=== PATIENT | female | born 1970 | race Caucasian/White ===

== ENCOUNTER → 2019-07-21 | Outpatient (CLI) | payer SELFPAY | PROVIDERS: Visit Provider Internal Medicine Hematology & Oncology | DX: Z85.41 Personal history of malignant neoplasm of cervix uteri (principal); N94.9 Unspecified condition associated with female genital organs and menstrual cycle; R10.2 Pelvic and perineal pain; R91.8 Other nonspecific abnormal finding of lung field; D64.9 Anemia, unspecified; Z79.891 Long term (current) use of opiate analgesic; Z92.3 Personal history of irradiation; Z92.21 Personal history of antineoplastic chemotherapy | CPT/HCPCS: 96523; 99203; J1642 ==

== ENCOUNTER 2019-07-22 09:43 | Inpatient (IN) | payer MEDICAID, SELFPAY ==
[2019-07-22 22:45] VITALS: BP 162/93; PULSE 80; RESP 20; TEMP 37.1; O2SAT 96
[2019-07-23] VITALS (7 sets, daily range): BP systolic 155–166; BP diastolic 87–91; PULSE 87–93; RESP 18–20; TEMP 36.7–36.9; O2SAT 94–98
[2019-07-23] MEDS: morphine 4 mg/mL SDV 1 mL 2 MG IVP ×4 (02:50→12:23)
[2019-07-23] MEDS: D5-NS 0.45% + KCL 20 mEq 20 MEQ/1,000 ML BAG 125 MEQ IV ×2 (05:06→12:24)
[2019-07-23 06:10] LABS: Add RBC Morph No
[2019-07-23 06:16] LABS: Basophils # 0.1 10^3/uL (0.0-0.1); Basophils % 0.6 %; Eosinophils # 0.1 10^3/uL (0.0-0.8); Eosinophils % 0.9 %; Hematocrit 32.3 % (37.0-47.0); Hemoglobin 10.3 g/dL (11.5-15.3); Lymphocytes # 1.4 10^3/uL (0.8-4.8); Lymphocytes % 11.2 %; Mean Corpuscular HGB Conc 31.9 g/dL (30.0-36.0); Mean Corpuscular Hemoglobin 27.8 pg (28.0-34.0); Mean Corpuscular Volume 87.1 fL (81-99); Mean Platelet Volume 9.8 fL (7.4-10.4); Monocytes % 7.6 %; Nucleated Red Blood Cells % 0 %; Platelet Count 466 10^3/cmm (130-400); Red Blood Count 3.71 10^6/uL (4.1-5.3); Red Cell Distribution Width 13.4 % (12.1-15.1); White Blood Count 12.6 10^3/uL (4.0-10.0)
[2019-07-23 06:33] LABS: Alanine Aminotransferase 11 U/L (0-33); Albumin Level 4.7 g/dL (3.5-5.2); Alkaline Phosphatase 122 IU/L (35-105); Anion Gap 16.1 (5-19); Aspartate Amino Transferase 9 U/L (0-32); Blood Urea Nitrogen 10 mg/dL (6-20); Carbon Dioxide 26 mmol/L (22-29); Chloride 97 mmol/L (98-107); Globulin 2.4 g/dL (1.3-4.6); Glomerular Filtration Rate 48.2 mL/min (90-130); Glucose 135 mg/dL (74-109); Potassium 4.1 mmol/L (3.5-5.1); Sodium 135 mmol/L (136-145); Total Bilirubin 0.3 mg/dL (0.15-1.2); Total Protein 7.1 g/dL (6.6-8.7)
[2019-07-23] MEDS: nicotine 21 mg Patch 1 PATCH TRANSDERMA (08:03)
[2019-07-23] MEDS: simethicone 40 mg/0.6 mL Bottle 30mL PO (09:18)
[2019-07-23] MEDS: LORazepam 1 mg Tablet PO (09:20)
[2019-07-23] MEDS: venlafaxine 75 mg Tablet 37.5 MG PO (09:20)
--- NOTE | 2019-07-23 13:05 | P.DS_ITS ---
Discharge Providers Date of Admission: 07/22/19 09:43 Date of Discharge: 07/23/19 Attending Provider at Admission: Dawood Jimenez Attending Provider at Discharge: Dawood Jimenez Primary Care Provider: Markell Fernandez MD Diagnoses at Discharge Discharge Diagnosis (1) Renal colic on right side: Status: Acute (2) Hydronephrosis: Status: Acute (3) Extrinsic ureteral obstruction: Status: Acute (4) Cervical cancer: Status: Acute Reason for Visit Reason for Visit: Reason For Visit: Hydronephaosis, Cervical Ca Hospital Course Hospital Course: 49-year-old lady with cervical cancer, currently undergoing restaging with Dr. Chapa, pending PET/CT in several weeks, recently with found right side hydronephrosis came to the ER due to progressive/persistent pain on the right. Renal ultrasound was obtained in ER, again with noted market right- sided hydronephrosis. No stone identified on ultrasound or CT 07/16. She was started on gentle IV hydration, kept n.p.o., and seen by urology. There is no evidence of infection in UA. She did have leukocytosis 16.9, sinus tachycardia of 105, although these were suspected secondary to pain, stress reaction from acute obstruction. She underwent cystoscopy with right retrograde ureteropyelogram with right ureteral stent placement to relieve hydronephrosis. Subsequently her pain at rest has resolved. She is she is having some pain after urination, as well as with walking. Per discussion with urology this may be expected recently after stent placement. In addition in her case it may be difficult to distinguish from other chronic pain, possibly relating to her malignancy. She is asked to follow-up with urology in office in about 2 to 2- 1/2 months or earlier if needed per Dr. Glez. Continue follow-up with oncology after PET scan. She is working with social media senior associate on obtaining insurance. She was encouraged to quit smoking. Please continue to encourage cessation. Physical Exam Const: COMMON NORMALS: no apparent distress HENMT: COMMON NORMALS: oropharynx normal Neck/C-Spine: COMMON NORMALS: no JVD Resp: COMMON NORMALS: normal respiratory effort and clear to auscultation bilaterally AUSCULTATION: clear to auscultation bilaterally Cardio: COMMON NORMALS: no JVD, regular rhythm, S1 normal heart sound, S2 normal heart sound and no murmurs RHYTHM: regular rhythm HEART SOUNDS: S1 normal and S2 normal GI: COMMON NORMALS: normal to inspection, nondistended, normoactive bowel sounds, soft to palpation and non-tender PALPATION: Yes soft and Yes tender Details: RLQ Extremity: COMMON NORMALS: no joint enlargement and no pedal edema Skin: COMMON NORMALS: no rashes or lesions noted GENERAL SKIN EXAM: no rashes or lesions noted Discharge Data Data Completed and Pending: Labs from last 24 hours 07/23/19 07/23/19 07/22/19 05:37 05:37 07:48 WBC 12.6 H RBC 3.71 L Hgb 10.3 L Hct 32.3 L MCV 87.1 MCH 27.8 L MCHC 31.9 RDW 13.4 Plt Count 466 H MPV 9.8 Neut % (Auto) 79.0 Lymph % (Auto) 11.2 Evans % (Auto) 7.6 Eos % (Auto) 0.9 Baso % (Auto) 0.6 Neut # (Auto) 10.0 H Lymph # (Auto) 1.4 Evans # (Auto) 1.0 H Eos # (Auto) 0.1 Baso # (Auto) 0.1 Nucleated RBC % (a uto) 0 Nucleated RBCs # 0.0 Sodium 135 L Potassium 4.1 Chloride 97 L Carbon Dioxide 26 Anion Gap 16.1 BUN 10 Creatinine 1.2 H GFR Calculation 48.2 L Glucose 135 H Random Glucose Calcium 10.0 Total Bilirubin 0.3 AST 9 ALT 11 Alkaline Phosphata se 122 H Total Protein 7.1 Albumin 4.7 Globulin 2.4 Lipase Urine Color YELLOW Urine Appearance CLEAR Urine pH 5 Ur Specific Gravit y 1.010 Urine Protein NEG Urine Glucose (UA) NORM Urine Ketones NEG Urine Occult Blood NEG Urine Nitrite NEG Urine Bilirubin NEG Urine Urobilinogen NORM Ur Leukocyte Natasha ase NEG Urine HCG, Qual 07/22/19 07/22/19 07/22/19 07:48 06:39 06:39 WBC 16.9 H RBC 3.89 L Hgb 10.7 L Hct 32.8 L MCV 84.3 MCH 27.5 L MCHC 32.6 RDW 13.5 Plt Count 483 H MPV 9.7 Neut % (Auto) 80.2 Lymph % (Auto) 10.2 Evans % (Auto) 7.0 Eos % (Auto) 1.2 Baso % (Auto) 0.6 Neut # (Auto) 13.6 H Lymph # (Auto) 1.7 Evans # (Auto) 1.2 H Eos # (Auto) 0.2 Baso # (Auto) 0.1 Nucleated RBC % (a uto) 0 Nucleated RBCs # 0.0 Sodium 135 L Potassium 4.3 Chloride 96 L Carbon Dioxide 25 Anion Gap 18.3 BUN 16 Creatinine 1.2 H GFR Calculation 48.2 L Glucose Random Glucose 142 H Calcium 10.1 H Total Bilirubin 0.2 AST 14 ALT 21 Alkaline Phosphata se 140 H Total Protein 7.5 Albumin 4.9 Globulin 2.6 Lipase 15 Urine Color Urine Appearance Urine pH Ur Specific Gravit y Urine Protein Urine Glucose (UA) Urine Ketones Urine Occult Blood Urine Nitrite Urine Bilirubin Urine Urobilinogen Ur Leukocyte Natasha ase Urine HCG, Qual NEGATIVE Vitals: Last Vital Signs Temp 98.0 F 07/23/19 11:08 Pulse 87 07/23/19 11:08 Resp 20 H 07/23/19 12:23 BP 155/87 07/23/19 11:08 Pulse Ox 97 07/23/19 11:08 Discharge Plan Discharge Patient Disposition: Home, Self-Care Condition: Stable Prescriptions: Continued Colace 100 mg Capsule 100 mg PO BID PRN (Reason: Constipation) RF: 0 ondansetron HCl 8 mg Tablet 8 mg PO DAILY PRN (Reason: Nausea) RF: 0 hydrocodone-acetaminophen 10-325 mg Tablet 1 tab PO Q6H PRN (Reason: Pain) RF: 0 Gas-X 180 mg PO PRN PRN (Reason: GAS) RF: 0 Tylenol 325 mg Tablet 325 mg PO BEDTIME PRN (Reason: Pain) RF: 0 venlafaxine 37.5 mg Tablet 37.5 mg PO DAILY RF: 0 lorazepam 1 mg Tablet 1 mg PO DAILY PRN (Reason: Anxiety) RF: 0 Discharge Orders: Discharge Order (Routine); Ordered 07/23/19 Ordered By: Dawood Jimenez Referrals: Narayan Glez MD [Physician] - 2 months (PLEASE CALL [facility] TOMORROW TO SET UP A FOLLOW UP APPOINTMENT.) Markell Fernandez MD [Primary Care Provider] - 4-7 days (PLEASE CALL [facility] ([phone]) TOMORROW TO SET UP A FOLLOW UP APPOINTMENT.) Discharge Activity: Increase activity as tolerated Activity Restrictions/Additional Instructions: Please keep your follow-up with PET scan and Dr. Chapa as previously agreed. If you experience worsening pain, blood in your urine, fever, or other abnormal symptoms please seek medical attention. Please stop smoking. Discharge Attestations Time Spent in Discharge Care*: greater than 30 min Quality Metrics Clinical Quality Measures During this hospital stay, did patient experience: None Coding Level of Care Code Acute Sports Physiotherapist for Giancarlog Fwd Exam Problem Focused Diagnoses Renal colic on right side N23 Hydronephrosis N13.30 Extrinsic ureteral obstruction N13.5 Cervical cancer C53.9
--- NOTE | 2019-07-23 13:50 | PC.CHAP ---
Pastoral Care Encounter/Spiritual Assessment Type of Contact [] Declined delivery consultant visit [] Patient/Family/Request visit [] Outpatient visit [] Follow-up visit [] Physician referral [] Code/Alert [x] Routine visit [] Staff referral [] Actively dying [] Patient sleeping [] Family support [] [] Out of room [] Palliative care [] [] Receiving care in room [] Pre-surgical visit [] Trauma [] Long length of stay [] ICU visit [] Other: Relational/Emotional Strength [x] Patient feels connected with others/family/visitors/staff [] Distress [] Loneliness/isolation [] Abandonment Spirituality of Patient [x] Person of Maryam [] Attends Latter-Day of their Maryam Believes in Prayer [] Reads Bible or Temple materials [] There are Spiritual issues to be addressed Radio Equipment Installer Interventions [x] Prayer [x] Active listening [x] Non-anxious presence [x] Spiritual/emotional support [] Crisis/trauma care [] Spiritual counseling [] Bereavement support [] Provided bereavement packet [] Provided Bible/devotional materials [] Provided toy/stuffed animal, coloring book to patient or family member [x] Completed spiritual assessment [] Provided Communion [] Anointing/[place] [] Salvation [] Other: Impact on Illness or Injury [] Angry [] Fearful [] Anxious [x] Often cries [] Exhaustion [] Unable to work [] Unable to attend synagogue [] Unable to walk/stand [] Unable to read [] Unable to drive [] Unable to eat/drink [] Unable to sleep [] Unable to be with family [] Other: Summary has canser in hospital alots but has a great attitude and loves her grandson Time spent with patient 15 min
== END 2019-07-23 15:10 | disposition home or self-care (01) | DRG 660 ==
PROVIDERS: Admitting Provider Internal Medicine; Emergency Provider Family Medicine; Family Provider Family Medicine; PCP Family Medicine; Referring Provider Family Medicine; Visit Provider Internal Medicine
DX: N13.5 Crossing vessel and stricture of ureter without hydronephrosis (principal); C79.19 Secondary malignant neoplasm of other urinary organs; C53.9 Malignant neoplasm of cervix uteri, unspecified; F17.210 Nicotine dependence, cigarettes, uncomplicated; Z79.891 Long term (current) use of opiate analgesic; Z92.3 Personal history of irradiation; Z92.21 Personal history of antineoplastic chemotherapy; F41.8 Other specified anxiety disorders; F43.10 Post-traumatic stress disorder, unspecified; K59.09 Other constipation
CPT/HCPCS: 36415; 52332; 74420; 76000; 76770; 80053; 81003; 81025; 83690; 85025; 96361; 96374; 96375; 96376; 99223; 99285; C2625; J0690; J2270; J2405

== ENCOUNTER 2019-07-31 11:36 | Emergency (ER) | payer MEDICAID, SELFPAY ==
[2019-07-31 11:58] VITALS: BP 110/75; PULSE 80; RESP 20; TEMP 36.4; O2SAT 98; BMI 23.3
--- NOTE | 2019-07-31 12:08 | ED_ITS ---
Entered by Danitza Juarez, acting as scribe for Bud Sung DO HPI - Abdominal Pain General: Chief Complaint: Abdominal Pain Stated Complaint: constipation Time Seen by Provider: 07/31/19 12:07 Source: patient Mode of arrival: ambulatory Limitations: no limitations History of Present Illness: HPI narrative: 49 yo f came to the er pov with family for abd pain. Onset was today. Pt states that she has not had a bowel movement since her stent was put in. MD elicited complaint: abdominal pain Pertinent past history: other (stent) Associated Symptoms: Denies chills, coffee ground emesis, constipation, GI cramping, diarrhea, dysuria, fever(s), heartburn, hematochezia, hematuria, hematemesis, melena, nausea, syncope and vomiting Review of Systems Const: Denies: fever or chills Eyes: Denies: change in vision or blurry vision ENMT: Denies: throat pain, oral sores/lesions, dental pain, nasal discharge or nasal congestion Card: Denies: syncope Resp: Denies: shortness of breath, productive cough, non-productive cough or wheezing GI: Denies: nausea, vomiting, vomiting blood, coffee grounds in vomit, heartburn/indigestion, diarrhea, constipation, cramping, blood in stool or black tarry stool : Denies: painful urination or blood in urine Musc: Denies: neck pain, back pain, extremity pain, extremity swelling, joint pain or joint swelling Skin/Breast: Denies: rash, itching or redness Neuro: Denies: headache, numbness in extremities, weakness in extremities, changes in sensation, lack of coordination, difficulty walking, frequent falls, dizziness, vertigo or confusion Psych: Denies: anxiety, depression, loss of interest, visual hallucinations, auditory hallucinations, suicidal ideation or homicidal ideation Endo: Denies: excessive urination, excessive thirst, tired all the time or cold intolerance Terence/Lymph: Denies: easy bruising, easy bleeding, petechiae, enlarged lymph nodes or tender lymph nodes PFSH ED PFSH: Statuses (acute, chronic, etc) shown below reflect problem list status as previously entered and may not be historically accurate Family History Mother Stroke FH: CABG (coronary artery bypass surgery) Diabetes Social History Smoking and tobacco status: former smoker Physical Exam Const: COMMON NORMALS: no apparent distress GENERAL APPEARANCE: cooperative and comfortable ORIENTATION/CONSCIOUSNESS: Yes awake, Yes oriented to person, Yes oriented to place and Yes oriented to time HENMT: COMMON NORMALS: normocephalic, head/scalp atraumatic, hearing grossly normal bilaterally, external ears normal, EAC's normal, TM's normal bilaterally, nasal mucous membranes and turbinates normal, moist oral mucous membranes and oropharynx normal HEAD & SCALP: normocephalic and atraumatic NOSE: nasal mucous membranes and turbinates normal EXTERNAL EAR: Yes external ears normal EXTERNAL AUDITORY CANAL: EAC's normal TYMPANIC MEMBRANE: TM's normal b ilaterally Eye: COMMON NORMALS: PERRL, EOMs intact bilaterally, conjunctivae normal and no scleral icterus CONJUNCTIVA: Yes conjunctivae normal PUPIL: Yes PERRL Neck/C-Spine: COMMON NORMALS: full ROM, no lymphadenopathy, supple and no JVD Lymph: LYMPHATIC: no lymphadenopathy noted and no lymphedema noted Resp: COMMON NORMALS: normal respiratory effort, no retractions, no use of accessory muscles and clear to auscultation bilaterally AUSCULTATION: clear to auscultation bilaterally Cardio: COMMON NORMALS: no JVD, regular rate, regular rhythm and no murmurs RATE: regular rate RHYTHM: regular rhythm Extremity: COMMON NORMALS: normal to inspection, normal capillary refill, no clubbing, cyanosis or edema, no calf tenderness and no pedal edema Neuro: SENSORIUM/ORIENTATION: Yes oriented to person, Yes oriented to place and Yes oriented to time Skin: COMMON NORMALS: no rashes or lesions noted GENERAL SKIN EXAM: no rashes or lesions noted Course ED course: Discussed with Dr. Glez he was in surgery relayed the message to move that we had seen the patient he agrees with the plan we gave her a dose of antibiotics here will discharge home on oral antibiotics she does still have anemia this is been chronic recommended she follow-up with her primary care doctor that patient was agreeable to this and discharged. Vital Signs: Vital signs: Vital Signs Temperature 97.6 F 07/31/19 11:58 Pulse Rate 74 07/31/19 15:49 Respiratory Rate 16 07/31/19 15:49 Blood Pressure 107/68 07/31/19 15:49 Pulse Oximetry 98 07/31/19 15:49 MDM - Abdominal Pain Lab Data: Labs: Lab Results 07/31/19 07/31/19 07/31/19 Range/Units 12:15 12:15 12:42 WBC 10.8 H (4.0-10.0) 10^3/ uL RBC 3.57 L (4.1-5.3) 10^6/u L Hgb 9.6 L (11.5-15.3) g/dL Hct 30.8 L (37.0-47.0) % MCV 86.3 (81-99) fL MCH 26.9 L (28.0-34.0) pg MCHC 31.2 (30.0-36.0) g/dL RDW 13.6 (12.1-15.1) % Plt Count 439 H (130-400) 10^3/c mm MPV 9.5 (7.4-10.4) fL Neut % (Auto) 73.3 % Lymph % (Auto) 13.7 % Edmunds % (Auto) 8.5 % Eos % (Auto) 3.2 % Baso % (Auto) 0.8 % Neut # (Auto) 7.9 H (1.8-7.7) 10^3/u L Lymph # (Auto) 1.5 (0.8-4.8) 10^3/u L Edmunds # (Auto) 0.9 (0.2-0.9) 10^3/u L Eos # (Auto) 0.4 (0.0-0.8) 10^3/u L Baso # (Auto) 0.1 (0.0-0.1) 10^3/u L Nucleated RBC % (a uto) 0 % Nucleated RBCs # 0.0 /100WBC Sodium 136 (136-145) mmol/L Potassium 4.2 (3.5-5.1) mmol/L Chloride 99 (98-107) mmol/L Carbon Dioxide 24 (22-29) mmol/L Anion Gap 17.2 (5-19) BUN 16 (6-20) mg/dL Creatinine 1.1 H (0.5-0.9) mg/dL GFR Calculation 53.2 L (90-130) mL/min Glucose 109 (74-109) mg/dL Calcium 9.8 (8.6-10.0) mg/Dl Total Bilirubin 0.2 (0.15-1.2) mg/dL AST 15 (0-32) U/L ALT 11 (0-33) U/L Alkaline Phosphata se 124 H (35-105) IU/L Total Protein 6.9 (6.6-8.7) g/dL Albumin 4.0 (3.5-5.2) g/dL Globulin 2.9 (1.3-4.6) g/dL Urine Color Yellow (Yellow) Urine Appearance Cloudy (CLEAR) Urine pH 5 (5-7) Ur Specific Gravit y 1.015 (1.005-1.030) Urine Protein 1+ H (Negative) Urine Glucose (UA) Norm (Normal) Urine Ketones Negative (Negative) Urine Occult Blood 3+ H (Negative) Urine Nitrate Negative (Negative) Urine Bilirubin Neg (NEGATIVE) Urine Urobilinogen Norm (Negative) mg/dL Ur Leukocyte Natasha ase 2+ H (Negative) Urine RBC 25-40 H (0-2) /hpf Urine WBC Too numerous to c nt H (0-5) /hpf Ur Squamous Epith Cells 0-4 H (0-5) Urine Bacteria 4+ H (NONE) Imaging Data ^: KUB: Radiologist's impression: [address] [address] XRay Report Signed Patient: Erwin Mason#: [id number] : 1970Acct:[id number] Age/Sex: 49 / FADM Date: 07/31/19 Loc: ER Attending Dr: Ordering Physician: Bud Sung DO Date of Service: 07/31/19 Procedure(s): XR KUB portable [id number] Accession Number(s): [id number] Report Number: [id number] WS: [id number] KUB, 07/31/2019 Clinical Data: abd pain Comparison: C-arm fluoroscopy of the pelvis and right abdomen, 07/22/2019. Findings: There is a right ureteral stent extending from the bladder to the right renal pelvis. There is a large amount of fecal material in the colon. XR/XR [facility] portable [id number] Impression: Right ureteral stent. Dictated By:Viktoriya Lomas MD Discharge Plan Discharge Patient Disposition: Home, Self-Care Clinical Impression: Cystitis, Renal colic on right side, Extrinsic ureteral obstruction, Cervical cancer Condition: Stable Prescriptions: New Levaquin 500 mg tablet 500 mg PO DAILY 5 Days Qty: 5 RF: 0 No Action docusate sodium [Colace] 100 mg Capsule 100 mg PO BID PRN (Reason: Constipation) RF: 0 ondansetron HCl 8 mg Tablet 8 mg PO DAILY PRN (Reason: Nausea) RF: 0 hydrocodone-acetaminophen 10-325 mg Tablet 1 - 2 tab PO Q6H PRN (Reason: Pain) RF: 0 Gas-X 180 mg PO PRN PRN (Reason: GAS) RF: 0 acetaminophen [Tylenol] 325 mg Tablet 325 mg PO BEDTIME PRN (Reason: Pain) RF: 0 venlafaxine 37.5 mg Tablet 37.5 mg PO DAILY RF: 0 lorazepam 1 mg Tablet 1 mg PO DAILY PRN (Reason: Anxiety) RF: 0 nicotine 21 mg/24 hr Patch 24 Hour 1 patch TRANSDERMAL DAILY RF: 0 Discharge Orders: Discharge Order (Routine); Ordered 07/31/19 Ordered By: Bud Sung Referrals: Narayan Glez MD [Physician] - 4-7 days (Follow up on cystitis and renal stent) Discharge Diet: Usual diet Discharge Activity: Increase activity as tolerated Discharge Date/Time: 07/31/19 15:50 Coding Level of Care Code ED Pot Tender for g Fwd The documentation recorded by the Larry kuo Stephanie Lyn, accurately reflects the service I personally performed and the decisions made by Pineda apple Curtis L, DO Jul 31, 2019 11:36
--- NOTE | 2019-07-31 12:10 | XR_ITS ---
WS: [id number] [facility], 07/31/2019 Clinical Data: abd pain Comparison: C-arm fluoroscopy of the pelvis and right abdomen, 07/22/2019. Findings: There is a right ureteral stent extending from the bladder to the right renal pelvis. There is a larg e amount of fecal material in the colon. XR/XR KUB portable [id number] Impression: Right ureteral stent.
[2019-07-31 12:23] LABS: Basophils # 0.1 10^3/uL (0.0-0.1); Basophils % 0.8 %; Eosinophils # 0.4 10^3/uL (0.0-0.8); Eosinophils % 3.2 %; Hematocrit 30.8 % (37.0-47.0); Hemoglobin 9.6 g/dL (11.5-15.3); Lymphocytes # 1.5 10^3/uL (0.8-4.8); Lymphocytes % 13.7 %; Mean Corpuscular HGB Conc 31.2 g/dL (30.0-36.0); Mean Corpuscular Hemoglobin 26.9 pg (28.0-34.0); Mean Corpuscular Volume 86.3 fL (81-99); Mean Platelet Volume 9.5 fL (7.4-10.4); Monocytes # 0.9 10^3/uL (0.2-0.9); Monocytes % 8.5 %; Neutrophils # 7.9 10^3/uL (1.8-7.7); Neutrophils % 73.3 %; Nucleated Red Blood Cells % 0 %; Platelet Count 439 10^3/cmm (130-400); Red Blood Count 3.57 10^6/uL (4.1-5.3); Red Cell Distribution Width 13.6 % (12.1-15.1); White Blood Count 10.8 10^3/uL (4.0-10.0)
[2019-07-31 12:42] LABS: Alanine Aminotransferase 11 U/L (0-33); Alkaline Phosphatase 124 IU/L (35-105); Anion Gap 17.2 (5-19); Aspartate Amino Transferase 15 U/L (0-32); Blood Urea Nitrogen 16 mg/dL (6-20); Calcium 9.8 mg/Dl (8.6-10.0); Carbon Dioxide 24 mmol/L (22-29); Chloride 99 mmol/L (98-107); Globulin 2.9 g/dL (1.3-4.6); Glomerular Filtration Rate 53.2 mL/min (90-130); Glucose 109 mg/dL (74-109); Potassium 4.2 mmol/L (3.5-5.1); Sodium 136 mmol/L (136-145); Total Bilirubin 0.2 mg/dL (0.15-1.2); Total Protein 6.9 g/dL (6.6-8.7)
[2019-07-31] MEDS: sodium chloride 0.9% 1,000 ML 999 ML IV (12:49)
[2019-07-31] MEDS: ondansetron 2 mg/ML SDV 2 mL 4 MG IVP (12:50)
[2019-07-31] MEDS: ketorolac 30 mg/mL INJ IVP (12:51)
[2019-07-31 12:56] VITALS: PULSE 62; RESP 20; O2SAT 98
[2019-07-31 13:24] LABS: Add Urine Microscopic? YES; Bilirubin Urine Neg (NEGATIVE); Blood Urine 3+ (Negative); Glucose Urine UA Norm (Normal); Ketones Urine Negative (Negative); Leukocyte Esterase Urine 2+ (Negative); Nitrate Urine Negative (Negative); Protein Urine 1+ (Negative); Specific Gravity, Urine 1.015 (1.005-1.030); Urine Appearance Cloudy (CLEAR); Urine Color Yellow (Yellow); Urobilinogen Urine Norm (Negative); pH Urine 5 (5-7)
[2019-07-31 13:31] LABS: RBC Urine 25-40 /hpf (0-2); WBC Urine TOO NUMEROUS TO CNT /hpf (0-5)
[2019-07-31 13:34] LABS: Bacteria Urine 4+; Squamous Epithelial Cell Urine 0-4 (0-5)
[2019-07-31 13:35] LABS: Add Urine Culture? Yes
[2019-07-31] MEDS: levofloxacin-dextrose 5 % 500 MG/100 ML PREMIX 100 MG IV (14:15)
[2019-07-31 15:00] VITALS: BP 107/68; PULSE 61; RESP 16; O2SAT 98
[2019-07-31 15:49] VITALS: BP 107/68; PULSE 74; RESP 16; O2SAT 98
--- NOTE | 2019-08-01 09:45 | DCPLANNER ---
neurology manager had message to schedule a follow up appointment scheduled for patient with Dr. Glez. neurology manager called the office of Dr. Glez, spoke with Josette. neurology manager gave clinic patients information, was told that patients information would be printed and given to Nicole for review. Clinic will call patient with appointment information, rn case management will call clinic for appointment information.
--- NOTE | 2019-08-06 12:56 | DCPLANNER ---
Patient attended appointment scheduled for 08.05.[address] Glez.
== END 2019-07-31 15:50 | disposition home or self-care (01) ==
PROVIDERS: Emergency Provider Family Medicine; Family Provider Family Medicine; PCP Family Medicine
DX: N30.90 Cystitis, unspecified without hematuria (principal); N23 Unspecified renal colic; N13.5 Crossing vessel and stricture of ureter without hydronephrosis; C53.9 Malignant neoplasm of cervix uteri, unspecified; Z87.891 Personal history of nicotine dependence
CPT/HCPCS: 74018; 80053; 81003; 85025; 87086; 96360; 96365; 96374; 96375; 99282; A9270; J1885; J1956; J2405; J7030

== ENCOUNTER 2019-08-05 09:01 | Outpatient (CLI) | payer MEDICAID, SELFPAY ==
--- NOTE | 2019-08-05 09:30 | XR_ITS ---
WS: [id number] [facility], 08/05/2019 Clinical Data: URETERAL STENT PLACEMENT Comparison: [facility], 07/31/2019 Findings: There is a large amount of fecal material throughout the colon.. The right ureteral stent remains in good position ending in the right renal pelvis and bladder. XR/XR [facility] [id number] Impression: Right ureteral stent.
== END 2019-08-05 09:02 | disposition home or self-care (01) ==
PROVIDERS: Family Provider Family Medicine; PCP Family Medicine; Visit Provider Urology
DX: N13.5 Crossing vessel and stricture of ureter without hydronephrosis (principal)
CPT/HCPCS: 74018; 81001

== ENCOUNTER 2019-08-11 10:58 | Outpatient (CLI) | payer MEDICAID, SELFPAY ==
[2019-08-11 12:08] LABS: Basophils # 0.1 10^3/uL (0.0-0.1); Basophils % 0.7 %; Eosinophils # 0.2 10^3/uL (0.0-0.8); Eosinophils % 2.2 %; Hematocrit 29.5 % (37.0-47.0); Hemoglobin 9.2 g/dL (11.5-15.3); Lymphocytes # 1.4 10^3/uL (0.8-4.8); Lymphocytes % 12.3 %; Mean Corpuscular HGB Conc 31.2 g/dL (30.0-36.0); Mean Corpuscular Hemoglobin 26.9 pg (28.0-34.0); Mean Corpuscular Volume 86.3 fL (81-99); Mean Platelet Volume 10.4 fL (7.4-10.4); Monocytes # 0.9 10^3/uL (0.2-0.9); Neutrophils # 8.5 10^3/uL (1.8-7.7); Neutrophils % 76.4 %; Nucleated Red Blood Cells % 0 %; Platelet Count 417 10^3/cmm (130-400); Red Blood Count 3.42 10^6/uL (4.1-5.3); Red Cell Distribution Width 14.6 % (12.1-15.1); White Blood Count 11.2 10^3/uL (4.0-10.0)
[2019-08-11 12:38] LABS: Alanine Aminotransferase 15 U/L (0-33); Albumin Level 3.9 g/dL (3.5-5.2); Alkaline Phosphatase 108 IU/L (35-105); Anion Gap 15.9 (5-19); Aspartate Amino Transferase 14 U/L (0-32); Blood Urea Nitrogen 17 mg/dL (6-20); Calcium 9.7 mg/Dl (8.6-10.0); Carbon Dioxide 28 mmol/L (22-29); Chloride 102 mmol/L (98-107); Ferritin 96 ng/mL (15-150); Globulin 3.6 g/dL (1.3-4.6); Glomerular Filtration Rate 76.9 mL/min (90-130); Glucose 108 mg/dL (74-109); Iron 21 ug/dL (37-145); Percent Saturation 8.6 % (20-50); Potassium 3.9 mmol/L (3.5-5.1); Sodium 142 mmol/L (136-145); Total Bilirubin 0.2 mg/dL (0.15-1.2); Total Iron Binding Capacity 244 mg/dL; Total Protein 7.5 g/dL (6.6-8.7); Unsaturated Iron Binding 223 ug/dL (112-347)
--- NOTE | 2019-08-13 15:41 | ONC FU_ITS ---
Dr. Chapa follow up note Patient: Lelo Mason Unit #: [id number]: [id number] Dicatated By: Alicia Chapa M.D.Date of Visit:Aug 11, 2019 Onc Med Follow-up/Prog Note History of Present Illness: Mrs. Lelo mason, is a 49-year-old who was diagnosed with cervical cancer in June 2018 at that time she underwent combined chemoradiation followed by brachytherapy in August 2018, tolerated well and during follow-up , scans showed evidence of recurrence of disease and underwent CT PET scan on 01/30/2019 which showed moderately intense abnormal FDG activity in the right half of the cervix, very suspicious for local recurrence of malignancy. No abnormal activity identified anywhere else. There are 2 new 4 mm noncalcified pulmonary nodules one in the right lower lobe one in the left upper lobe both of which are too small to evaluate with PET. Appears stable from CT scan of chest done on 01/10/2019. Patient also had MRI scan of the pelvis done on 01/30/2019 which showed interval near resolution of previously seen very large cervical mass with residual mild bulbous appearance to the posterior cervix and no evidence of local metastatic disease patient was seen by Dr. Grider on 03/19/2019 as per his note she was scheduled to be admitted to hospital or as an outpatient exam under anesthesia and biopsy but it was not done patient was also diagnosed with post traumatic stress disorder and planning was to refer to psychiatrist. Also discussed about systemic therapy but patient decided to transfer her care to [place] As per patient on 07/16/2019 , she noted severe vaginal bleeding for which she went to [facility] for evaluation regarding and CT scan of pelvis was done which shows heterogeneous hyperdense material vaginal canal and heterogeneous lesion in the cervix similar to prior exam. Delayed right renal nephrogram and hydroureteronephrosis to the level of the bladder no calcified distal ureteral stone. Cannot exclude a distal stricture at the level of UVJ. There is slightly asymmetric thickening of posterior right bladder base. And Underwent cystoscopy with right retrograde ureteropyelogram and right ureteral stent placement on 07/22/2019 And follow-up CT PET scan done on 08/09/2019 showed FDG positive cervical mass measuring 5.6 x 1.4 cm SUV 14.3 indicating recurrent malignancy. Pelvic lymph nodes are all subcentimeter in size and FDG negative is no evidence of distance metastatic disease. Came for follow-up, denies any specific complaint today feeling much better since right ureteral stent placement, right inguinal pain has improved significantly. No hematuria no vaginal bleeding, no back pain, no fever or chills, no nausea or vomiting or diarrhea constipation. Medications: Gas Relief 1 Capsule (of 125 Capsule) Oral t.i.d., LORazepam 1 Tablet (of 1 mg) Oral daily PRN, Ondansetron HCl 1 Tablet (of 8 mg) Oral daily PRN, Tums 1 Tablet (of 500 mg) Tablet, chewable Oral PRN, Venlafaxine HCl ER 1 Tablet (of 37.5 mg) Tablet SR 24 HR Oral daily Allergies: Sulfa Antibiotics Review of Systems: Constitutional - Appetite is good and weight is stable. No fever, chills, hot flashes. Positive for night sweats. Energy level is poor, ENMT - Positive for sinus congestion/drainage. No mouth sores. No sore throat or difficulty swallowing, Hematologic/Lymphatic - No abnormal bruising or bleeding, Respiratory - No shortness of breath. No cough. No pleuritic pain or hemoptysis, Cardiovascular - No angina pain. No palpitations, Gastrointestinal - Positive for nausea, no vomiting. Positive for heartburn and acid reflux. No diarrhea. Positive for constipation. No blood in the stool or black stools, Genitourinary (F) - No dysuria or hematuria. No urinary frequency. No urgency or incontinence, Musculoskeletal - Positive for pain, Neurologic - No headache. Positive for dizziness. No numbness/paresthesias or other focal neurologic symptoms, Psychiatric - Positive for anxiety and depression. Vital Signs: Performed on Aug 11, 2019 12:55 Height - 57.00 in Weight - 150.0 lbs (LOW) BSA - 1.59 sq.m BMI - 32.46 (HIGH) Temperature - 98.6 F Pulse - 96 /min Respiration - 20 /min BP - 123/90 mm(hg) O2 Sat - 99 % Pain - 10 Performance Status: 1 - No physically strenuous activity, but ambulatory and able to carry out light or sedentary work (e.g. office work, light house work). (ECOG) Physical Examination: ENMT - No oral exudates, ulcers, masses, thrush or mucositis. Oropharynx clear. Tongue normal, Respiratory - Lungs are clear to auscultation without rhonchi or wheezing, Cardiovascular - Regular rate and rhythm of heart, Abdomen - Non-tender, non-distended, . Good bowel sounds. No guarding or rebound tenderness. No pulsatile masses, Extremities - no edema. Lab/Imaging: Test performed on Aug 11, 2019 11:16 Ferritin 96 ng/mL % Iron Saturation 8.6 % Glucose 108 mg/dL BUN 17 mg/dL Iron, Total 21 mcg/dL Creatinine 0.8 mg/dL TIBC 244 mcg/dL Cr Clearance (Est) 93.38 mL/min Sodium 142 mmol/L Potassium 3.9 mmol/L Chloride 102 mmol/L CO2 28 mmol/L Calcium 9.7 mg/dL Protein, Total 7.5 g/dL Albumin 3.9 g/dL Globulin 3.6 g/dL Bilirubin, Total 0.2 mg/dL Alkaline Phosphatase 108 IU/L AST (SGOT) 14 IU/L ALT (SGPT) 15 IU/L WBC 11.2 10 3/uL RBC 3.42 10^12/L HGB 9.2 g/dL HCT 29.5 % MCV 86.3 fL MCH 26.9 pg MCHC 31.2 g/dL RDW 14.6 % Platelet Count 417 10 3/cmm MPV 10.4 fL Lymphocytes 1.4 10^9/L Neutrophils 0.1 10 3/uL Monocytes 0.9 10^9/L Eosinophils 0.2 10^9/L Basophils 0.1 10^9/L Neutrophil % 2.2 % Manual Lymphocytes 12.3 % Manual Monocytes 8.0 % Manual Eosinophils 2.2 % Manual Basophils 0.7 % NRBCs 0.0 /100 WBC Impression: ? Recurrent cervical cancer per CT PET scan done on 01/30/2019 which showed moderately intense abnormal FDG activity in the right side of cervix maximum SUV 8.6 suspicious for local recurrence. No additional foci of abnormal activity identified. There is 4 mm noncalcified 100 nodule in the right lower lobe and left upper lobe of the lung, appear unchanged from recent CT scan of chest done on 01/10/2019. MRI scan of the pelvis done on 01/30/2019 showed interval near resolution of previously seen very large cervical mass with residual mild bulbous appearance to the posterior cervix and no evidence of local metastatic disease CT scan of the abdomen pelvis done on 07/16/2019 showed heterogeneous hypodense material vaginal canal. Again identified is heterogeneous lesion in the cervix and he delayed right renal nephrogram and hydroureter nephrosis the level of bladder. No calcified distal ureteral stone. There is a slight asymmetric thickening of posterior right bladder base.Status post cystoscopy and right ureteral stent placement done on 07/22/2019 CT PET scan done on 08/09/2019 showed FDG positive cervical mass measuring 5.6 x 1.4 cm with SUV of 14.3 indicating recurrent malignancy. Pelvic lymph nodes are subcentimeter and FDG negative. No evidence of distance metastases Plan: Discussed with patient regarding her CT PET scan which was done on August 0909.11 which showed and FDG positive cervical mass measuring 5.6 x 1.4 cm with SUV of 14.3 indicating recurrent of malignancy. Pelvic lymph nodes are all subcentimeter in size and FDG negative there is a no distant metastases. At this point we will refer her to [facility] at [facility] for evaluation and possible surgery and if needed may consider systemic chemotherapy to downsize the tumor for surgical option. Or evaluation for clinical trial in localized recurrent cervical carcinoma Patient agreed and will return to clinic 1 week after her visit [place].. Signed By: Alicia Chapa M.D. <<Signature on File>>
== END 2019-08-11 10:59 | disposition home or self-care (01) ==
LOC: ONCMED 11:03
PROVIDERS: Family Provider Family Medicine; PCP Family Medicine; Visit Provider Internal Medicine Hematology & Oncology
DX: C53.9 Malignant neoplasm of cervix uteri, unspecified (principal); R91.8 Other nonspecific abnormal finding of lung field; F43.10 Post-traumatic stress disorder, unspecified; F41.8 Other specified anxiety disorders; Z92.21 Personal history of antineoplastic chemotherapy; Z92.3 Personal history of irradiation
CPT/HCPCS: 36415; 80053; 82728; 83540; 83550; 85025; 99214

== ENCOUNTER 2019-08-29 12:43 | Emergency (ER) | payer MEDICAID, SELFPAY ==
[2019-08-29 12:49] VITALS: BP 118/80; PULSE 105; RESP 18; TEMP 36.3; O2SAT 100; BMI 22.2
--- NOTE | 2019-08-29 13:18 | ED_ITS ---
HPI - Abdominal Pain General: Chief Complaint: Abdominal Pain Stated Complaint: blood in urine Time Seen by Provider: 08/29/19 13:18 Source: patient Mode of arrival: ambulatory Limitations: no limitations History of Present Illness: HPI narrative: Patient was sent from urgent care for abdominal pain. Patient has a history of cervical cancer and right ureteral stent. The stent was placed on July 23 for a blockage possibly due to the cervical cancer. Patient appears well. Patient appears in moderate pain. Patient reports change in urine and some nausea. Patient reports poor control of pain with hydrocodone. Review of Systems General: Reports: 10 or more systems reviewed and unremarkable except in HPI and below GI: Reports: abdominal pain PFSH ED PFSH: Statuses (acute, chronic, etc) shown below reflect problem list status as previously entered and may not be historically accurate Medical History (Updated 08/29/19 @ 14:47 by MICHAEL Geronimo) Cervical cancer (Acute) Locally metastatic resulting in extrinsic right ureteral obstruction. Port-A-Cath in place (Acute) Surgical History (Updated 08/22/19 @ 01:43 by Abbey Smith RN) H/O tubal ligation (Acute 12/03/97) S/P ureteral stent placement (Acute) Social History (Updated 08/29/19 @ 11:39 by Rossi Waldron LPN) Smoking and tobacco status: never smoked Alcohol intake: former Adopted: No Caregiver/support person: No Lives independently: No Household members: family Marital status: Legally Current occupational status: disabled Physical Exam Const: COMMON NORMALS: no apparent distress and oriented x3 GENERAL APPEARANCE: cooperative HENMT: COMMON NORMALS: normocephalic, external ears normal, EAC's normal, TM's normal bilaterally and external nose normal HEAD & SCALP: normal to inspection and normocephalic FACE & SINUS: normal facial exam NOSE: external nose normal GENERAL EAR: hearing not grossly impaired EXTERNAL EAR: Yes external ears normal EXTERNAL AUDITORY CANAL: EAC's normal TYMPANIC MEMBRANE: TM's normal bilaterally MOUTH: oral and palatal mucosa normal THROAT: posterior oropharynx normal Eye: COMMON NORMALS: PERRL and EOMs intact bilaterally PUPIL: Yes PERRL Neck/C-Spine: COMMON NORMALS: full ROM and no lymphadenopathy Lymph: LYMPHATIC: no lymphedema noted Chest: COMMONS NORMALS: inspection of chest normal and palpation of chest normal Resp: COMMON NORMALS: normal respiratory effort and clear to auscultation bilaterally AUSCULTATION: clear to auscultation bilaterally Cardio: COMMON NORMALS: regular rate and regular rhythm RATE: regular rate RHYTHM: regular rhythm GI: AUSCULTATION: Yes normoactive bowel sounds PALPATION: Yes tender (diffuse, soft) Back/Pelvis: COMMON NORMALS: thoracic and lumbar spine normal to inspection Extremity: COMMON NORMALS: normal to inspection GENERAL: No edema Neuro: COMMON NORMALS: oriented x3, moves all extremities and no focal motor deficits Psych: COMMON NORMALS: mental status grossly normal and cooperative Skin: COMMON NORMALS: no rashes or lesions noted GENERAL SKIN EXAM: no rashes or lesions noted Course Vital Signs: Vital signs: Vital Signs Temperature 97.3 F L 08/29/19 12:49 Pulse Rate 87 08/29/19 15:15 Respiratory Rate 20 H 08/29/19 15:15 Blood Pressure 132/85 08/29/19 15:15 Pulse Oximetry 98 08/29/19 15:15 MDM - Abdominal Pain MDM Narrative: Medical decision making narrative: Patient comes in today with some urinary difficulty and changing color of urine. On exam patient has a soft abdomen that she has generalized tenderness to it. No local tenderness is noted on the abdominal palpation. Skin is warm and dry color is pink. Differential diagnosis includes pyelonephritis, constipation, gastroenteritis, appendicitis, cholecystitis. Laboratory values were significant for a 13,000 white count, creatinine was 1.0 which was similar to previous exams, CT scan of the abdomen and pelvis noted renal stent in place without any signs of infection or hydronephrosis, a large amount of stool was noted in the lower colon with some wall thickening but without signs of diverticulosis or diverticulitis. Patient was treated with antibiotic due to the dysuria although nothing really truly noted for a infection in the urine. Patient was hydrated with 500 cc of normal saline and given medication for pain. Patient had improvement of symptoms and recommended to monitor for fever or worsening pain and to return as needed. Patient reported understanding agreed to plan. Lab Data: Labs: Lab Results 08/29/19 08/29/19 08/29/19 Range/Units 13:06 13:37 13:37 WBC 13.0 H (4.0-10.0) 10^3/ uL RBC 3.94 L (4.1-5.3) 10^6/u L Hgb 10.3 L (11.5-15.3) g/dL Hct 32.9 L (37.0-47.0) % MCV 83.5 (81-99) fL MCH 26.1 L (28.0-34.0) pg MCHC 31.3 (30.0-36.0) g/dL RDW 14.8 (12.1-15.1) % Plt Count 558 H (130-400) 10^3/c mm MPV 9.2 (7.4-10.4) fL Neut % (Auto) 77.3 % Lymph % (Auto) 12.8 % Carson % (Auto) 6.8 % Eos % (Auto) 1.8 % Baso % (Auto) 0.5 % Neut # (Auto) 10.1 H (1.8-7.7) 10^3/u L Lymph # (Auto) 1.7 (0.8-4.8) 10^3/u L Carson # (Auto) 0.9 (0.2-0.9) 10^3/u L Eos # (Auto) 0.2 (0.0-0.8) 10^3/u L Baso # (Auto) 0.1 (0.0-0.1) 10^3/u L Nucleated RBC % (a uto) 0 % Nucleated RBCs # 0.0 /100WBC Sodium 140 (136-145) mmol/L Potassium 4.1 (3.5-5.1) mmol/L Chloride 102 (98-107) mmol/L Carbon Dioxide 22 (22-29) mmol/L Anion Gap 20.1 H (5-19) BUN 25 H (6-20) mg/dL Creatinine 1.0 H (0.5-0.9) mg/dL GFR Calculation 59.4 L (90-130) mL/min Glucose 105 (65-115) mg/dL Lactic Acid (0.5-2.2) mmol/L Calcium 10.3 (8.5-10.5) mg/dL Total Bilirubin 0.3 (0.15-1.2) mg/dL AST 14 (0-32) U/L ALT 9 (0-33) U/L Alkaline Phosphata se 136 H (35-105) IU/L Total Protein 8.2 (6.6-8.7) g/dL Albumin 4.3 (3.5-5.2) g/dL Globulin 3.9 (1.3-4.6) g/dL HCG, Qual (Negative) Urine Color Dark yellow (Yellow) Urine Appearance Cloudy (CLEAR) Urine pH 5 (5-7) Ur Specific Gravit y 1.020 (1.005-1.030) Urine Protein 2+ H (Negative) Urine Glucose (UA) Norm (Normal) Urine Ketones 1+ H (Negative) Urine Occult Blood 3+ H (Negative) Urine Nitrate Negative (Negative) Urine Bilirubin Neg (NEGATIVE) Urine Urobilinogen 1 H (Negative) mg/dL Ur Leukocyte Natasha ase Trace H (Negative) Urine RBC >100 H (0-2) /hpf Urine WBC 10-15 H (0-5) /hpf Ur Squamous Epith Cells 0-4 H (0-5) Urine Bacteria Trace (NONE) 08/29/19 08/29/19 Range/Units 13:37 13:37 WBC (4.0-10.0) 10^3/ uL RBC (4.1-5.3) 10^6/u L Hgb (11.5-15.3) g/dL Hct (37.0-47.0) % MCV (81-99) fL MCH (28.0-34.0) pg MCHC (30.0-36.0) g/dL RDW (12.1-15.1) % Plt Count (130-400) 10^3/c mm MPV (7.4-10.4) fL Neut % (Auto) % Lymph % (Auto) % Carson % (Auto) % Eos % (Auto) % Baso % (Auto) % Neut # (Auto) (1.8-7.7) 10^3/u L Lymph # (Auto) (0.8-4.8) 10^3/u L Carson # (Auto) (0.2-0.9) 10^3/u L Eos # (Auto) (0.0-0.8) 10^3/u L Baso # (Auto) (0.0-0.1) 10^3/u L Nucleated RBC % (a uto) % Nucleated RBCs # /100WBC Sodium (136-145) mmol/L Potassium (3.5-5.1) mmol/L Chloride (98-107) mmol/L Carbon Dioxide (22-29) mmol/L Anion Gap (5-19) BUN (6-20) mg/dL Creatinine (0.5-0.9) mg/dL GFR Calculation (90-130) mL/min Glucose (65-115) mg/dL Lactic Acid 0.9 (0.5-2.2) mmol/L Calcium (8.5-10.5) mg/dL Total Bilirubin (0.15-1.2) mg/dL AST (0-32) U/L ALT (0-33) U/L Alkaline Phosphata se (35-105) IU/L Total Protein (6.6-8.7) g/dL Albumin (3.5-5.2) g/dL Globulin (1.3-4.6) g/dL HCG, Qual Negative (Negative) Urine Color (Yellow) Urine Appearance (CLEAR) Urine pH (5-7) Ur Specific Gravit y (1.005-1.030) Urine Protein (Negative) Urine Glucose (UA) (Normal) Urine Ketones (Negative) Urine Occult Blood (Negative) Urine Nitrate (Negative) Urine Bilirubin (NEGATIVE) Urine Urobilinogen (Negative) mg/dL Ur Leukocyte Natasha ase (Negative) Urine RBC (0-2) /hpf Urine WBC (0-5) /hpf Ur Squamous Epith Cells (0-5) Urine Bacteria (NONE) Discharge Plan Discharge Patient Disposition: Home, Self-Care Clinical Impression: Dysuria Constipation Qualifiers: Constipation type: unspecified constipation type Qualified Code(s): K59.00 - Constipation, unspecified Abdominal pain Qualifiers: Abdominal location: generalized Qualified Code(s): R10.84 - Generalized abdominal pain Condition: Stable Prescriptions: New Miralax 17 gram/dose powder 17 gm PO BID Qty: 510 RF: 0 phenazopyridine 200 mg tablet 200 mg PO Q8H PRN (Reason: urinary pain) Qty: 7 RF: 0 ibuprofen 600 mg tablet 600 mg PO TID PRN (Reason: pain) Qty: 30 RF: 0 cephalexin 500 mg tablet 500 mg PO TID 7 Days Qty: 21 RF: 0 No Action ondansetron HCl 8 mg tablet 8 mg PO BID PRN (Reason: Nausea) 30 Days Qty: 60 RF: 0 hydrocodone-acetaminophen 10-325 mg Tablet 1 - 2 tab PO Q6H PRN (Reason: Pain) RF: 0 venlafaxine 37.5 mg Tablet 37.5 mg PO DAILY RF: 0 lorazepam 1 mg Tablet 1 mg PO DAILY PRN (Reason: Anxiety) RF: 0 nicotine 21 mg/24 hr Patch 24 Hour 1 patch TRANSDERMAL DAILY RF: 0 Discharge Orders: Discharge Order (Routine); Ordered 08/29/19 Ordered By: You Oleary Referrals: Markell Fernandez MD [Primary Care Provider] - Discharge Diet: Usual diet Discharge Activity: Increase activity as tolerated Patient Instructions: Abdominal Pain (ED) Activity Restrictions/Additional Instructions: Drink plenty of water Continue with stool softner and medications as directed Use Miralax twice a day until constipation resolved Take antibiotic as directed Follow-up with Dr. Glez's office on Sunday Return to ER for high fever or uncontrolled pain Discharge Date/Time: 08/29/19 15:03 Coding Level of Care Code ED Appeals Manager for Ana Fwd Exam Problem Focused
--- NOTE | 2019-08-29 13:23 | CTR_ITS ---
PROCEDURE INFORMATION: Exam: CT Abdomen And Pelvis Without Contrast Exam date and time: 08/29/2019 1:27 PM Age: 49 years old Clinical indication: Abdominal pain; Flank; Right; Prior surgery; Surgery date: 6+ months; Surgery type: RT stent; Additional info: Stent right kidney, pain TECHNIQUE: Imaging protocol: Computed tomography of the abdomen and pelvis without contrast. Total DLP: 624 mGy-cm Radiation optimization: All CT scans at this facility use at least one of these dose optimization techniques: automated exposure control; mA and/or kV adjustment per patient size (includes targeted exams where dose is matched to clinical indication); or iterative reconstruction. COMPARISON: CT Abdomen/Pelvis w IV* [id number] 07/16/2019 12:23 PM FINDINGS: Detailed evaluation of the abdominal and pelvic viscera is somewhat limited in the absence of intravenous contrast. Lungs: Trace right middle and lingular airspace disease with hyperinflation of the visualized lung galindo. Liver: Focal fatty infiltration of the liver. Gallbladder and bile ducts: Dilated gallbladder, without biliary ductal dilatation. Pancreas: The pancreatic mass or ductal dilatation. Spleen: No splenomegaly. Adrenals: Unremarkable adrenals. Kidneys and ureters: Right double-J catheter extends from the right renal pelvis to the right bladder, without hydronephrosis or urolithiasis. Stomach and bowel: Mild gastric wall thickening. Mild small bowel dilatation without a transition zone. Copious stool in the left colon. Wall thickening in a nondistended transverse and right colon. Appendix: No acute appendicitis. Intraperitoneal space: No significant free fluid. Vasculature: Normal caliber of the abdominal aorta. Lymph nodes: Subcentimeter lymph nodes. Bladder: Nondistended bladder. Reproductive: Endocervical air. Bones/joints: Marginal osteophytes and mild disc bulging. CT/CT kidney stone [id number] IMPRESSION: 1. Mild gastric wall thickening. 2. Right double-J catheter extends from the right renal pelvis to the right bladder, without hydronephrosis or urolithiasis. 3. Copious stool in the left colon. Wall thickening in the nondistended transverse and right colon. 4.Additional findings as described above. Radiation Dose CTDIVOL = (mGy): DLP = 624 (mGy-cm)
--- NOTE | 2019-08-29 13:27 | PC.NURSE ---
Patient states she had surgery to place stent in right kidney 07/22/19. Has had pain in lower back and right flank, nausea, vomiting, foul smelling, yellow discharge, and pain with urination.
[2019-08-29 13:32] LABS: Urine Appearance Cloudy (CLEAR); Urine Color Dark Yellow (Yellow); pH Urine 5 (5-7)
[2019-08-29 13:33] LABS: Add Urine Microscopic? YES; Bilirubin Urine Neg (NEGATIVE); Blood Urine 3+ (Negative); Glucose Urine UA Norm (Normal); Ketones Urine 1+ (Negative); Leukocyte Esterase Urine Trace (Negative); Nitrate Urine Negative (Negative); Protein Urine 2+ (Negative); Urobilinogen Urine 1 mg/dL (Negative)
[2019-08-29] MEDS: ondansetron 2 mg/ML SDV 2 mL 4 MG IVP (13:39)
[2019-08-29 13:40] VITALS: RESP 20
[2019-08-29] MEDS: morphine 4 mg/mL SDV 1 mL IVP (13:40)
[2019-08-29 13:47] LABS: Basophils # 0.1 10^3/uL (0.0-0.1); Basophils % 0.5 %; Eosinophils # 0.2 10^3/uL (0.0-0.8); Eosinophils % 1.8 %; Hematocrit 32.9 % (37.0-47.0); Hemoglobin 10.3 g/dL (11.5-15.3); Lymphocytes # 1.7 10^3/uL (0.8-4.8); Lymphocytes % 12.8 %; Mean Corpuscular HGB Conc 31.3 g/dL (30.0-36.0); Mean Corpuscular Hemoglobin 26.1 pg (28.0-34.0); Mean Corpuscular Volume 83.5 fL (81-99); Mean Platelet Volume 9.2 fL (7.4-10.4); Monocytes # 0.9 10^3/uL (0.2-0.9); Monocytes % 6.8 %; Neutrophils # 10.1 10^3/uL (1.8-7.7); Neutrophils % 77.3 %; Nucleated Red Blood Cells % 0 %; Platelet Count 558 10^3/cmm (130-400); Red Blood Count 3.94 10^6/uL (4.1-5.3); Red Cell Distribution Width 14.8 % (12.1-15.1)
[2019-08-29 13:57] LABS: RBC Urine >100 /hpf (0-2)
[2019-08-29 13:58] LABS: Add Urine Culture? Yes; Bacteria Urine TRACE; Squamous Epithelial Cell Urine 0-4 (0-5)
[2019-08-29 14:10] LABS: Alanine Aminotransferase 9 U/L (0-33); Albumin Level 4.3 g/dL (3.5-5.2); Alkaline Phosphatase 136 IU/L (35-105); Anion Gap 20.1 (5-19); Aspartate Amino Transferase 14 U/L (0-32); Blood Urea Nitrogen 25 mg/dL (6-20); Calcium 10.3 mg/dL (8.5-10.5); Carbon Dioxide 22 mmol/L (22-29); Chloride 102 mmol/L (98-107); Globulin 3.9 g/dL (1.3-4.6); Glomerular Filtration Rate 59.4 mL/min (90-130); Glucose 105 mg/dL (65-115); Potassium 4.1 mmol/L (3.5-5.1); Sodium 140 mmol/L (136-145); Total Bilirubin 0.3 mg/dL (0.15-1.2); Total Protein 8.2 g/dL (6.6-8.7)
[2019-08-29 14:11] LABS: Lactic Sepsis W/Reflex 0.9 mmol/L (0.5-2.2)
[2019-08-29] MEDS: cefTRIAXone 1,000 MG in sodium chloride 0.9% (plus) 50 ML 100 MG IV (14:14)
[2019-08-29] MEDS: sodium chloride 0.9% 500 ML 999 ML IV (14:15)
[2019-08-29 14:26] LABS: HCG, Serum Qual Negative (Negative)
[2019-08-29] MEDS: ketorolac 30 mg/mL INJ 15 MG IVP (14:58)
[2019-08-29] MEDS: phenazopyridine 100 mg Tablet 200 MG PO (14:59)
[2019-08-29 15:15] VITALS: BP 132/85; PULSE 87; RESP 20; O2SAT 98
--- NOTE | 2019-09-01 11:06 | DCPLANNER ---
occupational therapy manager had message to schedule a follow up appointment for patient with Dr. Melgar office. occupational therapy manager called the office of Dr. Glez, spoke with Josette, catalytic case operator gave clinic patients information. occupational therapy manager was told that patients information would be printed and given to Nicole for review. Clinic will call patient with appointment information, catalytic case operator will call for appointment information.
--- NOTE | 2019-09-04 11:02 | DCPLANNER ---
Patient has an appointment scheduled for Thursday, September 05, 2019 at 9:[address] Glez. Clinic will call patient with appointment information.
--- NOTE | 2019-09-12 14:54 | DCPLANNER ---
Patient did attend the appointment scheduled for 09.05.[address] Melgar office.
== END 2019-08-29 15:03 | disposition home or self-care (01) ==
PROVIDERS: Emergency Provider Nurse Practitioner Family; Family Provider Family Medicine; PCP Family Medicine
DX: K59.00 Constipation, unspecified (principal); R30.0 Dysuria; Z85.41 Personal history of malignant neoplasm of cervix uteri
CPT/HCPCS: 36415; 74176; 80053; 81001; 81003; 83605; 84703; 85025; 87040; 87086; 96365; 96375; 99283; A9270; J0696; J1885; J2270; J2405; J7040

== ENCOUNTER 2019-09-05 09:51 | Outpatient (CLI) | payer MEDICAID, SELFPAY ==
--- NOTE | 2019-09-05 08:45 | US_ITS ---
WS: [id number] Bilateral renal ultrasound, 09/05/2019 Clinical Data: hydronephrosis Comparison: None. Findings: The right kidney measures 10.4 cm x 4.4 cm x 3.9 cm and the left kidney is 10.3 cm x 4.6 cm x 4.5 cm. There are no cysts, masses or hydronephrosis. The renal cortical margin is normal. No renal calculi are seen. There is a stent in the right renal pelvis. The abdominal aorta and inferior vena cava show no vascular abnormalities. The bladder was scanned and shows a stent. US/US renal BI* [id number] Impression: 1. Negative bilateral renal ultrasound 2. Right ureteral stent.
== END 2019-09-05 09:52 | disposition home or self-care (01) ==
LOC: RAD 09:53
PROVIDERS: Family Provider Family Medicine; PCP Family Medicine; Visit Provider Urology
DX: N13.30 Unspecified hydronephrosis (principal)
CPT/HCPCS: 76770; 81001

== ENCOUNTER 2019-09-12 08:41 | Outpatient (CLI) | payer MEDICAID, SELFPAY ==
[2019-09-12 09:05] LABS: Basophils # 0.1 10^3/uL (0.0-0.1); Basophils % 0.5 %; Eosinophils # 0.3 10^3/uL (0.0-0.8); Eosinophils % 2.2 %; Hematocrit 32.4 % (37.0-47.0); Hemoglobin 10.1 g/dL (11.5-15.3); Lymphocytes # 1.2 10^3/uL (0.8-4.8); Lymphocytes % 8.8 %; Mean Corpuscular HGB Conc 31.2 g/dL (30.0-36.0); Mean Corpuscular Volume 86.6 fL (81-99); Mean Platelet Volume 9.4 fL (7.4-10.4); Monocytes # 0.8 10^3/uL (0.2-0.9); Monocytes % 5.9 %; Neutrophils # 10.8 10^3/uL (1.8-7.7); Neutrophils % 81.8 %; Nucleated Red Blood Cells % 0 %; Platelet Count 531 10^3/cmm (130-400); Red Blood Count 3.74 10^6/uL (4.1-5.3); Red Cell Distribution Width 18.4 % (12.1-15.1); White Blood Count 13.2 10^3/uL (4.0-10.0)
[2019-09-12 09:19] LABS: Alanine Aminotransferase 6 U/L (0-33); Alkaline Phosphatase 107 IU/L (35-105); Anion Gap 20.5 (5-19); Aspartate Amino Transferase 10 U/L (0-32); Blood Urea Nitrogen 17 mg/dL (6-20); Calcium 10.5 mg/dL (8.5-10.5); Carbon Dioxide 19 mmol/L (22-29); Chloride 102 mmol/L (98-107); Globulin 3.9 g/dL (1.3-4.6); Glomerular Filtration Rate 67.1 mL/min (90-130); Glucose 131 mg/dL (65-115); Potassium 3.5 mmol/L (3.5-5.1); Sodium 138 mmol/L (136-145); Total Bilirubin 0.2 mg/dL (0.15-1.2); Total Protein 7.9 g/dL (6.6-8.7)
== END 2019-09-12 08:42 | disposition home or self-care (01) ==
LOC: ONCMED 08:43
PROVIDERS: Family Provider Family Medicine; PCP Family Medicine; Visit Provider Internal Medicine Hematology & Oncology
DX: C53.9 Malignant neoplasm of cervix uteri, unspecified (principal)
CPT/HCPCS: 80053; 85025

== ENCOUNTER 2019-09-15 08:49 | Outpatient (CLI) | payer MEDICAID, SELFPAY ==
--- NOTE | 2019-09-15 16:08 | ONC FU_ITS ---
Dr. Chapa follow up note Patient: Lelo Mason Unit #: [id number]: [id number] Dicatated By: Alicia Chapa M.D.Date of Visit:Sep 15, 2019 Onc Med Follow-up/Prog Note History of Present Illness: Mrs. Lelo mason, is a 49-year-old who was diagnosed with cervical cancer in June 2018 at that time she underwent combined chemoradiation followed by brachytherapy in August 2018, tolerated well and during follow-up , scans showed evidence of recurrence of disease and underwent CT PET scan on 01/30/2019 which showed moderately intense abnormal FDG activity in the right half of the cervix, very suspicious for local recurrence of malignancy. No abnormal activity identified anywhere else. There are 2 new 4 mm noncalcified pulmonary nodules one in the right lower lobe one in the left upper lobe both of which are too small to evaluate with PET. Appears stable from CT scan of chest done on 01/10/2019. Patient also had MRI scan of the pelvis done on 01/30/2019 which showed interval near resolution of previously seen very large cervical mass with residual mild bulbous appearance to the posterior cervix and no evidence of local metastatic disease patient was seen by Dr. Grider on 03/19/2019 as per his note she was scheduled to be admitted to hospital or as an outpatient exam under anesthesia and biopsy but it was not done patient was also diagnosed with post traumatic stress disorder and planning was to refer to psychiatrist. Also discussed about systemic therapy but patient decided to transfer her care to [place] As per patient on 07/16/2019 , she noted severe vaginal bleeding for which she went to [facility] for evaluation regarding and CT scan of pelvis was done which shows heterogeneous hyperdense material vaginal canal and heterogeneous lesion in the cervix similar to prior exam. Delayed right renal nephrogram and hydroureteronephrosis to the level of the bladder no calcified distal ureteral stone. Cannot exclude a distal stricture at the level of UVJ. There is slightly asymmetric thickening of posterior right bladder base. And Underwent cystoscopy with right retrograde ureteropyelogram and right ureteral stent placement on 07/22/2019 And follow-up CT PET scan done on 08/09/2019 showed FDG positive cervical mass measuring 5.6 x 1.4 cm SUV 14.3 indicating recurrent malignancy. Pelvic lymph nodes are all subcentimeter in size and FDG negative is no evidence of distance metastatic disease. feeling much better since right ureteral stent placement, right inguinal pain has improved significantly. Underwent ultrasound bilateral renal on 09/05/2019 which showed negative bilateral renal ultrasound right ureter stent, no hydronephrosis. Came for follow-up, complaining of right flank pain as she ran out of pain medication. Patient said she went to [facility] for evaluation and biopsy of cervical lesion was recommended and planned but patient decided not to go back as the places is too big for her, rather prefer to go to [facility]. Patient said pain is 10 on the scale of 1-10 denies any hematuria denies any dysuria or fever. Denies any trauma to the flank or back. Denies any pain radiating to right leg. Denies any vaginal bleed. Or hematuriaPatient has seen urology recently Medications: Gas Relief 1 Capsule (of 125 Capsule) Oral t.i.d., HYDROcodone-Acetaminophen 1 - 2 Tablet (of 5-325 mg) Oral q 6 hours PRN, LORazepam 1 Tablet (of 1 mg) Oral daily PRN, Ondansetron HCl 1 Tablet (of 8 mg) Oral daily PRN, Tums 1 Tablet (of 500 mg) Tablet, chewable Oral PRN, Venlafaxine HCl ER 1 Tablet (of 37.5 mg) Tablet SR 24 HR Oral daily Allergies: Sulfa Antibiotics Review of Systems: Constitutional - Appetite is poor and weight is decreasing. No fever, chills, hot flashes. Positive for night sweats. Energy level is poor, ENMT - Positive for sinus congestion/drainage. No mouth sores. No sore throat or difficulty swallowing, Hematologic/Lymphatic - No abnormal bruising or bleeding, Respiratory - No shortness of breath. No cough. No pleuritic pain or hemoptysis, Cardiovascular - No angina pain. No palpitations, Gastrointestinal - Positive for nausea, no vomiting. Positive for heartburn and acid reflux. No diarrhea. Positive for constipation. No blood in the stool or black stools, Genitourinary (F) - No dysuria or hematuria. No urinary frequency. No urgency or incontinence, Musculoskeletal - Positive for pain, Neurologic - No headache. Positive for dizziness. No numbness/paresthesias or other focal neurologic symptoms, Psychiatric - Positive for anxiety and depression. Pt is tearful today. Vital Signs: Vitals are not available for this patient. Performance Status: 1 - No physically strenuous activity, but ambulatory and able to carry out light or sedentary work (e.g. office work, light house work). (ECOG) Physical Examination: ENMT - No oral exudates, ulcers, masses, thrush or mucositis. Oropharynx clear. Tongue normal, Respiratory - Lungs are clear to auscultation without rhonchi or wheezing, Cardiovascular - Regular rate and rhythm of heart, Abdomen - Non-tender, non-distended, Good bowel sounds. No guarding or rebound tenderness. No pulsatile masses, Extremities - no edema. Lab/Imaging: Test performed on Aug 11, 2019 11:16 Ferritin 96 ng/mL % Iron Saturation 8.6 % Glucose 108 mg/dL BUN 17 mg/dL Iron, Total 21 mcg/dL Creatinine 0.8 mg/dL TIBC 244 mcg/dL Cr Clearance (Est) 93.38 mL/min Sodium 142 mmol/L Potassium 3.9 mmol/L Chloride 102 mmol/L CO2 28 mmol/L Calcium 9.7 mg/dL Protein, Total 7.5 g/dL Albumin 3.9 g/dL Globulin 3.6 g/dL Bilirubin, Total 0.2 mg/dL Alkaline Phosphatase 108 IU/L AST (SGOT) 14 IU/L ALT (SGPT) 15 IU/L WBC 11.2 10 3/uL RBC 3.42 10^12/L HGB 9.2 g/dL HCT 29.5 % MCV 86.3 fL MCH 26.9 pg MCHC 31.2 g/dL RDW 14.6 % Platelet Count 417 10 3/cmm MPV 10.4 fL Lymphocytes 1.4 10^9/L Neutrophils 0.1 10 3/uL Monocytes 0.9 10^9/L Eosinophils 0.2 10^9/L Basophils 0.1 10^9/L Neutrophil % 2.2 % Manual Lymphocytes 12.3 % Manual Monocytes 8.0 % Manual Eosinophils 2.2 % Manual Basophils 0.7 % NRBCs 0.0 /100 WBC Impression: ? Recurrent cervical cancer per CT PET scan done on 01/30/2019 which showed moderately intense abnormal FDG activity in the right side of cervix maximum SUV 8.6 suspicious for local recurrence. No additional foci of abnormal activity identified. There is 4 mm noncalcified 100 nodule in the right lower lobe and left upper lobe of the lung, appear unchanged from recent CT scan of chest done on 01/10/2019. MRI scan of the pelvis done on 01/30/2019 showed interval near resolution of previously seen very large cervical mass with residual mild bulbous appearance to the posterior cervix and no evidence of local metastatic disease CT scan of the abdomen pelvis done on 07/16/2019 showed heterogeneous hypodense material vaginal canal. Again identified is heterogeneous lesion in the cervix and he delayed right renal nephrogram and hydroureter nephrosis the level of bladder. No calcified distal ureteral stone. There is a slight asymmetric thickening of posterior right bladder base.Status post cystoscopy and right ureteral stent placement done on 07/22/2019 CT PET scan done on 08/09/2019 showed FDG positive cervical mass measuring 5.6 x 1.4 cm with SUV of 14.3 indicating recurrent malignancy. Pelvic lymph nodes are subcentimeter and FDG negative. No evidence of distance metastases Plan: Discussed with patient regarding her labs white blood count 13.2 hemoglobin 10.1 crit 32.4 platelets 531,000 CMP within normal limits Clinically, patient is in moderate to severe distress due to right flank/inguinal pain etiology remained unclear as per renal ultrasound showed no evidence of hydronephrosis in the right side but she has uretral stent, probably functioning fine. Other possibility could be recurrent disease. Patient was referred to [facility] [employer] oncology department and she was recommended biopsy of the cervical mass but patient decided not to pursue and today came back to clinic and now complaining of severe pain not being controlled with current pain medication and also ran out of pain pills. At this point [facility] for [facility] for possible inpatient care or transfer to [facility] in [place] for [employer] surgical oncology evaluation. And we'll see her back in 1 week with CBC CMP otherwise.Patient was advised that surgical evaluation is very important as she is a candidate for surgery then that would be preferred option otherwise we'll consider palliative chemotherapy Signed By: Alicia Chapa M.D. <<Signature on File>>
== END 2019-09-15 08:50 | disposition home or self-care (01) ==
LOC: ONCMED 08:49
PROVIDERS: Family Provider Family Medicine; PCP Family Medicine; Visit Provider Internal Medicine Hematology & Oncology
DX: C53.9 Malignant neoplasm of cervix uteri, unspecified (principal); F41.8 Other specified anxiety disorders; R91.8 Other nonspecific abnormal finding of lung field; Z79.899 Other long term (current) drug therapy; Z96.0 Presence of urogenital implants
CPT/HCPCS: 99214

== ENCOUNTER 2019-09-15 09:49 | Emergency (ER) | payer MEDICAID, SELFPAY ==
[2019-09-15 09:56] VITALS: BP 126/86; PULSE 88; RESP 20; TEMP 36.7; O2SAT 100; BMI 20.9
--- NOTE | 2019-09-15 11:05 | ED_ITS ---
Entered by Cheyanne Claire, acting as scribe for Hiwot Coy MD, [facility] Sep 15, 2019 09:49 HPI - Female Genitourinary General: Chief complaint: Urogenital-Female Stated complaint: sent to be transferred Time Seen by Provider: 09/15/19 11:05 Source: patient Mode of arrival: ambulatory Limitations: no limitations History of Present Illness: HPI Narrative: 49 yo Female presents to ED with complaint of abdominal pain. Pt states that she is having pain from her stent and her cancer doctor sent her here to be transferred to [place]. Pt states that she has been having this pain for a month since she she had the stent put in. Pt states that she was told the stent is working fine so they don't know if it is her cancer causing her pain. MD elicited complaint: other (severe abdominal pain) Pertinent past history: other (cervical cancer, ureteral stent) Onset (ago): week(s) Location of symptoms: other (diffuse abdominal pain) Severity: severe Severity scale (1-10): 10 Quality of pain: sharp Consistency: constant Vaginal discharge: none Vaginal bleeding: none Urinary symptoms: Difficulty Urinating Exacerbating factors: urination and movement Relieving factors: none Associated symptoms: Reports abdominal pain; Deny headache(s) Review of Systems General: Reports: 10 or more systems reviewed and unremarkable except in HPI and below Const: Denies: fever, chills or body aches Eyes: Denies: change in vision or blurry vision ENMT: Denies: throat pain, enlarged tonsils, painful swallowing, hoarseness, mouth pain or swelling of lips/tongue Card: Denies: chest pain, palpitations, irregular heart rhythm, edema or swelling of feet/ankles Resp: Denies: shortness of breath, productive cough or non-productive cough GI: Reports: abdominal pain : Denies: flank pain, difficulty urinating, painful urination, urinary frequency, urinary urgency or urinary hesitancy Musc: Denies: neck pain, back pain or extremity swelling Skin/Breast: Denies: rash, itching or redness Neuro: Denies: headache, numbness in extremities or weakness in extremities Endo: Denies: excessive urination, excessive thirst or tired all the time PFS ED PFSH: Medical History Cervical cancer Locally metastatic resulting in extrinsic right ureteral obstruction. Port-A-Cath in place Surgical History H/O tubal ligation (12/03/97) S/P ureteral stent placement Family History Mother Stroke FH: CABG (coronary artery bypass surgery) Diabetes Social History Smoking and tobacco status: current every day smoker Alcohol intake: former Adopted: No Caregiver/support person: No Lives independently: No Household members: family Marital status: Legally Current occupational status: disabled Physical Exam Const: COMMON NORMALS: average body habitus, oriented x3, no limitations, healthy appearing, alert and well nourished GENERAL APPEARANCE: in distress (Painful) HENMT: COMMON NORMALS: normocephalic, head/scalp atraumatic and moist oral mucous membranes HEAD & SCALP: normocephalic and atraumatic Eye: COMMON NORMALS: PERRL, EOMs intact bilaterally, conjunctivae normal and no scleral icterus CONJUNCTIVA: Yes conjunctivae normal PUPIL: Yes PERRL Neck/C-Spine: COMMON NORMALS: full ROM, supple, no meningeal signs, no JVD and no carotid bruits Chest: COMMONS NORMALS: inspection of chest normal and palpation of chest normal Resp: COMMON NORMALS: normal respiratory effort, no retractions, no use of accessory muscles, clear to auscultation bilaterally and percussion normal AUSCULTATION: clear to auscultation bilaterally PERCUSSION: percussion normal Cardio: COMMON NORMALS: no JVD, regular rate, regular rhythm, S1 normal heart sound, S2 normal heart sound, no gallops, no clicks, no murmurs, no rub and peripheral pulses 2+ throughout RATE: regular rate RHYTHM: regular rhythm HEART SOUNDS: S1 normal and S2 normal PERIPHERAL PULSES: pulses 2+ throughout GI: COMMON NORMALS: normal to inspection, nondistended, normoactive bowel sounds, soft to palpation, no hepatosplenomegaly, no masses and no bruits PALPATION: Yes soft, Yes tender Details: other (Lower abdomen) and Yes no hepatosplenomegaly : COMMON NORMALS: Yes no CVA tenderness BLADDER/KIDNEY EXAM: Yes no CVA tenderness Back/Pelvis: COMMON NORMALS: no CVA tenderness Extremity: COMMON NORMALS: normal to inspection, full ROM, normal capillary refill, no calf tenderness and no pedal edema Neuro: COMMON NORMALS: oriented x3 SENSORIUM/ORIENTATION: Yes alert MENINGEAL SIGNS: Yes no meningeal signs Skin: COMMON NORMALS: no rashes or lesions noted, no wounds, skin turgor normal, no jaundice, no petechiae and no mottling GENERAL SKIN EXAM: no rashes or lesions noted and turgor normal Course Consultations: Consultation #1: Dr. Chapa, Oncologist at 14:32 and 15:00 and 16:19 Attempt to get the patient admitted to [facility] in [place]. The patient has been referred to gynecologic oncology in [place] but the patient is refusing to go and was uncooperative with the physicians there. She has also been referred to [facility] and states that she does not like the surgeon there so she does not want to go back there. She only wants to be transferred to [facility] in [place]. Time: 14:32 Consultation #2: [facility] Transfer [facility] at 14:45 and 15:30 Gynecologic oncology will not admit the patient, neither will medicine or surgery. Patient, worked up outpatient Time: 14:45 Vital Signs: Vital signs: Vital Signs Temperature 98.2 F 09/15/19 17:09 Pulse Rate 87 09/15/19 17:09 Respiratory Rate 18 09/15/19 17:09 Blood Pressure 128/78 09/15/19 17:09 Pulse Oximetry 100 09/15/19 17:09 MDM - Female MDM Narrative: Medical decision making narrative: This unfortunate patient with a history of cervical cancer who also had ureteric obstruction status post stent placement. The patient has been in severe pain and so came to the emergency department for possible transfer to [facility] in [place]. From talking with this patient, her oncologist, and the other hospitals the patient has been to [facility] in [place], [facility] in [place] and each time found a reason why she did not like any of the places. She is however requesting to be sent to [facility] in [place] now, she will be followed up outpatient. Her pain was controlled with intravenous narcotic analgesics here in the emergency department and she is discharged home with a prescription for Percocet. She is to follow-up with her oncologist next week and with the gynecologic oncologist as soon as she can get in for work-up and possible surgical removal of the tumor. Medical Records: Attestation: I reviewed the patient's medical records. Lab Data: Attestation: I reviewed the patient's lab results. Labs: Lab Results 09/15/19 09/15/19 09/15/19 Range/Units 10:20 11:24 11:24 WBC 11.1 H (4.0-10.0) 10^3/ uL RBC 3.72 L (4.1-5.3) 10^6/u L Hgb 10.2 L (11.5-15.3) g/dL Hct 32.2 L (37.0-47.0) % MCV 86.6 (81-99) fL MCH 27.4 L (28.0-34.0) pg MCHC 31.7 (30.0-36.0) g/dL RDW 18.5 H (12.1-15.1) % Plt Count 516 H (130-400) 10^3/c mm MPV 10.0 (7.4-10.4) fL Neut % (Auto) 74.1 % Lymph % (Auto) 13.9 % [place] % (Auto) 9.6 % Eos % (Auto) 1.1 % Baso % (Auto) 0.7 % Neut # (Auto) 8.3 H (1.8-7.7) 10^3/u L Lymph # (Auto) 1.6 (0.8-4.8) 10^3/u L [place] # (Auto) 1.1 H (0.2-0.9) 10^3/u L Eos # (Auto) 0.1 (0.0-0.8) 10^3/u L Baso # (Auto) 0.1 (0.0-0.1) 10^3/u L Nucleated RBC % (a uto) 0 % Nucleated RBCs # 0.0 /100WBC Sodium 141 (136-145) mmol/L Potassium 3.8 (3.5-5.1) mmol/L Chloride 107 (98-107) mmol/L Carbon Dioxide 15 L (22-29) mmol/L Anion Gap 22.8 H (5-19) BUN 30 H (6-20) mg/dL Creatinine 1.0 H (0.5-0.9) mg/dL GFR Calculation 59.4 L (90-130) mL/min Glucose 109 (65-115) mg/dL Lactate (0.5-2.2) mmol/L Calcium 10.3 (8.5-10.5) mg/dL Total Bilirubin 0.2 (0.15-1.2) mg/dL AST 11 (0-32) U/L ALT 8 (0-33) U/L Alkaline Phosphata se 121 H (35-105) IU/L Total Protein 7.6 (6.6-8.7) g/dL Albumin 4.5 (3.5-5.2) g/dL Globulin 3.1 (1.3-4.6) g/dL Urine Color Yellow (Yellow) Urine Appearance Cloudy (CLEAR) Urine pH 5 (5-7) Ur Specific Gravit y 1.015 (1.005-1.030) Urine Protein 1+ H (Negative) Urine Glucose (UA) Norm (Normal) Urine Ketones Negative (Negative) Urine Blood 3+ H (Negative) Urine Nitrate Negative (Negative) Urine Bilirubin Neg (NEGATIVE) Urine Urobilinogen Norm (Negative) mg/dL Ur Leukocyte Natasha ase Trace H (Negative) Urine RBC >100 H (0-2) /hpf Urine WBC 10-15 H (0-5) /hpf Ur Squamous Epith Cells 0-4 H (0-5) Ur Transition Epit h Cell 5-10 /hpf Urine Bacteria 1+ H (NONE) Hyaline Casts 0-4 H Coarse Granular Ca sts 0-4 H /lpf Urine Mucus Trace 02/24/20 Range/Units 11:30 WBC (4.0-10.0) 10^3/ uL RBC (4.1-5.3) 10^6/u L Hgb (11.5-15.3) g/dL Hct (37.0-47.0) % MCV (81-99) fL MCH (28.0-34.0) pg MCHC (30.0-36.0) g/dL RDW (12.1-15.1) % Plt Count (130-400) 10^3/c mm MPV (7.4-10.4) fL Neut % (Auto) % Lymph % (Auto) % [place] % (Auto) % Eos % (Auto) % Baso % (Auto) % Neut # (Auto) (1.8-7.7) 10^3/u L Lymph # (Auto) (0.8-4.8) 10^3/u L [place] # (Auto) (0.2-0.9) 10^3/u L Eos # (Auto) (0.0-0.8) 10^3/u L Baso # (Auto) (0.0-0.1) 10^3/u L Nucleated RBC % (a uto) % Nucleated RBCs # /100WBC Sodium (136-145) mmol/L Potassium (3.5-5.1) mmol/L Chloride (98-107) mmol/L Carbon Dioxide (22-29) mmol/L Anion Gap (5-19) BUN (6-20) mg/dL Creatinine (0.5-0.9) mg/dL GFR Calculation (90-130) mL/min Glucose (65-115) mg/dL Lactate 0.9 (0.5-2.2) mmol/L Calcium (8.5-10.5) mg/dL Total Bilirubin (0.15-1.2) mg/dL AST (0-32) U/L ALT (0-33) U/L Alkaline Phosphata se (35-105) IU/L Total Protein (6.6-8.7) g/dL Albumin (3.5-5.2) g/dL Globulin (1.3-4.6) g/dL Urine Color (Yellow) Urine Appearance (CLEAR) Urine pH (5-7) Ur Specific Gravit y (1.005-1.030) Urine Protein (Negative) Urine Glucose (UA) (Normal) Urine Ketones (Negative) Urine Blood (Negative) Urine Nitrate (Negative) Urine Bilirubin (NEGATIVE) Urine Urobilinogen (Negative) mg/dL Ur Leukocyte Natasha ase (Negative) Urine RBC (0-2) /hpf Urine WBC (0-5) /hpf Ur Squamous Epith Cells (0-5) Ur Transition Epit h Cell /hpf Urine Bacteria (NONE) Hyaline Casts Coarse Granular Ca sts /lpf Urine Mucus Imaging Data: CT Abd/Pel: Radiologist's impression: [facility] [address] [place] [address] CT Scan Report Signed Patient: MarlonOctober Francisco #: [id number] : 1970Acct#:[id number] Age/Sex: 49 / FADM Date: 09/15/19 Loc: ERRoom/Bed: Attending Dr: Ordering Provider/Ordering MD: Hiwot Coy MD, LYNNE Date of Service: 09/15/19 Procedure(s): CT abdomen pelvis w con* [id number] Accession Number(s): [id number] Report Number: [id number] PROCEDURE INFORMATION: Exam: CT Abdomen And Pelvis With Contrast Exam date and time: 09/15/2019 12:28 PM Age: 49 years old Clinical indication: Abdominal pain; Acute; Prior surgery; Surgery date: 1-6 months; Surgery type: Stent placement; Additional info: Cervical cancer with obstructive uropathy S/P stent placemen TECHNIQUE: Imaging protocol: Computed tomography of the abdomen and pelvis with intravenous contrast. Total DLP: 515.84 mGy-cm Radiation optimization: All CT scans at this facility use at least one of these dose optimization techniques: automated exposure control; mA and/or kV adjustment per patient size (includes targeted exams where dose is matched to clinical indication); or iterative reconstruction. Contrast material: OMNI 300; Contrast volume: 95 ml; Contrast route: IV; COMPARISON: CT Abdomen/Pelvis w IV* [id number] 07/16/2019 12:23 PM FINDINGS: Liver: Normal. No mass. Gallbladder and bile ducts: Normal. No calcified stones. No ductal dilation. Pancreas: Normal. No ductal dilation. Spleen: Normal. No splenomegaly. Adrenals: Normal. No mass. Kidneys and ureters: There is a right ureteral stent with the tip in the bladder. No hydronephrosis. No renal calcification or mass. Stomach and bowel: There is new wall thickening the rectosigmoid colon versus underdistention. No bowel obstruction. Appendix: The appendix is visualized and appears normal. Intraperitoneal space: Unremarkable. No free air. No significant fluid collection. Vasculature: Unremarkable. No abdominal aortic aneurysm. Lymph nodes: Unremarkable. No enlarged lymph nodes. Bladder: Reproductive: There is gas and fluid in the cervix as seen on series 2, image 69 which was also seen on the previous exam. Bones/joints: Unremarkable. No acute fracture. Soft tissues: Unremarkable. CT/CT abdomen pelvis w con* [id number] IMPRESSION: There is a right ureteral stent without complication. There is questionable new colitis of the rectosigmoid colon versus underdistention when compared with 08/29/2019. Radiation Dose CTDIVOL = (mGy): DLP = 515.84 (mGy-cm) Dictated By:Vincent Lagunas MD Signed By:Vincent Lagunas MDSigned Date/Time:09/15/191402 DD/ 01 Discharge Plan Discharge Patient Disposition: Home, Self-Care Clinical Impression: Extrinsic ureteral obstruction, Pelvic pain Cervical cancer Qualifiers: Malignant neoplasm of cervix location: unspecified location Qualified Code(s): C53.9 - Malignant neoplasm of cervix uteri, unspecified Condition: Stable Prescriptions: New Percocet 5-325 mg tablet 1 tab PO Q4H PRN (Reason: Cervical cancer) Qty: 30 RF: 0 No Action No Known Home Medications RF: 0 Discharge Orders: Discharge Order (Routine); Ordered 09/15/19 Ordered By: Hiwot Coy Referrals: Markell Fernandez MD [Primary Care Provider] - 1-3 days Alicia Chapa MD [Staff Physician] - 7-10 days Patient Instructions: Cervical Cancer (GEN), Pelvic Pain Activity Restrictions/Additional Instructions: Return for any new or worsening symptoms. Follow-up with Dr. Chapa next week. Call the gynecologic oncology center at [facility] in [place] on [phone] to schedule an appointment if they have not contacted you by tomorrow. Take the pain medication as needed for pain. Discharge Date/Time: 09/15/19 16:30 Coding Level of Care Code ED Real Estate Associate Attorney for Chg Fwd Exam Comprehensive The documentation recorded by the Alethea kuo Carmen, accurately reflects the service I personally performed and the decisions made by Zbigniew apple Adegoke I, MD, [facility] Sep 15, 2019 09:49
[2019-09-15] MEDS: sodium chloride 0.9% 1,000 ML 999 ML IV (11:35)
[2019-09-15 11:38] VITALS: RESP 20
[2019-09-15] MEDS: HYDROmorphone 1 mg/mL INJ 1 mL 2 MG IVP (11:38)
[2019-09-15 11:39] LABS: Basophils # 0.1 10^3/uL (0.0-0.1); Basophils % 0.7 %; Eosinophils # 0.1 10^3/uL (0.0-0.8); Eosinophils % 1.1 %; Hematocrit 32.2 % (37.0-47.0); Hemoglobin 10.2 g/dL (11.5-15.3); Lymphocytes # 1.6 10^3/uL (0.8-4.8); Lymphocytes % 13.9 %; Mean Corpuscular HGB Conc 31.7 g/dL (30.0-36.0); Mean Corpuscular Hemoglobin 27.4 pg (28.0-34.0); Mean Corpuscular Volume 86.6 fL (81-99); Monocytes # 1.1 10^3/uL (0.2-0.9); Monocytes % 9.6 %; Neutrophils # 8.3 10^3/uL (1.8-7.7); Neutrophils % 74.1 %; Nucleated Red Blood Cells % 0 %; Platelet Count 516 10^3/cmm (130-400); Red Blood Count 3.72 10^6/uL (4.1-5.3); Red Cell Distribution Width 18.5 % (12.1-15.1); White Blood Count 11.1 10^3/uL (4.0-10.0)
[2019-09-15 11:50] LABS: Lactate (Lactic Acid level) 0.9 mmol/L (0.5-2.2)
[2019-09-15 11:52] LABS: Alanine Aminotransferase 8 U/L (0-33); Albumin Level 4.5 g/dL (3.5-5.2); Alkaline Phosphatase 121 IU/L (35-105); Anion Gap 22.8 (5-19); Aspartate Amino Transferase 11 U/L (0-32); Blood Urea Nitrogen 30 mg/dL (6-20); Calcium 10.3 mg/dL (8.5-10.5); Carbon Dioxide 15 mmol/L (22-29); Chloride 107 mmol/L (98-107); Globulin 3.1 g/dL (1.3-4.6); Glomerular Filtration Rate 59.4 mL/min (90-130); Glucose 109 mg/dL (65-115); Potassium 3.8 mmol/L (3.5-5.1); Sodium 141 mmol/L (136-145); Total Bilirubin 0.2 mg/dL (0.15-1.2); Total Protein 7.6 g/dL (6.6-8.7)
--- NOTE | 2019-09-15 12:02 | CTR_ITS ---
PROCEDURE INFORMATION: Exam: CT Abdomen And Pelvis With Contrast Exam date and time: 09/15/2019 12:28 PM Age: 49 years old Clinical indication: Abdominal pain; Acute; Prior surgery; Surgery date: 1-6 months; Surgery type: Stent placement; Additional info: Cervical cancer with obstructive uropathy S/P stent placemen TECHNIQUE: Imaging protocol: Computed tomography of the abdomen and pelvis with intravenous contrast. Total DLP: 515.84 mGy-cm Radiation optimization: All CT scans at this facility use at least one of these dose optimization techniques: automated exposure control; mA and/or kV adjustment per patient size (includes targeted exams where dose is matched to clinical indication); or iterative reconstruction. Contrast material: OMNI 300; Contrast volume: 95 ml; Contrast route: IV; COMPARISON: CT Abdomen/Pelvis w IV* [id number] 07/16/2019 12:23 PM FINDINGS: Liver: Normal. No mass. Gallbladder and bile ducts: Normal. No calcified stones. No ductal dilation. Pancreas: Normal. No ductal dilation. Spleen: Normal. No splenomegaly. Adrenals: Normal. No mass. Kidneys and ureters: There is a right ureteral stent with the tip in the bladder. No hydronephrosis. No renal calcification or mass. Stomach and bowel: There is new wall thickening the rectosigmoid colon versus underdistention. No bowel obstruction. Appendix: The appendix is visualized and appears normal. Intraperitoneal space: Unremarkable. No free air. No significant fluid collection. Vasculature: Unremarkable. No abdominal aortic aneurysm. Lymph nodes: Unremarkable. No enlarged lymph nodes. Bladder: Reproductive: There is gas and fluid in the cervix as seen on series 2, image 69 which was also seen on the previous exam. Bones/joints: Unremarkable. No acute fracture. Soft tissues: Unremarkable. CT/CT abdomen pelvis w con* [id number] IMPRESSION: There is a right ureteral stent without complication. There is questionable new colitis of the rectosigmoid colon versus underdistention when compared with 08/29/2019. Radiation Dose CTDIVOL = (mGy): DLP = 515.84 (mGy-cm)
[2019-09-15 12:08] LABS: Add Urine Microscopic? YES; Bilirubin Urine Neg (NEGATIVE); Blood Urine 3+ (Negative); Glucose Urine UA Norm (Normal); Ketones Urine Negative (Negative); Leukocyte Esterase Urine Trace (Negative); Nitrate Urine Negative (Negative); Protein Urine 1+ (Negative); Specific Gravity, Urine 1.015 (1.005-1.030); Urine Appearance Cloudy (CLEAR); Urine Color Yellow (Yellow); Urobilinogen Urine Norm (Negative); pH Urine 5 (5-7)
[2019-09-15 12:10] LABS: RBC Urine >100 /hpf (0-2)
[2019-09-15 12:12] LABS: Bacteria Urine 1+; Mucus Urine TRACE; Squamous Epithelial Cell Urine 0-4 (0-5)
[2019-09-15 12:13] LABS: Add Urine Culture? Yes; Coarse Granular Casts Urine 0-4 /lpf; Hyaline Casts Urine 0-4
[2019-09-15] MEDS: iohexol 300 mg/mL 100 mL Btl IV (13:17)
[2019-09-15 13:41] VITALS: RESP 18
[2019-09-15] MEDS: morphine 4 mg/mL SDV 1 mL 6 MG IVP (13:41)
[2019-09-15 15:52] VITALS: RESP 16; O2SAT 98
[2019-09-15] MEDS: morphine 4 mg/mL SDV 1 mL IVP (15:52)
[2019-09-15] MEDS: ketorolac 30 mg/mL INJ 15 MG IVP (15:53)
[2019-09-15 17:09] VITALS: BP 128/78; PULSE 87; RESP 18; TEMP 36.8; O2SAT 100
== END 2019-09-15 16:30 | disposition home or self-care (01) ==
PROVIDERS: Emergency Provider Family Medicine; Family Provider Family Medicine; PCP Family Medicine
DX: N13.5 Crossing vessel and stricture of ureter without hydronephrosis (principal); C53.9 Malignant neoplasm of cervix uteri, unspecified; R10.2 Pelvic and perineal pain; F17.200 Nicotine dependence, unspecified, uncomplicated; Z96.0 Presence of urogenital implants
CPT/HCPCS: 36415; 74177; 80053; 81001; 83605; 85025; 87086; 96361; 96374; 96375; 96376; 99283; 99284; J1170; J1885; J2270; J7030; Q9967

== ENCOUNTER 2019-09-17 10:10 | Emergency (ER) | payer MEDICAID, SELFPAY ==
[2019-09-17 10:12] VITALS: BP 146/89; RESP 18; BMI 20.9
[2019-09-17 10:23] LABS: Basophils # 0.1 10^3/uL (0.0-0.1); Basophils % 0.7 %; Eosinophils # 0.2 10^3/uL (0.0-0.8); Eosinophils % 1.3 %; Hematocrit 30.5 % (37.0-47.0); Hemoglobin 9.6 g/dL (11.5-15.3); Lymphocytes # 1.3 10^3/uL (0.8-4.8); Lymphocytes % 8.9 %; Mean Corpuscular HGB Conc 31.5 g/dL (30.0-36.0); Mean Corpuscular Volume 85.9 fL (81-99); Mean Platelet Volume 9.7 fL (7.4-10.4); Neutrophils # 11.8 10^3/uL (1.8-7.7); Neutrophils % 81.5 %; Nucleated Red Blood Cells % 0 %; Platelet Count 534 10^3/cmm (130-400); Red Blood Count 3.55 10^6/uL (4.1-5.3); Red Cell Distribution Width 18.3 % (12.1-15.1); White Blood Count 14.5 10^3/uL (4.0-10.0)
--- NOTE | 2019-09-17 10:34 | W.ED.ABDPA2 ---
Documented by User: [email or web address] Jacome 09/17/19 13:44 HPI - Abdominal Pain General: Chief Complaint: Abdominal Pain Stated Complaint: ABD PAIN Time Seen by Provider: 09/17/19 10:13 Source: patient Mode of arrival: ambulatory Limitations: no limitations History of Present Illness: HPI narrative: Patient is a 49-year-old female who presents to ED today with continued complaints of lower pelvic pain that she describes as labor pains . Patient tells me she has had pain since the beginning of the year. Patient has been seen Dr. Chapa with oncology and based on a PET scan performed in July she appears to have recurrent cervical cancer. At some point this was placing extrinsic compression on the ureter and patient had a right ureter stent placed because of this. Patient was seen by MAIL MACHINE OPERATOR at [place] recently with plans for a cervical biopsy however patient is refusing to go back to [place] stating that [place] is too far away for care. Patient was seen in our ED 2 days ago with hopes to be transferred to [facility] however the provider spoke to them who was unwilling to accept the patient. She has been seen by Dr. Lorenzo at [facility] oncology but was unsatisfied with his care so refuses to go there. She states she was given Percocet on her last ED visit and this is not controlling her pain. MD elicited complaint: abdominal pain Pertinent past history: other (cervical cancer) Onset (ago): month(s) Pain Consistency: constant Location: Pelvis Severity: severe Associated Symptoms: Reports dysuria, nausea and vomiting; Denies chills, diarrhea, fever(s) and syncope Review of Systems Const: Denies: fever, chills, body aches, change in appetite, change in weight, fatigue or malaise Card: Denies: chest pain, palpitations, irregular heart rhythm, edema, swelling of feet/ankles, lightheadedness, syncope or pre-syncope Resp: Denies: shortness of breath or productive cough GI: Reports: abdominal pain, nausea and vomiting; Denies: diarrhea : Reports: painful urination and other (vaginal discharge/odor); Denies: flank pain, difficulty urinating, urinary frequency or urinary urgency Musc: Denies: neck pain or back pain [facility] ED PFSH: Social History Smoking and tobacco status: current every day smoker Alcohol intake: former Adopted: No Caregiver/support person: No Lives independently: No Household members: family Marital status: Legally Current occupational status: disabled Physical Exam Const: COMMON NORMALS: oriented x3, no limitations, alert and well nourished OTHER: pt is extremely rude and hateful during exam; often yelling/screaming stating she will joseph all of you if I do not get immediate care! Resp: COMMON NORMALS: normal respiratory effort and clear to auscultation bilaterally AUSCULTATION: clear to auscultation bilaterally Cardio: COMMON NORMALS: regular rate and regular rhythm RATE: regular rate RHYTHM: regular rhythm GI: AUSCULTATION: Yes normoactive bowel sounds PALPATION: Yes tender (diffusely; mainly lower abdomen ) Neuro: COMMON NORMALS: oriented x3 SENSORIUM/ORIENTATION: Yes alert Skin: COMMON NORMALS: no rashes or lesions noted GENERAL SKIN EXAM: no rashes or lesions noted Course Consultations: Consultation #1: Spoke to Dr. Eduard marshall at the oncology center who believes that Dr. Coy only spoke to the claim attorney/oncologist on patient's last ED visit and recommends we speak to the hospitalist for admission for uncontrollable pain so that she may get expedited care. Consultation #2: Spoke to [facility] who stated that we would have to speak to gynecologic oncology before we could even speak to the hospitalist. They spoke to Dr. Carrillo who was well aware of patient. They stated that patient at one point did have an appointment scheduled with them but was a no-show. They have apparently tried to call patient and send her letters without success. Dr. Carrillo stated that patient would not need to come inpatient as she would not see patient or intervene while in the hospital and recommended we set patient up with an outpatient follow-up. Vital Signs: Vital signs: Vital Signs Pulse Rate 80 09/17/19 13:24 Respiratory Rate 17 09/17/19 13:24 Blood Pressure 125/87 09/17/19 13:24 Pulse Oximetry 99 09/17/19 13:24 MDM - Abdominal Pain MDM Narrative: Medical decision making narrative: Patient is okay with the plan for outpatient follow-up with Dr. Carrillo. She states they have been alternating her pain medications with ibuprofen, hydrocodone, percocet. She states the Percocet did not work and would like to switch back to the hydrocodone. Patient is requesting a walker to help with the pain she is having in her pelvis with ambulation. I wrote her prescription for this. Patient's labs are non-concerning at this point. Her urine is grossly infected as it was 2 days ago and her culture from 2 days ago was normal so this is from her diffuse vaginal discharge associated with her malignancy. Patient was seen in conjunction with Dr. Petty who agrees with patient's evaluation and plan. Lab Data: Labs: Lab Results 09/17/19 09/17/19 09/17/19 Range/Units 10:01 10:01 10:01 WBC 14.5 H (4.0-10.0) 10^3/ uL RBC 3.55 L (4.1-5.3) 10^6/u L Hgb 9.6 L (11.5-15.3) g/dL Hct 30.5 L (37.0-47.0) % MCV 85.9 (81-99) fL MCH 27.0 L (28.0-34.0) pg MCHC 31.5 (30.0-36.0) g/dL RDW 18.3 H (12.1-15.1) % Plt Count 534 H (130-400) 10^3/c mm MPV 9.7 (7.4-10.4) fL Neut % (Auto) 81.5 % Lymph % (Auto) 8.9 % [place] % (Auto) 7.0 % Eos % (Auto) 1.3 % Baso % (Auto) 0.7 % Neut # (Auto) 11.8 H (1.8-7.7) 10^3/u L Lymph # (Auto) 1.3 (0.8-4.8) 10^3/u L Schoolcraft # (Auto) 1.0 H (0.2-0.9) 10^3/u L Eos # (Auto) 0.2 (0.0-0.8) 10^3/u L Baso # (Auto) 0.1 (0.0-0.1) 10^3/u L Nucleated RBC % (a uto) 0 % Nucleated RBCs # 0.0 /100WBC Sodium 136 (136-145) mmol/L Potassium 3.2 L (3.5-5.1) mmol/L Chloride 101 (98-107) mmol/L Carbon Dioxide 18 L (22-29) mmol/L Anion Gap 20.2 H (5-19) BUN 16 (6-20) mg/dL Creatinine 0.7 (0.5-0.9) mg/dL GFR Calculation 89.7 L (90-130) mL/min Glucose 110 (65-115) mg/dL Calcium 10.2 (8.5-10.5) mg/dL Total Bilirubin 0.3 (0.15-1.2) mg/dL AST 11 (0-32) U/L ALT 7 (0-33) U/L Alkaline Phosphata se 121 H (35-105) IU/L Total Protein 8.3 (6.6-8.7) g/dL Albumin 4.0 (3.5-5.2) g/dL Globulin 4.3 (1.3-4.6) g/dL HCG, Qual Negative (Negative) Urine Color (Yellow) Urine Appearance (CLEAR) Urine pH (5-7) Ur Specific Gravit y (1.005-1.030) Urine Protein (Negative) Urine Glucose (UA) (Normal) Urine Ketones (Negative) Urine Blood (Negative) Urine Nitrate (Negative) Urine Bilirubin (NEGATIVE) Urine Urobilinogen (Negative) mg/dL Ur Leukocyte Natasha ase (Negative) Urine RBC (0-2) /hpf Urine WBC (0-5) /hpf Ur Squamous Epith Cells (0-5) Urine Bacteria (NONE) Urine Mucus 09/17/19 Range/Units 10:48 WBC (4.0-10.0) 10^3/ uL RBC (4.1-5.3) 10^6/u L Hgb (11.5-15.3) g/dL Hct (37.0-47.0) % MCV (81-99) fL MCH (28.0-34.0) pg MCHC (30.0-36.0) g/dL RDW (12.1-15.1) % Plt Count (130-400) 10^3/c mm MPV (7.4-10.4) fL Neut % (Auto) % Lymph % (Auto) % [place] % (Auto) % Eos % (Auto) % Baso % (Auto) % Neut # (Auto) (1.8-7.7) 10^3/u L Lymph # (Auto) (0.8-4.8) 10^3/u L Schoolcraft # (Auto) (0.2-0.9) 10^3/u L Eos # (Auto) (0.0-0.8) 10^3/u L Baso # (Auto) (0.0-0.1) 10^3/u L Nucleated RBC % (a uto) % Nucleated RBCs # /100WBC Sodium (136-145) mmol/L Potassium (3.5-5.1) mmol/L Chloride (98-107) mmol/L Carbon Dioxide (22-29) mmol/L Anion Gap (5-19) BUN (6-20) mg/dL Creatinine (0.5-0.9) mg/dL GFR Calculation (90-130) mL/min Glucose (65-115) mg/dL Calcium (8.5-10.5) mg/dL Total Bilirubin (0.15-1.2) mg/dL AST (0-32) U/L ALT (0-33) U/L Alkaline Phosphata se (35-105) IU/L Total Protein (6.6-8.7) g/dL Albumin (3.5-5.2) g/dL Globulin (1.3-4.6) g/dL HCG, Qual (Negative) Urine Color Yellow (Yellow) Urine Appearance Cloudy (CLEAR) Urine pH 5.0 (5-7) Ur Specific Gravit y 1.020 (1.005-1.030) Urine Protein 3+ H (Negative) Urine Glucose (UA) Norm (Normal) Urine Ketones 2+ H (Negative) Urine Blood 3+ H (Negative) Urine Nitrate Negative (Negative) Urine Bilirubin Neg (NEGATIVE) Urine Urobilinogen Norm (Negative) mg/dL Ur Leukocyte Natasha ase 2+ H (Negative) Urine RBC 80-100 H (0-2) /hpf Urine WBC >100 H (0-5) /hpf Ur Squamous Epith Cells 10-15 H (0-5) Urine Bacteria 2+ H (NONE) Urine Mucus 1+ Discharge Plan Discharge Patient Disposition: Home, Self-Care Clinical Impression: Cervical cancer Qualifiers: Malignant neoplasm of cervix location: unspecified location Qualified Code(s): C53.9 - Malignant neoplasm of cervix uteri, unspecified Condition: Stable Prescriptions: New hydrocodone-acetaminophen 5-325 mg tablet 1 tab PO Q4H PRN (Reason: pain) Qty: 20 RF: 0 No Action Tylenol Extra Strength 500 mg Tablet 1,500 mg PO PRN RF: 0 ibuprofen 600 mg Tablet 600 mg PO TID PRN (Reason: Pain) RF: 0 oxycodone-acetaminophen [Percocet] 5-325 mg tablet 1 tab PO Q4H PRN (Reason: Cervical cancer) Qty: 30 RF: 0 Discharge Orders: Discharge Order (Routine); Ordered 09/17/19 Ordered By: Precious Mena Referrals: Markell Fernandez MD [Primary Care Provider] - Activity Restrictions/Additional Instructions: As discussed case management will call Dr. Carrillo office and get you an outpatient follow up appointment. Discharge Date/Time: 09/17/19 13:31 Coding Level of Care Code ED Panel Lay Up Worker for Chg Fwd Exam Detailed Documented by User: Heidy Petty MD 09/17/19 13:55 HPI - Abdominal Pain General: Chief Complaint: Abdominal Pain Stated Complaint: ABD PAIN Time Seen by Provider: 09/17/19 10:13 PFSH ED PFSH: Social History Smoking and tobacco status: current every day smoker Alcohol intake: former Adopted: No Caregiver/support person: No Lives independently: No Household members: family Marital status: Legally Current occupational status: disabled Course Vital Signs: Vital signs: Vital Signs Pulse Rate 80 09/17/19 13:24 Respiratory Rate 17 09/17/19 13:24 Blood Pressure 125/87 09/17/19 13:24 Pulse Oximetry 99 09/17/19 13:24 MDM - Abdominal Pain Lab Data: Labs: Lab Results 09/17/19 09/17/19 09/17/19 Range/Units 10:01 10:01 10:01 WBC 14.5 H (4.0-10.0) 10^3/ uL RBC 3.55 L (4.1-5.3) 10^6/u L Hgb 9.6 L (11.5-15.3) g/dL Hct 30.5 L (37.0-47.0) % MCV 85.9 (81-99) fL MCH 27.0 L (28.0-34.0) pg MCHC 31.5 (30.0-36.0) g/dL RDW 18.3 H (12.1-15.1) % Plt Count 534 H (130-400) 10^3/c mm MPV 9.7 (7.4-10.4) fL Neut % (Auto) 81.5 % Lymph % (Auto) 8.9 % [place] % (Auto) 7.0 % Eos % (Auto) 1.3 % Baso % (Auto) 0.7 % Neut # (Auto) 11.8 H (1.8-7.7) 10^3/u L Lymph # (Auto) 1.3 (0.8-4.8) 10^3/u L School[place] # (Auto) 1.0 H (0.2-0.9) 10^3/u L Eos # (Auto) 0.2 (0.0-0.8) 10^3/u L Baso # (Auto) 0.1 (0.0-0.1) 10^3/u L Nucleated RBC % (a uto) 0 % Nucleated RBCs # 0.0 /100WBC Sodium 136 (136-145) mmol/L Potassium 3.2 L (3.5-5.1) mmol/L Chloride 101 (98-107) mmol/L Carbon Dioxide 18 L (22-29) mmol/L Anion Gap 20.2 H (5-19) BUN 16 (6-20) mg/dL Creatinine 0.7 (0.5-0.9) mg/dL GFR Calculation 89.7 L (90-130) mL/min Glucose 110 (65-115) mg/dL Calcium 10.2 (8.5-10.5) mg/dL Total Bilirubin 0.3 (0.15-1.2) mg/dL AST 11 (0-32) U/L ALT 7 (0-33) U/L Alkaline Phosphata se 121 H (35-105) IU/L Total Protein 8.3 (6.6-8.7) g/dL Albumin 4.0 (3.5-5.2) g/dL Globulin 4.3 (1.3-4.6) g/dL HCG, Qual Negative (Negative) Urine Color (Yellow) Urine Appearance (CLEAR) Urine pH (5-7) Ur Specific Gravit y (1.005-1.030) Urine Protein (Negative) Urine Glucose (UA) (Normal) Urine Ketones (Negative) Urine Blood (Negative) Urine Nitrate (Negative) Urine Bilirubin (NEGATIVE) Urine Urobilinogen (Negative) mg/dL Ur Leukocyte Natasha ase (Negative) Urine RBC (0-2) /hpf Urine WBC (0-5) /hpf Ur Squamous Epith Cells (0-5) Urine Bacteria (NONE) Urine Mucus 09/17/19 Range/Units 10:48 WBC (4.0-10.0) 10^3/ uL RBC (4.1-5.3) 10^6/u L Hgb (11.5-15.3) g/dL Hct (37.0-47.0) % MCV (81-99) fL MCH (28.0-34.0) pg MCHC (30.0-36.0) g/dL RDW (12.1-15.1) % Plt Count (130-400) 10^3/c mm MPV (7.4-10.4) fL Neut % (Auto) % Lymph % (Auto) % [place] % (Auto) % Eos % (Auto) % Baso % (Auto) % Neut # (Auto) (1.8-7.7) 10^3/u L Lymph # (Auto) (0.8-4.8) 10^3/u L [place] # (Auto) (0.2-0.9) 10^3/u L Eos # (Auto) (0.0-0.8) 10^3/u L Baso # (Auto) (0.0-0.1) 10^3/u L Nucleated RBC % (a uto) % Nucleated RBCs # /100WBC Sodium (136-145) mmol/L Potassium (3.5-5.1) mmol/L Chloride (98-107) mmol/L Carbon Dioxide (22-29) mmol/L Anion Gap (5-19) BUN (6-20) mg/dL Creatinine (0.5-0.9) mg/dL GFR Calculation (90-130) mL/min Glucose (65-115) mg/dL Calcium (8.5-10.5) mg/dL Total Bilirubin (0.15-1.2) mg/dL AST (0-32) U/L ALT (0-33) U/L Alkaline Phosphata se (35-105) IU/L Total Protein (6.6-8.7) g/dL Albumin (3.5-5.2) g/dL Globulin (1.3-4.6) g/dL HCG, Qual (Negative) Urine Color Yellow (Yellow) Urine Appearance Cloudy (CLEAR) Urine pH 5.0 (5-7) Ur Specific Gravit y 1.020 (1.005-1.030) Urine Protein 3+ H (Negative) Urine Glucose (UA) Norm (Normal) Urine Ketones 2+ H (Negative) Urine Blood 3+ H (Negative) Urine Nitrate Negative (Negative) Urine Bilirubin Neg (NEGATIVE) Urine Urobilinogen Norm (Negative) mg/dL Ur Leukocyte Natasha ase 2+ H (Negative) Urine RBC 80-100 H (0-2) /hpf Urine WBC >100 H (0-5) /hpf Ur Squamous Epith Cells 10-15 H (0-5) Urine Bacteria 2+ H (NONE) Urine Mucus 1+ Discharge Plan Discharge Patient Disposition: Home, Self-Care Clinical Impression: Cervical cancer Qualifiers: Malignant neoplasm of cervix location: unspecified location Qualified Code(s): C53.9 - Malignant neoplasm of cervix uteri, unspecified Condition: Stable Prescriptions: New hydrocodone-acetaminophen 5-325 mg tablet 1 tab PO Q4H PRN (Reason: pain) Qty: 20 RF: 0 No Action Tylenol Extra Strength 500 mg Tablet 1,500 mg PO PRN RF: 0 ibuprofen 600 mg Tablet 600 mg PO TID PRN (Reason: Pain) RF: 0 oxycodone-acetaminophen [Percocet] 5-325 mg tablet 1 tab PO Q4H PRN (Reason: Cervical cancer) Qty: 30 RF: 0 Discharge Orders: Discharge Order (Routine); Ordered 09/17/19 Ordered By: Precious Mena Referrals: Markell Fernandez MD [Primary Care Provider] - Activity Restrictions/Additional Instructions: As discussed case management will call Dr. Carrillo office and get you an outpatient follow up appointment. Discharge Date/Time: 09/17/19 13:31 Coding Level of Care Code ED Panel Lay Up Worker for Chg Fwd Exam Detailed
[2019-09-17 10:37] LABS: Alanine Aminotransferase 7 U/L (0-33); Alkaline Phosphatase 121 IU/L (35-105); Anion Gap 20.2 (5-19); Aspartate Amino Transferase 11 U/L (0-32); Blood Urea Nitrogen 16 mg/dL (6-20); Calcium 10.2 mg/dL (8.5-10.5); Carbon Dioxide 18 mmol/L (22-29); Chloride 101 mmol/L (98-107); Globulin 4.3 g/dL (1.3-4.6); Glomerular Filtration Rate 89.7 mL/min (90-130); Glucose 110 mg/dL (65-115); Potassium 3.2 mmol/L (3.5-5.1); Sodium 136 mmol/L (136-145); Total Bilirubin 0.3 mg/dL (0.15-1.2); Total Protein 8.3 g/dL (6.6-8.7)
[2019-09-17 10:41] VITALS: O2SAT 98
[2019-09-17 10:44] LABS: HCG, Serum Qual Negative (Negative)
[2019-09-17] MEDS: morphine 4 mg/mL SDV 1 mL IVP ×2 (11:05→12:22)
[2019-09-17 11:27] LABS: Glucose Urine UA Norm (Normal); Ketones Urine 2+ (Negative); Protein Urine 3+ (Negative); Urine Appearance Cloudy (CLEAR); Urine Color Yellow (Yellow)
[2019-09-17 11:28] LABS: Add Urine Microscopic? YES; Bilirubin Urine Neg (NEGATIVE); Blood Urine 3+ (Negative); Leukocyte Esterase Urine 2+ (Negative); Nitrate Urine Negative (Negative); Urobilinogen Urine Norm (Negative)
[2019-09-17 11:35] LABS: Add Urine Culture? Yes; Bacteria Urine 2+; Mucus Urine 1+; RBC Urine 80-100 /hpf (0-2); WBC Urine >100 /hpf (0-5)
[2019-09-17] MEDS: LORazepam 2 mg/mL INJ 1 mL 1 MG IVP (12:22)
[2019-09-17 13:24] VITALS: BP 125/87; PULSE 80; RESP 17; O2SAT 99
--- NOTE | 2019-09-19 08:32 | DCPLANNER ---
account manager trainee had message to refer patient to [facility]ACHIN[facility]. account manager trainee called [facility], faxed patients records to the clinic. account manager trainee will call for appointment information.
== END 2019-09-17 13:31 | disposition home or self-care (01) ==
PROVIDERS: Emergency Provider Physician Assistant; Family Provider Family Medicine; PCP Family Medicine
DX: C53.9 Malignant neoplasm of cervix uteri, unspecified (principal); F17.200 Nicotine dependence, unspecified, uncomplicated; Z96.0 Presence of urogenital implants
CPT/HCPCS: 36415; 80053; 81001; 84703; 85025; 87086; 96374; 96375; 96376; 99282; 99283; J2060; J2270

== ENCOUNTER 2019-10-01 10:18 | Emergency (ER) | payer MEDICAID, SELFPAY ==
[2019-10-01] VITALS (32 sets, daily range): BP systolic 84–135; BP diastolic 69–98; PULSE 76–140; RESP 14–28; TEMP 36.7–37.1; O2SAT 94–100; BMI 20.9
--- NOTE | 2019-10-01 10:33 | ED_ITS ---
Entered by Shanelle Link, acting as scribe for Bud Sung DO HPI - Female Genitourinary General: Chief complaint: Urogenital-Female Stated complaint: VAGINAL BLEED Time Seen by Provider: 10/01/19 10:37 Source: patient and EMS Mode of arrival: EMS Limitations: no limitations History of Present Illness: HPI Narrative: 49 yo female presents with vaginal bleeding. pt states this started today. pt was seen at pcp clinic and then sent to the ED for active vaginal bleeding. pt has a hx of cervical cancer. pt states she has had weakness. Patient had previously been diagnosis cervical cancer had been treated and is now having recurrence. Been a bit of a struggle to get her treatments done according to her primary care doctor and local oncologist she was referred to [facility] did not want a follow-up with them anymore evidently also had a referral to [facility] and was supposed to making a follow-up to them but had refused portions of her exam are trying to get a biopsy set up for here and then to refer back to [facility] for definitive care. She went to her primary care office today and had a large amount of bleeding and was referred here on arrival here she has another 500 mL of blood loss. Her primary care doctor had reported approximately 500 mL loss at their office as well. She is emotional on arrival here in. And is having continued active bleeding. MD elicited complaint: vaginal bleeding and other (weakness) Pertinent past history: other (cervical cancer) Onset (ago): day(s) (today 729) Location of symptoms: vaginal Severity: moderate Consistency: constant and progressively worsening Vaginal bleeding: heavy Exacerbating factors: other (cancer) Relieving factors: none Treatment prior to arrival: other (pt seen at urgent care sent to the ED for active vaginal bleeding) Review of Systems Const: Denies: fever, chills, body aches, change in appetite, fatigue or malaise ENMT: Denies: enlarged tonsils Card: Denies: chest pain, edema, shortness of breath on exertion or shortness of breath when lying down Resp: Denies: shortness of breath, productive cough or non-productive cough : Reports: vaginal bleeding; Denies: flank pain, difficulty urinating, painful urination, urinary frequency or urinary urgency Skin/Breast: Denies: rash or itching Psych: Reports: anxiety PFSH ED PFSH: Medical History (Updated 10/01/19 @ 15:04 by Bud Sung DO) Anxiety Cervical cancer Locally metastatic resulting in extrinsic right ureteral obstruction. Depression Port-A-Cath in place Surgical History H/O tubal ligation (12/03/97) S/P ureteral stent placement Social History Smoking and tobacco status: current every day smoker Alcohol intake: former Adopted: No Caregiver/support person: No Lives independently: No Household members: family Marital status: Legally Current occupational status: disabled Physical Exam Const: COMMON NORMALS: no apparent distress GENERAL APPEARANCE: cooperative and comfortable ORIENTATION/CONSCIOUSNESS: Yes awake, Yes oriented to person, Yes oriented to place and Yes oriented to time HENMT: COMMON NORMALS: normocephalic, head/scalp atraumatic, hearing grossly normal bilaterally, external ears normal, EAC's normal, TM's normal bilaterally, nasal mucous membranes and turbinates normal, moist oral mucous membranes and oropharynx normal HEAD & SCALP: normocephalic and atraumatic NOSE: nasal mucous membranes and turbinates normal EXTERNAL EAR: Yes external ears normal EXTERNAL AUDITORY CANAL: EAC's normal TYMPANIC MEMBRANE: TM's normal bilaterally Eye: COMMON NORMALS: PERRL, EOMs intact bilaterally, conjunctivae normal and no scleral icterus CONJUNCTIVA: Yes conjunctivae normal PUPIL: Yes PERRL Neck/C-Spine: COMMON NORMALS: full ROM, no lymphadenopathy, supple and no JVD Lymph: LYMPHATIC: no lymphadenopathy noted and no lymphedema noted Resp: COMMON NORMALS: normal respiratory effort, no retractions, no use of accessory muscles and clear to auscultation bilaterally AUSCULTATION: clear to auscultation bilaterally Cardio: COMMON NORMALS: no JVD, regular rate, regular rhythm and no murmurs RATE: regular rate RHYTHM: regular rhythm GI: COMMON NORMALS: no hepatosplenomegaly and no masses PALPATION: Yes tender (Infraumbilical moderate tenderness) and Yes no hepatosplenomegaly : OTHER: External exam shows active vaginal bleeding. Patient would not tolerate bimanual or pelvic exam this was not done. Extremity: COMMON NORMALS: normal to inspection, normal capillary refill, no clubbing, cyanosis or edema, no calf tenderness and no pedal edema Neuro: SENSORIUM/ORIENTATION: Yes oriented to person, Yes oriented to place and Yes oriented to time Skin: COMMON NORMALS: no rashes or lesions noted GENERAL SKIN EXAM: no rashes or lesions noted Course ED course: Patient's hemoglobin is down to 7 5 on arrival. Last month she was at 9 5 suspect her true hemoglobin once equalized out will be significantly lower than 7 5 she was actively bleeding when she arrived here she is given a gram of TXA initially and then slow infusion of a second gram. She was given a unit of O+ and then unit of typed specific blood her heart rate did improve and her blood pressure improved slightly as well. We contacted [facility] and were able to secure a transfer to their [facility] service they have called with a bed assignment we are transferring her by air ambulance due to acute hemorrhagic anemia the risk of recurrent bleeding. Patient transferred due to lack of availability of gynecological oncology services at our hospital. Due to acute blood loss the need for blood banking and potentially interventional radiology as well as specialty gynecologic she will require tertiary care facility such as [facility]. Vital Signs: Vital signs: Vital Signs Temperature 98.5 F 10/01/19 13:57 Pulse Rate 78 10/01/19 14:00 Respiratory Rate 20 H 10/01/19 14:00 Blood Pressure 124/79 10/01/19 14:00 Pulse Oximetry 100 10/01/19 14:00 MDM - Female Lab Data: Labs: Lab Results 10/01/19 10/01/19 10/01/19 Range/Units 11:10 11:10 11:10 WBC 22.1 H (4.0-10.0) 10^3/ uL RBC 2.81 L (4.1-5.3) 10^6/u L Hgb 7.5 L (11.5-15.3) g/dL Hct 27.1 L (37.0-47.0) % MCV 96.4 (81-99) fL MCH 26.7 L (28.0-34.0) pg MCHC 27.7 L (30.0-36.0) g/dL RDW 18.2 H (12.1-15.1) % Plt Count 534 H (130-400) 10^3/c mm MPV 10.0 (7.4-10.4) fL Neut % (Auto) 73.1 % Lymph % (Auto) 15.3 % [place] % (Auto) 8.9 % Eos % (Auto) 1.2 % Baso % (Auto) 0.5 % Neut # (Auto) 16.2 H (1.8-7.7) 10^3/u L Lymph # (Auto) 3.4 (0.8-4.8) 10^3/u L [place] # (Auto) 2.0 H (0.2-0.9) 10^3/u L Eos # (Auto) 0.3 (0.0-0.8) 10^3/u L Baso # (Auto) 0.1 (0.0-0.1) 10^3/u L Nucleated RBC % (a uto) 0 % Nucleated RBCs # 0.0 /100WBC PT 15.00 H (10.5-13.3) SECO NDS INR 1.14 (0.8-1.2) APTT 27.9 (23.9-36.7) SECO NDS Sodium 142 (136-145) mmol/L Potassium 4.2 (3.5-5.1) mmol/L Chloride 106 (98-107) mmol/L Carbon Dioxide 17 L (22-29) mmol/L Anion Gap 23.2 H (5-19) BUN 13 (6-20) mg/dL Creatinine 1.2 H (0.5-0.9) mg/dL GFR Calculation 48.2 L (90-130) mL/min Glucose 161 H (65-115) mg/dL Calculated Osmolal ity 294 (285-295) mOsm/k g Calcium 9.7 (8.5-10.5) mg/dL Total Bilirubin 0.2 (0.15-1.2) mg/dL AST 9 (0-32) U/L ALT 6 (0-33) U/L Alkaline Phosphata se 106 H (35-105) IU/L Total Protein 6.6 (6.6-8.7) g/dL Albumin 3.4 L (3.5-5.2) g/dL Globulin 3.2 (1.3-4.6) g/dL Blood Type Rho(D) Type Antibody Screen Crossmatch 10/01/19 Range/Units 11:10 WBC (4.0-10.0) 10^3/ uL RBC (4.1-5.3) 10^6/u L Hgb (11.5-15.3) g/dL Hct (37.0-47.0) % MCV (81-99) fL MCH (28.0-34.0) pg MCHC (30.0-36.0) g/dL RDW (12.1-15.1) % Plt Count (130-400) 10^3/c mm MPV (7.4-10.4) fL Neut % (Auto) % Lymph % (Auto) % [place] % (Auto) % Eos % (Auto) % Baso % (Auto) % Neut # (Auto) (1.8-7.7) 10^3/u L Lymph # (Auto) (0.8-4.8) 10^3/u L [place] # (Auto) (0.2-0.9) 10^3/u L Eos # (Auto) (0.0-0.8) 10^3/u L Baso # (Auto) (0.0-0.1) 10^3/u L Nucleated RBC % (a uto) % Nucleated RBCs # /100WBC PT (10.5-13.3) SECO NDS INR (0.8-1.2) APTT (23.9-36.7) SECO NDS Sodium (136-145) mmol/L Potassium (3.5-5.1) mmol/L Chloride (98-107) mmol/L Carbon Dioxide (22-29) mmol/L Anion Gap (5-19) BUN (6-20) mg/dL Creatinine (0.5-0.9) mg/dL GFR Calculation (90-130) mL/min Glucose (65-115) mg/dL Calculated Osmolal ity (285-295) mOsm/k g Calcium (8.5-10.5) mg/dL Total Bilirubin (0.15-1.2) mg/dL AST (0-32) U/L ALT (0-33) U/L Alkaline Phosphata se (35-105) IU/L Total Protein (6.6-8.7) g/dL Albumin (3.5-5.2) g/dL Globulin (1.3-4.6) g/dL Blood Type B Positive Rho(D) Type Positive Antibody Screen Negative Crossmatch See Detail Discharge Plan Discharge Patient Disposition: Xfer Other Clinical Impression: Acute blood loss anemia, Cervical cancer, Vaginal bleeding Condition: Stable Referrals: [facility] Fernandez MD [Primary Care Provider] - Coding Level of Care Code ED Automotive Quality Engineer for Chg Fwd Exam Comprehensive The documentation recorded by the Nikolay kuo Bridget Annette, accurately reflects the service I personally performed and the decisions made by Pineda apple Curtis L, Oct 01, 2019 10:18
[2019-10-01] MEDS: LORazepam 2 mg/mL INJ 1 mL 1 MG IVP ×2 (11:12→14:56)
[2019-10-01 11:16] LABS: Basophils # 0.1 10^3/uL (0.0-0.1); Basophils % 0.5 %; Eosinophils # 0.3 10^3/uL (0.0-0.8); Eosinophils % 1.2 %; Hematocrit 27.1 % (37.0-47.0); Hemoglobin 7.5 g/dL (11.5-15.3); Lymphocytes # 3.4 10^3/uL (0.8-4.8); Lymphocytes % 15.3 %; Mean Corpuscular HGB Conc 27.7 g/dL (30.0-36.0); Mean Corpuscular Hemoglobin 26.7 pg (28.0-34.0); Mean Corpuscular Volume 96.4 fL (81-99); Monocytes % 8.9 %; Neutrophils # 16.2 10^3/uL (1.8-7.7); Neutrophils % 73.1 %; Nucleated Red Blood Cells % 0 %; Platelet Count 534 10^3/cmm (130-400); Red Blood Count 2.81 10^6/uL (4.1-5.3); Red Cell Distribution Width 18.2 % (12.1-15.1); White Blood Count 22.1 10^3/uL (4.0-10.0)
[2019-10-01] MEDS: fentaNYL 50 mcg/mL INJ 2mL 25 MCG IVP (11:18)
[2019-10-01 11:25] LABS: INR 1.14 (0.8-1.2); Partial Thromboplastin Time 27.9 SECONDS (23.9-36.7)
[2019-10-01 11:37] LABS: Alanine Aminotransferase 6 U/L (0-33); Albumin Level 3.4 g/dL (3.5-5.2); Alkaline Phosphatase 106 IU/L (35-105); Anion Gap 23.2 (5-19); Aspartate Amino Transferase 9 U/L (0-32); Blood Urea Nitrogen 13 mg/dL (6-20); Calcium 9.7 mg/dL (8.5-10.5); Carbon Dioxide 17 mmol/L (22-29); Chloride 106 mmol/L (98-107); Globulin 3.2 g/dL (1.3-4.6); Glomerular Filtration Rate 48.2 mL/min (90-130); Glucose 161 mg/dL (65-115); Osmolality Calculated 294 mOsm/kg (285-295); Potassium 4.2 mmol/L (3.5-5.1); Sodium 142 mmol/L (136-145); Total Bilirubin 0.2 mg/dL (0.15-1.2); Total Protein 6.6 g/dL (6.6-8.7)
[2019-10-01] MEDS: sodium chloride 0.9% 500 ML 150 ML IV (12:56)
[2019-10-01] MEDS: nicotine 21 mg Patch 1 PATCH TRANSDERMA (13:05)
[2019-10-01 15:04] LABS: Hemoglobin 9.2 g/dL (11.5-15.3)
== END 2019-10-01 15:12 | disposition other institution (70) ==
PROVIDERS: Emergency Provider Family Medicine; Family Provider Family Medicine; PCP Family Medicine
DX: D62 Acute posthemorrhagic anemia (principal); N93.9 Abnormal uterine and vaginal bleeding, unspecified; C53.9 Malignant neoplasm of cervix uteri, unspecified; F17.200 Nicotine dependence, unspecified, uncomplicated
CPT/HCPCS: 12345; 36415; 36430; 80053; 85018; 85025; 85610; 85730; 86850; 86900; 86920; 96360; 96361; 96365; 96366; 96367; 96375; 96376; 99284; 99285; J2060; J3010; J7040; P9016

== ENCOUNTER 2019-10-06 06:00 | Outpatient (CLI) | payer MEDICAID, SELFPAY ==
--- NOTE | 2019-12-29 15:48 | ONC FU_ITS ---
Dr. Chapa follow up note Patient: Lelo Mason Unit #: [id number]: [id number] Dicatated By: Alicia Chapa M.D.Date of Visit:Oct 06, 2019 Onc Med Follow-up/Prog Note History of Present Illness: Mrs. Lelo mason, is a 49-year-old who was diagnosed with cervical cancer in June 2018 at that time she underwent combined chemoradiation followed by brachytherapy in August 2018, tolerated well and during follow-up , scans showed evidence of recurrence of disease and underwent CT PET scan on 01/30/2019 which showed moderately intense abnormal FDG activity in the right half of the cervix, very suspicious for local recurrence of malignancy. No abnormal activity identified anywhere else. There are 2 new 4 mm noncalcified pulmonary nodules one in the right lower lobe one in the left upper lobe both of which are too small to evaluate with PET. Appears stable from CT scan of chest done on 01/10/2019. Patient also had MRI scan of the pelvis done on 01/30/2019 which showed interval near resolution of previously seen very large cervical mass with residual mild bulbous appearance to the posterior cervix and no evidence of local metastatic disease patient was seen by Dr. Grider on 03/19/2019 as per his note she was scheduled to be admitted to hospital or as an outpatient exam under anesthesia and biopsy but it was not done patient was also diagnosed with post traumatic stress disorder and planning was to refer to psychiatrist. Also discussed about systemic therapy but patient decided to transfer her care to [place] As per patient on 07/16/2019 , she noted severe vaginal bleeding for which she went to [facility] for evaluation regarding and CT scan of pelvis was done which shows heterogeneous hyperdense material vaginal canal and heterogeneous lesion in the cervix similar to prior exam. Delayed right renal nephrogram and hydroureteronephrosis to the level of the bladder no calcified distal ureteral stone. Cannot exclude a distal stricture at the level of UVJ. There is slightly asymmetric thickening of posterior right bladder base. And Underwent cystoscopy with right retrograde ureteropyelogram and right ureteral stent placement on 07/22/2019 And follow-up CT PET scan done on 08/09/2019 showed FDG positive cervical mass measuring 5.6 x 1.4 cm SUV 14.3 indicating recurrent malignancy. Pelvic lymph nodes are all subcentimeter in size and FDG negative is no evidence of distance metastatic disease. feeling much better since right ureteral stent placement, right inguinal pain has improved significantly. Underwent ultrasound bilateral renal on 09/05/2019 which showed negative bilateral renal ultrasound right ureter stent, no hydronephrosis. Patient started having vaginal bleeding and progressive abdominal pain and eventually went to [facility] ER for which she was transferred to [facility] on 10/01/2019, patient underwent cervical mass biopsy which confirmed recurrent cervical carcinoma patient had CT PET scan done on 10/03/2019 which showed markedly FDG avid right cervical mass abutting the bladder is highly suspicious for recurrent disease. No FDG evidence of locoregional or distant metastatic disease. Patient also underwent right ureteral stent exchange on 10/02/2019 at [place], patient was given blood transfusion for anemia due to vaginal bleed. Patient was seen by BILLING ADMINISTRATOR surgical oncologist and systemic chemotherapy with carboplatin/Taxol/Avastin every 3 weeks ???6 was recommended. Came for follow-up, denies any specific complaint rather feeling happy that she went to [place], she was very pleased with the service she got there and was apologizing for not following the plan earlier. Patient was reassured and otherwise denies any fever chills denies any more vaginal bleeding denies any abdominal pain denies any nausea or vomiting denies any hematuria or melena hematochezia. Medications: [employer] Nicotine 1 Patch(es) (of 21 mg/24hr) Patch 24 Hr Transdermal daily, Gas Relief 1 Capsule (of 125 Capsule) Oral t.i.d., HYDROcodone-Acetaminophen 1 - 2 Tablet (of 5-325 mg) Oral q 6 hours PRN, Ibuprofen 1 Tablet (of 200 mg) Oral daily PRN, LORazepam 1 Tablet (of 1 mg) Oral daily PRN, Ondansetron HCl 1 Tablet (of 8 mg) Oral daily PRN, Tums 1 Tablet (of 500 mg) Tablet, chewable Oral PRN, Venlafaxine HCl ER 1 Tablet (of 37.5 mg) Tablet SR 24 HR Oral daily Allergies: Sulfa Antibiotics Review of Systems: Constitutional - Appetite is poor and weight is decreasing. No fever, chills, hot flashes. Positive for night sweats. Energy level is poor, ENMT - Positive for sinus congestion/drainage. No mouth sores. No sore throat or difficulty swallowing, Hematologic/Lymphatic - No abnormal bruising or bleeding, Respiratory - No shortness of breath. No cough. No pleuritic pain or hemoptysis, Cardiovascular - No angina pain. No palpitations, Gastrointestinal - Positive for nausea, no vomiting. Positive for heartburn and acid reflux. No diarrhea. Positive for constipation. No blood in the stool or black stools, Genitourinary (F) - No dysuria or hematuria. No urinary frequency. No urgency or incontinence, Musculoskeletal - Pt reports an improvement in pain level, Neurologic - No headache. Positive for dizziness. No numbness/paresthesias or other focal neurologic symptoms, Psychiatric - Positive for anxiety and depression. Pt is tearful today. Vital Signs: Performed on Oct 06, 2019 11:09 Height - 57.00 in Weight - 133 lbs (LOW) BSA - 1.51 sq.m BMI - 28.78 Temperature - 98.4 F Pulse - 82 /min Respiration - 17 /min BP - 118/80 mm(hg) O2 Sat - 97 % Pain - 4 Performance Status: 0 - Fully active, able to carry on all predisease activities without restrictions. (ECOG) Physical Examination: ENMT - No oral exudates, ulcers, masses, thrush or mucositis. Oropharynx clear. Tongue normal, Respiratory - Lungs are clear to auscultation without rhonchi or wheezing, Cardiovascular - Regular rate and rhythm of heart, Abdomen - Non-tender, non-distended, Good bowel sounds. No guarding or rebound tenderness. No pulsatile masses, Extremities - no edema. Lab/Imaging: Test performed on Sep 12, 2019 08:50 Sodium 138 mmol/L Potassium 3.5 mmol/L Chloride 102 mmol/L CO2 19 mmol/L Anion Gap 20.5 BUN 17 mg/dL Creatinine 0.9 mg/dL Cr Clearance (Est) 83.0000 mL/min eGFR 67.1 mL/min Glucose 131 mg/dL Calcium 10.5 mg/dL Protein, Total 7.9 g/dL Albumin 4.0 g/dL Globulin 3.9 g/dL Bilirubin, Total 0.2 mg/dL ALT (SGPT) 6 U/L AST (SGOT) 10 U/L Alkaline Phosphatase 107 IU/L WBC 13.2 10 3/uL RBC 3.74 10 6/uL HGB 10.1 g/dL HCT 32.4 % MCV 86.6 fL MCH 27.0 pg MCHC 31.2 g/dL RDW 18.4 % Platelet Count 531 10 3/cmm MPV 9.4 fL Neutrophils 10.8 10 3/uL Lymphocytes 1.2 10 3/uL Monocytes 0.8 10 3/uL Eosinophils 0.3 10 3/uL Basophils 0.1 10 3/uL Neutrophil % 81.8 % Lymphocyte % 8.8 % Monocyte % 5.9 % Eosinophil % 2.2 % Basophils % 0.5 % Test performed on Aug 11, 2019 11:16 Ferritin 96 ng/mL % Iron Saturation 8.6 % Iron, Total 21 mcg/dL TIBC 244 mcg/dL Manual Lymphocytes 12.3 % Manual Monocytes 8.0 % Manual Eosinophils 2.2 % Manual Basophils 0.7 % NRBCs 0.0 /100 WBC Impression: ? Recurrent cervical cancer per CT PET scan done on 01/30/2019 which showed moderately intense abnormal FDG activity in the right side of cervix maximum SUV 8.6 suspicious for local recurrence. No additional foci of abnormal activity identified. There is 4 mm noncalcified 100 nodule in the right lower lobe and left upper lobe of the lung, appear unchanged from recent CT scan of chest done on 01/10/2019. MRI scan of the pelvis done on 01/30/2019 showed interval near resolution of previously seen very large cervical mass with residual mild bulbous appearance to the posterior cervix and no evidence of local metastatic disease CT scan of the abdomen pelvis done on 07/16/2019 showed heterogeneous hypodense material vaginal canal. Again identified is heterogeneous lesion in the cervix and he delayed right renal nephrogram and hydroureter nephrosis the level of bladder. No calcified distal ureteral stone. There is a slight asymmetric thickening of posterior right bladder base.Status post cystoscopy and right ureteral stent placement done on 07/22/2019 CT PET scan done on 08/09/2019 showed FDG positive cervical mass measuring 5.6 x 1.4 cm with SUV of 14.3 indicating recurrent malignancy. Pelvic lymph nodes are subcentimeter and FDG negative. No evidence of distance metastases Plan: Discussed with patient regarding her disease status and treatment planning, as per recommendations from BILLING ADMINISTRATOR surgical oncology at [facility] we will proceed with systemic chemotherapy with carboplatin/Taxol/Avastin every 3 weeks ???6 followed by surgical evaluation at [facility]. All the side effects possible benefits associated with carboplatin/Taxol/Avastin were discussed including but not limited to allergic reaction especially with Taxol, bone marrow suppression, risk of infections and bleeding especially with Avastin, hypertension, hair loss, peripheral neuropathy, further teaching will be done by chemotherapy nurse from we will obtain approval from her insurance prior to the treatment., Patient has taken chemotherapy before and she is also risk for chemotherapy induced neutropenia, we will consider Neulasta with chemotherapy to prevent chemotherapy-induced neutropenia and leukopenia and to maintain chemotherapy schedule. Patient will return to clinic 1 week after chemotherapy initiated with CBC CMP. Signed By: Alicia Chapa M.D. <<Signature on File>>
== END 2019-10-06 06:01 | disposition home or self-care (01) ==
LOC: ONCMED 15:34
PROVIDERS: Family Provider Family Medicine; PCP Family Medicine; Visit Provider Internal Medicine Hematology & Oncology
DX: C53.9 Malignant neoplasm of cervix uteri, unspecified (principal); N39.0 Urinary tract infection, site not specified; R32 Unspecified urinary incontinence; K59.00 Constipation, unspecified; Z96.0 Presence of urogenital implants; Z79.899 Other long term (current) drug therapy
CPT/HCPCS: 99214

== ENCOUNTER 2019-10-21 06:42 | Outpatient (RCR) | payer MEDICAID, SELFPAY ==
[2019-10-20 14:39] LABS: Basophils # 0.1 10^3/uL (0.0-0.1); Basophils % 0.7 %; Eosinophils # 0.2 10^3/uL (0.0-0.8); Eosinophils % 1.7 %; Hematocrit 30.2 % (37.0-47.0); Hemoglobin 9.1 g/dL (11.5-15.3); Lymphocytes # 1.3 10^3/uL (0.8-4.8); Lymphocytes % 10.2 %; Mean Corpuscular HGB Conc 30.1 g/dL (30.0-36.0); Mean Corpuscular Hemoglobin 26.5 pg (28.0-34.0); Mean Platelet Volume 10.6 fL (7.4-10.4); Monocytes # 0.8 10^3/uL (0.2-0.9); Monocytes % 5.8 %; Neutrophils # 10.7 10^3/uL (1.8-7.7); Neutrophils % 81.2 %; Nucleated Red Blood Cells % 0 %; Platelet Count 400 10^3/cmm (130-400); Red Blood Count 3.43 10^6/uL (4.1-5.3); Red Cell Distribution Width 15.4 % (12.1-15.1); White Blood Count 13.1 10^3/uL (4.0-10.0)
[2019-10-20 14:50] LABS: Blood Urine 3+ (Negative); Glucose Urine UA Norm (Normal); Ketones Urine Negative (Negative); Nitrate Urine Negative (Negative); Protein Urine 1+ (Negative); Specific Gravity, Urine 1.015 (1.005-1.030); Urine Appearance Hazy (CLEAR); Urine Color Yellow (Yellow); pH Urine 5 (5-7)
[2019-10-20 14:51] LABS: Add Urine Microscopic? YES; Bilirubin Urine Neg (NEGATIVE); Leukocyte Esterase Urine 2+ (Negative); Urobilinogen Urine Norm (Negative)
[2019-10-20 15:03] LABS: Alanine Aminotransferase 8 U/L (0-33); Albumin Level 3.7 g/dL (3.5-5.2); Alkaline Phosphatase 94 IU/L (35-105); Aspartate Amino Transferase 10 U/L (0-32); Blood Urea Nitrogen 20 mg/dL (6-20); Calcium 9.2 mg/dL (8.5-10.5); Carbon Dioxide 26 mmol/L (22-29); Chloride 101 mmol/L (98-107); Globulin 3.2 g/dL (1.3-4.6); Glomerular Filtration Rate 76.9 mL/min (90-130); Glucose 139 mg/dL (65-115); Osmolality Calculated 291 mOsm/kg (285-295); Sodium 141 mmol/L (136-145); Total Bilirubin 0.2 mg/dL (0.15-1.2); Total Protein 6.9 g/dL (6.6-8.7)
[2019-10-20 15:27] LABS: RBC Urine 50-80 /hpf (0-2); Squamous Epithelial Cell Urine 0-4 (0-5); WBC Urine 15-25 /hpf (0-5)
[2019-10-20 15:28] LABS: Add Urine Culture? Yes; Bacteria Urine 2+
== END 2019-10-21 23:59 | disposition home or self-care (01) ==
LOC: ONCMED 06:42
PROVIDERS: Family Provider Family Medicine; PCP Family Medicine; Visit Provider Internal Medicine Hematology & Oncology
DX: C53.9 Malignant neoplasm of cervix uteri, unspecified (principal); N39.0 Urinary tract infection, site not specified
CPT/HCPCS: 36591; 80053; 81001; 85025; 87086

== ENCOUNTER 2019-10-27 15:35 | Emergency (ER) | payer MEDICAID, SELFPAY ==
[2019-10-27 15:38] VITALS: BP 131/84; PULSE 88; RESP 18; TEMP 36.2; O2SAT 100; BMI 20.2
--- NOTE | 2019-10-27 16:20 | ED_ITS ---
Documented by User: Bud Sung DO 10/28/19 06:42 HPI - Female Genitourinary General: Chief complaint: Urogenital-Female Stated complaint: poss bladder infection Time Seen by Provider: 10/27/19 16:04 History of Present Illness: HPI Narrative: 49-year-old female history of cervical cancer comes in per the request of her oncologist they are concerned she may have a bladder infection. She has generalized aches and pains thr oughout her body she denies any fever sweats or chills she is currently taking ciprofloxacin for presumed bladder infection. She denies any new or different respiratory symptoms or fever. Associated symptoms: Reports nausea; Deny abdominal pain Review of Systems Const: Reports: body aches, change in appetite, change in weight, fatigue and malaise; Denies: fever or chills ENMT: Denies: throat pain, ear pain, nasal discharge or nasal congestion Card: Denies: chest pain, edema, shortness of breath on exertion or shortness of breath when lying down Resp: Denies: shortness of breath, productive cough or non-productive cough GI: Reports: nausea; Denies: abdominal pain, vomiting, vomiting blood, coffee grounds in vomit, diarrhea, constipation, bloating, blood in stool or black tarry stool : Denies: flank pain, difficulty urinating, painful urination, urinary frequency or urinary urgency Skin/Breast: Denies: rash or itching PFS ED PFSH: Medical History (Updated 10/27/19 @ 19:24 by Dejan Cleary MD) Anxiety Cervical cancer Locally metastatic resulting in extrinsic right ureteral obstruction. Depression Port-A-Cath in place Surgical History H/O tubal ligation (12/03/97) S/P ureteral stent placement Social History Smoking and tobacco status: current every day smoker Alcohol intake: former Adopted: No Caregiver/support person: No Lives independently: No Household members: family Marital status: Legally Current occupational status: disabled Course Vital Signs: Vital signs: Vital Signs Temperature 97.2 F L 10/27/19 15:38 Pulse Rate 81 10/27/19 21:05 Respiratory Rate 20 H 10/27/19 21:05 Blood Pressure 127/65 10/27/19 21:05 Pulse Oximetry 98 10/27/19 21:05 MDM - Female MDM Narrative: Medical decision making narrative: Initial evaluation done by myself care handed over to Dr. Cleary at change of shift. I reviewed her previous cultures she had several urine cultures were all grown contamination the clean-catch urine is concerning for UTI but is also contaminated. Catheterization done to ensure a good sample with anticipated adequate culture from this as well. Turned over to Dr. Cleary at change of shift. Lab Data: Labs: Lab Results 10/27/19 10/27/19 10/27/19 Range/Units 16:35 16:35 16:50 WBC 14.8 H (4.0-10.0) 10^3/ uL RBC 3.87 L (4.1-5.3) 10^6/u L Hgb 10.2 L (11.5-15.3) g/dL Hct 34.0 L (37.0-47.0) % MCV 87.9 (81-99) fL MCH 26.4 L (28.0-34.0) pg MCHC 30.0 (30.0-36.0) g/dL RDW 15.6 H (12.1-15.1) % Plt Count 471 H (130-400) 10^3/c mm MPV 9.7 (7.4-10.4) fL Neut % (Auto) 76.5 % Lymph % (Auto) 11.4 % [place] % (Auto) 8.5 % Eos % (Auto) 2.0 % Baso % (Auto) 0.5 % Neut # (Auto) 11.3 H (1.8-7.7) 10^3/u L Lymph # (Auto) 1.7 (0.8-4.8) 10^3/u L [place] # (Auto) 1.3 H (0.2-0.9) 10^3/u L Eos # (Auto) 0.3 (0.0-0.8) 10^3/u L Baso # (Auto) 0.1 (0.0-0.1) 10^3/u L Nucleated RBC % (a uto) 0 % Nucleated RBCs # 0.0 /100WBC Sodium 134 L (136-145) mmol/L Potassium 3.5 (3.5-5.1) mmol/L Chloride 96 L (98-107) mmol/L Carbon Dioxide 24 (22-29) mmol/L Anion Gap 17.5 (5-19) BUN 20 (6-20) mg/dL Creatinine 0.7 (0.5-0.9) mg/dL GFR Calculation 89.7 L (90-130) mL/min Glucose 158 H (65-115) mg/dL Calculated Osmolal ity 278 L (285-295) mOsm/k g Calcium 9.6 (8.5-10.5) mg/dL Total Bilirubin 0.2 (0.15-1.2) mg/dL AST 20 (0-32) U/L ALT 25 (0-33) U/L Alkaline Phosphata se 151 H (35-105) IU/L Total Protein 7.5 (6.6-8.7) g/dL Albumin 3.8 (3.5-5.2) g/dL Globulin 3.7 (1.3-4.6) g/dL Lipase 13 (13-60) U/L Urine Color Yellow (Yellow) Urine Appearance Cloudy (CLEAR) Urine pH 5 (5-7) Ur Specific Gravit y 1.025 (1.005-1.030) Urine Protein 2+ H (Negative) Urine Glucose (UA) Norm (Normal) Urine Ketones Negative (Negative) Urine Blood 3+ H (Negative) Urine Nitrate Negative (Negative) Urine Bilirubin Neg (NEGATIVE) Urine Urobilinogen 1 H (Negative) mg/dL Ur Leukocyte Natasha ase 2+ H (Negative) Urine RBC 25-40 H (0-2) /hpf Urine WBC 55-80 H (0-5) /hpf Ur Squamous Epith Cells 5-10 H (0-5) Amorphous Sediment Urine Bacteria 4+ H (NONE) 10/27/19 Range/Units 18:08 WBC (4.0-10.0) 10^3/ uL RBC (4.1-5.3) 10^6/u L Hgb (11.5-15.3) g/dL Hct (37.0-47.0) % MCV (81-99) fL MCH (28.0-34.0) pg MCHC (30.0-36.0) g/dL RDW (12.1-15.1) % Plt Count (130-400) 10^3/c mm MPV (7.4-10.4) fL Neut % (Auto) % Lymph % (Auto) % [place] % (Auto) % Eos % (Auto) % Baso % (Auto) % Neut # (Auto) (1.8-7.7) 10^3/u L Lymph # (Auto) (0.8-4.8) 10^3/u L [place] # (Auto) (0.2-0.9) 10^3/u L Eos # (Auto) (0.0-0.8) 10^3/u L Baso # (Auto) (0.0-0.1) 10^3/u L Nucleated RBC % (a uto) % Nucleated RBCs # /100WBC Sodium (136-145) mmol/L Potassium (3.5-5.1) mmol/L Chloride (98-107) mmol/L Carbon Dioxide (22-29) mmol/L Anion Gap (5-19) BUN (6-20) mg/dL Creatinine (0.5-0.9) mg/dL GFR Calculation (90-130) mL/min Glucose (65-115) mg/dL Calculated Osmolal ity (285-295) mOsm/k g Calcium (8.5-10.5) mg/dL Total Bilirubin (0.15-1.2) mg/dL AST (0-32) U/L ALT (0-33) U/L Alkaline Phosphata se (35-105) IU/L Total Protein (6.6-8.7) g/dL Albumin (3.5-5.2) g/dL Globulin (1.3-4.6) g/dL Lipase (13-60) U/L Urine Color Yellow (Yellow) Urine Appearance Cloudy (CLEAR) Urine pH 5 (5-7) Ur Specific Gravit y 1.010 (1.005-1.030) Urine Protein 1+ H (Negative) Urine Glucose (UA) Norm (Normal) Urine Ketones Negative (Negative) Urine Blood 3+ H (Negative) Urine Nitrate Negative (Negative) Urine Bilirubin Neg (NEGATIVE) Urine Urobilinogen Norm (Negative) mg/dL Ur Leukocyte Natasha ase 1+ H (Negative) Urine RBC 25-40 H (0-2) /hpf Urine WBC 15-25 H (0-5) /hpf Ur Squamous Epith Cells 5-10 H (0-5) Amorphous Sediment 2+ Urine Bacteria 4+ H (NONE) Discharge Plan Discharge Patient Disposition: Home, Self-Care Clinical Impression: Urinary tract infection Qualifiers: Urinary tract infection type: site unspecified Hematuria presence: without hematuria Qualified Code(s): N39.0 - Urinary tract infection, site not specified Condition: Stable Prescriptions: New Macrobid 100 mg capsule 100 mg PO BID 7 Days Qty: 14 RF: 0 No Action ondansetron HCl [Zofran] 8 mg tablet 8 mg PO PRN PRN (Reason: prn) RF: 0 nicotine 21-14-7 mg/24 hr patch, TD daily, sequential 1 patch TRANSDERMA Q24H Qty: 56 RF: 0 lorazepam 1 mg tablet 1 mg PO DAILY PRN (Reason: anxiety) 30 Days Qty: 30 RF: 0 acetaminophen [Tylenol Extra Strength] 500 mg Tablet 1,500 mg PO PRN PRN (Reason: Pain) RF: 0 ibuprofen 600 mg Tablet 600 mg PO TID PRN (Reason: Pain) RF: 0 ciprofloxacin HCl 500 mg tablet 500 mg PO BID RF: 0 Flomax 0.4 mg Capsule 0.4 mg PO BEDTIME RF: 0 venlafaxine 37.5 mg tablet 37.5 mg PO QAM RF: 0 dexamethasone 4 mg Tablet See Rx Instructions .ROUTE .COMPLEX RF: 0 oxybutynin chloride 5 mg Tablet 5 mg PO TID RF: 0 hydrocodone-acetaminophen 10-325 mg tablet 1 - 2 tab PO Q6H PRN (Reason: pain) RF: 0 Discharge Orders: Discharge Order (Routine); Ordered 10/27/19 Ordered By: Dejan Cleary Referrals: [facility] Fernandez MD [Primary Care Provider] - Discharge Diet: Advance as tolerated Discharge Activity: Resume usual activity Patient Instructions: Urinary Tract Infection in Women (ED) Discharge Date/Time: 10/27/19 21:05 Coding Level of Care Code ED [facility] Medical Biller for Chg Fwd Exam Comprehensive Documented by User: Dejan Cleary MD 10/27/19 21:13 HPI - Female Genitourinary General: Chief complaint: Urogenital-Female Stated complaint: poss bladder infection Time Seen by Provider: 10/27/19 16:04 PFSH ED PFSH: Medical History (Updated 10/27/19 @ 19:24 by Dejan Cleary MD) Anxiety Cervical cancer Locally metastatic resulting in extrinsic right ureteral obstruction. Depression Port-A-Cath in place Surgical History H/O tubal ligation (12/03/97) S/P ureteral stent placement Social History Smoking and tobacco status: current every day smoker Alcohol intake: former Adopted: No Caregiver/support person: No Lives independently: No Household members: family Marital status: Legally Current occupational status: disabled Physical Exam Const: COMMON NORMALS: no apparent distress, oriented x3 and healthy appearing HENMT: COMMON NORMALS: normocephalic and head/scalp atraumatic HEAD & SCALP: normocephalic and atraumatic Eye: COMMON NORMALS: PERRL and EOMs intact bilaterally PUPIL: Yes PERRL Neck/C-Spine: COMMON NORMALS: full ROM and supple Chest: COMMONS NORMALS: inspection of chest normal and palpation of chest normal Resp: COMMON NORMALS: normal respiratory effort, no retractions, no use of accessory muscles and clear to auscultation bilaterally AUSCULTATION: clear to auscultation bilaterally Cardio: COMMON NORMALS: regular rate, regular rhythm and no murmurs RATE: regular rate RHYTHM: regular rhythm GI: COMMON NORMALS: normal to inspection, nondistended, normoactive bowel sounds, soft to palpation, non-tender and no masses PALPATION: Yes soft Extremity: COMMON NORMALS: normal to inspection and full ROM Neuro: COMMON NORMALS: oriented x3, moves all extremities and no focal motor deficits Psych: COMMON NORMALS: mental status grossly normal, thought process normal and cooperative THOUGHT PROCESS: normal thought process Skin: COMMON NORMALS: no rashes or lesions noted and no wounds GENERAL SKIN EXAM: no rashes or lesions noted Course Vital Signs: Vital signs: Vital Signs Temperature 97.2 F L 10/27/19 15:38 Pulse Rate 81 10/27/19 21:05 Respiratory Rate 20 H 10/27/19 21:05 Blood Pressure 127/65 10/27/19 21:05 Pulse Oximetry 98 10/27/19 21:05 MDM - Female MDM Narrative: Medical decision making narrative: Patient presents here with urinary tract infection. It was seen on a cath specimen. Patient given IV Rocephin here and will place on Macrobid. I took patient over from Dr. Oswald. I did try to contact her oncologist was unable to reach him. Patient was requesting discharge at this time. Patient given IV pain meds and she is to call her oncologist in the morning. She is return if worsening. Lab Data: Labs: Lab Results 10/27/19 10/27/19 10/27/19 Range/Units 16:35 16:35 16:50 WBC 14.8 H (4.0-10.0) 10^3/ uL RBC 3.87 L (4.1-5.3) 10^6/u L Hgb 10.2 L (11.5-15.3) g/dL Hct 34.0 L (37.0-47.0) % MCV 87.9 (81-99) fL MCH 26.4 L (28.0-34.0) pg MCHC 30.0 (30.0-36.0) g/dL RDW 15.6 H (12.1-15.1) % Plt Count 471 H (130-400) 10^3/c mm MPV 9.7 (7.4-10.4) fL Neut % (Auto) 76.5 % Lymph % (Auto) 11.4 % [place]gle % (Auto) 8.5 % Eos % (Auto) 2.0 % Baso % (Auto) 0.5 % Neut # (Auto) 11.3 H (1.8-7.7) 10^3/u L Lymph # (Auto) 1.7 (0.8-4.8) 10^3/u L [place]gle # (Auto) 1.3 H (0.2-0.9) 10^3/u L Eos # (Auto) 0.3 (0.0-0.8) 10^3/u L Baso # (Auto) 0.1 (0.0-0.1) 10^3/u L Nucleated RBC % (a uto) 0 % Nucleated RBCs # 0.0 /100WBC Sodium 134 L (136-145) mmol/L Potassium 3.5 (3.5-5.1) mmol/L Chloride 96 L (98-107) mmol/L Carbon Dioxide 24 (22-29) mmol/L Anion Gap 17.5 (5-19) BUN 20 (6-20) mg/dL Creatinine 0.7 (0.5-0.9) mg/dL GFR Calculation 89.7 L (90-130) mL/min Glucose 158 H (65-115) mg/dL Calculated Osmolal ity 278 L (285-295) mOsm/k g Calcium 9.6 (8.5-10.5) mg/dL Total Bilirubin 0.2 (0.15-1.2) mg/dL AST 20 (0-32) U/L ALT 25 (0-33) U/L Alkaline Phosphata se 151 H (35-105) IU/L Total Protein 7.5 (6.6-8.7) g/dL Albumin 3.8 (3.5-5.2) g/dL Globulin 3.7 (1.3-4.6) g/dL Lipase 13 (13-60) U/L Urine Color Yellow (Yellow) Urine Appearance Cloudy (CLEAR) Urine pH 5 (5-7) Ur Specific Gravit y 1.025 (1.005-1.030) Urine Protein 2+ H (Negative) Urine Glucose (UA) Norm (Normal) Urine Ketones Negative (Negative) Urine Blood 3+ H (Negative) Urine Nitrate Negative (Negative) Urine Bilirubin Neg (NEGATIVE) Urine Urobilinogen 1 H (Negative) mg/dL Ur Leukocyte Natasha ase 2+ H (Negative) Urine RBC 25-40 H (0-2) /hpf Urine WBC 55-80 H (0-5) /hpf Ur Squamous Epith Cells 5-10 H (0-5) Amorphous Sediment Urine Bacteria 4+ H (NONE) 10/27/19 Range/Units 18:08 WBC (4.0-10.0) 10^3/ uL RBC (4.1-5.3) 10^6/u L Hgb (11.5-15.3) g/dL Hct (37.0-47.0) % MCV (81-99) fL MCH (28.0-34.0) pg MCHC (30.0-36.0) g/dL RDW (12.1-15.1) % Plt Count (130-400) 10^3/c mm MPV (7.4-10.4) fL Neut % (Auto) % Lymph % (Auto) % [place]gle % (Auto) % Eos % (Auto) % Baso % (Auto) % Neut # (Auto) (1.8-7.7) 10^3/u L Lymph # (Auto) (0.8-4.8) 10^3/u L Ogle # (Auto) (0.2-0.9) 10^3/u L Eos # (Auto) (0.0-0.8) 10^3/u L Baso # (Auto) (0.0-0.1) 10^3/u L Nucleated RBC % (a uto) % Nucleated RBCs # /100WBC Sodium (136-145) mmol/L Potassium (3.5-5.1) mmol/L Chloride (98-107) mmol/L Carbon Dioxide (22-29) mmol/L Anion Gap (5-19) BUN (6-20) mg/dL Creatinine (0.5-0.9) mg/dL GFR Calculation (90-130) mL/min Glucose (65-115) mg/dL Calculated Osmolal ity (285-295) mOsm/k g Calcium (8.5-10.5) mg/dL Total Bilirubin (0.15-1.2) mg/dL AST (0-32) U/L ALT (0-33) U/L Alkaline Phosphata se (35-105) IU/L Total Protein (6.6-8.7) g/dL Albumin (3.5-5.2) g/dL Globulin (1.3-4.6) g/dL Lipase (13-60) U/L Urine Color Yellow (Yellow) Urine Appearance Cloudy (CLEAR) Urine pH 5 (5-7) Ur Specific Gravit y 1.010 (1.005-1.030) Urine Protein 1+ H (Negative) Urine Glucose (UA) Norm (Normal) Urine Ketones Negative (Negative) Urine Blood 3+ H (Negative) Urine Nitrate Negative (Negative) Urine Bilirubin Neg (NEGATIVE) Urine Urobilinogen Norm (Negative) mg/dL Ur Leukocyte Natasha ase 1+ H (Negative) Urine RBC 25-40 H (0-2) /hpf Urine WBC 15-25 H (0-5) /hpf Ur Squamous Epith Cells 5-10 H (0-5) Amorphous Sediment 2+ Urine Bacteria 4+ H (NONE) Discharge Plan Discharge Patient Disposition: Home, Self-Care Clinical Impression: Urinary tract infection Qualifiers: Urinary tract infection type: site unspecified Hematuria presence: without h ematuria Qualified Code(s): N39.0 - Urinary tract infection, site not specified Condition: Stable Prescriptions: New Macrobid 100 mg capsule 100 mg PO BID 7 Days Qty: 14 RF: 0 No Action ondansetron HCl [Zofran] 8 mg tablet 8 mg PO PRN PRN (Reason: prn) RF: 0 nicotine 21-14-7 mg/24 hr patch, TD daily, sequential 1 patch TRANSDERMA Q24H Qty: 56 RF: 0 lorazepam 1 mg tablet 1 mg PO DAILY PRN (Reason: anxiety) 30 Days Qty: 30 RF: 0 acetaminophen [Tylenol Extra Strength] 500 mg Tablet 1,500 mg PO PRN PRN (Reason: Pain) RF: 0 ibuprofen 600 mg Tablet 600 mg PO TID PRN (Reason: Pain) RF: 0 ciprofloxacin HCl 500 mg tablet 500 mg PO BID RF: 0 Flomax 0.4 mg Capsule 0.4 mg PO BEDTIME RF: 0 venlafaxine 37.5 mg tablet 37.5 mg PO QAM RF: 0 dexamethasone 4 mg Tablet See Rx Instructions .ROUTE .COMPLEX RF: 0 oxybutynin chloride 5 mg Tablet 5 mg PO TID RF: 0 hydrocodone-acetaminophen 10-325 mg tablet 1 - 2 tab PO Q6H PRN (Reason: pain) RF: 0 Discharge Orders: Discharge Order (Routine); Ordered 10/27/19 Ordered By: Dejan Cleary Referrals: Markell Fernandez MD [Primary Care Provider] - Discharge Diet: Advance as tolerated Discharge Activity: Resume usual activity Patient Instructions: Urinary Tract Infection in Women (ED) Discharge Date/Time: 10/27/19 21:05 Coding Level of Care Code [facility] for Chg Fwd Exam Comprehensive
[2019-10-27 16:48] LABS: Basophils # 0.1 10^3/uL (0.0-0.1); Basophils % 0.5 %; Eosinophils # 0.3 10^3/uL (0.0-0.8); Hemoglobin 10.2 g/dL (11.5-15.3); Lymphocytes # 1.7 10^3/uL (0.8-4.8); Lymphocytes % 11.4 %; Mean Corpuscular Hemoglobin 26.4 pg (28.0-34.0); Mean Corpuscular Volume 87.9 fL (81-99); Mean Platelet Volume 9.7 fL (7.4-10.4); Monocytes # 1.3 10^3/uL (0.2-0.9); Monocytes % 8.5 %; Neutrophils # 11.3 10^3/uL (1.8-7.7); Neutrophils % 76.5 %; Nucleated Red Blood Cells % 0 %; Platelet Count 471 10^3/cmm (130-400); Red Blood Count 3.87 10^6/uL (4.1-5.3); Red Cell Distribution Width 15.6 % (12.1-15.1); White Blood Count 14.8 10^3/uL (4.0-10.0)
[2019-10-27 16:59] LABS: Alanine Aminotransferase 25 U/L (0-33); Albumin Level 3.8 g/dL (3.5-5.2); Alkaline Phosphatase 151 IU/L (35-105); Anion Gap 17.5 (5-19); Aspartate Amino Transferase 20 U/L (0-32); Blood Urea Nitrogen 20 mg/dL (6-20); Calcium 9.6 mg/dL (8.5-10.5); Carbon Dioxide 24 mmol/L (22-29); Chloride 96 mmol/L (98-107); Globulin 3.7 g/dL (1.3-4.6); Glomerular Filtration Rate 89.7 mL/min (90-130); Glucose 158 mg/dL (65-115); Lipase 13 U/L (13-60); Osmolality Calculated 278 mOsm/kg (285-295); Potassium 3.5 mmol/L (3.5-5.1); Sodium 134 mmol/L (136-145); Total Bilirubin 0.2 mg/dL (0.15-1.2); Total Protein 7.5 g/dL (6.6-8.7)
[2019-10-27] MEDS: HYDROcodone-acetaminophen 5-325 mg Tablet 2 TAB PO (17:24)
[2019-10-27 17:27] LABS: Bilirubin Urine Neg (NEGATIVE); Blood Urine 3+ (Negative); Glucose Urine UA Norm (Normal); Ketones Urine Negative (Negative); Nitrate Urine Negative (Negative); Protein Urine 2+ (Negative); Specific Gravity, Urine 1.025 (1.005-1.030); Urine Appearance Cloudy (CLEAR); Urine Color Yellow (Yellow); pH Urine 5 (5-7)
[2019-10-27 17:28] LABS: Add Urine Culture? Yes; Add Urine Microscopic? YES; Bacteria Urine 4+; Leukocyte Esterase Urine 2+ (Negative); RBC Urine 25-40 /hpf (0-2); Urobilinogen Urine 1 mg/dL (Negative); WBC Urine 55-80 /hpf (0-5)
[2019-10-27 17:30] VITALS: BP 129/75; PULSE 98; RESP 16; O2SAT 99
[2019-10-27 18:00] VITALS: BP 125/81; PULSE 74; RESP 16; O2SAT 97
[2019-10-27 18:56] LABS: Bilirubin Urine Neg (NEGATIVE); Blood Urine 3+ (Negative); Glucose Urine UA Norm (Normal); Ketones Urine Negative (Negative); Leukocyte Esterase Urine 1+ (Negative); Nitrate Urine Negative (Negative); Protein Urine 1+ (Negative); Urine Appearance Cloudy (CLEAR); Urine Color Yellow (Yellow); Urobilinogen Urine Norm (Negative); pH Urine 5 (5-7)
[2019-10-27 18:57] LABS: Add Urine Microscopic? YES
[2019-10-27 19:00] LABS: Add Urine Culture? No; Amorphous Sediment Urine 2+; Bacteria Urine 4+; RBC Urine 25-40 /hpf (0-2); WBC Urine 15-25 /hpf (0-5)
[2019-10-27] MEDS: cefTRIAXone 1,000 MG in sodium chloride 0.9% (plus) 50 ML 100 MG IV (19:42)
[2019-10-27 20:40] VITALS: RESP 20
[2019-10-27] MEDS: HYDROmorphone 1 mg/mL INJ 1 mL IVP (20:40)
[2019-10-27 21:05] VITALS: BP 127/65; PULSE 81; RESP 20; O2SAT 98
== END 2019-10-27 21:05 | disposition home or self-care (01) ==
PROVIDERS: Family Medicine; Physician Assistant; Emergency Provider Emergency Medicine; Family Provider Family Medicine; PCP Family Medicine
DX: N39.0 Urinary tract infection, site not specified (principal); C53.9 Malignant neoplasm of cervix uteri, unspecified; N13.5 Crossing vessel and stricture of ureter without hydronephrosis; N13.30 Unspecified hydronephrosis; F17.210 Nicotine dependence, cigarettes, uncomplicated
CPT/HCPCS: 12345; 36415; 80053; 81001; 83690; 85025; 87086; 96365; 96375; 99283; J0696; J1170

== ENCOUNTER 2019-11-07 09:53 | Outpatient (RCR) | payer MEDICAID, SELFPAY ==
[2019-11-05 12:39] LABS: Basophils # 0.1 10^3/uL (0.0-0.1); Basophils % 0.7 %; Eosinophils # 0.3 10^3/uL (0.0-0.8); Eosinophils % 1.8 %; Hematocrit 32.6 % (37.0-47.0); Hemoglobin 9.9 g/dL (11.5-15.3); Lymphocytes # 1.6 10^3/uL (0.8-4.8); Lymphocytes % 11.9 %; Mean Corpuscular HGB Conc 30.4 g/dL (30.0-36.0); Mean Corpuscular Hemoglobin 26.1 pg (28.0-34.0); Mean Platelet Volume 10.2 fL (7.4-10.4); Monocytes # 1.3 10^3/uL (0.2-0.9); Monocytes % 9.5 %; Neutrophils # 10.3 10^3/uL (1.8-7.7); Neutrophils % 75.7 %; Nucleated Red Blood Cells % 0 %; Platelet Count 463 10^3/cmm (130-400); Red Blood Count 3.79 10^6/uL (4.1-5.3); Red Cell Distribution Width 15.9 % (12.1-15.1); White Blood Count 13.6 10^3/uL (4.0-10.0)
[2019-11-05 12:41] LABS: Alanine Aminotransferase 10 U/L (0-33); Albumin Level 3.8 g/dL (3.5-5.2); Alkaline Phosphatase 91 IU/L (35-105); Anion Gap 15.5 (5-19); Aspartate Amino Transferase 10 U/L (0-32); Blood Urea Nitrogen 21 mg/dL (6-20); Calcium 9.5 mg/dL (8.5-10.5); Carbon Dioxide 27 mmol/L (22-29); Chloride 100 mmol/L (98-107); Globulin 2.9 g/dL (1.3-4.6); Glomerular Filtration Rate 67.1 mL/min (90-130); Glucose 112 mg/dL (65-115); Osmolality Calculated 285 mOsm/kg (285-295); Potassium 3.5 mmol/L (3.5-5.1); Sodium 139 mmol/L (136-145); Total Bilirubin 0.2 mg/dL (0.15-1.2); Total Protein 6.7 g/dL (6.6-8.7)
[2019-11-06 09:42] LABS: Add Urine Microscopic? YES; Bilirubin Urine Neg (NEGATIVE); Blood Urine 3+ (Negative); Glucose Urine UA Norm (Normal); Ketones Urine Negative (Negative); Leukocyte Esterase Urine 2+ (Negative); Nitrate Urine Negative (Negative); Protein Urine 1+ (Negative); Specific Gravity, Urine 1.015 (1.005-1.030); Urine Appearance Cloudy (CLEAR); Urine Color Brown (Yellow); Urobilinogen Urine Norm (Negative); pH Urine 5 (5-7)
[2019-11-06 09:47] LABS: Add Urine Culture? Yes; Bacteria Urine 3+; RBC Urine TOO NUMEROUS TO CNT /hpf (0-2); WBC Urine 55-80 /hpf (0-5)
[2019-11-06] MEDS: sodium chloride 0.9% 250 ML 75 ML IV (10:07)
[2019-11-06] MEDS: LORazepam 2 mg/mL INJ 1 mL 1 MG IV (11:30)
[2019-11-06 12:24] LABS: Ferritin 143 ng/mL (15-150); Iron 14 ug/dL (37-145); Total Iron Binding Capacity 232 mcg/dl; Unsaturated Iron Binding 218 ug/dL (112-347)
[2019-11-06 12:40] LABS: Vitamin B12 350 pg/mL (232-1245)
--- NOTE | 2019-11-07 17:26 | ONC FU_ITS ---
Dr. Chapa follow up note Patient: Lelo Mason Unit #: [id number]: [id number] Dicatated By: Alicia Chapa M.D.Date of Visit:Nov 06, 2019 Onc Med Follow-up/Prog Note History of Present Illness: Mrs. Lelo mason, is a 49-year-old who was diagnosed with cervical cancer in June 2018 at that time she underwent combined chemoradiation followed by brachytherapy in August 2018, tolerated well and during follow-up , scans showed evidence of recurrence of disease and underwent CT PET scan on 01/30/2019 which showed moderately intense abnormal FDG activity in the right half of the cervix, very suspicious for local recurrence of malignancy. No abnormal activity identified anywhere else. There are 2 new 4 mm noncalcified pulmonary nodules one in the right lower lobe one in the left upper lobe both of which are too small to evaluate with PET. Appears stable from CT scan of chest done on 01/10/2019. Patient also had MRI scan of the pelvis done on 01/30/2019 which showed interval near resolution of previously seen very large cervical mass with residual mild bulbous appearance to the posterior cervix and no evidence of local metastatic disease patient was seen by Dr. Grider on 03/19/2019 as per his note she was scheduled to be admitted to hospital or as an outpatient exam under anesthesia and biopsy but it was not done patient was also diagnosed with post traumatic stress disorder and planning was to refer to psychiatrist. Also discussed about systemic therapy but patient decided to transfer her care to [place] As per patient on 07/16/2019 , she noted severe vaginal bleeding for which she went [place] [facility] [place] evaluation regarding and CT scan of pelvis was done which shows heterogeneous hyperdense material vaginal canal and heterogeneous lesion in the cervix similar to prior exam. Delayed right renal nephrogram and hydroureteronephrosis to the level of the bladder no calcified distal ureteral stone. Cannot exclude a distal stricture at the level of UVJ. There is slightly asymmetric thickening of posterior right bladder base. And Underwent cystoscopy with right retrograde ureteropyelogram and right ureteral stent placement on 07/22/2019 And follow-up CT PET scan done on 08/09/2019 showed FDG positive cervical mass measuring 5.6 x 1.4 cm SUV 14.3 indicating recurrent malignancy. Pelvic lymph nodes are all subcentimeter in size and FDG negative is no evidence of distance metastatic disease. feeling much better since right ureteral stent placement, right inguinal pain has improved significantly. Underwent ultrasound bilateral renal on 09/05/2019 which showed negative bilateral renal ultrasound right ureter stent, no hydronephrosis. Patient started having vaginal bleeding and progressive abdominal pain and eventually went to [facility] [place] which she was transferred to [facility] on 10/01/2019, patient underwent cervical mass biopsy which confirmed recurrent cervical carcinoma patient had CT PET scan done on 10/03/2019 which showed markedly FDG avid right cervical mass abutting the bladder is highly suspicious for recurrent disease. No FDG evidence of locoregional or distant metastatic disease. Patient also underwent right ureteral stent exchange on 10/02/2019 at [place], patient was given blood transfusion for anemia due to vaginal bleed. Patient was seen by [facility] surgical oncologist and systemic chemotherapy with carboplatin/Taxol/Avastin every 3 weeks ???6 was recommended. Came for follow-up, denies any specific complaints except constipation but no melena or hematochezia, no nausea or vomiting, pain is under control with current pain medication, denies any vaginal bleeding denies any hematuria denies any fever chills she is here to start her first cycle of chemotherapy with carboplatin/Taxol/Avastin Medications: [employer] Nicotine 1 Patch(es) (of 21 mg/24hr) Patch 24 Hr Transdermal daily, Gas Relief 1 Capsule (of 125 Capsule) Oral t.i.d., HYDROcodone-Acetaminophen 1 - 2 Tablet (of 10-325 mg) Oral q 6 hours PRN, Ibuprofen 1 Tablet (of 200 mg) Oral daily PRN, LORazepam 1 Tablet (of 1 mg) Oral daily PRN, Ondansetron HCl 1 Tablet (of 8 mg) Oral daily PRN, Tums 1 Tablet (of 500 mg) Tablet, chewable Oral PRN, Venlafaxine HCl ER 1 Tablet (of 37.5 mg) Tablet SR 24 HR Oral daily Allergies: Sulfa Antibiotics Review of Systems: Constitutional - Appetite is poor and weight is decreasing. No fever, chills, hot flashes. Positive for night sweats. Energy level is poor, ENMT - Positive for sinus congestion/drainage. No mouth sores. No sore throat or difficulty swallowing, Hematologic/Lymphatic - No abnormal bruising or bleeding, Respiratory - No shortness of breath. No cough. No pleuritic pain or hemoptysis, Cardiovascular - No angina pain. No palpitations, Gastrointestinal - Positive for nausea, no vomiting. Positive for heartburn and acid reflux. No diarrhea. Positive for constipation. No blood in the stool or black stools, Genitourinary (F) - No dysuria or hematuria. No urinary frequency. No urgency or incontinence, Musculoskeletal - Pt reports significant pain and anxiety, Neurologic - No headache. Positive for dizziness. No numbness/paresthesias or other focal neurologic symptoms, Psychiatric - Positive for anxiety and depression. Pt is tearful today. Vital Signs: Performed on Nov 06, 2019 09:17 Height - 57.00 in Weight - 128.3 lbs (LOW) BSA - 1.49 sq.m BMI - 27.76 Temperature - 98.3 F (LOW) Pulse - 93 /min Respiration - 17 /min BP - 112/69 mm(hg) O2 Sat - 97 % Pain - 8 Performance Status: 1 - No physically strenuous activity, but ambulatory and able to carry out light or sedentary work (e.g. office work, light house work). (ECOG) Physical Examination: ENMT - no mouth sores, no thrush, Respiratory - Lungs are clear to auscultation heart regular rate and rhythm, Abdomen - bowel sounds present, no tenderness, Extremities - no edema or rash. Lab/Imaging: Test performed on Nov 05, 2019 11:25 Sodium 139 mmol/L Potassium 3.5 mmol/L Chloride 100 mmol/L CO2 27 mmol/L Anion Gap 15.5 BUN 21 mg/dL Creatinine 0.9 mg/dL Cr Clearance (Est) 73.6000 mL/min eGFR 67.1 mL/min Glucose 112 mg/dL Calcium 9.5 mg/dL Protein, Total 6.7 g/dL Albumin 3.8 g/dL Globulin 2.9 g/dL Bilirubin, Total 0.2 mg/dL ALT (SGPT) 10 U/L AST (SGOT) 10 U/L Alkaline Phosphatase 91 IU/L WBC 13.6 10 3/uL RBC 3.79 10 6/uL HGB 9.9 g/dL HCT 32.6 % MCV 86.0 fL MCH 26.1 pg MCHC 30.4 g/dL RDW 15.9 % Platelet Count 463 10 3/cmm MPV 10.2 fL Neutrophils 10.3 10 3/uL Lymphocytes 1.6 10 3/uL Monocytes 1.3 10 3/uL Eosinophils 0.3 10 3/uL Basophils 0.1 10 3/uL Neutrophil % 75.7 % Lymphocyte % 11.9 % Monocyte % 9.5 % Eosinophil % 1.8 % Basophils % 0.7 % Test performed on Oct 20, 2019 14:05 Ua Micro: WBC 15-25 /hpf Ua Micro: RBC 50-80 /hpf Ua Micro: Squam Epith Cells 0-4 Ua Micro: Bacteria 2+ Test performed on Aug 11, 2019 11:16 Ferritin 96 ng/mL % Iron Saturation 8.6 % Iron, Total 21 mcg/dL TIBC 244 mcg/dL Manual Lymphocytes 12.3 % Manual Monocytes 8.0 % Manual Eosinophils 2.2 % Manual Basophils 0.7 % NRBCs 0.0 /100 WBC Impression: ? Recurrent cervical cancer per CT PET scan done on 01/30/2019 which showed moderately intense abnormal FDG activity in the right side of cervix maximum SUV 8.6 suspicious for local recurrence. No additional foci of abnormal activity identified. There is 4 mm noncalcified 100 nodule in the right lower lobe and left upper lobe of the lung, appear unchanged from recent CT scan of chest done on 01/10/2019. MRI scan of the pelvis done on 01/30/2019 showed interval near resolution of previously seen very large cervical mass with residual mild bulbous appearance to the posterior cervix and no evidence of local metastatic disease CT scan of the abdomen pelvis done on 07/16/2019 showed heterogeneous hypodense material vaginal canal. Again identified is heterogeneous lesion in the cervix and he delayed right renal nephrogram and hydroureter nephrosis the level of bladder. No calcified distal ureteral stone. There is a slight asymmetric thickening of posterior right bladder base.Status post cystoscopy and right ureteral stent placement done on 07/22/2019 CT PET scan done on 08/09/2019 showed FDG positive cervical mass measuring 5.6 x 1.4 cm with SUV of 14.3 indicating recurrent malignancy. Pelvic lymph nodes are subcentimeter and FDG negative. No evidence of distance metastases Plan: Discussed with patient regarding her labs white blood count 13.5 hemoglobin 9.9 g hematocrit 32.6 platelets 462,000 CMP within normal limits Clinically, patient doing reasonably well, now being started on systemic therapy with carboplatin/Taxol/Avastin with Neulasta support to prevent chemotherapy-induced leukopenia/neutropenia. Patient return to clinic on 11/19/2019 with CBC CMP As far as constipation concern patient was advised to try milk of magnesia/prune juice or senna S, if no improvement we may consider GI evaluation to rule out colon involvement with the tumor. As far as mild to moderate anemia is concerned, we will check iron studies B12 folic acid , if low, consider supplements Signed By: Alicia Chapa M.D. <<Signature on File>>
== END 2019-11-07 23:59 | disposition home or self-care (01) ==
LOC: ONCMED 09:53
PROVIDERS: Family Provider Family Medicine; PCP Family Medicine; Visit Provider Internal Medicine Hematology & Oncology
DX: Z51.11 Encounter for antineoplastic chemotherapy (principal); C53.9 Malignant neoplasm of cervix uteri, unspecified; D64.9 Anemia, unspecified; R31.9 Hematuria, unspecified; R30.9 Painful micturition, unspecified; K59.00 Constipation, unspecified; R91.8 Other nonspecific abnormal finding of lung field; Z76.89 Persons encountering health services in other specified circumstances; Z79.899 Other long term (current) drug therapy; Z96.0 Presence of urogenital implants
CPT/HCPCS: 80053; 81001; 82607; 82728; 83540; 83550; 85025; 87086; 96367; 96372; 96375; 96413; 96415; 96417; 99214; J1100; J1200; J1453; J2060; J2469; J2505; J3490; J7030; J7050; J9035; J9045; J9267

== ENCOUNTER 2019-11-08 14:48 | Emergency (ER) | payer MEDICAID, SELFPAY ==
[2019-11-08 15:00] VITALS: BP 110/75; PULSE 102; RESP 20; TEMP 36.8; O2SAT 97
--- NOTE | 2019-11-08 15:15 | W.ED.FEMALGU ---
HPI - Female Genitourinary General: Chief complaint: Urogenital-Female Stated complaint: cancer pt/bloody urine Time Seen by Provider: 11/08/19 15:07 History of Present Illness: HPI Narrative: Patient presents with a 2-day history of increased urination that has blood in and is tea colored patient states she said when she has have a bowel movement to push on her bladder and more blood and urine come out have a hard time urinating does complain chills but no fever is nauseous denies vaginal bleeding Undergoing treatment for cervical cancer had last chemo on MD elicited complaint: difficulty urinating Pertinent past history: other (Cancer) Onset (ago): day(s) (2) Severity: moderate Urinary symptoms: Hematuria and Urgency Relieving factors: none Associated symptoms: Reports fevers/chills; Deny abdominal pain, headache(s) or nausea Review of Systems Narrative: Undergoing treatment for cervical cancer Const: Denies: fever, chills or body aches Eyes: Denies: change in vision or blurry vision ENMT: Denies: throat pain or nasal congestion Card: Denies: chest pain or shortness of breath on exertion Resp: Denies: shortness of breath, productive cough or non-productive cough GI: Denies: abdominal pain, nausea or vomiting : Reports: urinary frequency, urinary urgency and blood in urine Musc: Denies: extremity pain Skin/Breast: Denies: rash Neuro: Denies: headache Psych: Denies: anxiety or depression Terence/Lymph: Denies: easy bruising PFSH ED PFSH: Medical History (Updated 11/08/19 @ 16:53 by MICHAEL Hendrix) Anxiety Cervical cancer Locally metastatic resulting in extrinsic right ureteral obstruction. Depression Port-A-Cath in place Surgical History H/O tubal ligation (12/03/97) S/P ureteral stent placement Social History Smoking and tobacco status: current every day smoker Alcohol intake: former Adopted: No Caregiver/support person: No Lives independently: No Household members: family Marital status: Legally Current occupational status: disabled Physical Exam Const: COMMON NORMALS: no apparent distress, average body habitus and oriented x3 HENMT: COMMON NORMALS: normocephalic HEAD & SCALP: normal to inspection and normocephalic FACE & SINUS: normal facial exam Eye: COMMON NORMALS: conjunctivae normal GENERAL EYE: normal appearance of both eyes CONJUNCTIVA: Yes conjunctivae normal Neck/C-Spine: COMMON NORMALS: no JVD Chest: COMMONS NORMALS: inspection of chest normal Resp: COMMON NORMALS: normal respiratory effort and clear to auscultation bilaterally AUSCULTATION: clear to auscultation bilaterally Cardio: COMMON NORMALS: no JVD and regular rhythm RATE: tachycardic RHYTHM: regular rhythm GI: COMMON NORMALS: normal to inspection, nondistended, normoactive bowel sounds Extremity: COMMON NORMALS: normal to inspection and full ROM Neuro: COMMON NORMALS: oriented x3 Course Vital Signs: Vital signs: Vital Signs Temperature 98.3 F 11/08/19 15:00 Pulse Rate 102 H 11/08/19 15:00 Respiratory Rate 20 H 11/08/19 15:00 Blood Pressure 110/75 11/08/19 15:00 Pulse Oximetry 97 11/08/19 15:00 MDM - Female MDM Narrative: Medical decision making narrative: I spoke with Dr. Chapa he was not surprised by her white count been 32.8 from the shot and chemo she received this week he said she is got probably healthy white blood cell bone marrow and that very possibly will go up to 32 and so he said is good treat with Keflex and have him follow-up with him I spoke with Dr. Temple and let her know and apprised her situation Lab Data: Labs: Lab Results 11/08/19 11/08/19 11/08/19 Range/Units 15:43 15:43 15:43 WBC 34.2 H* (4.0-10.0) 10^3/ uL RBC 4.12 (4.1-5.3) 10^6/u L Hgb 10.9 L (11.5-15.3) g/dL Hct 34.9 L (37.0-47.0) % MCV 84.7 (81-99) fL MCH 26.5 L (28.0-34.0) pg MCHC 31.2 (30.0-36.0) g/dL RDW 16.1 H (12.1-15.1) % Plt Count 392 (130-400) 10^3/c mm MPV 10.5 H (7.4-10.4) fL Neut % (Auto) 94.7 % Lymph % (Auto) 3.5 % [place] % (Auto) 0.9 % Eos % (Auto) 0.5 % Baso % (Auto) 0.4 % Neut # (Auto) 28.5 H (1.8-7.7) 10^3/u L Lymph # (Auto) 1.2 (0.8-4.8) 10^3/u L [place] # (Auto) 0.3 (0.2-0.9) 10^3/u L Eos # (Auto) 0.2 (0.0-0.8) 10^3/u L Baso # (Auto) 0.1 (0.0-0.1) 10^3/u L Nucleated RBC % (a uto) 0 % Nucleated RBCs # 0.0 /100WBC Sodium 136 (136-145) mmol/L Potassium 4.2 (3.5-5.1) mmol/L Chloride 97 L (98-107) mmol/L Carbon Dioxide 28 (22-29) mmol/L Anion Gap 15.2 (5-19) BUN 26 H (6-20) mg/dL Creatinine 0.8 (0.5-0.9) mg/dL GFR Calculation 76.9 L (90-130) mL/min Glucose 109 (65-115) mg/dL Calculated Osmolal ity 279 L (285-295) mOsm/k g Lactic Acid 1.4 (0.5-2.2) mmol/L Calcium 9.7 (8.5-10.5) mg/dL Urine Color (Yellow) Urine Appearance (CLEAR) Urine pH (5-7) Ur Specific Gravit y (1.005-1.030) Urine Protein (Negative) Urine Glucose (UA) (Normal) Urine Ketones (Negative) Urine Blood (Negative) Urine Nitrate (Negative) Urine Bilirubin (NEGATIVE) Urine Urobilinogen (Negative) mg/dL Ur Leukocyte Natasha ase (Negative) Urine RBC (0-2) /hpf Urine WBC (0-5) /hpf Ur Squamous Epith Cells (0-5) Amorphous Sediment Urine Bacteria (NONE) 11/08/19 Range/Units 15:50 WBC (4.0-10.0) 10^3/ uL RBC (4.1-5.3) 10^6/u L Hgb (11.5-15.3) g/dL Hct (37.0-47.0) % MCV (81-99) fL MCH (28.0-34.0) pg MCHC (30.0-36.0) g/dL RDW (12.1-15.1) % Plt Count (130-400) 10^3/c mm MPV (7.4-10.4) fL Neut % (Auto) % Lymph % (Auto) % [place] % (Auto) % Eos % (Auto) % Baso % (Auto) % Neut # (Auto) (1.8-7.7) 10^3/u L Lymph # (Auto) (0.8-4.8) 10^3/u L [place] # (Auto) (0.2-0.9) 10^3/u L Eos # (Auto) (0.0-0.8) 10^3/u L Baso # (Auto) (0.0-0.1) 10^3/u L Nucleated RBC % (a uto) % Nucleated RBCs # /100WBC Sodium (136-145) mmol/L Potassium (3.5-5.1) mmol/L Chloride (98-107) mmol/L Carbon Dioxide (22-29) mmol/L Anion Gap (5-19) BUN (6-20) mg/dL Creatinine (0.5-0.9) mg/dL GFR Calculation (90-130) mL/min Glucose (65-115) mg/dL Calculated Osmolal ity (285-295) mOsm/k g Lactic Acid (0.5-2.2) mmol/L Calcium (8.5-10.5) mg/dL Urine Color Dyan (Yellow) Urine Appearance Hazy A (CLEAR) Urine pH 5 (5-7) Ur Specific Gravit y 1.025 (1.005-1.030) Urine Protein 2+ H (Negative) Urine Glucose (UA) Norm (Normal) Urine Ketones 1+ H (Negative) Urine Blood 3+ H (Negative) Urine Nitrate Negative (Negative) Urine Bilirubin 1+ H (NEGATIVE) Urine Urobilinogen 1 H (Negative) mg/dL Ur Leukocyte Natasha ase 2+ H (Negative) Urine RBC Too numerous to c nt H (0-2) /hpf Urine WBC 25-40 H (0-5) /hpf Ur Squamous Epith Cells Rare (0-5) Amorphous Sediment 2+ Urine Bacteria 2+ H (NONE) Discharge Plan Discharge Patient Disposition: Home, Self-Care Clinical Impression: UTI (urinary tract infection) Qualifiers: Urinary tract infection type: acute cystitis Hematuria presence: with hematuria Qualified Code(s): N30.01 - Acute cystitis with hematuria Condition: Stable Prescriptions: New Keflex 500 mg capsule 500 mg PO TID 7 Days Qty: 21 RF: 0 No Action ondansetron HCl [Zofran] 8 mg tablet 8 mg PO PRN PRN (Reason: prn) RF: 0 nicotine 21-14-7 mg/24 hr patch, TD daily, sequential 1 patch TRANSDERMA Q24H Qty: 56 RF: 0 acetaminophen [Tylenol Extra Strength] 500 mg Tablet 1,500 mg PO PRN PRN (Reason: Pain) RF: 0 ibuprofen 600 mg Tablet 600 mg PO TID PRN (Reason: Pain) RF: 0 tamsulosin [Flomax] 0.4 mg Capsule 0.4 mg PO BEDTIME RF: 0 dexamethasone 4 mg Tablet See Rx Instructions .ROUTE .COMPLEX RF: 0 hydrocodone-acetaminophen 10-325 mg tablet 1 - 2 tab PO Q6H PRN (Reason: pain) RF: 0 lorazepam 1 mg tablet 1 mg PO TID RF: 0 Discharge Orders: Discharge Order (Routine); Ordered 11/08/19 Ordered By: Phillip Mondragon Referrals: Markell Fernandez MD [Primary Care Provider] - Discharge Diet: Advance as tolerated Discharge Activity: Increase activity as tolerated Patient Instructions: Urinary Tract Infection in Women (ED) Activity Restrictions/Additional Instructions: Follow-up with medical provider as directed. Take medications as prescribed. Return to the ER or your medical provider if condition worsens. Please read and understand discharge instructions. If any questions ask please. Follow-up Dr. Chapa Coding Level of Care Code ED [employer] Fwd Exam Comprehensive
[2019-11-08 16:07] LABS: Eosinophils % 0.5 %; Hemoglobin 10.9 g/dL (11.5-15.3); Mean Corpuscular Volume 84.7 fL (81-99); Monocytes % 0.9 %; Nucleated Red Blood Cells % 0 %
[2019-11-08 16:11] LABS: Basophils # 0.1 10^3/uL (0.0-0.1); Basophils % 0.4 %; Eosinophils # 0.2 10^3/uL (0.0-0.8); Hematocrit 34.9 % (37.0-47.0); Lymphocytes # 1.2 10^3/uL (0.8-4.8); Lymphocytes % 3.5 %; Mean Corpuscular HGB Conc 31.2 g/dL (30.0-36.0); Mean Corpuscular Hemoglobin 26.5 pg (28.0-34.0); Mean Platelet Volume 10.5 fL (7.4-10.4); Monocytes # 0.3 10^3/uL (0.2-0.9); Neutrophils # 28.5 10^3/uL (1.8-7.7); Platelet Count 392 10^3/cmm (130-400); Red Blood Count 4.12 10^6/uL (4.1-5.3); Red Cell Distribution Width 16.1 % (12.1-15.1)
[2019-11-08 16:21] LABS: Anion Gap 15.2 (5-19); Blood Urea Nitrogen 26 mg/dL (6-20); Calcium 9.7 mg/dL (8.5-10.5); Carbon Dioxide 28 mmol/L (22-29); Chloride 97 mmol/L (98-107); Glomerular Filtration Rate 76.9 mL/min (90-130); Glucose 109 mg/dL (65-115); Lactic Sepsis W/Reflex 1.4 mmol/L (0.5-2.2); Osmolality Calculated 279 mOsm/kg (285-295); Potassium 4.2 mmol/L (3.5-5.1); Sodium 136 mmol/L (136-145)
[2019-11-08 16:24] LABS: Glucose Urine UA Norm (Normal); Ketones Urine 1+ (Negative); Protein Urine 2+ (Negative); Specific Gravity, Urine 1.025 (1.005-1.030); Urine Appearance Hazy (CLEAR); Urine Color Amber (Yellow); pH Urine 5 (5-7)
[2019-11-08 16:25] LABS: Add Urine Microscopic? YES; Bilirubin Urine 1+ (NEGATIVE); Blood Urine 3+ (Negative); Leukocyte Esterase Urine 2+ (Negative); Nitrate Urine Negative (Negative); Urobilinogen Urine 1 mg/dL (Negative)
[2019-11-08 16:26] LABS: RBC Urine TOO NUMEROUS TO CNT /hpf (0-2)
[2019-11-08 16:27] LABS: Amorphous Sediment Urine 2+; Bacteria Urine 2+; Squamous Epithelial Cell Urine RARE (0-5); WBC Urine 25-40 /hpf (0-5)
[2019-11-08 16:28] LABS: Add Urine Culture? Yes
[2019-11-08 16:45] LABS: White Blood Count 34.2 10^3/uL (4.0-10.0)
[2019-11-08 16:46] LABS: Slide Review Slide Review Perform
[2019-11-08 16:47] LABS: Neutrophils % 94.7 %
[2019-11-08] MEDS: cephALEXin 500 mg Capsule PO (17:00)
[2019-11-08 17:30] VITALS: BP 101/75; PULSE 91; RESP 16; TEMP 36.9; O2SAT 99
== END 2019-11-08 17:20 | disposition home or self-care (01) ==
PROVIDERS: Emergency Provider Nurse Practitioner Family; Family Provider Family Medicine; PCP Family Medicine
DX: N30.01 Acute cystitis with hematuria (principal); C53.9 Malignant neoplasm of cervix uteri, unspecified; F41.9 Anxiety disorder, unspecified; F32.9 Major depressive disorder, single episode, unspecified; Z95.5 Presence of coronary angioplasty implant and graft
CPT/HCPCS: 12345; 36415; 80048; 81001; 83605; 85025; 87040; 87086; 99281; 99283

== ENCOUNTER 2019-11-08 21:03 | Inpatient (IN) | payer MEDICAID, SELFPAY ==
[2019-11-08 21:06] VITALS: BP 117/75; PULSE 107; RESP 16; TEMP 36.8; O2SAT 97; BMI 19.8
--- NOTE | 2019-11-08 21:39 | CTR_ITS ---
PROCEDURE INFORMATION: Exam: CT Abdomen And Pelvis With Contrast Exam date and time: 11/08/2019 10:10 PM Age: 49 years old Clinical indication: Abdominal pain; Generalized; Prior surgery; Surgery date: 3-7 days post-operative; Surgery type: Uretral stent; Additional info: Abdominal pain, ? gi bleeding TECHNIQUE: Imaging protocol: Computed tomography of the abdomen and pelvis with intravenous contrast. Total DLP: 533.23 mGy-cm Radiation optimization: All CT scans at this facility use at least one of these dose optimization techniques: automated exposure control; mA and/or kV adjustment per patient size (includes targeted exams where dose is matched to clinical indication); or iterative reconstruction. Contrast material: OMNI 300; Contrast volume: 95 ml; Contrast route: IV; COMPARISON: CT abdomen pelvis w con* [id number] 09/15/2019 1:27 PM FINDINGS: Lungs: The lung bases are clear. Liver: Unremarkable. Gallbladder and bile ducts: No visible gallstones or other definite gallbladder abnormality by CT. Ultrasound could be more sensitive for detecting gallstones, if clinically needed. Mild extra hepatic biliary tree prominence, with common duct measuring up to 6-7 mm. No significant intrahepatic dilation. No visible common duct stone by CT. Significance uncertain. Correlation with laboratory/bilirubin levels may be helpful to determine if there is any significant biliary obstruction. Pancreas: Unremarkable. Spleen: Unremarkable. Adrenals: Unremarkable. Kidneys and ureters: Right ureteral stent present, upper pigtail in the right renal pelvis, lower pigtail in the urinary bladder. Borderline/mild right hydronephrosis, no hydroureter. No visible ureteral calculus. Possible mild thickening of the wall of the right renal pelvis. Although appearance is nonspecific, possibility of pyelitis/pyelonephritis might be considered. Please correlate clinically. The kidneys enhance homogeneously. No perinephric fluid. Stomach and bowel: There appears to be mild to moderate diffuse mucosal/wall thickening involving the rectum and distal sigmoid colon. Some increased attenuation in the perirectal fat may represent edema/inflammatory changes. This appearance is similar to slightly more prominent than on the prior exam. While nonspecific, this appearance may be secondary to some form of colitis/proctitis. Please correlate clinically. There are no CT findings to strongly suggest diverticulitis. Appendix: The appendix is visualized and appears normal. Intraperitoneal space: No free air, ascites, or bowel distention. Vasculature: No evidence for abdominal aortic aneurysm. Lymph nodes: No retroperitoneal adenopathy. Bladder: Possibly some mild diffuse urinary bladder wall thickening, mainly posteriorly. While nonspecific, this could indicate evidence for cystitis. Please correlate clinically. Reproductive: Essentially unremarkable for age. Bones/joints: No significant acute finding. Soft tissues: No significant acute finding. CT/CT abdomen pelvis w con* [id number] IMPRESSION: 1. Findings suspicious for some form of colitis involving the rectum and distal sigmoid colon, see above details. 2. Right ureteral stent. Borderline/mild right hydronephrosis, no visible ureteral calculus. 3. Possible mild thickening of the wall of the right renal pelvis, possibility of pyelitis/pyelonephritis might be considered. 4. Normal appendix. 5. Mild extrahepatic biliary prominence, see above discussion. 6. Possible mild urinary bladder wall thickening, see above. 7. Other findings discussed above. Radiation Dose CTDIVOL = (mGy): DLP = 533.23 (mGy-cm)
[2019-11-08 21:50] LABS: Basophils % 0.1 %; Eosinophils # 0.3 10^3/uL (0.0-0.8); Eosinophils % 0.6 %; Hematocrit 33.6 % (37.0-47.0); Hemoglobin 10.5 g/dL (11.5-15.3); Lymphocytes # 1.5 10^3/uL (0.8-4.8); Lymphocytes % 3.9 %; Mean Corpuscular HGB Conc 31.3 g/dL (30.0-36.0); Mean Corpuscular Hemoglobin 26.1 pg (28.0-34.0); Mean Corpuscular Volume 83.4 fL (81-99); Mean Platelet Volume 10.3 fL (7.4-10.4); Monocytes # 0.6 10^3/uL (0.2-0.9); Monocytes % 1.5 %; Neutrophils # 31.2 10^3/uL (1.8-7.7); Neutrophils % 80.5 %; Nucleated Red Blood Cells % 0 %; Platelet Count 375 10^3/cmm (130-400); Positive C 1; Positive M 1; Red Blood Count 4.03 10^6/uL (4.1-5.3); Red Cell Distribution Width 15.9 % (12.1-15.1)
[2019-11-08 21:55] VITALS: RESP 18; O2SAT 98
[2019-11-08] MEDS: HYDROmorphone 1 mg/mL INJ 1 mL IVP ×2 (21:55→23:14)
[2019-11-08] MEDS: ondansetron 2 mg/ML SDV 2 mL 4 MG IVP (21:55)
[2019-11-08] MEDS: sodium chloride 0.9% 1,000 ML 999 ML IV (21:56)
[2019-11-08 21:58] LABS: INR 0.97 (0.8-1.2)
[2019-11-08 22:00] LABS: Partial Thromboplastin Time 36.7 SECONDS (23.9-36.7)
[2019-11-08 22:05] LABS: Alanine Aminotransferase 11 U/L (0-33); Alkaline Phosphatase 116 IU/L (35-105); Anion Gap 15.3 (5-19); Aspartate Amino Transferase 11 U/L (0-32); Blood Urea Nitrogen 25 mg/dL (6-20); Carbon Dioxide 26 mmol/L (22-29); Chloride 98 mmol/L (98-107); Globulin 3.2 g/dL (1.3-4.6); Glomerular Filtration Rate 89.7 mL/min (90-130); Glucose 109 mg/dL (65-115); Lipase 16 U/L (13-60); Osmolality Calculated 277 mOsm/kg (285-295); Potassium 4.3 mmol/L (3.5-5.1); Sodium 135 mmol/L (136-145); Total Bilirubin 0.2 mg/dL (0.15-1.2); Total Protein 7.2 g/dL (6.6-8.7)
[2019-11-08 22:13] LABS: White Blood Count 38.8 10^3/uL (4.0-10.0)
--- NOTE | 2019-11-08 22:13 | PC.NURSE ---
Lab called with WBC 38.8, advised DR. Bal
[2019-11-08] MEDS: iohexol 300 mg/mL 100 mL Btl IV (22:23)
[2019-11-08 22:26] LABS: Lactate (Lactic Acid level) 1.1 mmol/L (0.5-2.2)
--- NOTE | 2019-11-08 22:56 | ED_ITS ---
HPI - GI Bleed General: Chief complaint: GI Bleed Stated complaint: RECTAL BLEEDING Time Seen by Provider: 11/08/19 21:23 History of Present Illness: HPI Narrative: 49-year-old female with a history of cervical cancer. She presents with abdominal/pelvic discomfort, mainly in the midline. She has pain with urination. She has complained of a small amount of rectal bleeding as well. She denies fever. She was seen earlier today and diagnosed with a urinary tract infection MD complaint: gross hematochezia (Small amount) Onset (ago): hour(s) Pain Consistency: constant Severity: severe Relieving factors: none Exacerbating factors: movement Associated symptoms: Reports poor appetite; Denies epistaxis, fever(s), headache(s), rash or vomiting Review of Systems Const: Denies: fever Eyes: Denies: change in vision or blurry vision ENMT: Denies: painful swallowing, bleeding gums, dental pain or nose bleeds Card: Denies: chest pain, palpitations, irregular heart rhythm or edema Resp: Denies: shortness of breath, productive cough, non-productive cough or wheezing GI: Denies: vomiting : Reports: painful urination, urinary frequency, urinary urgency and blood in urine Musc: Reports: back pain; Denies: neck pain, redness or joint warmth Skin/Breast: Denies: rash, itching or redness Neuro: Denies: headache, dizziness or vertigo Psych: Reports: anxiety PFSH ED PFSH: Medical History (Updated 11/09/19 @ 01:20 by Markell Fernandez MD) Anxiety Cervical cancer Locally metastatic resulting in extrinsic right ureteral obstruction. Depression Port-A-Cath in place Surgical History H/O tubal ligation (12/03/97) S/P ureteral stent placement Social History Smoking and tobacco status: current every day smoker Alcohol intake: former Adopted: No Caregiver/support person: No Lives independently: No Household members: family Marital status: Legally Current occupational status: disabled Physical Exam Const: GENERAL APPEARANCE: well developed ORIENTATION/CONSCIOUSNESS: Yes oriented to person, Yes oriented to place and Yes oriented to time HENMT: COMMON NORMALS: normocephalic, external ears normal and external nose normal HEAD & SCALP: normocephalic; no scalp tenderness FACE & SINUS: normal facial exam NOSE: external nose normal and no nasal discharge EXTERNAL EAR: Yes external ears normal MOUTH: tongue normal TEETH & GINGIVA: no abnormal tooth and associated gingiva THROAT: posterior oropharynx normal; no peritonsillar mass Eye: COMMON NORMALS: PERRL, EOMs intact bilaterally and conjunctivae normal EYELID: eyelids normal CONJUNCTIVA: Yes conjunctivae normal PUPIL: Yes PERRL Neck/C-Spine: GENERAL: No tracheal deviation Chest: COMMONS NORMALS: inspection of chest normal CHEST: No tenderness Resp: COMMON NORMALS: clear to auscultation bilaterally EFFORT & INSPECTION: No tachypneic, No respiratory distress, No retractions, No uses accessory muscles and No tracheal deviation AUSCULTATION: clear to auscultation bilaterally, no rhonchi, no wheezes and lung sounds not diminished Cardio: COMMON NORMALS: regular rate and regular rhythm RATE: regular rate RHYTHM: regular rhythm HEART SOUNDS: no murmurs PERIPHERAL PULSES: radial pulses present GI: INSPECTION: No abdominal distension AUSCULTATION: No hyperactive bowel sounds and No hypoactive bowel sounds PALPATION: No guarding and No rigid PERCUSSION: no dullness to percussion and no tympanic to percussion : COMMON NORMALS: No no CVA tenderness BLADDER/KIDNEY EXAM: No no CVA tenderness Back/Pelvis: COMMON NORMALS: negative for no CVA tenderness Neuro: SENSORIUM/ORIENTATION: Yes oriented to person, Yes oriented to place and Yes oriented to time Psych: COMMON NORMALS: mental status grossly normal Skin: COMMON NORMALS: no rashes or lesions noted GENERAL SKIN EXAM: no rashes or lesions noted Course Vital Signs: Vital signs: Vital Signs Temperature 97.6 F 11/09/19 02:27 Pulse Rate 92 11/09/19 02:27 Respiratory Rate 17 11/09/19 02:27 Blood Pressure 111/71 11/09/19 02:27 Pulse Oximetry 96 11/09/19 02:27 MDM - GI Bleed MDM Narrative: Medical decision making narrative: 49-year-old female with a history of cervical cancer. She presents hysterical and pain, and with anxiety. She has significant pain with trying to urinate. Her white blood cell count is 38.8, but she was given Neupogen a couple of days ago. Her hemoglobin is 10.5. She has not had any more rectal bleeding here. Her electrolytes are benign. Her urinalysis does show a urinary tract infection. Her post void bladder scan showed at least 400 mL of urine. A De La Rosa was placed with immediate return of 500 mL. With her bladder decompressed, she is feeling somewhat better. She has a ureteral stent. She has evidence of pyelonephritis by CT. She also has evidence of rectal/sigmoid colitis as well. She is received Zosyn. She will be admitted. Lab Data: Labs: Lab Results 11/08/19 11/08/19 11/08/19 Range/Units 21:28 21:28 21:28 WBC 38.8 H* (4.0-10.0) 10^3/ uL RBC 4.03 L (4.1-5.3) 10^6/u L Hgb 10.5 L (11.5-15.3) g/dL Hct 33.6 L (37.0-47.0) % MCV 83.4 (81-99) fL MCH 26.1 L (28.0-34.0) pg MCHC 31.3 (30.0-36.0) g/dL RDW 15.9 H (12.1-15.1) % Plt Count 375 (130-400) 10^3/c mm MPV 10.3 (7.4-10.4) fL Neut % (Auto) 80.5 % Lymph % (Auto) 3.9 % Starke % (Auto) 1.5 % Eos % (Auto) 0.6 % Baso % (Auto) 0.1 % Neut # (Auto) 31.2 H (1.8-7.7) 10^3/u L Lymph # (Auto) 1.5 (0.8-4.8) 10^3/u L Starke # (Auto) 0.6 (0.2-0.9) 10^3/u L Eos # (Auto) 0.3 (0.0-0.8) 10^3/u L Baso # (Auto) 0.0 (0.0-0.1) 10^3/u L Nucleated RBC % (a uto) 0 % Nucleated RBCs # 0.0 /100WBC PT 13.20 (10.5-13.3) SECO NDS INR 0.97 (0.8-1.2) APTT 36.7 (23.9-36.7) SECO NDS Sodium 135 L (136-145) mmol/L Potassium 4.3 (3.5-5.1) mmol/L Chloride 98 (98-107) mmol/L Carbon Dioxide 26 (22-29) mmol/L Anion Gap 15.3 (5-19) BUN 25 H (6-20) mg/dL Creatinine 0.7 (0.5-0.9) mg/dL GFR Calculation 89.7 L (90-130) mL/min Glucose 109 (65-115) mg/dL Calculated Osmolal ity 277 L (285-295) mOsm/k g Lactate (0.5-2.2) mmol/L Calcium 10.0 (8.5-10.5) mg/dL Total Bilirubin 0.2 (0.15-1.2) mg/dL AST 11 (0-32) U/L ALT 11 (0-33) U/L Alkaline Phosphata se 116 H (35-105) IU/L Total Protein 7.2 (6.6-8.7) g/dL Albumin 4.0 (3.5-5.2) g/dL Globulin 3.2 (1.3-4.6) g/dL Lipase 16 (13-60) U/L Procalcitonin (0-0.5) ng/mL TSH (0.27-4.20) uIU/ mL Urine Color (Yellow) Urine Appearance (CLEAR) Urine pH (5-7) Ur Specific Gravit y (1.005-1.030) Urine Protein (Negative) Urine Glucose (UA) (Normal) Urine Ketones (Negative) Urine Blood (Negative) Urine Nitrate (Negative) Urine Bilirubin (NEGATIVE) Urine Urobilinogen (Negative) mg/dL Ur Leukocyte Natasha ase (Negative) Ur Microscopic Ind ic Urine RBC (0-2) /hpf Urine WBC (0-5) /hpf Ur Squamous Epith Cells (0-5) Ur Transition Epit h Cell /hpf Amorphous Sediment Urine Bacteria (NONE) 11/08/19 11/08/19 11/08/19 Range/Units 21:28 22:00 22:55 WBC (4.0-10.0) 10^3/ uL RBC (4.1-5.3) 10^6/u L Hgb (11.5-15.3) g/dL Hct (37.0-47.0) % MCV (81-99) fL MCH (28.0-34.0) pg MCHC (30.0-36.0) g/dL RDW (12.1-15.1) % Plt Count (130-400) 10^3/c mm MPV (7.4-10.4) fL Neut % (Auto) % Lymph % (Auto) % Starke % (Auto) % Eos % (Auto) % Baso % (Auto) % Neut # (Auto) (1.8-7.7) 10^3/u L Lymph # (Auto) (0.8-4.8) 10^3/u L Starke # (Auto) (0.2-0.9) 10^3/u L Eos # (Auto) (0.0-0.8) 10^3/u L Baso # (Auto) (0.0-0.1) 10^3/u L Nucleated RBC % (a uto) % Nucleated RBCs # /100WBC PT (10.5-13.3) SECO NDS INR (0.8-1.2) APTT (23.9-36.7) SECO NDS Sodium (136-145) mmol/L Potassium (3.5-5.1) mmol/L Chloride (98-107) mmol/L Carbon Dioxide (22-29) mmol/L Anion Gap (5-19) BUN (6-20) mg/dL Creatinine (0.5-0.9) mg/dL GFR Calculation (90-130) mL/min Glucose (65-115) mg/dL Calculated Osmolal ity (285-295) mOsm/k g Lactate 1.1 (0.5-2.2) mmol/L Calcium (8.5-10.5) mg/dL Total Bilirubin (0.15-1.2) mg/dL AST (0-32) U/L ALT (0-33) U/L Alkaline Phosphata se (35-105) IU/L Total Protein (6.6-8.7) g/dL Albumin (3.5-5.2) g/dL Globulin (1.3-4.6) g/dL Lipase (13-60) U/L Procalcitonin 0.17 (0-0.5) ng/mL TSH 1.23 (0.27-4.20) uIU/ mL Urine Color Straw (Yellow) Urine Appearance Hazy A (CLEAR) Urine pH 7 (5-7) Ur Specific Gravit y 1.000 L (1.005-1.030) Urine Protein Trace (Negative) Urine Glucose (UA) Norm (Normal) Urine Ketones Negative (Negative) Urine Blood 3+ H (Negative) Urine Nitrate Negative (Negative) Urine Bilirubin Neg (NEGATIVE) Urine Urobilinogen Norm (Negative) mg/dL Ur Leukocyte Natasha ase 2+ H (Negative) Ur Microscopic Ind ic Cancelled Urine RBC Too numerous to c nt H (0-2) /hpf Urine WBC 15-25 H (0-5) /hpf Ur Squamous Epith Cells 0-4 H (0-5) Ur Transition Epit h Cell /hpf Amorphous Sediment Not Reportable Urine Bacteria 1+ H (NONE) 11/09/19 Range/Units 00:05 WBC (4.0-10.0) 10^3/ uL RBC (4.1-5.3) 10^6/u L Hgb (11.5-15.3) g/dL Hct (37.0-47.0) % MCV (81-99) fL MCH (28.0-34.0) pg MCHC (30.0-36.0) g/dL RDW (12.1-15.1) % Plt Count (130-400) 10^3/c mm MPV (7.4-10.4) fL Neut % (Auto) % Lymph % (Auto) % Starke % (Auto) % Eos % (Auto) % Baso % (Auto) % Neut # (Auto) (1.8-7.7) 10^3/u L Lymph # (Auto) (0.8-4.8) 10^3/u L Starke # (Auto) (0.2-0.9) 10^3/u L Eos # (Auto) (0.0-0.8) 10^3/u L Baso # (Auto) (0.0-0.1) 10^3/u L Nucleated RBC % (a uto) % Nucleated RBCs # /100WBC PT (10.5-13.3) SECO NDS INR (0.8-1.2) APTT (23.9-36.7) SECO NDS Sodium (136-145) mmol/L Potassium (3.5-5.1) mmol/L Chloride (98-107) mmol/L Carbon Dioxide (22-29) mmol/L Anion Gap (5-19) BUN (6-20) mg/dL Creatinine (0.5-0.9) mg/dL GFR Calculation (90-130) mL/min Glucose (65-115) mg/dL Calculated Osmolal ity (285-295) mOsm/k g Lactate (0.5-2.2) mmol/L Calcium (8.5-10.5) mg/dL Total Bilirubin (0.15-1.2) mg/dL AST (0-32) U/L ALT (0-33) U/L Alkaline Phosphata se (35-105) IU/L Total Protein (6.6-8.7) g/dL Albumin (3.5-5.2) g/dL Globulin (1.3-4.6) g/dL Lipase (13-60) U/L Procalcitonin (0-0.5) ng/mL TSH (0.27-4.20) uIU/ mL Urine Color Yellow (Yellow) Urine Appearance Hazy A (CLEAR) Urine pH 6.5 (5-7) Ur Specific Gravit y 1.005 (1.005-1.030) Urine Protein 1+ H (Negative) Urine Glucose (UA) Norm (Normal) Urine Ketones Negative (Negative) Urine Blood 3+ H (Negative) Urine Nitrate Negative (Negative) Urine Bilirubin Neg (NEGATIVE) Urine Urobilinogen Norm (Negative) mg/dL Ur Leukocyte Natasha ase 2+ H (Negative) Ur Microscopic Ind ic Cancelled Urine RBC Too numerous to c nt H (0-2) /hpf Urine WBC 15-25 H (0-5) /hpf Ur Squamous Epith Cells Rare (0-5) Ur Transition Epit h Cell Rare /hpf Amorphous Sediment Not Reportable Urine Bacteria Trace (NONE) Discharge Plan Discharge Patient Disposition: Admitted As Inpatient Admit Provider: Markell Fernandez Discharge Date/Time: 11/09/19 02:30 Coding Level of Care Code ED [employer] Handicapper for Chg Fwd Exam Comprehensive
[2019-11-08 23:14] VITALS: RESP 18; O2SAT 96
[2019-11-08 23:16] LABS: Bilirubin Urine Neg (NEGATIVE); Blood Urine 3+ (Negative); Glucose Urine UA Norm (Normal); Ketones Urine Negative (Negative); Leukocyte Esterase Urine 2+ (Negative); Nitrate Urine Negative (Negative); Protein Urine Trace (Negative); Urine Appearance Hazy (CLEAR); Urine Color Straw (Yellow); Urobilinogen Urine Norm (Negative); pH Urine 7 (5-7)
[2019-11-08 23:20] LABS: RBC Urine TOO NUMEROUS TO CNT /hpf (0-2)
[2019-11-08 23:21] LABS: Squamous Epithelial Cell Urine 0-4 (0-5); WBC Urine 15-25 /hpf (0-5)
[2019-11-08 23:22] LABS: Add Urine Culture? Yes; Bacteria Urine 1+
[2019-11-08] MEDS: LORazepam 2 mg/mL INJ 1 mL 1.5 MG IVP (23:49)
[2019-11-09] VITALS (7 sets, daily range): BP systolic 101–116; BP diastolic 60–84; PULSE 87–102; RESP 17–20; TEMP 36.4–37; O2SAT 93–99
[2019-11-09] MEDS: piperacillin-tazobactam 3.375 GM in sodium chloride 0.9% (plus) 50 ML IV (00:50)
--- NOTE | 2019-11-09 01:01 | PM.HP ---
Providers/Chief Complaint Primary Care Provider: Markell Fernandez MD Chief Complaint: RECTAL BLEEDING History of Present Illness October Marlon is a 49 year old female with a history of recurrent cervical cancer, on systemic chemotherapy carboplatin/Taxol/Avastin with Neulasta, last cycle of chemotherapy was on Sunday, last dose of Neulasta was on , depression and anxiety, history of right ureteral stent placement and recent exchange for hydronephrosis who presents to the emergency room due to complaints of dysuria, hematuria, with pelvic pain, bloody stools, fatigue, malaise, lightheadedness, poor appetite. Patient states that she had a cycle of chemotherapy on Sunday, followed by Neulasta support the next day, states that after she got the Neulasta injection, she started to develop dysuria, with hematuria, pelvic pain, fatigue, malaise, lightheadedness, poor appetite, bilateral back pain. In addition patient is concerned as sometimes she has feeling of incomplete bladder emptying, so she has to push of above her bladder to help her urinate. In addition she also developed bloody stools, she states that she is chronically constipated, has severe constipation that she strains a lot, but this time she had blood on her stool which was concerning for her. Denies fevers, chills, has a poor appetite, has fatigue, malaise, did travel to [facility], no cough, no shortness of breath, no known exposure to covid19. Review of Systems Const: Denies: fever, chills, fatigue or malaise Eyes: Denies: change in vision or blurry vision ENMT: Denies: nasal congestion Resp: Denies: shortness of breath, productive cough, non-productive cough or wheezing GI: Reports: blood in stool; Denies: abdominal pain, nausea, vomiting, vomiting blood, diarrhea, constipation or black tarry stool : Reports: flank pain, difficulty urinating, painful urination, urinary frequency, urinary urgency and pelvic pain Musc: Denies: neck pain or back pain Skin/Breast: Denies: rash Neuro: Denies: headache, dizziness or vertigo Psych: Denies: anxiety or depression Endo: Denies: excessive urination or excessive thirst Medications/Allergies Allergies Allergy/AdvReac Type Severity Reaction Status Date / Time Sulfa (Sulfonamide Allergy Unknown Unknown Verified 11/08/19 15:01 Antibiotics) PFSH Acute PFSH: Medical History (Updated 11/09/19 @ 01:20 by Markell Fernandez MD) Anxiety Cervical cancer Locally metastatic resulting in extrinsic right ureteral obstruction. Depression Port-A-Cath in place Surgical History H/O tubal ligation (12/03/97) S/P ureteral stent placement Social History Smoking and tobacco status: current every day smoker Alcohol intake: former Adopted: No Caregiver/support person: No Lives independently: No Household members: family Marital status: Legally Current occupational status: disabled Vitals/I&O/Wt Last Vital Signs Temp 98.3 F 11/08/19 21:06 Pulse 107 H 11/08/19 21:06 Resp 18 11/08/19 23:14 BP 117/75 11/08/19 21:06 Pulse Ox 96 11/08/19 23:14 Weight last 48 hrs Weight 57.606 kg Physical Exam Const: COMMON NORMALS: no apparent distress and oriented x3 GENERAL APPEARANCE: cooperative and comfortable HENMT: COMMON NORMALS: normocephalic HEAD & SCALP: normocephalic Eye: COMMON NORMALS: PERRL, EOMs intact bilaterally and no papilledema GENERAL EYE: normal appearance of both eyes PUPIL: Yes PERRL DIRECT OPHTHALMOSCOPY: Yes no papilledema Neck/C-Spine: COMMON NORMALS: full ROM, no lymphadenopathy, no JVD and thyroid normal THYROID: thyroid normal Lymph: LYMPHATIC: no lymphadenopathy noted Resp: COMMON NORMALS: normal respiratory effort, no retractions, no use of accessory muscles and clear to auscultation bilaterally AUSCULTATION: clear to auscultation bilaterally Cardio: COMMON NORMALS: no JVD, regular rate, regular rhythm, S1 normal heart sound, S2 normal heart sound, no gallops, no clicks and no murmurs RATE: regular rate RHYTHM: regular rhythm HEART SOUNDS: S1 normal and S2 normal GI: COMMON NORMALS: normal to inspection, nondistended, normoactive bowel sounds, soft to palpation, non-tender and no hepatosplenomegaly PALPATION: Yes soft and Yes no hepatosplenomegaly Back/Pelvis: OTHER: Pelvic mass, uterine mass, palpated Pelvic tenderness Extremity: COMMON NORMALS: normal to inspection, full ROM and no pedal edema Neuro: COMMON NORMALS: oriented x3, CN's II-XII intact bilaterally, moves all extremities and no focal motor deficits Psych: COMMON NORMALS: mental status grossly normal, thought process normal and cooperative THOUGHT PROCESS: normal thought process Data : 11/08/19 21:28 11/08/19 21:28 A&P Assessment and plan (1) Leukocytosis: -White blood cell count 30.8, neutrophilic 31.2 -Some component related to colitis, pyelonephritis, UTI -Some component related to Neulasta support Status: Acute (2) Pyelonephritis: -Neutrophilic leukocytosis, UA 3+ blood, 2+ leukocyte Estrace, positive RBC, positive WBCs -CT scan of the abdomen Possible mild thickening of the wall of the right renal pelvis, possibility of pyelitis/pyelonephritis might be considered -Has bilateral CVA tenderness -Patient is immunocompromise given chemotherapy plan: -Admit to general medical floors -Urine cultures, blood cultures -Normal saline 100 cc an hours -IV Zosyn -Monitor hemodynamics -Given her placement of right ureteral stent, and recent exchange due to size issues, CT scan shows borderline/mild hydronephrosis on the right, no visible pole ureteral calculus, but will talk to Dr. Glez tomorrow morning Status: Acute (3) Acute urinary retention: -Patient had 400 cc postvoid residual, difficulty urinating in the ER, De La Rosa catheter was placed -I am concerned as patient's last PET scan shows that her cervical mass is abutting the bladder -Possibly patient could be having post void residual, acute urinary retention secondary to her abutting cervical mass Plan: -We will discuss with Dr. Glez tomorrow morning Status: Acute (4) Colitis: -CT scan shows there appears to be mild to moderate diffuse mucosal/wall thickening involving the rectum and distal sigmoid colon. Some increased attenuation in the perirectal fat may represent edema/inflammatory changes. -She has complaints of bloody stools, severe constipation -Is receiving chemotherapy for cervical cancer -At [facility] she was told that the mass is abutting her rectum and colon, and there is risk of invasion into her colon and rectum -CT PET scan done on 10/03/2019 which showed markedly FDG avid right cervical mass abutting the bladder is highly suspicious for recurrent disease. No FDG evidence of locoregional or distant metastatic disease. Plan: -IV hydration -Monitor for bloody -stool studies -Monitor hemoglobin Status: Acute (5) Constipation: -CT scan shows severe constipation, likely related to opiate medications -MiraLAX daily, Colace -If this fails patient would benefit from lubiprostone Status: Acute (6) UTI (urinary tract infection): Status: Acute Qualifiers: Hematuria presence: with hematuria Urinary tract infection type: acute cystitis Qualified Code(s): N30.01 - Acute cystitis with hematuria (7) Cervical cancer: -Recurrent cervical cancer -Biopsy-proven, recurrent cervical cancer, 10/01/2019 at [facility] -CT PET scan done on 10/03/2019 which showed markedly FDG avid right cervical mass abutting the bladder is highly suspicious for recurrent disease. No FDG evidence of locoregional or distant metastatic disease. -on systemic therapy with carboplatin/Taxol/Avastin with Neulasta support -Pain control with [place] and anxiety control with Ativan Status: Acute (8) Extrinsic ureteral obstruction: Status post stent placement in July Status post stent exchange in September at [facility] due to issues with stent size Status: Acute (9) Hydronephrosis: Status: Acute Qualifiers: Hydronephrosis type: other Qualified Code(s): N13.39 - Other hydronephrosis (10) Anxiety: Status: Acute Attestations Medical Necessity Statement*: Patient requires hospitalization, greater than 2 midnights, for pyelonephritis, colitis Coding Level of Care Code Acute Wildlife Biology Technician for [facility] Fwd Diagnoses Leukocytosis D72.829 Pyelonephritis N12 Acute urinary retention R33.8 Colitis K52.9 Constipation K59.00 UTI (urinary tract infection) N30.01 Hematuria presence: with hematuria Urinary tract infection type: acute cystitis Cervical cancer C53.9 Extrinsic ureteral obstruction N13.5 Hydronephrosis N13.39 Hydronephrosis type: other Anxiety F41.9
[2019-11-09 01:03] LABS: Bilirubin Urine Neg (NEGATIVE); Blood Urine 3+ (Negative); Glucose Urine UA Norm (Normal); Ketones Urine Negative (Negative); Leukocyte Esterase Urine 2+ (Negative); Nitrate Urine Negative (Negative); Protein Urine 1+ (Negative); Specific Gravity, Urine 1.005 (1.005-1.030); Urine Appearance Hazy (CLEAR); Urine Color Yellow (Yellow); Urobilinogen Urine Norm (Negative); pH Urine 6.5 (5-7)
[2019-11-09 01:06] LABS: RBC Urine TOO NUMEROUS TO CNT /hpf (0-2); Squamous Epithelial Cell Urine RARE (0-5); Transitional Epi Cells Urine RARE /hpf; WBC Urine 15-25 /hpf (0-5)
[2019-11-09 01:07] LABS: Add Urine Culture? Yes; Bacteria Urine TRACE
--- NOTE | 2019-11-09 01:19 | PC.NURSE ---
pt daughter: July [phone]
--- NOTE | 2019-11-09 01:28 | PC.NURSE ---
indwelling catheter placed x1 attempt without diffculty. 500cc urine return noted. sample sent to lab for micro analysis
[2019-11-09] MEDS: HYDROcodone-acetaminophen 10-325 mg Tablet PO ×4 (02:34→18:30)
[2019-11-09] MEDS: sodium chloride 0.9% 1,000 ML 100 ML IV ×3 (02:35→22:54)
[2019-11-09 03:26] LABS: Procalcitonin 0.17 ng/mL (0-0.5); Thyroid Stimulating Hormone 1.23 uIU/mL (0.27-4.20)
[2019-11-09 03:37] LABS: C Reactive Protein 102.6 mg/L (0.0-4.9); Chol HDL Ratio 7.86 mg/dL (0.0-4.40); Cholesterol 173 mg/dL (0-200); HDL Cholesterol 22 mg/dL (60-100); Triglycerides 459 mg/dL (0-150)
[2019-11-09 03:38] LABS: Estmated Average Glucose 123; Hemoglobin A1C 5.9 % (4.0-6.0)
[2019-11-09 03:41] LABS: Alanine Aminotransferase 9 U/L (0-33); Albumin Level 3.7 g/dL (3.5-5.2); Alkaline Phosphatase 112 IU/L (35-105); Anion Gap 16.2 (5-19); Aspartate Amino Transferase 11 U/L (0-32); Blood Urea Nitrogen 16 mg/dL (6-20); Calcium 9.6 mg/dL (8.5-10.5); Carbon Dioxide 25 mmol/L (22-29); Chloride 96 mmol/L (98-107); Globulin 3.3 g/dL (1.3-4.6); Glomerular Filtration Rate 107.2 mL/min (90-130); Glucose 122 mg/dL (65-115); Magnesium 2.2 mg/dL (1.7-2.3); Osmolality Calculated 274 mOsm/kg (285-295); Potassium 4.2 mmol/L (3.5-5.1); Sodium 133 mmol/L (136-145); Total Bilirubin 0.4 mg/dL (0.15-1.2)
[2019-11-09 03:56] LABS: LDL Cholesterol Direct 54 mg/dL (0-100)
[2019-11-09] MEDS: TRAMadol 50 mg Tablet PO (05:53)
[2019-11-09] MEDS: lactulose oral liq 20 gm/30 mL UDC 10 GM PO (08:28)
[2019-11-09] MEDS: polyethylene glycol 3350 Pkt 17 gm PO (08:28)
[2019-11-09] MEDS: enoxaparin 40 mg/0.4 mL Syringe SUBCUT (08:29)
[2019-11-09] MEDS: LORazepam 1 mg Tablet PO ×3 (08:29→21:20)
[2019-11-09] MEDS: venlafaxine ER (24HR) 37.5 mg Capsule PO (08:29)
[2019-11-09] MEDS: docusate sodium 100 mg Capsule PO ×2 (08:29→18:30)
--- NOTE | 2019-11-09 09:00 | P.PN_ITS ---
Subjective Subjective: Interval history: Chart extensively reviewed, patient has complex history of recurrent cervical cancer currently on chemotherapy with carboplatin/Taxol/Avastin last treatment was 11/04. Follows up with Dr. Chapa locally and at [facility] in [place]. Now has clinical evidence of colitis, right pyelonephritis with significant leukocytosis, noted anemia. Imaging reviewed, also noted findings of possible borderline/mild right hydronephrosis, presence of right ureteral stent. Vital signs stable, afebrile. Has had urine output of 700 mL so far. Very tearful and anxious about not having had a BM yet. Frail appearing. 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 Medications: Reviewed: Yes Medication Review Details: Active Medications Generic Name Dose Route Start Last Admin Trade Name Freq PRN Reason Stop Dose Admin Hydrocodone Bitart /Acetaminophen 1 - 2 tab 11/09/19 02:27 11/09/19 08:28 [place] 10-325 Mg PO 2 tab Q6H PRN Administration pain Bisacodyl 10 mg 11/09/19 02:27 Dulcolax PO DAILY PRN CONSTIPATION Docusate Sodium 100 mg 11/09/19 09:00 11/09/19 08:29 Colace PO 100 mg BID GISELLA Administration Enoxaparin Sodium 40 mg 11/09/19 07:00 11/09/19 08:29 Lovenox SUBCUT 40 mg Q24H GISELLA Administration Sodium Chloride 1,000 mls @ 100 m ls/hr 11/09/19 02:27 11/09/19 02:35 Sodium Chloride 0.9% IV 100 mls/hr .Q10H GISELLA Administration Lactulose 10 gm 11/09/19 02:27 11/09/19 08:28 Constulose PO 10 gm DAILY PRN Administration CONSTIPA Lorazepam 1 mg 11/09/19 09:00 11/09/19 08:29 Ativan PO 1 mg TID GISELLA Administration Non-Formulary Medi cation 1 patch 11/09/19 02:27 11/09/19 02:33 Nicotine TRANSDERMA Not Given Q24H GISELLA Ondansetron HCl 8 mg 11/09/19 02:27 Zofran PO PRN PRN prn Ondansetron HCl 4 mg 11/09/19 02:27 Zofran IVP Q8H PRN vomiting, or N/V if npo Polyethylene Glyco l 17 gm 11/09/19 09:00 11/09/19 08:28 Miralax PO 17 gm DAILY GISELLA Administration Tamsulosin HCl 0.4 mg 11/09/19 21:00 Flomax PO BEDTIME GISELLA Venlafaxine HCl 37.5 mg 11/09/19 09:00 11/09/19 08:29 Effexor Xr PO 37.5 mg DAILY GISELLA Administration Sulfa (Sulfonamide Antibiotics) Allergy (Unknown, Verified 11/08/19 15:01) Unknown Vitals/I&O/Wt Last Vital Signs Temp 98.6 F 11/09/19 07:14 Pulse 88 11/09/19 07:14 Resp 18 11/09/19 07:14 BP 112/67 11/09/19 07:14 Pulse Ox 94 11/09/19 07:14 11/08/19 11/09/19 11/09/19 22:59 06:59 14:59 Intake Total 240 / 240 Output Total 700 / 700 Balance -460 / -460 Weight last 48 hrs Weight 57.606 kg Physical Exam Const: COMMON NORMALS: no apparent distress and oriented x3 GENERAL APPEARANCE: anxious and frail appearing NUTRITIONAL APPEARANCE: thin ORIENTATION/CONSCIOUSNESS: Yes awake HENMT: COMMON NORMALS: normocephalic, head/scalp atraumatic, hearing grossly normal bilaterally and moist oral mucous membranes HEAD & SCALP: normocephalic, atraumatic and other (alopecia) TEETH & GINGIVA: Yes edentulous Eye: COMMON NORMALS: PERRL, EOMs intact bilaterally and conjunctivae normal CONJUNCTIVA: Yes conjunctivae normal PUPIL: Yes PERRL Neck/C-Spine: COMMON NORMALS: full ROM GENERAL: Yes normal visual inspection and Yes trachea midline Chest: OTHER: -has port in place on L Resp: COMMON NORMALS: normal respiratory effort, no retractions, no use of accessory muscles and clear to auscultation bilaterally EFFORT & INSPECTION: Yes able to speak in complete sentences, Yes symmetric chest movement and No tachypneic AUSCULTATION: clear to auscultation bilaterally OTHER: -on RA Cardio: COMMON NORMALS: regular rate, regular rhythm, S1 normal heart sound, S2 normal heart sound and no murmurs RATE: regular rate RHYTHM: regular rhythm HEART SOUNDS: S1 normal and S2 normal GI: COMMON NORMALS: normal to inspection, nondistended, normoactive bowel sounds, soft to palpation and non-tender PALPATION: Yes soft : BLADDER/KIDNEY EXAM: Yes catheter in place Catheter type (Female): urethral Extremity: COMMON NORMALS: normal to inspection, full ROM, no clubbing, cyanosis or edema and no pedal edema Neuro: COMMON NORMALS: oriented x3, moves all extremities, no focal motor deficits and no sensory deficits noted Psych: COMMON NORMALS: mental status grossly normal, thought process normal, cooperative, affect normal and speech normal SPEECH: Yes normal speech MO OD & AFFECT: Yes anxious and Yes tearful THOUGHT PROCESS: normal thought process Skin: COMMON NORMALS: no rashes or lesions noted, no jaundice, no petechiae an d no mottling GENERAL SKIN EXAM: no rashes or lesions noted Urinary Catheter Management^: De La Rosa: Cath Placed During This Visit: yes Urethral Indwelling: Yes Reason for Continuing Indwelling Catheter: Acute Urinary Retention or Obstruction Urinary Catheter Date of Insertion: 11/09/19 Urinary Catheter Time of Insertion: 01:28 Data : 11/08/19 21:28 11/09/19 03:09 Micro: Microbiology 11/09/19 03:12 Blood Culture - Preliminary Blood SPECIMEN COLLECTED 11/09/19 03:09 Blood Culture - Preliminary Blood SPECIMEN COLLECTED A&P Assessment and plan (1) Pyelonephritis: -UA indicative of infection -Imaging findings consistent with mild right pyelonephritis -Noted significant leukocytosis though patient does have recurrent cervical cancer so this may not to be entirely due to infection though in comparison with labs done on 11/04 WBC was 13.6; continue to trend -Continue broad-spectrum IV antibiotic coverage with Zosyn -Follow-up urine and blood cultures -VSS; continue to monitor Status: Acute (2) Colitis: -Noted evidence of mild colitis involving distal sigmoid colon and rectum -is on broad-spectrum IV antibiotic coverage with Zosyn -Stool studies ordered -On bowel regimen secondary to chronic constipation -Pain control, antiemetics as needed -Regular diet as tolerated Status: Acute (3) Cervical cancer: -Has known history of recurrent cervical cancer, currently on systemic chemotherapy with carboplatin/Doxil/Avastin with Neulasta -Last treatment given on 11/04 -Follows up locally with Dr. Chapa and at [facility] -Prior PET scan done on 10/03/2019 patient has no evidence of distant metastatic disease; does have evidence of right cervical mass abutting the bladder Status: Chronic Qualifiers: Malignant neoplasm of cervix location: unspecified location Qualified Code(s): C53.9 - Malignant neoplasm of cervix uteri, unspecified (4) Extrinsic ureteral obstruction: -As noted above Status: Chronic (5) Hydronephrosis: -Right ureteral stent placed 07/22/[address] Glez, has continued to follow-up with him on an outpatient basis -Noted evidence of borderline/mild right hydronephrosis on CT scan -Continue to monitor urine output Status: Chronic Qualifiers: Hydronephrosis type: other Qualified Code(s): N13.39 - Other hydronephrosis Additional A&P Information -Anxiety, depression -chronic constipation, on bowel regimen -Chronic normocytic anemia; baseline Hg seems to be 9-10; continue to monitor H/H -Chronic smoker; on nicotine replacement therapy -DVT ppx with Lovenox, use with caution due to underlying anemia, hematuria -Dispo: home -Code status: FULL code Attestations Medical Necessity Statement*: Patient requires hospitalization for continued IV antibiotics for treatment of pyelonephritis and colitis with underlying immunocompromise. Time Spent in Patient Care: Greater than 35 minutes (>than 50% of time spent in counselling and/or direct pt care on unit) . Coding Level of Care Code Acute Chip Bin Conveyor Tender for Chg Fwd Exam Comprehensive Diagnoses Pyelonephritis N12 Colitis K52.9 Cervical cancer C53.9 Malignant neoplasm of cervix location: unspecified location Extrinsic ureteral obstruction N13.5 Hydronephrosis N13.39 Hydronephrosis type: other
[2019-11-09] MEDS: simethicone 80 mg Chew PO (15:59)
[2019-11-09] MEDS: nicotine 21 mg Patch 1 PATCH TRANSDERMA (15:59)
[2019-11-09] MEDS: bisacodyl 5 mg Tablet 10 MG PO (16:04)
[2019-11-09] MEDS: tamsulosin 0.4 mg Capsule PO (21:20)
[2019-11-10] VITALS: BP 119/70; PULSE 77; RESP 18; TEMP 36.8; O2SAT 98
[2019-11-10] MEDS: HYDROcodone-acetaminophen 10-325 mg Tablet PO ×4 (00:33→19:58)
[2019-11-10 04:00] VITALS: BP 105/67; PULSE 85; RESP 18; TEMP 37; O2SAT 98
[2019-11-10 06:11] LABS: Basophils # 0.2 10^3/uL (0.0-0.1); Basophils % 0.8 %; Eosinophils # 0.3 10^3/uL (0.0-0.8); Eosinophils % 1.4 %; Hematocrit 29.2 % (37.0-47.0); Hemoglobin 9.1 g/dL (11.5-15.3); Lymphocytes # 1.2 10^3/uL (0.8-4.8); Lymphocytes % 6.2 %; Mean Corpuscular HGB Conc 31.2 g/dL (30.0-36.0); Mean Corpuscular Hemoglobin 26.1 pg (28.0-34.0); Mean Corpuscular Volume 83.7 fL (81-99); Mean Platelet Volume 10.5 fL (7.4-10.4); Monocytes # 0.3 10^3/uL (0.2-0.9); Monocytes % 1.6 %; Neutrophils # 14.7 10^3/uL (1.8-7.7); Neutrophils % 74.1 %; Nucleated Red Blood Cells % 0 %; Platelet Count 269 10^3/cmm (130-400); Red Blood Count 3.49 10^6/uL (4.1-5.3); Red Cell Distribution Width 15.9 % (12.1-15.1); White Blood Count 19.9 10^3/uL (4.0-10.0)
[2019-11-10 06:25] LABS: Alanine Aminotransferase 8 U/L (0-33); Albumin Level 3.6 g/dL (3.5-5.2); Alkaline Phosphatase 114 IU/L (35-105); Anion Gap 17.3 (5-19); Aspartate Amino Transferase 9 U/L (0-32); Blood Urea Nitrogen 10 mg/dL (6-20); Calcium 9.3 mg/dL (8.5-10.5); Carbon Dioxide 24 mmol/L (22-29); Chloride 99 mmol/L (98-107); Globulin 3.1 g/dL (1.3-4.6); Glomerular Filtration Rate 132.2 mL/min (90-130); Glucose 119 mg/dL (65-115); Osmolality Calculated 279 mOsm/kg (285-295); Potassium 4.3 mmol/L (3.5-5.1); Sodium 136 mmol/L (136-145); Total Bilirubin 0.3 mg/dL (0.15-1.2); Total Protein 6.7 g/dL (6.6-8.7)
[2019-11-10 06:49] LABS: Slide Review Slide Review Perform
[2019-11-10] MEDS: polyethylene glycol 3350 Pkt 17 gm PO (07:39)
[2019-11-10] MEDS: LORazepam 1 mg Tablet PO ×3 (07:39→19:58)
[2019-11-10] MEDS: docusate sodium 100 mg Capsule PO ×2 (07:39→18:30)
[2019-11-10 08:00] VITALS: BP 111/72; PULSE 77; RESP 18; TEMP 36.5; O2SAT 98
[2019-11-10] MEDS: venlafaxine ER (24HR) 37.5 mg Capsule PO (08:51)
[2019-11-10] MEDS: sodium chloride 0.9% 1,000 ML 100 ML IV ×2 (08:51→18:31)
[2019-11-10] MEDS: enoxaparin 40 mg/0.4 mL Syringe SUBCUT (08:51)
--- NOTE | 2019-11-10 10:30 | P.PN_ITS ---
Subjective Subjective: Interval history: No BM yet, AM labs noted with decreased leukocytosis (38.3->19.9), had 2130 mL urine output overnight. VSS. Patient seen and examined, very anxious, restless and tearful, reports having had a small BM earlier today. Has had abdominal cramping and gas pain likely due to bowel regimen and need for larger BM. Discussed potential need for enema if no BM by later this afternoon. Has fan on as it helps her nausea and heating pad as it alleviates abdominal discomfort. Medications: Reviewed: Yes Medication Review Details: Active Medications Generic Name Dose Route Start Last Admin Trade Name Freq PRN Reason Stop Dose Admin Hydrocodone Bitart /Acetaminophen 1 - 2 tab 11/09/19 02:27 11/10/19 07:37 [place] 10-325 Mg PO 2 tab Q6H PRN Administration pain Bisacodyl 10 mg 11/09/19 02:27 11/09/19 16:04 Dulcolax PO 10 mg DAILY PRN Administration CONSTIPATION Docusate Sodium 100 mg 11/09/19 09:00 11/10/19 07:39 Colace PO 100 mg BID GISELLA Administration Enoxaparin Sodium 40 mg 11/09/19 07:00 11/10/19 08:51 Lovenox SUBCUT 40 mg Q24H GISELLA Administration Sodium Chloride 1,000 mls @ 100 m ls/hr 11/09/19 02:27 11/10/19 08:51 Sodium Chloride 0.9% IV 100 mls/hr .Q10H GISELLA Administration Lactulose 10 gm 11/09/19 02:27 11/09/19 08:28 Constulose PO 10 gm DAILY PRN Administration CONSTIPA Lorazepam 1 mg 11/09/19 09:00 11/10/19 07:39 Ativan PO 1 mg TID GISELLA Administration Nicotine 1 patch 11/09/19 15:00 11/09/19 15:59 Nicoderm 21 Mg P atch TRANSDERMA 1 patch Q24H GISELLA Administration Ondansetron HCl 8 mg 11/09/19 02:27 Zofran PO PRN PRN prn Ondansetron HCl 4 mg 11/09/19 02:27 Zofran IVP Q8H PRN vomiting, or N/V if npo Polyethylene Glyco l 17 gm 11/09/19 09:00 11/10/19 07:39 Miralax PO 17 gm DAILY GISELLA Administration Simethicone 80 mg 11/09/19 15:50 11/09/19 15:59 Mylicon Tab PO 80 mg Q4H PRN Administration FLATULENCE Tamsulosin HCl 0.4 mg 11/09/19 21:00 11/09/19 21:20 Flomax PO 0.4 mg BEDTIME GISELLA Administration Venlafaxine HCl 37.5 mg 11/09/19 09:00 11/10/19 08:51 Effexor Xr PO 37.5 mg DAILY GISELLA Administration Sulfa (Sulfonamide Antibiotics) Allergy (Unknown, Verified 11/08/19 15:01) Unknown Vitals/I&O/Wt Last Vital Signs Temp 97.7 F 11/10/19 08:00 Pulse 77 11/10/19 08:00 Resp 18 11/10/19 08:00 BP 111/72 11/10/19 08:00 Pulse Ox 98 11/10/19 08:00 11/09/19 11/10/19 11/10/19 22:59 06:59 14:59 Intake Total 1695 / 3055 1235 / 1235 Output Total 1000 / 1700 2130 / 3830 Balance 695 / 1355 -2130 / -775 1235 / 1235 Weight last 48 hrs Weight 57.606 kg Physical Exam Const: COMMON NORMALS: no apparent distress and oriented x3 GENERAL APPEARANCE: anxious and frail appearing NUTRITIONAL APPEARANCE: thin ORIENTATION/CONSCIOUSNESS: Yes awake HENMT: COMMON NORMALS: normocephalic, head/scalp atraumatic, hearing grossly normal bilaterally and moist oral mucous membranes HEAD & SCALP: normocephalic, atraumatic and other (alopecia) TEETH & GINGIVA: Yes edentulous Eye: COMMON NORMALS: PERRL, EOMs intact bilaterally and conjunctivae normal CONJUNCTIVA: Yes conjunctivae normal PUPIL: Yes PERRL Neck/C-Spine: COMMON NORMALS: full ROM GENERAL: Yes normal visual inspection and Yes trachea midline Chest: OTHER: -has port in place on L Resp: COMMON NORMALS: normal respiratory effort, no retractions, no use of accessory muscles and clear to auscultation bilaterally EFFORT & INSPECTION: Yes able to speak in complete sentences, Yes symmetric chest movement and No tachypneic AUSCULTATION: clear to auscultation bilaterally OTHER: -on RA Cardio: COMMON NORMALS: regular rate, regular rhythm, S1 normal heart sound, S2 normal heart sound and no murmurs RATE: regular rate RHYTHM: regular rhythm HEART SOUNDS: S1 normal and S2 normal GI: COMMON NORMALS: normal to inspection, nondistended, normoactive bowel sounds, soft to palpation and non-tender PALPATION: Yes soft : BLADDER/KIDNEY EXAM: Yes catheter in place Catheter type (Female): u rethral Extremity: COMMON NORMALS: normal to inspection, full ROM, no clubbing, cyanosis or edema and no pedal edema Neuro: COMMON NORMALS: oriented x3, moves all extremities, no focal motor d eficits and no sensory deficits noted Psych: COMMON NORMALS: mental status grossly normal, thought process normal, cooperative, affect normal and speech normal SPEECH: Yes normal speech MOOD & AFFECT: Yes anxious and Yes tearful THOUGHT PROCESS: normal thought process Skin: COMMON NORMALS: no rashes or lesions noted, no jaundice, no petechiae and no mottling GENERAL SKIN EXAM: no rashes or lesions noted Urinary Catheter Management^: De La Rosa: Cath Placed During This Visit: yes Urethral Indwelling: Yes Reason for Continuing Indwelling Catheter: Acute Urinary Retention or Obstruction Urinary Catheter Date of Insertion: 11/09/19 Urinary Catheter Time of Insertion: 01:28 Data : 11/10/19 05:55 11/10/19 05:55 Micro: Microbiology 11/09/19 00:05 Urine Culture - Preliminary Urine Catheterized 11/09/19 03:12 Blood Culture - Preliminary Blood NEGATIVE TO DATE 11/09/19 03:09 Blood Culture - Preliminary Blood NEGATIVE TO DATE A&P Assessment and plan (1) Pyelonephritis: -UA indicative of infection -Imaging findings consistent with mild right pyelonephritis -Noted significant leukocytosis though patient does have recurrent cervical cancer so this may not to be entirely due to infection though in comparison with labs done on 11/04 WBC was 13.6; trending down, continue to monitor -Continue broad-spectrum IV antibiotic coverage with Zosyn -urine cx: prelim negative -blood cx: prelim negative -VSS; continue to monitor Status: Acute (2) Colitis: -Noted evidence of mild colitis involving distal sigmoid colon and rectum -is on broad-spectrum IV antibiotic coverage with Zosyn -Stool studies ordered -On bowel regimen secondary to chronic constipation -Pain control, antiemetics as needed -Regular diet as tolerated Status: Acute (3) Cervical cancer: -Has known history of recurrent cervical cancer, currently on systemic chemotherapy with carboplatin/Doxil/Avastin with Neulasta -Last treatment given on 11/04 -Follows up locally with Dr. Chapa and at [facility] -Prior PET scan done on 10/03/2019 patient has no evidence of distant metastatic disease; does have evidence of right cervical mass abutting the bladder Status: Chronic Qualifiers: Malignant neoplasm of cervix location: unspecified location Qualified Code(s): C53.9 - Malignant neoplasm of cervix uteri, unspecified (4) Extrinsic ureteral obstruction: -As noted above -had cystoscopy when she had R ureteral stent placed on 07/22/19 showing a very abnormal distal ureter with extrinsic compression Status: Chronic (5) Hydronephrosis: -Right ureteral stent placed 07/22/[address] Glez, has continued to follow-up with him on an outpatient basis, last seen on 09/05/19 with plans to f/u in 6 weeks to detemine timeline for stent exchange -Noted evidence of borderline/mild right hydronephrosis on CT scan -Continue to monitor urine output Status: Chronic Qualifiers: Hydronephrosis type: other Qualified Code(s): N13.39 - Other hydronephrosis Additional A&P Information -Anxiety, depression -chronic constipation, on bowel regimen -Chronic normocytic anemia; baseline Hg seems to be 9-10; continue to monitor H/H -Chronic smoker; on nicotine replacement therapy -DVT ppx with Lovenox, use with caution due to underlying anemia, hematuria -Dispo: home -Code status: FULL code Attestations Medical Necessity Statement*: Patient requires hospitalization for continued IV antibiotic treatment for colitis, pyelonephritis pending culture results, as well as continued management of constipation. Time Spent in Patient Care: 16 - 35 minutes (>than 50% of time spent in counselling and/or direct pt care on unit) . Coding Level of Care Code Acute Loom Technician for Chg Fwd Exam Comprehensive Diagnoses Pyelonephritis N12 Colitis K52.9 Cervical cancer C53.9 Malignant neoplasm of cervix location: unspecified location Extrinsic ureteral obstruction N13.5 Hydronephrosis N13.39 Hydronephrosis type: other
[2019-11-10] MEDS: methylnaltrexone 12 /0.6 mL INJ 12 MG SUBCUT (11:00)
[2019-11-10] MEDS: bisacodyl 10 mg Supp PR (11:00)
[2019-11-10 11:43] VITALS: BP 113/73; PULSE 100; RESP 20; TEMP 36.7; O2SAT 98
[2019-11-10] MEDS: simethicone 80 mg Chew PO (15:24)
[2019-11-10] MEDS: nicotine 21 mg Patch 1 PATCH TRANSDERMA (15:25)
[2019-11-10 15:27] VITALS: BP 113/66; PULSE 75; RESP 18; TEMP 36.6; O2SAT 98
[2019-11-10] MEDS: tamsulosin 0.4 mg Capsule PO (19:58)
[2019-11-10 20:00] VITALS: BP 137/79; PULSE 78; RESP 24; TEMP 37; O2SAT 96
[2019-11-11] VITALS: BP 134/69; PULSE 79; RESP 16; TEMP 36.8; O2SAT 98
[2019-11-11] MEDS: HYDROcodone-acetaminophen 10-325 mg Tablet PO ×2 (02:43→08:12)
[2019-11-11] MEDS: sodium chloride 0.9% 1,000 ML 100 ML IV (02:44)
[2019-11-11 04:00] VITALS: BP 125/84; PULSE 81; RESP 18; TEMP 37; O2SAT 98
[2019-11-11 04:08] LABS: Basophils # 0.1 10^3/uL (0.0-0.1); Basophils % 0.8 %; Eosinophils # 0.3 10^3/uL (0.0-0.8); Hematocrit 28.2 % (37.0-47.0); Hemoglobin 8.8 g/dL (11.5-15.3); Lymphocytes % 11.8 %; Mean Corpuscular HGB Conc 31.2 g/dL (30.0-36.0); Mean Corpuscular Hemoglobin 25.9 pg (28.0-34.0); Mean Corpuscular Volume 82.9 fL (81-99); Mean Platelet Volume 10.9 fL (7.4-10.4); Monocytes # 0.4 10^3/uL (0.2-0.9); Monocytes % 4.3 %; Neutrophils # 6.6 10^3/uL (1.8-7.7); Neutrophils % 77.6 %; Nucleated Red Blood Cells % 0 %; Platelet Count 252 10^3/cmm (130-400); Red Cell Distribution Width 15.9 % (12.1-15.1); White Blood Count 8.6 10^3/uL (4.0-10.0)
[2019-11-11 04:24] LABS: Alanine Aminotransferase 11 U/L (0-33); Albumin Level 3.5 g/dL (3.5-5.2); Alkaline Phosphatase 116 IU/L (35-105); Aspartate Amino Transferase 11 U/L (0-32); Blood Urea Nitrogen 7 mg/dL (6-20); Calcium 9.5 mg/dL (8.5-10.5); Carbon Dioxide 23 mmol/L (22-29); Chloride 101 mmol/L (98-107); Glomerular Filtration Rate 132.2 mL/min (90-130); Glucose 118 mg/dL (65-115); Osmolality Calculated 281 mOsm/kg (285-295); Sodium 137 mmol/L (136-145); Total Bilirubin 0.3 mg/dL (0.15-1.2); Total Protein 6.5 g/dL (6.6-8.7)
[2019-11-11 08:00] VITALS: BP 125/75; PULSE 77; RESP 20; TEMP 36.4; O2SAT 97
[2019-11-11] MEDS: docusate sodium 100 mg Capsule PO (08:11)
[2019-11-11] MEDS: venlafaxine ER (24HR) 37.5 mg Capsule PO (08:11)
[2019-11-11] MEDS: LORazepam 1 mg Tablet PO ×3 (08:11→21:07)
[2019-11-11] MEDS: enoxaparin 40 mg/0.4 mL Syringe SUBCUT (08:11)
[2019-11-11] MEDS: polyethylene glycol 3350 Pkt 17 gm PO (08:11)
[2019-11-11 11:26] VITALS: BP 115/94; PULSE 147; RESP 18; TEMP 36.8; O2SAT 98
--- NOTE | 2019-11-11 13:28 | PM.PN ---
Subjective Subjective: Interval history: Patient seen and examined, resting in bed, appears to be less uncomfortable compared to yesterday and reports feeling better today as well. Improved oral intake and appetite. Had 1800 mL urine output overnight. A.m. labs noted including resolved leukocytosis, stable hemoglobin. Vital signs stable. Had a small BM this morning and has some residual cramping in her abdomen; did have a bowel movement yesterday as well. Requests switch from hydrocodone to tramadol to see if this will help with constipation. We will start her on oral Levaquin for continued empiric treatment for UTI. Patient states that she had her right ureteral stent exchanged while she was admitted at [facility] in September. Medications: Reviewed: Yes Medication Review Details: Active Medications Generic Name Dose Route Start Last Admin Trade Name Freq PRN Reason Stop Dose Admin Bisacodyl 10 mg 11/09/19 02:27 11/09/19 16:04 Dulcolax PO 10 mg DAILY PRN Administration CONSTIPATION Bisacodyl 10 mg 11/11/19 13:30 Bisac-Evac CO DAILY GISELLA Enoxaparin Sodium 40 mg 11/09/19 07:00 11/11/19 08:11 Lovenox SUBCUT 40 mg Q24H GISELLA Administration Lactulose 10 gm 11/09/19 02:27 11/09/19 08:28 Constulose PO 10 gm DAILY PRN Administration CONSTIPA Levofloxacin 500 mg 11/11/19 14:00 Levaquin PO DAILY GISELLA Protocol Lorazepam 1 mg 11/09/19 09:00 11/11/19 08:11 Ativan PO 1 mg TID GISELLA Administration Nicotine 1 patch 11/09/19 15:00 11/10/19 15:25 Nicoderm 21 Mg P atch TRANSDERMA 1 patch Q24H GISELLA Administration Ondansetron HCl 8 mg 11/09/19 02:27 Zofran PO PRN PRN prn Ondansetron HCl 4 mg 11/09/19 02:27 Zofran IVP Q8H PRN vomiting, or N/V if npo Polyethylene Glyco l 17 gm 11/09/19 09:00 11/11/19 08:11 Miralax PO 17 gm DAILY GISELLA Administration Senna/Docusate Sod ium 2 tab 11/11/19 18:00 Senna-S PO BID GISELLA Simethicone 80 mg 11/09/19 15:50 11/10/19 15:24 Mylicon Tab PO 80 mg Q4H PRN Administration FLATULENCE Tamsulosin HCl 0.4 mg 11/09/19 21:00 11/10/19 19:58 Flomax PO 0.4 mg BEDTIME GISELLA Administration Tramadol HCl 50 mg 11/11/19 13:26 Ultram PO Q4H PRN MODERATE PAIN Venlafaxine HCl 37.5 mg 11/09/19 09:00 11/11/19 08:11 Effexor Xr PO 37.5 mg DAILY GISELLA Administration Sulfa (Sulfonamide Antibiotics) Allergy (Unknown, Verified 11/08/19 15:01) Unknown Vitals/I&O/Wt Last Vital Signs Temp 98.3 F 11/11/19 11:26 Pulse 147 H 11/11/19 11:26 Resp 18 11/11/19 11:26 BP 115/94 11/11/19 11:26 Pulse Ox 98 11/11/19 11:26 11/10/19 11/11/19 11/11/19 22:59 06:59 14:59 Intake Total 1206.667 / 2481.667 821.667 / 3303.334 720 / 720 Output Total 800 / 2000 1800 / 3800 Balance 406.667 / 481.667 -978.333 / -496.666 720 / 720 Physical Exam Const: COMMON NORMALS: no apparent distress and oriented x3 GENERAL APPEARANCE: cooperative, comfortable and frail appearing; not anxious NUTRITIONAL APPEARANCE: thin ORIENTATION/CONSCIOUSNESS: Yes awake HENMT: COMMON NORMALS: normocephalic, head/scalp atraumatic, hearing grossly normal bilaterally and moist oral mucous membranes HEAD & SCALP: normocephalic, atraumatic and other (alopecia) TEETH & GINGIVA: Yes edentulous OTHER: -Has frequent protruding and twisting movements of the tongue Eye: COMMON NORMALS: PERRL, EOMs intact bilaterally and conjunctivae normal CONJUNCTIVA: Yes conjunctivae normal PUPIL: Yes PERRL Neck/C-Spine: COMMON NORMALS: full ROM GENERAL: Yes normal visual inspection and Yes trachea midline Chest: OTHER: -has port in place on L Resp: COMMON NORMALS: normal respiratory effort, no retractions, no use of accessory muscles and clear to auscultation bilaterally EFFORT & INSPECTION: Yes able to speak in complete sentences, Yes symmetric chest movement and No tachypneic AUSCULTATION: clear to auscultation bilaterally OTHER: -on RA Cardio: COMMON NORMALS: regular rate, regular rhythm, S1 normal heart sound, S2 normal heart sound and no murmurs RATE: regular rate RHYTHM: regular rhythm HEART SOUNDS: S1 normal and S2 normal GI: COMMON NORMALS: normal to inspection, nondistended, normoactive bowel sounds, soft to palpation and non-tender PALPATION: Yes soft : BLADDER/KIDNEY EXAM: Yes catheter in place Catheter type (Female): urethral Extremity: COMMON NORMALS: normal to inspection, full ROM, no clubbing, cyanosis or edema and no pedal edema Neuro: COMMON NORMALS: oriented x3, moves all extremities, no focal motor deficits and no sensory deficits noted Psych: COMMON NORMALS: mental status grossly normal, thought process normal, cooperative, affect normal and speech normal SPEECH: Yes normal speech MOOD & AFFECT: Yes anxious and Yes tearful THOUGHT PROCESS: normal thought process Skin: COMMON NORMALS: no rashes or lesions noted, no jaundice, no petechiae and no mottling GENERAL SKIN EXAM: no rashes or lesions noted Urinary Catheter Management^: De La Rosa: Cath Placed During This Visit: yes Urethral Indwelling: Yes Reason for Continuing Indwelling Catheter: Acute Urinary Retention or Obstruction Urinary Catheter Date of Insertion: 11/09/19 Urinary Catheter Time of Insertion: 01:28 Data : 11/11/19 03:31 11/11/19 03:31 Micro: Microbiology 11/09/19 00:05 Urine Culture - Final Urine Catheterized A&P Assessment and plan (1) Pyelonephritis: -UA indicative of infection -Imaging findings consistent with mild right pyelonephritis -Noted significant leukocytosis though patient does have recurrent cervical cancer so this may not to be entirely due to infection though in comparison with labs done on 11/04 WBC was 13.6; leukocytosis resolved -off Zosyn, start on oral Levaquin x 7 days -urine cx: prelim negative. Has had multiple prior urine cx that have been contaminated -blood cx: prelim negative -VSS; continue to monitor -has good urine output. De La Rosa catheter in place which will be discontinued today Status: Acute (2) Colitis: -Noted evidence of mild colitis involving distal sigmoid colon and rectum -is on broad-spectrum IV antibiotic coverage with Zosyn -Stool studies ordered -On bowel regimen secondary to chronic constipation -Pain control, antiemetics as needed -Regular diet as tolerated Status: Acute (3) Cervical cancer: -Has known history of recurrent cervical cancer, currently on systemic chemotherapy with carboplatin/Doxil/Avastin with Neulasta -Last treatment given on 11/04 -Follows up locally with Dr. Chapa and at [facility] -Prior PET scan done on 10/03/2019 patient has no evidence of distant metastatic disease; does have evidence of right cervical mass abutting the bladder Status: Chronic Qualifiers: Malignant neoplasm of cervix location: unspecified location Qualified Code(s): C53.9 - Malignant neoplasm of cervix uteri, unspecified (4) Extrinsic ureteral obstruction: -As noted above -had cystoscopy when she had R ureteral stent placed on 07/22/19 showing a very abnormal distal ureter with extrinsic compression. Reports that she had stent exchanged at [facility] in 09/2019 Status: Chronic (5) Hydronephrosis: -Right ureteral stent placed 07/22/[address] Glez, has continued to follow-up with him on an outpatient basis, last seen on 09/05/19 with plans to f/u in 6 weeks to detemine timeline for stent exchange -Noted evidence of borderline/mild right hydronephrosis on CT scan -Continue to monitor urine output Status: Chronic Qualifiers: Hydronephrosis type: other Qualified Code(s): N13.39 - Other hydronephrosis Additional A&P Information -Anxiety, depression -chronic constipation, on bowel regimen -Chronic normocytic anemia; baseline Hg seems to be 9-10; continue to monitor H/H -Chronic smoker; on nicotine replacement therapy -DVT ppx with Lovenox, use with caution due to underlying anemia, hematuria -Dispo: home -Code status: FULL code Attestations Medical Necessity Statement*: Patient requires hospitalization for transition to oral antibiotics, continued management of constipation with escalation of bowel regimen. Time Spent in Patient Care: 16 - 35 minutes (>than 50% of time spent in counselling and/or direct pt care on unit). Coding Level of Care Code Acute Access Rn for [facility] Fwd Diagnoses Pyelonephritis N12 Colitis K52.9 Cervical cancer C53.9 Malignant neoplasm of cervix location: unspecified location Extrinsic ureteral obstruction N13.5 Hydronephrosis N13.39 Hydronephrosis type: other
[2019-11-11] MEDS: TRAMadol 50 mg Tablet PO ×2 (14:06→21:07)
[2019-11-11] MEDS: nicotine 21 mg Patch 1 PATCH TRANSDERMA (14:06)
[2019-11-11] MEDS: levoFLOXacin 500 mg Tablet PO (14:06)
[2019-11-11] MEDS: bisacodyl 10 mg Supp PR (14:11)
[2019-11-11 15:58] VITALS: PULSE 146; RESP 20; TEMP 36.7; O2SAT 99
--- NOTE | 2019-11-11 15:58 | PC.NURSE ---
The patient complained of the blood preasure cuff hurting her. so i removed it at that time. she is on the bsc pushing and pushing. trying to have a bowel movement
[2019-11-11] MEDS: sennosides-docusate Tablet 2 TAB PO (17:23)
[2019-11-11 20:00] VITALS: BP 127/76; PULSE 85; RESP 16; TEMP 36.8; O2SAT 98
[2019-11-11] MEDS: tamsulosin 0.4 mg Capsule PO (21:07)
[2019-11-12] VITALS: BP 148/84; PULSE 105; RESP 24; TEMP 36.9; O2SAT 96
[2019-11-12] MEDS: trazodone 50 mg Tablet PO (00:42)
[2019-11-12 03:17] LABS: Basophils # 0.1 10^3/uL (0.0-0.1); Eosinophils # 0.3 10^3/uL (0.0-0.8); Eosinophils % 5.9 %; Hematocrit 30.2 % (37.0-47.0); Hemoglobin 9.7 g/dL (11.5-15.3); Lymphocytes # 1.2 10^3/uL (0.8-4.8); Lymphocytes % 24.7 %; Mean Corpuscular HGB Conc 32.1 g/dL (30.0-36.0); Mean Corpuscular Hemoglobin 26.5 pg (28.0-34.0); Mean Corpuscular Volume 82.5 fL (81-99); Mean Platelet Volume 9.8 fL (7.4-10.4); Monocytes # 0.9 10^3/uL (0.2-0.9); Monocytes % 17.2 %; Neutrophils # 2.5 10^3/uL (1.8-7.7); Neutrophils % 50.8 %; Nucleated Red Blood Cells % 0 %; Platelet Count 256 10^3/cmm (130-400); Red Blood Count 3.66 10^6/uL (4.1-5.3); Red Cell Distribution Width 15.8 % (12.1-15.1); White Blood Count 4.9 10^3/uL (4.0-10.0)
[2019-11-12 03:48] LABS: Slide Review Slide Review Perform
[2019-11-12 04:00] VITALS: BP 115/76; PULSE 110; RESP 24; TEMP 36.5; O2SAT 98
[2019-11-12] MEDS: TRAMadol 50 mg Tablet PO ×3 (04:09→13:30)
[2019-11-12 07:20] VITALS: BP 125/74; PULSE 91; RESP 18; TEMP 36.9; O2SAT 97
[2019-11-12] MEDS: sennosides-docusate Tablet 2 TAB PO (09:16)
[2019-11-12] MEDS: venlafaxine ER (24HR) 37.5 mg Capsule PO (09:17)
[2019-11-12] MEDS: polyethylene glycol 3350 Pkt 17 gm PO (09:17)
[2019-11-12] MEDS: levoFLOXacin 500 mg Tablet PO (09:17)
[2019-11-12] MEDS: LORazepam 1 mg Tablet PO (09:17)
[2019-11-12] MEDS: bisacodyl 10 mg Supp PR (09:17)
--- NOTE | 2019-11-12 10:57 | P.DS_ITS ---
Discharge Providers Date of Admission: 11/09/19 00:56 Date of Discharge: November 12, 2019 Attending Provider at Admission: Markell Fernandez MD Attending Provider at Discharge: Rachel Garcia MD Primary Care Provider: Markell Fernandez MD Diagnoses at Discharge Discharge Diagnosis (1) Pyelonephritis: Status: Acute Problem details: -UA indicative of infection -Imaging findings consistent with mild right pyelonephritis -Noted significant leukocytosis though patient does have recurrent cervical cancer so this may not to be entirely due to infection though in comparison with labs done on 11/04 WBC was 13.6; leukocytosis resolved -off Zosyn, started on oral Levaquin x 7 days -urine cx: prelim negative. Has had multiple prior urine cx that have been contaminated -blood cx: prelim negative -VSS; continue to monitor -has good urine output. De La Rosa catheter discontinued and able to void (2) Colitis: Status: Acute Problem details: -Noted evidence of mild colitis involving distal sigmoid colon and rectum -is on broad-spectrum IV antibiotic coverage with Zosyn -Stool studies ordered -On bowel regimen secondary to chronic constipation -Pain control, antiemetics as needed -Regular diet as tolerated (3) Cervical cancer: Status: Chronic Problem details: Locally metastatic resulting in extrinsic right ureteral obstruction. -Has known history of recurrent cervical cancer, currently on systemic chemotherapy with carboplatin/Doxil/Avastin with Neulasta -Last treatment given on 11/04 -Follows up locally with Dr. Chapa and at [facility] -Prior PET scan done on 10/03/2019 patient has no evidence of distant metastatic disease; does have evidence of right cervical mass abutting the bladder Qualifiers: Malignant neoplasm of cervix location: unspecified location Qualified Code(s): C53.9 - Malignant neoplasm of cervix uteri, unspecified (4) Extrinsic ureteral obstruction: Status: Chronic Problem details: Secondary to locally involved metastatic cervical cancer. -As noted above -had cystoscopy when she had R ureteral stent placed on 07/22/19 showing a very abnormal distal ureter with extrinsic compression. Reports that she had stent exchanged at [facility] in 09/2019 (5) Hydronephrosis: Status: Chronic Problem details: Right ureteral stent placed 07/22/2019. -Right ureteral stent placed 07/22/[address] Glez, has continued to follow-up with him on an outpatient basis, last seen on 09/05/19 with plans to f/u in 6 weeks to detemine timeline for stent exchange -Noted evidence of borderline/mild right hydronephrosis on CT scan -Continue to monitor urine output Qualifiers: Hydronephrosis type: other Qualified Code(s): N13.39 - Other hydronephrosis Other Information Additional DC diagnoses/information: -Anxiety, depression -chronic constipation, on bowel regimen -Chronic normocytic anemia; baseline Hg seems to be 9-10; continue to monitor H/H -Chronic smoker; on nicotine replacement therapy Reason for Visit Reason for Visit: Reason For Visit: RECTAL BLEEDING Hospital Course Hospital Course: Patient was admitted to the medical surgical floor and started on broad-spectrum IV antibiotics and IV fluid hydration. She had a De La Rosa catheter placed in the ER for accurate ins and outs. Urine culture and blood cultures have been negative. Leukocytosis has resolved, she has been hemodynamically stable and afebrile for over 24 hours. She was noted to be constipated but has had several bowel movements following escalation of her bowel regimen. She is to continue to follow-up with her oncology team at [facility] in [place]. She will also need continued follow-up with her primary care physician within 1 week. She has a rather complicated history of recurrent cervical cancer with local invasion and noted extrinsic compression on her ureter, she does have a right ureteral stent in place that was recently exchanged following an admission at [facility] in September. She has been following up with Dr. Glez for this and is to continue to do this moving forward. She has a history of chronic normocytic anemia with a baseline hemoglobin of about 9-10. Hemoglobin has been stable and she has not required transfusion of any blood products. She has been switched to oral antibiotics which she will complete over the next several days. Discharge Summary: -Patient to follow-up with her primary care physician within 1 week -Patient to continue to follow-up with Dr. Glez -Patient to continue to follow up at [facility] with Oncology Physical Exam Const: COMMON NORMALS: no apparent distress and oriented x3 GENERAL APPEARA NCE: cooperative, comfortable and frail appearing; not anxious NUTRITIONAL APPEARANCE: thin ORIENTATION/CONSCIOUSNESS: Yes awake HENMT: COMMON NORMALS: normocephalic, head/scalp atraumatic, hearing grossly normal bilaterally and moist oral mucous membranes HEAD & SCALP: normocephalic, atraumatic and other (alopecia) TEETH & GINGIVA: Yes edentulous OTHER: -Has frequent protruding and twisting movements of the tongue Eye: COMMON NORMALS: PERRL, EOMs intact bilaterally and conjunctivae normal CONJUNCTIVA: Yes conjunctivae normal PUPIL: Yes PERRL Neck/C-Spine: COMMON NORMALS: full ROM GENERAL: Yes normal visual inspection and Yes trachea midline Chest: OTHER: -has port in place on L Resp: COMMON NORMALS: normal respiratory effort, no retractions, no use of accessory muscles and clear to auscultation bilaterally EFFORT & INSPECTION: Yes able to speak in complete sentences, Yes symmetric chest movement and No tachypneic AUSCULTATION: clear to auscultation bilaterally OTHER: -on RA Cardio: COMMON NORMALS: regular rate, regular rhythm, S1 normal heart sound, S2 normal heart sound and no murmurs RATE: regular rate RHYTHM: regular rhythm HEART SOUNDS: S1 normal and S2 normal GI: COMMON NORMALS: normal to inspection, nondistended, normoactive bowel sounds, soft to palpation and non-tender PALPATION: Yes soft Extremity: COMMON NORMALS: normal to inspection, full ROM, no clubbing, cyanosis or edema and no pedal edema Neuro: COMMON NORMALS: oriented x3, moves all extremities, no focal motor deficits and no sensory deficits noted Psych: COMMON NORMALS: mental status grossly normal, thought process normal, cooperative, affect normal and speech normal SPEECH: Yes normal speech MOOD & AFFECT: Yes anxious and Yes tearful THOUGHT PROCESS: normal thought process Skin: COMMON NORMALS: no rashes or lesions noted, no jaundice, no petechiae and no mottling GENERAL SKIN EXAM: no rashes or lesions noted Urinary Catheter Management^: De La Rosa: Cath Placed During This Visit: yes Urethral Indwelling: Yes Reason for Continuing Indwelling Catheter: Acute Urinary Retention or Obstruction Urinary Catheter Date of Insertion: 11/09/19 Urinary Catheter Time of Insertion: 01:28 Discharge Data Data Completed and Pending: Completed Studies During Hospitalization Category Date Time Status CT abdomen pelvis w con* [id number] Urge nt Cat Scan 11/08/19 21:39 Completed Pending at discharge Category Date Time Status Blood Culture Sta t Lab 11/09/19 03:12 Results Clostridium Diffi cile BY PCR Routin e Lab 11/09/19 02:27 Ordered Enteric Bacterial Panel by PCR Rout ine Lab 11/09/19 02:27 Ordered Enteric Parasite Panel by PCR Mara ne Lab 11/09/19 02:27 Ordered Immunochemical Fe maddie OCB Routine Lab 11/09/19 02:27 Ordered Lactoferrin Demetricei ne Lab 11/09/19 02:27 Ordered Labs from last 24 hours 11/12/19 03:04 WBC 4.9 RBC 3.66 L Hgb 9.7 L Hct 30.2 L MCV 82.5 MCH 26.5 L MCHC 32.1 RDW 15.8 H Plt Count 256 MPV 9.8 Neut % (Auto) 50.8 Lymph % (Auto) 24.7 Pender % (Auto) 17.2 Eos % (Auto) 5.9 Baso % (Auto) 1.0 Neut # (Auto) 2.5 Lymph # (Auto) 1.2 Pender # (Auto) 0.9 Eos # (Auto) 0.3 Baso # (Auto) 0.1 Nucleated RBC % (a uto) 0 Nucleated RBCs # 0.0 Vitals: Last Vital Signs Temp 98.4 F 11/12/19 07:20 Pulse 91 11/12/19 07:20 Resp 18 11/12/19 07:20 BP 125/74 11/12/19 07:20 Pulse Ox 97 11/12/19 07:20 Discharge Plan Discharge Patient Disposition: Home, Self-Care Condition: Stable Prescriptions: New Miralax 17 gram Powder In Packet 17 g PO DAILY 30 Days Qty: 30 RF: 0 sennosides-docusate sodium 8.6-50 mg Tablet 2 tab PO BID 30 Days Qty: 120 RF: 0 phenazopyridine 100 mg Tablet 100 mg PO TID PRN (Reason: Dysuria) Qty: 30 RF: 0 bisacodyl 10 mg Suppository 10 mg NC DAILY PRN (Reason: Constipation) 30 Days Qty: 30 RF: 0 levofloxacin 500 mg Tablet 500 mg PO DAILY 5 Days Qty: 5 RF: 0 Continued nicotine 21-14-7 mg/24 hr patch, TD daily, sequential 1 patch TRANSDERMA Q24H Qty: 56 RF: 0 acetaminophen [Tylenol Extra Strength] 500 mg Tablet 1,500 mg PO PRN PRN (Reason: Pain) RF: 0 ibuprofen 600 mg Tablet 600 mg PO TID PRN (Reason: Pain) RF: 0 tamsulosin [Flomax] 0.4 mg Capsule 0.4 mg PO BEDTIME RF: 0 dexamethasone 4 mg Tablet See Rx Instructions .ROUTE .COMPLEX RF: 0 Zofran 8 mg tablet 8 mg PO Q6H PRN (Reason: Nausea) Qty: 15 RF: 0 hydrocodone-acetaminophen 10-325 mg tablet 1 - 2 tab PO Q6H PRN (Reason: pain) Qty: 15 RF: 0 lorazepam 1 mg tablet 1 mg PO TID Qty: 15 RF: 0 Discontinued cephalexin [Keflex] 500 mg capsule 500 mg PO TID 7 Days Qty: 21 RF: 0 Discharge Orders: Discharge Order (Routine); Ordered 11/12/19 Ordered By: Rachel Garcia Referrals: Markell Fernandez MD [Primary Care Provider] - 4-7 days (Post hospital-discharge follow up. ) Discharge Diet: Regular Discharge Activity: Resume usual activity Activity Restrictions/Additional Instructions: -Please continue to follow up with Oncology team at [facility] Discharge Attestations Time Spent in Discharge Care*: greater than 30 min Specific Discharge Activities: Specific discharge activities: educating patient, discussing with field case manager/social workers/dc planners, documenting/other paperwork and evaluating patient/reviewing data Status at Discharge: Cognitive status at discharge: cognitively intact , Behavioral status at discharge: cooperative , Functional status at discharge: independent ambulation Overall status at discharge: patient is back to baseline Quality Metrics Clinical Quality Measures During this hospital stay, did patient experience: None Coding Level of Care Code Acute Sales Applications Engineer for [facility] Fwd Diagnoses Pyelonephritis N12 Colitis K52.9 Cervical cancer C53.9 Malignant neoplasm of cervix location: unspecified location Extrinsic ureteral obstruction N13.5 Hydronephrosis N13.39 Hydronephrosis type: other
[2019-11-12 11:58] VITALS: BP 125/74; PULSE 91; RESP 18; TEMP 36.9; O2SAT 97
[2019-11-12 12:00] VITALS: BP 110/68; PULSE 108; RESP 18; TEMP 36.9; O2SAT 96
--- NOTE | 2019-11-12 14:47 | PC.NURSE ---
Discharge summary Patient was given discharge instructions and verbalized understanding. patient was given follow up appointment made with new primary care. patient iv was discontinued and vitals within normal limits. patient taken by wheelchair to daughter for transfer home.
== END 2019-11-12 14:00 | disposition home or self-care (01) | DRG 690 ==
LOC: ER 22:38 → MEDSURG 11-09 01:10
PROVIDERS: Admitting Provider Family Medicine; Emergency Provider Emergency Medicine; Family Provider Family Medicine; PCP Family Medicine; Visit Provider Family Medicine
DX: N10 Acute pyelonephritis (principal); C53.9 Malignant neoplasm of cervix uteri, unspecified; Z79.899 Other long term (current) drug therapy; F41.8 Other specified anxiety disorders; Z96.0 Presence of urogenital implants; N13.30 Unspecified hydronephrosis; K59.09 Other constipation; Z95.828 Presence of other vascular implants and grafts; F17.210 Nicotine dependence, cigarettes, uncomplicated; K52.9 Noninfective gastroenteritis and colitis, unspecified; N39.0 Urinary tract infection, site not specified; R31.9 Hematuria, unspecified; D89.9 Disorder involving the immune mechanism, unspecified; R33.9 Retention of urine, unspecified; N13.1 Hydronephrosis with ureteral stricture, not elsewhere classified; D64.9 Anemia, unspecified
CPT/HCPCS: 12345; 36415; 74177; 80053; 80061; 81001; 83036; 83605; 83690; 83721; 83735; 84100; 84145; 84443; 85025; 85610; 85730; 86140; 87040; 87086; 96372; 96374; 96375; 97165; 97530; 97535; 99283; A9270; J1170; J1650; J2060; J2212; J2405; J2543; J7030; Q9967

== ENCOUNTER 2019-11-08 21:03 | Emergency (ER) | payer MEDICAID, SELFPAY | END 2019-11-09 02:30 | disposition admitted as inpatient to this hospital (09) | LOC: ER 11-10 10:17 | PROVIDERS: Emergency Provider Emergency Medicine; Family Provider Family Medicine; PCP Family Medicine | DX: K62.5 Hemorrhage of anus and rectum (principal); Z85.41 Personal history of malignant neoplasm of cervix uteri; F17.210 Nicotine dependence, cigarettes, uncomplicated | CPT/HCPCS: 12345; 74177; 80053; 81001; 83605; 83690; 85025; 85610; 85730; 87086; 96365; 96366; 96374; 96375; 99283; 99285; J1170; J2060; J2405; J2543; J7030; Q9967 ==

== ENCOUNTER 2019-11-19 07:49 | Outpatient (RCR) | payer MEDICAID, SELFPAY ==
[2019-11-18 17:52] LABS: Basophils # 0.1 10^3/uL (0.0-0.1); Basophils % 0.4 %; Eosinophils # 0.3 10^3/uL (0.0-0.8); Eosinophils % 1.7 %; Hematocrit 31.4 % (37.0-47.0); Hemoglobin 9.6 g/dL (11.5-15.3); Lymphocytes # 1.9 10^3/uL (0.8-4.8); Lymphocytes % 10.9 %; Mean Corpuscular HGB Conc 30.6 g/dL (30.0-36.0); Mean Corpuscular Hemoglobin 26.8 pg (28.0-34.0); Mean Corpuscular Volume 87.7 fL (81-99); Mean Platelet Volume 9.9 fL (7.4-10.4); Monocytes # 1.1 10^3/uL (0.2-0.9); Monocytes % 6.6 %; Neutrophils # 12.7 10^3/uL (1.8-7.7); Neutrophils % 73.7 %; Nucleated Red Blood Cells % 0.2 %; Platelet Count 323 10^3/cmm (130-400); Red Blood Count 3.58 10^6/uL (4.1-5.3); Red Cell Distribution Width 17.2 % (12.1-15.1); White Blood Count 17.2 10^3/uL (4.0-10.0)
[2019-11-18 18:09] LABS: Alanine Aminotransferase 16 U/L (0-33); Albumin Level 3.9 g/dL (3.5-5.2); Alkaline Phosphatase 157 IU/L (35-105); Anion Gap 15.3 (5-19); Aspartate Amino Transferase 13 U/L (0-32); Blood Urea Nitrogen 17 mg/dL (6-20); Calcium 9.7 mg/dL (8.5-10.5); Carbon Dioxide 31 mmol/L (22-29); Chloride 97 mmol/L (98-107); Globulin 3.1 g/dL (1.3-4.6); Glomerular Filtration Rate 76.9 mL/min (90-130); Glucose 100 mg/dL (65-115); Osmolality Calculated 284 mOsm/kg (285-295); Potassium 4.3 mmol/L (3.5-5.1); Sodium 139 mmol/L (136-145); Total Bilirubin 0.2 mg/dL (0.15-1.2)
[2019-11-18 18:38] LABS: Slide Review Slide Review Perform
[2019-11-19 09:23] LABS: Specific Gravity, Urine 1.015 (1.005-1.030); Urine Appearance SL Hazy (CLEAR); Urine Color Orange (Yellow)
[2019-11-19 09:24] LABS: Add Urine Culture? Yes; Add Urine Microscopic? YES; Bacteria Urine 1+; Bilirubin Urine 2+ (NEGATIVE); Blood Urine 3+ (Negative); Glucose Urine UA Norm (Normal); Ketones Urine Negative (Negative); Leukocyte Esterase Urine Negative (Negative); Mucus Urine TRACE; Nitrate Urine Positive (Negative); Protein Urine 3+ (Negative); RBC Urine >100 /hpf (0-2); Urobilinogen Urine 8 mg/dL (Negative)
--- NOTE | 2019-11-19 11:57 | ONC FU_ITS ---
Dr. Chapa follow up note Patient: Lelo Mason Unit #: [id number]: [id number] Dicatated By: Alicia Chapa M.D.Date of Visit:Nov 19, 2019 Onc Med Follow-up/Prog Note History of Present Illness: Mrs. Lelo mason, is a 49-year-old who was diagnosed with cervical cancer in June 2018 at that time she underwent combined chemoradiation followed by brachytherapy in August 2018, tolerated well and during follow-up , scans showed evidence of recurrence of disease and underwent CT PET scan on 01/30/2019 which showed moderately intense abnormal FDG activity in the right half of the cervix, very suspicious for local recurrence of malignancy. No abnormal activity identified anywhere else. There are 2 new 4 mm noncalcified pulmonary nodules one in the right lower lobe one in the left upper lobe both of which are too small to evaluate with PET. Appears stable from CT scan of chest done on 01/10/2019. Patient also had MRI scan of the pelvis done on 01/30/2019 which showed interval near resolution of previously seen very large cervical mass with residual mild bulbous appearance to the posterior cervix and no evidence of local metastatic disease patient was seen by Dr. Grider on 03/19/2019 as per his note she was scheduled to be admitted to hospital or as an outpatient exam under anesthesia and biopsy but it was not done patient was also diagnosed with post traumatic stress disorder and planning was to refer to psychiatrist. Also discussed about systemic therapy but patient decided to transfer her care to [place] As per patient on 07/16/2019 , she noted severe vaginal bleeding for which she went to [facility] for evaluation regarding and CT scan of pelvis was done which shows heterogeneous hyperdense material vaginal canal and heterogeneous lesion in the cervix similar to prior exam. Delayed right renal nephrogram and hydroureteronephrosis to the level of the bladder no calcified distal ureteral stone. Cannot exclude a distal stricture at the level of UVJ. There is slightly asymmetric thickening of posterior right bladder base. And Underwent cystoscopy with right retrograde ureteropyelogram and right ureteral stent placement on 07/22/2019 And follow-up CT PET scan done on 08/09/2019 showed FDG positive cervical mass measuring 5.6 x 1.4 cm SUV 14.3 indicating recurrent malignancy. Pelvic lymph nodes are all subcentimeter in size and FDG negative is no evidence of distance metastatic disease. feeling much better since right ureteral stent placement, right inguinal pain has improved significantly. Underwent ultrasound bilateral renal on 09/05/2019 which showed negative bilateral renal ultrasound right ureter stent, no hydronephrosis. Patient started having vaginal bleeding and progressive abdominal pain and eventually went to [facility] for which she was transferred to [facility] on 10/01/2019, patient underwent cervical mass biopsy which confirmed recurrent cervical carcinoma patient had CT PET scan done on 10/03/2019 which showed markedly FDG avid right cervical mass abutting the bladder is highly suspicious for recurrent disease. No FDG evidence of locoregional or distant metastatic disease. Patient also underwent right ureteral stent exchange on 10/02/2019 at [facility], patient was given blood transfusion for anemia due to vaginal bleed. Patient was seen by STATISTICAL REPORTING ANALYST surgical oncologist and systemic chemotherapy with carboplatin/Taxol/Avastin every 3 weeks ???6 was recommended.started on treatment on 11/06/2019, Patient was admitted to hospital on 11/09/2019 with hematuria and and history of bleeding per rectum. She was diagnosed with urine tract infection/pyelonephritis treated with systemic therapy with Zosyn and was discharge home on Levaquin due to evaluation she underwent CT scan of abdomen pelvis on 11/08/2019 which showed suspicious for some form of colitis involving rectum and distal sigmoid colon. Right ureteral stent. Borderline/mild right hydronephrosis Possible mild thickening of wall of right renal pelvis, possibility of pyelonephritis might be considered .Came for follow-up, denies any specific complaints, no fever or chills, no nausea or vomiting, no diarrhea constipation, no more melena or hematochezia, constipation resolved. No more hematuria or burning sensation. No more abdominal pain. Anxiety is under control with lorazepam. Medications: [employer] Nicotine 1 Patch(es) (of 21 mg/24hr) Patch 24 Hr Transdermal daily, Gas Relief 1 Capsule (of 125 Capsule) Oral t.i.d., HYDROcodone-Acetaminophen 1 - 2 Tablet (of 10-325 mg) Oral q 6 hours PRN, Ibuprofen 1 Tablet (of 200 mg) Oral daily PRN, LORazepam 1 Tablet (of 1 mg) Oral daily PRN, Ondansetron HCl 1 Tablet (of 8 mg) Oral daily PRN, Tums 1 Tablet (of 500 mg) Tablet, chewable Oral PRN, Venlafaxine HCl ER 1 Tablet (of 37.5 mg) Tablet SR 24 HR Oral daily Allergies: Sulfa Antibiotics Review of Systems: Constitutional - Appetite is poor and weight is decreasing. No fever, chills, hot flashes. Positive for night sweats. Energy level is poor, ENMT - Positive for sinus congestion/drainage. No mouth sores. No sore throat or difficulty swallowing, Hematologic/Lymphatic - No abnormal bruising or bleeding, Respiratory - No shortness of breath. No cough. No pleuritic pain or hemoptysis, Cardiovascular - No angina pain. No palpitations, Gastrointestinal - Positive for nausea, no vomiting. Positive for heartburn and acid reflux. No diarrhea. Positive for constipation. No blood in the stool or black stools, Genitourinary (F) - No dysuria or hematuria. No urinary frequency. No urgency or incontinence, Musculoskeletal - Pt reports significant pain and anxiety, Neurologic - No headache. Positive for dizziness. No numbness/paresthesias or other focal neurologic symptoms, Psychiatric - Positive for anxiety and depression. Vital Signs: Performed on Nov 19, 2019 08:11 Height - 57.00 in Weight - 126.4 lbs (LOW) BSA - 1.48 sq.m BMI - 27.35 Temperature - 97.9 F (LOW) Pulse - 139 /min (HIGH) Respiration - 18 /min BP - 117/81 mm(hg) O2 Sat - 95 % (LOW) Pain - 0 Performance Status: 1 - No physically strenuous activity, but ambulatory and able to carry out light or sedentary work (e.g. office work, light house work). (ECOG) Physical Examination: ENMT - no mouth sores, Respiratory - Lungs are clear, Cardiovascular - Regular rate and rhythm of heart, Abdomen - Non-tender, non-distended,, Extremities - no visible edema. Lab/Imaging: Test performed on Nov 18, 2019 17:15 Sodium 139 mmol/L Potassium 4.3 mmol/L Chloride 97 mmol/L CO2 31 mmol/L Anion Gap 15.3 BUN 17 mg/dL Creatinine 0.8 mg/dL Cr Clearance (Est) 82.8000 mL/min eGFR 76.9 mL/min Glucose 100 mg/dL Calcium 9.7 mg/dL Protein, Total 7.0 g/dL Albumin 3.9 g/dL Globulin 3.1 g/dL Bilirubin, Total 0.2 mg/dL ALT (SGPT) 16 U/L AST (SGOT) 13 U/L Alkaline Phosphatase 157 IU/L WBC 17.2 10 3/uL RBC 3.58 10 6/uL HGB 9.6 g/dL HCT 31.4 % MCV 87.7 fL MCH 26.8 pg MCHC 30.6 g/dL RDW 17.2 % Platelet Count 323 10 3/cmm MPV 9.9 fL Neutrophils 12.7 10 3/uL Lymphocytes 1.9 10 3/uL Monocytes 1.1 10 3/uL Eosinophils 0.3 10 3/uL Basophils 0.1 10 3/uL Neutrophil % 73.7 % Lymphocyte % 10.9 % Monocyte % 6.6 % Eosinophil % 1.7 % Basophils % 0.4 % CBC Slide Review Slide Review Perform SLIDE REVIEW AGREES WITH AUTO DIFF. Test performed on Nov 06, 2019 09:12 Ua Micro: WBC 55-80 /hpf Ua Micro: RBC TOO NUMEROUS TO CNT /hpf Ua Micro: Squam Epith Cells NONE Ua Micro: Bacteria 3+ Test performed on Nov 05, 2019 11:25 Ferritin 143 ng/mL Iron 14 mcg/dL Vitamin B12 350 pg/mL Iron Binding Capacity (TIBC) 232 mcg/dl % Iron Saturation 6.0 % UIBC 218 mcg/dL Test performed on Aug 11, 2019 11:16 Manual Lymphocytes 12.3 % Manual Monocytes 8.0 % Manual Eosinophils 2.2 % Manual Basophils 0.7 % NRBCs 0.0 /100 WBC Impression: ? Recurrent cervical cancer per CT PET scan done on 01/30/2019 which showed moderately intense abnormal FDG activity in the right side of cervix maximum SUV 8.6 suspicious for local recurrence. No additional foci of abnormal activity identified. There is 4 mm noncalcified 100 nodule in the right lower lobe and left upper lobe of the lung, appear unchanged from recent CT scan of chest done on 01/10/2019. MRI scan of the pelvis done on 01/30/2019 showed interval near resolution of previously seen very large cervical mass with residual mild bulbous appearance to the posterior cervix and no evidence of local metastatic disease CT scan of the abdomen pelvis done on 07/16/2019 showed heterogeneous hypodense material vaginal canal. Again identified is heterogeneous lesion in the cervix and he delayed right renal nephrogram and hydroureter nephrosis the level of bladder. No calcified distal ureteral stone. There is a slight asymmetric thickening of posterior right bladder base.Status post cystoscopy and right ureteral stent placement done on 07/22/2019 CT PET scan done on 08/09/2019 showed FDG positive cervical mass measuring 5.6 x 1.4 cm with SUV of 14.3 indicating recurrent malignancy. Pelvic lymph nodes are subcentimeter and FDG negative. No evidence of distance metastases Plan: Discussed with patient regarding her labs white blood count 17.2 hemoglobin 9.6 crit 31.4 platelets 322,000 CMP within normal limits Clinically, patient is doing well, tolerated first cycle of chemotherapy with carboplatin/Taxol/Avastin well but with expected side effects. Patient was admitted to hospital on following week and with abdominal pain/hematuria/constipation/bleeding per rectum, she was diagnosed with pyelonephritis/UTI, treated with Zosyn and then she was discharged home on Levaquin. And her CT scan of abdomen pelvis shows possibility of colitis involving the rectum and distal sigmoid colon. But now patient denies any abdominal pain or mucus in her stool or bleeding per rectum but concern is whether she has tumor invading into distal colon/rectum. We will refer her to GI for evaluation for possible colonoscopy to rule out tumor infiltration into distal colon/rectum. Mild leukocytosis could be due to, patient took premedication with steroid by mistake as she is not due for chemotherapy today rather next week but we will check her urinalysis to rule out persistent urine tract infection, if it does we'll consider continue with oral antibiotics and follow culture and sensitivity. Patient return to clinic on 11/27/2019 next cycle of chemotherapy. Signed By: Alicia Chapa M.D. <<Signature on File>>
== END 2019-11-20 23:59 | disposition home or self-care (01) ==
LOC: ONCMED 07:49
PROVIDERS: Family Provider Family Medicine; PCP Family Medicine; Visit Provider Internal Medicine Hematology & Oncology
DX: C53.9 Malignant neoplasm of cervix uteri, unspecified (principal); Z79.899 Other long term (current) drug therapy; R93.3 Abnormal findings on diagnostic imaging of other parts of digestive tract; D72.829 Elevated white blood cell count, unspecified; F41.9 Anxiety disorder, unspecified; Z87.440 Personal history of urinary (tract) infections
CPT/HCPCS: 80053; 81001; 85025; 87086; 99214

== ENCOUNTER 2019-11-20 17:06 | Emergency (ER) | payer MEDICAID, SELFPAY ==
[2019-11-20 17:23] VITALS: BP 128/79; PULSE 84; RESP 18; TEMP 36.6; O2SAT 96; BMI 19.7
[2019-11-20 17:44] VITALS: RESP 18
--- NOTE | 2019-11-20 17:52 | ED_ITS ---
HPI - Female Genitourinary General: Chief complaint: Urogenital-Female Stated complaint: heavy vaginal bleeding Time Seen by Provider: 11/20/19 17:33 Source: patient Mode of arrival: ambulatory Limitations: no limitations History of Present Illness: HPI Narrative: Patient is a 49-year-old female with a history of recurrent cervical cancer here for complaints of vaginal bleeding that began around 9 AM this morning. She is complaining of passing clots. She apparently was told to come here by her oncologist Dr. Chapa. Patient has had a recent hospitalization for urinary ret ention/pyelonephritis/urinary obstruction. During that stay she was apparently given Lovenox. Patient tells me she is on her third pad due to the bleeding. She states she has had 1 previous episode of vaginal bleeding during the course of her cervical cancer (seen here and transferred to [facility]-given TXA and transfusion while here-records were obtained from [place] and she did not require any further supportive care once there as bleeding had minimized upon arrival). She reports pain in her vaginal area and also complains of R flank pain. MD elicited complaint: other (vaginal bleeding) Pertinent past history: other (cervical cancer) Onset (ago): hour(s) Consistency: constant Vaginal bleeding: moderate, dark red, clots and # pads per day (3) Exacerbating factors: none Relieving factors: none Associated symptoms: Reports vaginal bleeding; Deny abdominal pain, headache(s), nausea or syncope Treatment prior to arrival: none Patient : No Review of Systems Const: Denies: fever, chills, body aches, fatigue or malaise Eyes: Denies: change in vision or blurry vision Card: Denies: chest pain, palpitations, irregular heart rhythm, lightheadedness, syncope or shortness of breath on exertion Resp: Denies: shortness of breath, productive cough or pain on inspiration GI: Denies: abdominal pain, nausea, vomiting, heartburn/indigestion, diarrhea, change in bowel habits, painful bowel movements, change in stool character, blood in stool or white/light colored stool : Reports: flank pain, vaginal bleeding and pelvic pain; Denies: difficulty urinating, painful urination, urinary frequency, urinary urgency or urinary hesitancy Musc: Denies: neck pain, back pain or joint pain Skin/Breast: Denies: rash Neuro: Denies: headache, numbness in extremities, weakness in extremities or changes in sensation PFSH ED PFSH: Medical History (Updated 11/20/19 @ 22:54 by KWAME Jacome) Anxiety Cervical cancer Locally metastatic resulting in extrinsic right ureteral obstruction. -Has known history of recurrent cervical cancer, currently on systemic chemotherapy with carboplatin/Doxil/Avastin with Neulasta -Last treatment given on 11/04 -Follows up locally with Dr. Chapa and at [facility] -Prior PET scan done on 10/03/2019 patient has no evidence of distant metastatic disease; does have evidence of right cervical mass abutting the bladder Depression Port-A-Cath in place Surgical History H/O tubal ligation (12/03/97) S/P ureteral stent placement Social History Smoking and tobacco status: current every day smoker Alcohol intake: former Adopted: No Caregiver/support person: No Lives independently: No Household members: family Marital status: Legally Current occupational status: disabled Physical Exam Const: COMMON NORMALS: no apparent distress, average body habitus, oriented x3, no limitations, healthy appearing, alert and well nourished Resp: COMMON NORMALS: normal respiratory effort and clear to auscultation bilaterally AUSCULTATION: clear to auscultation bilaterally Cardio: COMMON NORMALS: regular rate and regular rhythm RATE: regular rate RHYTHM: regular rhythm GI: COMMON NORMALS: normal to inspection, nondistended, normoactive bowel sounds, soft to palpation, non-tender, no hepatosplenomegaly and no masses PALPATION: Yes soft and Yes no hepatosplenomegaly : BLADDER/KIDNEY EXAM: Yes CVA tenderness on the right SPECULUM EXAM - VAGINA: Yes vaginal bleeding, Yes tissue present in vagina and Yes vaginal tenderness OB/EXTERNAL & SPECULUM: tissue present in vagina and vaginal bleeding OTHER: diffuse malignant changes noted to cervix and surrounding tissue; she has a few clots present within vaginal canal but no active bleeding noted; foul odor (I have seen patient previously and performed speculum exam and this was present) Back/Pelvis: GENERAL BACK: Yes CVA tenderness Extremity: COMMON NORMALS: normal to inspection Neuro: COMMON NORMALS: oriented x3 SENSORIUM/ORIENTATION: Yes alert Skin: COMMON NORMALS: no rashes or lesions noted GENERAL SKIN EXAM: no rashes or lesions noted Course Vital Signs: Vital signs: Vital Signs Temperature 97.8 F 11/20/19 22:48 Pulse Rate 90 11/20/19 22:48 Respiratory Rate 18 11/20/19 22:48 Blood Pressure 108/65 11/20/19 22:48 Pulse Oximetry 95 11/20/19 22:48 MDM - Female MDM Narrative: Medical decision making narrative: Patient states bleeding has slowed since her arrival. She has no active hemorrhaging on her exam. Her initial CBC shows a hemoglobin of 8.9 which is pretty close to her baseline. This was repeated approximately 4 hours later and hemoglobin is 9. Pain was controlled here with IV pain medications. She has a leukocytosis of 21.3. This finding has been present previously and is felt to most likely be related to her Neulasta use/chemo treatments. Her CT scan shows a functioning ureter stent with no hydronephrosis or evidence for pyelonephritis. She has diffuse malignant cervical changes that are similar to previous exams. Her UA does appear infected however all previous urines have looked similar and all of her cultures are coming back negative. She had a urine performed at the oncology center yesterday and culture is reporting normal ely at this time. I do not feel placing patient on antibiotics at this time is indicated. Recommend very c lose follow-up with Dr. Chapa and [facility]. Strict return to ED precautions given. Lab Data: Labs: Lab Results 11/20/19 11/20/19 11/20/19 Range/Units 18:15 18:15 18:15 WBC 22.1 H (4.0-10.0) 10^3/ uL RBC 3.41 L (4.1-5.3) 10^6/u L Hgb 8.9 L (11.5-15.3) g/dL Hct 29.1 L (37.0-47.0) % MCV 85.3 (81-99) fL MCH 26.1 L (28.0-34.0) pg MCHC 30.6 (30.0-36.0) g/dL RDW 17.3 H (12.1-15.1) % Plt Count 343 (130-400) 10^3/c mm MPV 9.8 (7.4-10.4) fL Neut % (Auto) 74.0 % Lymph % (Auto) 14.3 % [place] % (Auto) 7.4 % Eos % (Auto) 0.4 % Baso % (Auto) 0.4 % Neut # (Auto) 16.4 H (1.8-7.7) 10^3/u L Lymph # (Auto) 3.2 (0.8-4.8) 10^3/u L [place] # (Auto) 1.6 H (0.2-0.9) 10^3/u L Eos # (Auto) 0.1 (0.0-0.8) 10^3/u L Baso # (Auto) 0.1 (0.0-0.1) 10^3/u L Nucleated RBC % (a uto) 0 % Nucleated RBCs # 0.0 /100WBC PT 12.50 (10.5-13.3) SECO NDS INR 0.91 (0.8-1.2) APTT 28.4 (23.9-36.7) SECO NDS Sodium 136 (136-145) mmol/L Potassium 4.3 (3.5-5.1) mmol/L Chloride 97 L (98-107) mmol/L Carbon Dioxide 26 (22-29) mmol/L Anion Gap 17.3 (5-19) BUN 28 H (6-20) mg/dL Creatinine 0.8 (0.5-0.9) mg/dL GFR Calculation 76.9 L (90-130) mL/min Glucose 94 (65-115) mg/dL Calculated Osmolal ity 279 L (285-295) mOsm/k g Calcium 9.6 (8.5-10.5) mg/dL Total Bilirubin 0.2 (0.15-1.2) mg/dL AST 16 (0-32) U/L ALT 16 (0-33) U/L Alkaline Phosphata se 134 H (35-105) IU/L Total Protein 6.9 (6.6-8.7) g/dL Albumin 3.8 (3.5-5.2) g/dL Globulin 3.1 (1.3-4.6) g/dL Urine Color (Yellow) Urine Appearance (CLEAR) Urine pH (5-7) Ur Specific Gravit y (1.005-1.030) Urine Protein (Negative) Urine Glucose (UA) (Normal) Urine Ketones (Negative) Urine Blood (Negative) Urine Nitrate (Negative) Urine Bilirubin (NEGATIVE) Urine Urobilinogen (Negative) mg/dL Ur Leukocyte Natasha ase (Negative) Urine RBC (0-2) /hpf Urine WBC (0-5) /hpf Ur Squamous Epith Cells (0-5) Urine Bacteria (NONE) 11/20/19 11/20/19 Range/Units 19:05 22:15 WBC 21.3 H (4.0-10.0) 10^3/ uL RBC 3.53 L (4.1-5.3) 10^6/u L Hgb 9.0 L (11.5-15.3) g/dL Hct 30.1 L (37.0-47.0) % MCV 85.3 (81-99) fL MCH 25.5 L (28.0-34.0) pg MCHC 29.9 L (30.0-36.0) g/dL RDW 17.2 H (12.1-15.1) % Plt Count 312 (130-400) 10^3/c mm MPV 10.5 H (7.4-10.4) fL Neut % (Auto) 71.1 % Lymph % (Auto) 16.5 % [place] % (Auto) 7.5 % Eos % (Auto) 0.6 % Baso % (Auto) 0.6 % Neut # (Auto) 15.2 H (1.8-7.7) 10^3/u L Lymph # (Auto) 3.5 (0.8-4.8) 10^3/u L [place] # (Auto) 1.6 H (0.2-0.9) 10^3/u L Eos # (Auto) 0.1 (0.0-0.8) 10^3/u L Baso # (Auto) 0.1 (0.0-0.1) 10^3/u L Nucleated RBC % (a uto) 0 % Nucleated RBCs # 0.0 /100WBC PT (10.5-13.3) SECO NDS INR (0.8-1.2) APTT (23.9-36.7) SECO NDS Sodium (136-145) mmol/L Potassium (3.5-5.1) mmol/L Chloride (98-107) mmol/L Carbon Dioxide (22-29) mmol/L Anion Gap (5-19) BUN (6-20) mg/dL Creatinine (0.5-0.9) mg/dL GFR Calculation (90-130) mL/min Glucose (65-115) mg/dL Calculated Osmolal ity (285-295) mOsm/k g Calcium (8.5-10.5) mg/dL Total Bilirubin (0.15-1.2) mg/dL AST (0-32) U/L ALT (0-33) U/L Alkaline Phosphata se (35-105) IU/L Total Protein (6.6-8.7) g/dL Albumin (3.5-5.2) g/dL Globulin (1.3-4.6) g/dL Urine Color Dyan (Yellow) Urine Appearance Clear (CLEAR) Urine pH 8 H (5-7) Ur Specific Gravit y 1.010 (1.005-1.030) Urine Protein Neg (Negative) Urine Glucose (UA) Norm (Normal) Urine Ketones Negative (Negative) Urine Blood 3+ H (Negative) Urine Nitrate Positive H (Negative) Urine Bilirubin Neg (NEGATIVE) Urine Urobilinogen Norm (Negative) mg/dL Ur Leukocyte Natasha ase Trace H (Negative) Urine RBC 15-25 H (0-2) /hpf Urine WBC 15-25 H (0-5) /hpf Ur Squamous Epith Cells None (0-5) Urine Bacteria 1+ H (NONE) Imaging Data: CT Abd/Pel: Radiologist's impression: [place] [address] CT Scan Report Signed Patient: Lelo Mason Unit #: [id number] : [id number] Age/Sex: 49 / F ADM Date: 11/20/19 Loc: ER Room/Bed: Attending Dr: Ordering Provider/Ordering MD: Precious Mena Date of Service: 11/20/19 Procedure(s): CT abdomen pelvis w con* [id number] Accession Number(s): [id number] Report Number: [id number] PROCEDURE INFORMATION: Exam: CT Abdomen And Pelvis With Contrast Exam date and time: 11/20/2019 5:59 PM Age: 49 years old Clinical indication: Other: Vaginal bleeding; Abdominal pain; Localized; Right; Prior surgery; Surgery type: Ureretal stent; Additional info: R flank pain; Ureter stone; Prev. Obstruction; Cervical CA TECHNIQUE: Imaging protocol: Computed tomography of the abdomen and pelvis with intravenous contrast. Radiation optimization: All CT scans at this facility use at least one of these dose optimization techniques: automated exposure control; mA and/or kV adjustment per patient size (includes targeted exams where dose is matched to clinical indication); or iterative reconstruction. Contrast material: OMNI 300; Contrast volume: 75 ml; Contrast route: IV; COMPARISON: CT abdomen pelvis w con* [id number] 11/08/2019 10:21 PM RADIATION DOSE METRICS: Total DLP: 695.35 mGy-cm FINDINGS: Lungs: Limited assessment lung bases without visible evidence of active cardiopulmonary process. Liver: Hepatomegaly. Gallbladder and bile ducts: Gallbladder unremarkable. No visible cholelithiasis. No intra or extrahepatic biliary ectasia. Pancreas: Normal. No ductal dilation. Spleen: Normal. No splenomegaly. Adrenals: Normal. No mass. Kidneys and ureters: Stable double-J right ureteral stent which appears functional as there is no evidence of right-sided hydronephrosis. Also no visible nephrolithiasis or ureterolithiasis. Left kidney unremarkable. Stomach and bowel: Nonobstructive bowel pattern. Heavy fecal residue throughout the colon consistent with constipation. No visible adynamic or reactive ileus. Appendix: No evidence of appendicitis. Intraperitoneal space: No free fluid in the pelvis. Vasculature: The abdominal aorta is nonaneurysmal. Mild arterial sclerotic disease. Lymph nodes: No visible mesenteritis/panniculitis or mesenteric lymphadenitis/lymphadenopathy. Bladder: Urinary bladder unremarkable. No filling defect. Reproductive: Pockets of gas within the vaginal vault to the level of the cervix. This finding has been present on all of the CT abdomen pelvis exams dating back to 07/16/2019. Clinical significance indeterminate. Unable to exclude a bacterial gas producing vaginitis. No visible hydrometrocolpos. Unable to evaluate the cervix. No visible adnexal pathology. Bones/joints: No visible active osseous pathology. Soft tissues: Unremarkable. CT/CT abdomen pelvis w con* [id number] IMPRESSION: 1. Stable appearing double-J right ureteral stent without right hydronephrosis or visible evidence of nephrolithiasis or ureterolithiasis. No bladder stone. 2. Again evidence of pockets of free air within the vaginal vault to the level of the cervix. Cannot exclude a gas producing bacterial vaginitis. 3. Hepatomegaly. Radiation Dose CTDIVOL = (mGy): DLP = 695.35 (mGy-cm) Dictated By: Ambrose Varela Signed By: Ambrose Varela Signed Date/Time: 11/20/191855 DD/ 55 Discharge Plan Discharge Patient Disposition: Home, Self-Care Clinical Impression: Cervical malignant neoplasm Qualifiers: Malignant neoplasm of cervix location: unspecified location Qualified Code(s): C53.9 - Malignant neoplasm of cervix uteri, unspecified Condition: Stable Prescriptions: No Action acetaminophen [Tylenol Extra Strength] 500 mg Tablet 1,500 mg PO PRN PRN (Reason: Pain) RF: 0 ibuprofen 600 mg Tablet 600 mg PO TID PRN (Reason: Pain) RF: 0 tamsulosin [Flomax] 0.4 mg Capsule 0.4 mg PO BEDTIME RF: 0 dexamethasone 4 mg Tablet See Rx Instructions .ROUTE .COMPLEX RF: 0 Miralax 17 gram Powder In Packet 17 g PO DAILY RF: 0 venlafaxine 37.5 mg tablet 37.5 mg PO DAILY RF: 0 oxybutynin chloride 5 mg Tablet 5 mg PO TID RF: 0 Claritin 10 mg Tablet 10 mg PO DAILY RF: 0 Acidophilus Tablet,Chewable 1 tab PO DAILY RF: 0 lorazepam 1 mg tablet 1 mg PO TID PRN (Reason: Anxiety) RF: 0 sennosides-docusate sodium 8.6-50 mg Tablet 2 tab PO BID 30 Days Qty: 120 RF: 0 phenazopyridine 100 mg Tablet 100 mg PO TID PRN (Reason: Dysuria) Qty: 30 RF: 0 ondansetron HCl [Zofran] 8 mg tablet 8 mg PO Q6H PRN (Reason: Nausea) Qty: 15 RF: 0 hydrocodone-acetaminophen 10-325 mg tablet 1 - 2 tab PO Q6H PRN (Reason: pain) Qty: 15 RF: 0 Referrals: Markell Fernandez MD [Primary Care Provider] - Discharge Diet: Usual diet Discharge Activity: Increase activity as tolerated Activity Restrictions/Additional Instructions: As discussed follow-up with Ashlie Lee and Dr. Chapa as scheduled. You need to return to the emergency department for worsening vaginal bleeding, lightheadedness/dizziness/passing out episodes, worsening or uncontrollable pain, fevers greater than 100.4, or any other concerns you may have. Coding Level of Care Code ED Community Mental Health Worker for Chg Fwd Exam Detailed
[2019-11-20] MEDS: iohexol 300 mg/mL 100 mL Btl IV (18:25)
[2019-11-20 18:33] LABS: Basophils # 0.1 10^3/uL (0.0-0.1); Basophils % 0.4 %; Eosinophils # 0.1 10^3/uL (0.0-0.8); Eosinophils % 0.4 %; Hematocrit 29.1 % (37.0-47.0); Hemoglobin 8.9 g/dL (11.5-15.3); Lymphocytes # 3.2 10^3/uL (0.8-4.8); Lymphocytes % 14.3 %; Mean Corpuscular HGB Conc 30.6 g/dL (30.0-36.0); Mean Corpuscular Hemoglobin 26.1 pg (28.0-34.0); Mean Corpuscular Volume 85.3 fL (81-99); Mean Platelet Volume 9.8 fL (7.4-10.4); Monocytes # 1.6 10^3/uL (0.2-0.9); Monocytes % 7.4 %; Neutrophils # 16.4 10^3/uL (1.8-7.7); Nucleated Red Blood Cells % 0 %; Platelet Count 343 10^3/cmm (130-400); Red Blood Count 3.41 10^6/uL (4.1-5.3); Red Cell Distribution Width 17.3 % (12.1-15.1); White Blood Count 22.1 10^3/uL (4.0-10.0)
[2019-11-20 18:50] LABS: INR 0.91 (0.8-1.2)
[2019-11-20 18:51] LABS: Partial Thromboplastin Time 28.4 SECONDS (23.9-36.7)
[2019-11-20 18:53] VITALS: RESP 20
[2019-11-20] MEDS: morphine 4 mg/mL SDV 1 mL IVP ×2 (18:53→20:02)
[2019-11-20] MEDS: ondansetron 2 mg/ML SDV 2 mL 4 MG IVP (18:53)
[2019-11-20 19:04] LABS: Alanine Aminotransferase 16 U/L (0-33); Albumin Level 3.8 g/dL (3.5-5.2); Alkaline Phosphatase 134 IU/L (35-105); Anion Gap 17.3 (5-19); Aspartate Amino Transferase 16 U/L (0-32); Blood Urea Nitrogen 28 mg/dL (6-20); Calcium 9.6 mg/dL (8.5-10.5); Carbon Dioxide 26 mmol/L (22-29); Chloride 97 mmol/L (98-107); Globulin 3.1 g/dL (1.3-4.6); Glomerular Filtration Rate 76.9 mL/min (90-130); Glucose 94 mg/dL (65-115); Osmolality Calculated 279 mOsm/kg (285-295); Potassium 4.3 mmol/L (3.5-5.1); Sodium 136 mmol/L (136-145); Total Bilirubin 0.2 mg/dL (0.15-1.2); Total Protein 6.9 g/dL (6.6-8.7)
[2019-11-20 19:59] LABS: Urine Appearance Clear (CLEAR); Urine Color Amber (Yellow); pH Urine 8 (5-7)
[2019-11-20 20:00] LABS: Add Urine Microscopic? YES; Bilirubin Urine Neg (NEGATIVE); Blood Urine 3+ (Negative); Glucose Urine UA Norm (Normal); Ketones Urine Negative (Negative); Leukocyte Esterase Urine Trace (Negative); Nitrate Urine Positive (Negative); Protein Urine Neg (Negative); Urobilinogen Urine Norm (Negative)
[2019-11-20 20:01] LABS: Add Urine Culture? Yes; Bacteria Urine 1+; RBC Urine 15-25 /hpf (0-2); WBC Urine 15-25 /hpf (0-5)
[2019-11-20 22:35] LABS: Basophils # 0.1 10^3/uL (0.0-0.1); Basophils % 0.6 %; Eosinophils # 0.1 10^3/uL (0.0-0.8); Eosinophils % 0.6 %; Hematocrit 30.1 % (37.0-47.0); Lymphocytes # 3.5 10^3/uL (0.8-4.8); Lymphocytes % 16.5 %; Mean Corpuscular HGB Conc 29.9 g/dL (30.0-36.0); Mean Corpuscular Hemoglobin 25.5 pg (28.0-34.0); Mean Corpuscular Volume 85.3 fL (81-99); Mean Platelet Volume 10.5 fL (7.4-10.4); Monocytes # 1.6 10^3/uL (0.2-0.9); Monocytes % 7.5 %; Neutrophils # 15.2 10^3/uL (1.8-7.7); Neutrophils % 71.1 %; Nucleated Red Blood Cells % 0 %; Platelet Count 312 10^3/cmm (130-400); Red Blood Count 3.53 10^6/uL (4.1-5.3); Red Cell Distribution Width 17.2 % (12.1-15.1); White Blood Count 21.3 10^3/uL (4.0-10.0)
[2019-11-20 22:48] VITALS: BP 108/65; PULSE 90; RESP 18; TEMP 36.6; O2SAT 95
--- NOTE | 2019-11-20 22:49 | PC.NURSE ---
Patient stated that she wants an update of her blood results.
[2019-11-20 23:05] VITALS: BP 124/81; PULSE 102; RESP 16; O2SAT 94
== END 2019-11-20 23:06 | disposition home or self-care (01) ==
PROVIDERS: Emergency Provider Physician Assistant; Family Provider Family Medicine; PCP Family Medicine
DX: C53.9 Malignant neoplasm of cervix uteri, unspecified (principal); F17.210 Nicotine dependence, cigarettes, uncomplicated
CPT/HCPCS: 12345; 36415; 74177; 80053; 81001; 85025; 85610; 85730; 87086; 96374; 96375; 96376; 99283; J2270; J2405; Q9967

== ENCOUNTER 2019-12-03 06:41 | Outpatient (RCR) | payer MEDICAID, SELFPAY ==
[2019-11-24 13:06] LABS: Basophils # 0.1 10^3/uL (0.0-0.1); Basophils % 0.5 %; Eosinophils # 0.1 10^3/uL (0.0-0.8); Hematocrit 33.9 % (37.0-47.0); Hemoglobin 10.1 g/dL (11.5-15.3); Lymphocytes # 1.8 10^3/uL (0.8-4.8); Lymphocytes % 12.8 %; Mean Corpuscular HGB Conc 29.8 g/dL (30.0-36.0); Mean Corpuscular Hemoglobin 26.2 pg (28.0-34.0); Mean Corpuscular Volume 87.8 fL (81-99); Monocytes # 0.9 10^3/uL (0.2-0.9); Monocytes % 6.3 %; Neutrophils # 10.8 10^3/uL (1.8-7.7); Nucleated Red Blood Cells % 0 %; Platelet Count 457 10^3/cmm (130-400); Red Blood Count 3.86 10^6/uL (4.1-5.3); Red Cell Distribution Width 17.5 % (12.1-15.1); White Blood Count 13.9 10^3/uL (4.0-10.0)
[2019-11-24 13:16] LABS: Alanine Aminotransferase 10 U/L (0-33); Alkaline Phosphatase 121 IU/L (35-105); Anion Gap 17.4 (5-19); Aspartate Amino Transferase 13 U/L (0-32); Blood Urea Nitrogen 18 mg/dL (6-20); Carbon Dioxide 28 mmol/L (22-29); Chloride 96 mmol/L (98-107); Globulin 3.6 g/dL (1.3-4.6); Glomerular Filtration Rate 76.9 mL/min (90-130); Glucose 82 mg/dL (65-115); Osmolality Calculated 280 mOsm/kg (285-295); Potassium 4.4 mmol/L (3.5-5.1); Sodium 137 mmol/L (136-145); Total Bilirubin 0.2 mg/dL (0.15-1.2); Total Protein 7.6 g/dL (6.6-8.7)
[2019-11-24 14:16] LABS: Bilirubin Urine Neg (NEGATIVE); Blood Urine 3+ (Negative); Glucose Urine UA Norm (Normal); Ketones Urine 1+ (Negative); Nitrate Urine Negative (Negative); Protein Urine 2+ (Negative); Urine Appearance Cloudy (CLEAR); Urine Color Amber (Yellow); pH Urine 7 (5-7)
[2019-11-24 14:17] LABS: Add Urine Culture? Yes; Add Urine Microscopic? YES; Bacteria Urine 1+; Leukocyte Esterase Urine 2+ (Negative); RBC Urine 25-40 /hpf (0-2); Urobilinogen Urine Norm (Negative); WBC Urine 55-80 /hpf (0-5)
[2019-11-25] MEDS: sodium chloride 0.9% 250 ML 75 ML IV (10:37)
[2019-11-25] MEDS: LORazepam 2 mg/mL INJ 1 mL 1 MG IV (10:37)
--- NOTE | 2019-11-25 11:04 | ONC FU_ITS ---
Dr. Chapa follow up note Patient: Lelo Mason Unit #: [id number]: [id number] Dicatated By: Alicia Chapa M.D.Date of Visit:November 25, 2019 Onc Med Follow-up/Prog Note History of Present Illness: Mrs. Lelo mason, is a 49-year-old who was diagnosed with cervical cancer in June 2018 at that time she underwent combined chemoradiation followed by brachytherapy in August 2018, tolerated well and during follow-up , scans showed evidence of recurrence of disease and underwent CT PET scan on 01/30/2019 which showed moderately intense abnormal FDG activity in the right half of the cervix, very suspicious for local recurrence of malignancy. No abnormal activity identified anywhere else. There are 2 new 4 mm noncalcified pulmonary nodules one in the right lower lobe one in the left upper lobe both of which are too small to evaluate with PET. Appears stable from CT scan of chest done on 01/10/2019. Patient also had MRI scan of the pelvis done on 01/30/2019 which showed interval near resolution of previously seen very large cervical mass with residual mild bulbous appearance to the posterior cervix and no evidence of local metastatic disease patient was seen by Dr. Grider on 03/19/2019 as per his note she was scheduled to be admitted to hospital or as an outpatient exam under anesthesia and biopsy but it was not done patient was also diagnosed with post traumatic stress disorder and planning was to refer to psychiatrist. Also discussed about systemic therapy but patient decided to transfer her care to [place] As per patient on 07/16/2019 , she noted severe vaginal bleeding for which she went to [facility] for evaluation regarding and CT scan of pelvis was done which shows heterogeneous hyperdense material vaginal canal and heterogeneous lesion in the cervix similar to prior exam. Delayed right renal nephrogram and hydroureteronephrosis to the level of the bladder no calcified distal ureteral stone. Cannot exclude a distal stricture at the level of UVJ. There is slightly asymmetric thickening of posterior right bladder base. And Underwent cystoscopy with right retrograde ureteropyelogram and right ureteral stent placement on 07/22/2019 And follow-up CT PET scan done on 08/09/2019 showed FDG positive cervical mass measuring 5.6 x 1.4 cm SUV 14.3 indicating recurrent malignancy. Pelvic lymph nodes are all subcentimeter in size and FDG negative is no evidence of distance metastatic disease. feeling much better since right ureteral stent placement, right inguinal pain has improved significantly. Underwent ultrasound bilateral renal on 09/05/2019 which showed negative bilateral renal ultrasound right ureter stent, no hydronephrosis. Patient started having vaginal bleeding and progressive abdominal pain and eventually went to [facility] for which she was transferred to [facility] on 10/01/2019, patient underwent cervical mass biopsy which confirmed recurrent cervical carcinoma patient had CT PET scan done on 10/03/2019 which showed markedly FDG avid right cervical mass abutting the bladder is highly suspicious for recurrent disease. No FDG evidence of locoregional or distant metastatic disease. Patient also underwent right ureteral stent exchange on 10/02/2019 at [place], patient was given blood transfusion for anemia due to vaginal bleed. Patient was seen by ACCOUNTING BOOKKEEPER surgical oncologist and systemic chemotherapy with carboplatin/Taxol/Avastin every 3 weeks ???6 was recommended.started on treatment on 11/06/2019, Patient was admitted to hospital on 11/09/2019 with hematuria and and history of bleeding per rectum. She was diagnosed with urine tract infection/pyelonephritis treated with systemic therapy with Zosyn and was discharge home on Levaquin due to evaluation she underwent CT scan of abdomen pelvis on 11/08/2019 which showed suspicious for some form of colitis involving rectum and distal sigmoid colon. Right ureteral stent. Borderline/mild right hydronephrosis Possible mild thickening of wall of right renal pelvis, possibility of pyelonephritis might be considered Came for follow-up, denies any specific complaints except said with ER physician for pelvic exam during her last visit to emergency room with questionable hematuria or bleeding but she was diagnosed with UTI. Patient said she is taking lorazepam twice a day and is not enough. And also has history of PTSD. Otherwise no more abdominal pain or melena or hematochezia or hematuria. No fever or chills, no diarrhea or constipation. Patient scheduled to go for consultation for colonoscopy in the morning. Tolerating systemic therapy with Avastin/carbo/Taxol well and has taken her premedication. Medications: [employer] Nicotine 1 Patch(es) (of 21 mg/24hr) Patch 24 Hr Transdermal daily, Gas Relief 1 Capsule (of 125 Capsule) Oral t.i.d., HYDROcodone-Acetaminophen 1 - 2 Tablet (of 10-325 mg) Oral q 6 hours PRN, Ibuprofen 1 Tablet (of 200 mg) Oral daily PRN, LORazepam 1 Tablet (of 1 mg) Oral daily PRN, Ondansetron HCl 1 Tablet (of 8 mg) Oral daily PRN, Tums 1 Tablet (of 500 mg) Tablet, chewable Oral PRN, Venlafaxine HCl ER 1 Tablet (of 37.5 mg) Tablet SR 24 HR Oral daily Allergies: Sulfa Antibiotics Review of Systems: Review of Systems is not available for this patient. Vital Signs: Performed on November 25, 2019 08:59 Height - 57.00 in Weight - 125.2 lbs (LOW) BSA - 1.47 sq.m BMI - 27.09 Temperature - 97.4 F (LOW) Pulse - 125 /min (HIGH) Respiration - 19 /min BP - 120/79 mm(hg) O2 Sat - 95 % (LOW) Pain - 1 Performance Status: 2 - Ambulatory/capable of all self-care, unable to perform any work activities. Up and about more than 50% of waking hours. (ECOG) Physical Examination: ENMT - no mouth sores,, Respiratory - Lungs are clear, Cardiovascular - Regular rate and rhythm of heart, Abdomen - soft, bowel sounds present, Extremities - no visible edema. Lab/Imaging: Test performed on November 24, 2019 10:30 Sodium 137 mmol/L Potassium 4.4 mmol/L Chloride 96 mmol/L CO2 28 mmol/L Anion Gap 17.4 BUN 18 mg/dL Creatinine 0.8 mg/dL Cr Clearance (Est) 82.8000 mL/min eGFR 76.9 mL/min Glucose 82 mg/dL Calcium 10.0 mg/dL Protein, Total 7.6 g/dL Albumin 4.0 g/dL Globulin 3.6 g/dL Bilirubin, Total 0.2 mg/dL ALT (SGPT) 10 U/L AST (SGOT) 13 U/L Alkaline Phosphatase 121 IU/L WBC 13.9 10 3/uL RBC 3.86 10 6/uL HGB 10.1 g/dL HCT 33.9 % MCV 87.8 fL MCH 26.2 pg MCHC 29.8 g/dL RDW 17.5 % Platelet Count 457 10 3/cmm MPV 10.0 fL Neutrophils 10.8 10 3/uL Lymphocytes 1.8 10 3/uL Monocytes 0.9 10 3/uL Eosinophils 0.1 10 3/uL Basophils 0.1 10 3/uL Neutrophil % 78.0 % Lymphocyte % 12.8 % Monocyte % 6.3 % Eosinophil % 1.0 % Basophils % 0.5 % Ua Micro: WBC 55-80 /hpf Ua Micro: RBC 25-40 /hpf Ua Micro: Squam Epith Cells NONE Ua Micro: Bacteria 1+ Test performed on Nov 19, 2019 09:00 Ua Micro: Mucous TRACE Test performed on Nov 18, 2019 17:15 CBC Slide Review Slide Review Perform SLIDE REVIEW AGREES WITH AUTO DIFF. Test performed on Nov 05, 2019 11:25 Ferritin 143 ng/mL Iron 14 mcg/dL Vitamin B12 350 pg/mL Iron Binding Capacity (TIBC) 232 mcg/dl % Iron Saturation 6.0 % UIBC 218 mcg/dL Test performed on Aug 11, 2019 11:16 Manual Lymphocytes 12.3 % Manual Monocytes 8.0 % Manual Eosinophils 2.2 % Manual Basophils 0.7 % NRBCs 0.0 /100 WBC Impression: ? Recurrent cervical cancer per CT PET scan done on 01/30/2019 which showed moderately intense abnormal FDG activity in the right side of cervix maximum SUV 8.6 suspicious for local recurrence. No additional foci of abnormal activity identified. There is 4 mm noncalcified 100 nodule in the right lower lobe and left upper lobe of the lung, appear unchanged from recent CT scan of chest done on 01/10/2019. MRI scan of the pelvis done on 01/30/2019 showed interval near resolution of previously seen very large cervical mass with residual mild bulbous appearance to the posterior cervix and no evidence of local metastatic disease CT scan of the abdomen pelvis done on 07/16/2019 showed heterogeneous hypodense material vaginal canal. Again identified is heterogeneous lesion in the cervix and he delayed right renal nephrogram and hydroureter nephrosis the level of bladder. No calcified distal ureteral stone. There is a slight asymmetric thickening of posterior right bladder base.Status post cystoscopy and right ureteral stent placement done on 07/22/2019 CT PET scan done on 08/09/2019 showed FDG positive cervical mass measuring 5.6 x 1.4 cm with SUV of 14.3 indicating recurrent malignancy. Pelvic lymph nodes are subcentimeter and FDG negative. No evidence of distance metastases Plan: Discussed with patient regarding her labs white blood count 13.9 hemoglobin 10.1 crit 33.9 platelets 457,000 and CMP within normal limits Clinically, patient is doing well, tolerating systemic chemotherapy with Avastin/carboplatin/Taxol well but with expected side effects. We'll proceed with next 3 weekly dose of carboplatin/Taxol/Avastin today and then she will return to clinic in 10 days with CBC CMP. Patient is refusing Neulasta as with last chemotherapy followed by Neulasta, she did develop severe pelvic and back pain due to bone marrow expansion. In that case we will consider Neupogen on as-needed basis. As far as anxiety is concern patient was advised to increase her lorazepam dose to every 6 hours as needed and we will also consider referell to psychiatric for evaluation. Patient was advised in case she has any worsening of abdominal pain or any episode of hematuria or vaginal bleed then she needed to go to hospital and also advised to keep her appointment with GI for evaluation for colonoscopy. Signed By: Alicia Chapa M.D. <<Signature on File>>
[2019-12-02 15:28] LABS: Basophils # 0.1 10^3/uL (0.0-0.1); Basophils % 0.7 %; Eosinophils # 0.3 10^3/uL (0.0-0.8); Eosinophils % 2.3 %; Hematocrit 28.5 % (37.0-47.0); Hemoglobin 8.7 g/dL (11.5-15.3); Lymphocytes # 1.4 10^3/uL (0.8-4.8); Lymphocytes % 12.1 %; Mean Corpuscular HGB Conc 30.5 g/dL (30.0-36.0); Mean Corpuscular Hemoglobin 25.7 pg (28.0-34.0); Mean Corpuscular Volume 84.3 fL (81-99); Mean Platelet Volume 10.8 fL (7.4-10.4); Monocytes # 0.9 10^3/uL (0.2-0.9); Monocytes % 8.1 %; Neutrophils # 8.7 10^3/uL (1.8-7.7); Neutrophils % 76.1 %; Nucleated Red Blood Cells % 0 %; Platelet Count 379 10^3/cmm (130-400); Red Blood Count 3.38 10^6/uL (4.1-5.3); Red Cell Distribution Width 17.4 % (12.1-15.1); White Blood Count 11.5 10^3/uL (4.0-10.0)
[2019-12-02 15:47] LABS: Alanine Aminotransferase 58 U/L (0-33); Albumin Level 3.8 g/dL (3.5-5.2); Alkaline Phosphatase 169 IU/L (35-105); Anion Gap 17.9 (5-19); Aspartate Amino Transferase 35 U/L (0-32); Blood Urea Nitrogen 17 mg/dL (6-20); Calcium 10.1 mg/dL (8.5-10.5); Carbon Dioxide 22 mmol/L (22-29); Chloride 99 mmol/L (98-107); Globulin 3.7 g/dL (1.3-4.6); Glomerular Filtration Rate 107.2 mL/min (90-130); Glucose 121 mg/dL (65-115); Osmolality Calculated 278 mOsm/kg (285-295); Potassium 3.9 mmol/L (3.5-5.1); Sodium 135 mmol/L (136-145); Total Bilirubin 0.2 mg/dL (0.15-1.2); Total Protein 7.5 g/dL (6.6-8.7)
--- NOTE | 2019-12-03 15:50 | ONC FU_ITS ---
Dr. Chapa follow up note Patient: Lelo Mason Unit #: [id number]: [id number] Dicatated By: Alicia Chapa M.D.Date of Visit:December 03, 2019 Onc Med Follow-up/Prog Note History of Present Illness: Mrs. Lelo mason, is a 49-year-old who was diagnosed with cervical cancer in June 2018 at that time she underwent combined chemoradiation followed by brachytherapy in August 2018, tolerated well and during follow-up , scans showed evidence of recurrence of disease and underwent CT PET scan on 01/30/2019 which showed moderately intense abnormal FDG activity in the right half of the cervix, very suspicious for local recurrence of malignancy. No abnormal activity identified anywhere else. There are 2 new 4 mm noncalcified pulmonary nodules one in the right lower lobe one in the left upper lobe both of which are too small to evaluate with PET. Appears stable from CT scan of chest done on 01/10/2019. Patient also had MRI scan of the pelvis done on 01/30/2019 which showed interval near resolution of previously seen very large cervical mass with residual mild bulbous appearance to the posterior cervix and no evidence of local metastatic disease patient was seen by Dr. Grider on 03/19/2019 as per his note she was scheduled to be admitted to hospital or as an outpatient exam under anesthesia and biopsy but it was not done patient was also diagnosed with post traumatic stress disorder and planning was to refer to psychiatrist. Also discussed about systemic therapy but patient decided to transfer her care to [place] As per patient on 07/16/2019 , she noted severe vaginal bleeding for which she went to [facility] for evaluation regarding and CT scan of pelvis was done which shows heterogeneous hyperdense material vaginal canal and heterogeneous lesion in the cervix similar to prior exam. Delayed right renal nephrogram and hydroureteronephrosis to the level of the bladder no calcified distal ureteral stone. Cannot exclude a distal stricture at the level of UVJ. There is slightly asymmetric thickening of posterior right bladder base. And Underwent cystoscopy with right retrograde ureteropyelogram and right ureteral stent placement on 07/22/2019 And follow-up CT PET scan done on 08/09/2019 showed FDG positive cervical mass measuring 5.6 x 1.4 cm SUV 14.3 indicating recurrent malignancy. Pelvic lymph nodes are all subcentimeter in size and FDG negative is no evidence of distance metastatic disease. feeling much better since right ureteral stent placement, right inguinal pain has improved significantly. Underwent ultrasound bilateral renal on 09/05/2019 which showed negative bilateral renal ultrasound right ureter stent, no hydronephrosis. Patient started having vaginal bleeding and progressive abdominal pain and eventually went to [facility] for which she was transferred to [facility] on 10/01/2019, patient underwent cervical mass biopsy which confirmed recurrent cervical carcinoma patient had CT PET scan done on 10/03/2019 which showed markedly FDG avid right cervical mass abutting the bladder is highly suspicious for recurrent disease. No FDG evidence of locoregional or distant metastatic disease. Patient also underwent right ureteral stent exchange on 10/02/2019 at [place], patient was given blood transfusion for anemia due to vaginal bleed. Patient was seen by SOFTWARE [employer]AL[employer] ASSURANCE ANALYST surgical oncologist and systemic chemotherapy with carboplatin/Taxol/Avastin every 3 weeks ???6 was recommended.started on treatment on 11/06/2019, Patient was admitted to hospital on 11/09/2019 with hematuria and and history of bleeding per rectum. She was diagnosed with urine tract infection/pyelonephritis treated with systemic therapy with Zosyn and was discharge home on Levaquin due to evaluation she underwent CT scan of abdomen pelvis on 11/08/2019 which showed suspicious for some form of colitis involving rectum and distal sigmoid colon. Right ureteral stent. Borderline/mild right hydronephrosis Possible mild thickening of wall of right renal pelvis, possibility of pyelonephritis might be considered Came for follow-up, complaining of foul-smelling urine, since she quit taken Levaquin about week ago. Patient was scheduled for colonoscopy of chronic constipation and abdominal pain to rule out colon involvement with the tumor but it was postponed due to low-grade fever as per patient her fever was 100.3 and repeat was 99f. But patient is still on clear liquid diets and as per patient Dr. osborn is waiting for clearance from us. And today complaining of foul-smelling urine but no fever or chills also complaining of urine incontinence, as per patient any time she got bad urine tract infection it happens. He denies any hematuria or vaginal bleeding.Denies any abdominal/pelvic pain Medications: Antacid Medicine Tablet Oral, [employer] Nicotine 1 Patch(es) (of 21 mg/24hr) Patch 24 Hr Transdermal daily, Gas Relief 1 Capsule (of 125 Capsule) Oral t.i.d., HYDROcodone-Acetaminophen 1 - 2 Tablet (of 10-325 mg) Oral q 6 hours PRN, Ibuprofen 1 Tablet (of 200 mg) Oral daily PRN, LORazepam 1 Tablet (of 1 mg) Oral daily PRN, Ondansetron HCl 1 Tablet (of 8 mg) Oral daily PRN, Oxybutynin Chloride 1 Tablet (of 5 mg) Oral t.i.d., Tamsulosin HCl 1 Capsule (of 0.4 mg) Oral daily, Tums 1 Tablet (of 500 mg) Tablet, chewable Oral PRN, Venlafaxine HCl ER 1 Tablet (of 37.5 mg) Tablet SR 24 HR Oral daily Allergies: Sulfa Antibiotics Review of Systems: Review of Systems is not available for this patient. Vital Signs: Performed on December 03, 2019 14:43 Height - 57.00 in Weight - 121.8 lbs (LOW) BSA - 1.46 sq.m BMI - 26.36 Temperature - 98.0 F (LOW) Pulse - 108 /min (HIGH) Respiration - 19 /min BP - 110/70 mm(hg) O2 Sat - 97 % Pain - 8 Performance Status: 2 - Ambulatory/capable of all self-care, unable to perform any work activities. Up and about more than 50% of waking hours. (ECOG) Physical Examination: ENMT - no mouth sores, no jaundice, Respiratory - Lungs are clear, Cardiovascular - Regular rate and rhythm of heart without murmurs, gallops or rubs, Abdomen - soft, bowel sounds present, Extremities - no visible edema. Lab/Imaging: Test performed on December 02, 2019 14:20 Sodium 135 mmol/L Potassium 3.9 mmol/L Chloride 99 mmol/L CO2 22 mmol/L Anion Gap 17.9 BUN 17 mg/dL Creatinine 0.6 mg/dL Cr Clearance (Est) 110.3900 mL/min eGFR 107.2 mL/min Glucose 121 mg/dL Calcium 10.1 mg/dL Protein, Total 7.5 g/dL Albumin 3.8 g/dL Globulin 3.7 g/dL Bilirubin, Total 0.2 mg/dL ALT (SGPT) 58 U/L AST (SGOT) 35 U/L Alkaline Phosphatase 169 IU/L WBC 11.5 10 3/uL RBC 3.38 10 6/uL HGB 8.7 g/dL HCT 28.5 % MCV 84.3 fL MCH 25.7 pg MCHC 30.5 g/dL RDW 17.4 % Platelet Count 379 10 3/cmm MPV 10.8 fL Neutrophils 8.7 10 3/uL Lymphocytes 1.4 10 3/uL Monocytes 0.9 10 3/uL Eosinophils 0.3 10 3/uL Basophils 0.1 10 3/uL Neutrophil % 76.1 % Lymphocyte % 12.1 % Monocyte % 8.1 % Eosinophil % 2.3 % Basophils % 0.7 % Test performed on November 24, 2019 10:30 Ua Micro: WBC 55-80 /hpf Ua Micro: RBC 25-40 /hpf Ua Micro: Squam Epith Cells NONE Ua Micro: Bacteria 1+ Test performed on Nov 19, 2019 09:00 Ua Micro: Mucous TRACE Test performed on Nov 18, 2019 17:15 CBC Slide Review Slide Review Perform SLIDE REVIEW AGREES WITH AUTO DIFF. Test performed on Nov 05, 2019 11:25 Ferritin 143 ng/mL Iron 14 mcg/dL Vitamin B12 350 pg/mL Iron Binding Capacity (TIBC) 232 mcg/dl % Iron Saturation 6.0 % UIBC 218 mcg/dL Test performed on Aug 11, 2019 11:16 Manual Lymphocytes 12.3 % Manual Monocytes 8.0 % Manual Eosinophils 2.2 % Manual Basophils 0.7 % NRBCs 0.0 /100 WBC Impression: ? Recurrent cervical cancer per CT PET scan done on 01/30/2019 which showed moderately intense abnormal FDG activity in the right side of cervix maximum SUV 8.6 suspicious for local recurrence. No additional foci of abnormal activity identified. There is 4 mm noncalcified 100 nodule in the right lower lobe and left upper lobe of the lung, appear unchanged from recent CT scan of chest done on 01/10/2019. MRI scan of the pelvis done on 01/30/2019 showed interval near resolution of previously seen very large cervical mass with residual mild bulbous appearance to the posterior cervix and no evidence of local metastatic disease CT scan of the abdomen pelvis done on 07/16/2019 showed heterogeneous hypodense material vaginal canal. Again identified is heterogeneous lesion in the cervix and he delayed right renal nephrogram and hydroureter nephrosis the level of bladder. No calcified distal ureteral stone. There is a slight asymmetric thickening of posterior right bladder base.Status post cystoscopy and right ureteral stent placement done on 07/22/2019 CT PET scan done on 08/09/2019 showed FDG positive cervical mass measuring 5.6 x 1.4 cm with SUV of 14.3 indicating recurrent malignancy. Pelvic lymph nodes are subcentimeter and FDG negative. No evidence of distance metastases Plan: Discussed with patient regarding her labs white blood count 11.5 hemoglobin 8.7 hematocrit 28.5 platelets 379,000 Clinically, patient is doing reasonably well now with persistent urine tract infection, we will consider straight cath to obtain clean urine sample without contamination and if it shows evidence of infection then will consider culture and sensitivity in the meantime we'll start her on Macrobid 1 tablet by mouth twice a day. And patient is afebrile and we will also request Dr. osborn to proceed with colonoscopy to rule out colon involvement with the tumor and the patient continued to have urine incontinence, then we may consider referred to urology to rule out bladder involvement. Patient return to clinic in 2 weeks with CBC CMP and if looks reasonable we'll consider next cycle of chemotherapy followed by CT PET scan to assess disease response. Signed By: Alicia Chapa M.D. <<Signature on File>>
[2019-12-03 19:06] LABS: Bilirubin Urine Neg (NEGATIVE); Blood Urine 3+ (Negative); Glucose Urine UA Norm (Normal); Ketones Urine 1+ (Negative); Nitrate Urine Positive (Negative); Protein Urine 3+ (Negative); Urine Appearance Cloudy (CLEAR); Urine Color Dark Yellow (Yellow); pH Urine 6.5 (5-7)
[2019-12-03 19:07] LABS: Add Urine Microscopic? YES; Leukocyte Esterase Urine 2+ (Negative); Urobilinogen Urine Norm (Negative)
[2019-12-03 19:09] LABS: Add Urine Culture? Yes; Bacteria Urine 4+; RBC Urine 25-40 /hpf (0-2); Squamous Epithelial Cell Urine 0-4 (0-5); WBC Urine 15-25 /hpf (0-5)
== END 2019-12-21 23:59 | disposition home or self-care (01) ==
LOC: ONCMED 06:41
PROVIDERS: Family Provider Family Medicine; PCP Family Medicine; Visit Provider Internal Medicine Hematology & Oncology
DX: Z51.11 Encounter for antineoplastic chemotherapy (principal); C53.9 Malignant neoplasm of cervix uteri, unspecified; F41.9 Anxiety disorder, unspecified; Z79.899 Other long term (current) drug therapy
CPT/HCPCS: 36415; 80053; 81001; 85025; 87086; 96367; 96375; 96413; 96415; 96417; 99214; J1100; J1200; J1453; J2001; J2060; J2469; J2704; J3010; J3490; J7030; J7050; J9035; J9045; J9267

== ENCOUNTER 2019-12-04 05:54 | Day surgery (SDC) | payer MEDICAID, SELFPAY ==
[2019-12-04 06:06] VITALS: BP 121/90; PULSE 100; RESP 18; TEMP 37.1; O2SAT 96; BMI 18.2
--- NOTE | 2019-12-04 06:23 | W.PM.OPSUD ---
Surgery/Procedure H&P Update DATE OF PROCEDURE: December 04, 2019 DATE H&P PERFORMED: 11/26/19 H&P UPDATE INFORMATION: I have reviewed H&P completed within last 30 days, I have examined patient prior to procedure (Mild tenderness left lower quad without signs of peritonitis) and Changes to prior documentation as noted here CHANGES TO PREVIOUS DOCUMENTATION: Patient came yesterday for the EGD and colonoscopy and was found to have 100.3 temperature the procedure was postponed till the patient sees Dr. Chapa and that was yesterday and he thinks that the patient has UTI he would like to proceed with a colonoscopy and EGD, and comes today and there is no recording of any objective fevers. She was kept on clear liquid for the past 24-hour to maintain her colon prep with the plan to proceed today with EGD and colonoscopy. Informed consent per chart PREOP DIAGNOSIS: Bleeding per rectum PRIMARY INDICATION FOR PROCEDURE: The same PLANNED PROCEDURE: Operation Date: 12/04/19 07:00 Proposed Procedures p EGD(Not Applicable) - Earnest Reagan MD s Colonoscopy(Not Applicable) - Earnest Reagan MD
[2019-12-04] MEDS: sodium chloride 0.9% 1,000 ML 30 ML IV (06:28)
--- NOTE | 2019-12-04 06:44 | P.ANESASSM_ITS ---
Pre-Anesthetic Assessment Pre-Anesthetic Assessment: Height/Weight: Height 1.73 m Weight 54.431 kg Temp Pulse Resp BP Pulse Ox 98.8 F 100 18 121/90 96 12/04/19 06:06 12/04/19 06:06 12/04/19 06:06 12/04/19 06:06 12/04/19 06:06 Preop Diagnosis: Bleeding per rectum Proposed Procedure: Operation Date: 12/04/19 07:00 Proposed Procedures p EGD(Not Applicable) - Earnest Reagan MD s Colonoscopy(Not Applicable) - Earnest Reagan MD Last intake: Intake Last Liquid Date 12/03/19 Last Liquid Time 23:30 Last Solid Date 12/01/19 Last Solid Time 20:00 Social: Social History: Tobacco and No alcohol Exam: Pre-Anes Outpt Exam: alert, oriented x 3, clear to auscultation bilaterally and regular rate & rhythm Airway: Submandibular: WNL Cervical ROM: WNL MP: 2 Dentition: False (upper and lower) History/ROS: No significant history except as noted Pulmonary: Pulmonary: [place] CV/HEM: CV/HEM: DVT and HTN : Comments: right ureter stent, Incontinance Hepatic: Hepatic: None reported Metabolic: Metabolic: None reported Musc/skel: Musc/skel: Lower Back Pain Neuropsych: Neuropsych: Anxiety and Depression Anesthetic Plan: ASA status: 3 Anesthesia: Anesthesia Evaluation and MAC Risk of > 500 ml blood loss (7ml/kg in children): No Meds/Allergies Current Medications: Current Medications Generic Name Dose Route Start Last Admin Trade Name Freq PRN Reason Stop Dose Admin Sodium Chloride 1,000 mls @ 30 ml s/hr 12/04/19 06:15 12/04/19 06:28 Sodium Chloride 0.9% IV 12/05/19 06:14 30 mls/hr .Q24H GISELLA Administration PFSH Anesthesia PFSH: Medical History Anxiety Cervical cancer Locally metastatic resulting in extrinsic right ureteral obstruction. -Has known history of recurrent cervical cancer, currently on systemic c hemotherapy with carboplatin/Doxil/Avastin with Neulasta -Last treatment given on 11/04 -Follows up locally with Dr. Chapa and at [facility] -Prior PET scan done on 10/03/2019 patient has no evidence of distant metastatic disease; does have evidence of right cervical mass abutting the bladder Depression Port-A-Cath in place Surgical History H/O tubal ligation (12/03/97) S/P ureteral stent placement Family History Mother Stroke FH: CABG (coronary artery bypass surgery) Diabetes Social History Smoking and tobacco status: current every day smoker Alcohol intake: former Adopted: No Caregiver/support person: No Lives independently: No Household members: family Marital status: Legally Current occupational status: disabled Data Anesthesia Cardiac Studies: No Data to Display
[2019-12-04] MEDS: midazolam 1 mg/mL INJ 2 mL 2 MG IVP (06:53)
--- NOTE | 2019-12-04 06:54 | SUR.PREOP ---
pt states that she has not had a menstrual period in several years
[2019-12-04 07:45] VITALS: RESP 20; O2SAT 98
[2019-12-04] MEDS: fentaNYL 50 mcg/mL INJ 2mL 100 MCG IVP (07:45)
--- NOTE | 2019-12-04 07:55 | SUR.PREOP ---
this nurse called the pt's daughter and gave her an update on the status of the procedure at 0757
[2019-12-04 08:23] VITALS: BP 110/78; PULSE 101; RESP 18; TEMP 36.4; O2SAT 97
[2019-12-04 08:47] VITALS: BP 121/83; PULSE 83; RESP 16; O2SAT 97
== END 2019-12-04 09:05 | disposition home or self-care (01) ==
PROVIDERS: Visit Provider Surgery
PROC: 0DJ08ZZ Inspection of Upper Intestinal Tract, Via Natural or Artificial Opening Endoscopic (ICD-10-PCS; CPT 43235; principal; 2019-12-04 07:00)
PROC: 0DJD8ZZ Inspection of Lower Intestinal Tract, Via Natural or Artificial Opening Endoscopic (ICD-10-PCS; CPT 45378; 2019-12-04 07:00)
DX: K62.5 Hemorrhage of anus and rectum (principal); K62.89 Other specified diseases of anus and rectum; K21.9 Gastro-esophageal reflux disease without esophagitis; K29.70 Gastritis, unspecified, without bleeding; I10 Essential (primary) hypertension; Z86.718 Personal history of other venous thrombosis and embolism; F41.9 Anxiety disorder, unspecified; C53.9 Malignant neoplasm of cervix uteri, unspecified; Z82.49 Family history of ischemic heart disease and other diseases of the circulatory system; Z83.3 Family history of diabetes mellitus
CPT/HCPCS: 12345; 43235; 45378; 96374; 96375; J1642; J2250; J3010; J7030

== ENCOUNTER 2019-12-17 18:06 | Inpatient (IN) | payer OTHER, MEDICAID, SELFPAY ==
[2019-12-17] VITALS (7 sets, daily range): BP systolic 113–136; BP diastolic 73–79; PULSE 74–98; RESP 12–18; TEMP 36.7–36.8; O2SAT 96–98; BMI 18.7
--- NOTE | 2019-12-17 18:29 | W.ED.ABDPA2 ---
HPI - Abdominal Pain General: Chief Complaint: Abdominal Pain Stated Complaint: UNABLE TO URINATE Time Seen by Provider: 12/17/19 18:29 History of Present Illness: HPI narrative: Patient is a 49-year-old female who comes to the ED with abdominal pain. Patient is currently on hospice and has a past medical history of cervical cancer, rectal bleeding, GERD and acute urinary retention. Patient came here to the ED due to tense abdominal pain. Pain is located in the lower pelvic region. She rates her abdominal pain a 9 out of 10. Patient says she is unable to urinate, but hospice nurse tried to cath patient today and no urine came out. Patient is also complaining of having diarrhea as well. Associated Symptoms: Reports diarrhea; Denies chills, constipation, dysuria, fever(s), hematochezia, hematuria, nausea and vomiting Review of Systems Const: Denies: fever(s), chills or fatigue Eyes: Denies: change in vision or eye discomfort ENMT: Denies: throat pain, odynophagia, nasal discharge or nasal congestion Card: Denies: chest pain, palpitations, edema, swelling of feet/ankles, dyspnea on exertion or orthopnea Resp: Denies: dyspnea, productive cough or non-productive cough GI: Reports: abdominal pain and diarrhea; Denies: nausea, vomiting, constipation or hematochezia : Reports: difficulty voiding and pelvic pain; Denies: flank pain, dysuria or hematuria Musc: Denies: neck pain, back pain or extremity swelling Skin/Breast: Denies: rash or new lesions Neuro: Denies: headache(s), numbness in extremities or weakness in extremities [facility] ED PFSH: Medical History Anxiety Bleeding per rectum Cervical cancer Locally metastatic resulting in extrinsic right ureteral obstruction. -Has known history of recurrent cervical cancer, currently on systemic chemotherapy with carboplatin/Doxil/Avastin with Neulasta -Last treatment given on 11/04 -Follows up locally with Dr. Chapa and at [facility] -Prior PET scan done on 10/03/2019 patient has no evidence of distant metastatic disease; does have evidence of right cervical mass abutting the bladder Cervical cancer Depression Gastritis GERD (gastroesophageal reflux disease) Hydronephrosis Right ureteral stent placed 07/22/2019. -Right ureteral stent placed 07/22/[address] Glez, has continued to follow-up with him on an outpatient basis, last seen on 09/05/19 Port-A-Cath in place Surgical History H/O tubal ligation (12/03/97) S/P colonoscopy S/P ureteral stent placement Family History Mother Stroke FH: CABG (coronary artery bypass surgery) Diabetes Social History Smoking and tobacco status: never smoked Alcohol intake: former Adopted: No Caregiver/support person: No Lives independently: No Household members: family Marital status: Legally Current occupational status: disabled Physical Exam Const: COMMON NORMALS: patient oriented x3 and alert GENERAL APPEARANCE: cooperative, ill appearing and appears older than stated age HENMT: COMMON NORMALS: normocephalic HEAD & SCALP: normocephalic MOUTH: Normal oral and palatal mucosa present THROAT: posterior oropharynx normal and uvula midline Eye: COMMON NORMALS: Equal, round and reactive pupils present PUPIL: Yes Equal, round and reactive pupils present Neck/C-Spine: COMMON NORMALS: supple GENERAL: Yes normal visual inspection Resp: COMMON NORMALS: normal respiratory effort, No retractions, No use of accessory muscles and clear to auscultation bilaterally AUSCULTATION: clear to auscultation bilaterally Cardio: COMMON NORMALS: regular rate, regular rhythm, S1 normal heart sound present, S2 normal heart sound present, No gallops present (Cardio), No clicks present (Cardio), No murmurs present (Cardio) and Peripheral pulses 2+ throughout RATE: regular rate RHYTHM: regular rhythm HEART SOUNDS: S1 normal heart sound present and S2 normal heart sound present PERIPHERAL PULSES: Peripheral pulses 2+ throughout GI: COMMON NORMALS: Normal to inspection, nondistended, normoactive bowel sounds present, Soft to palpation and no masses AUSCULTATION: Yes normoactive bowel sounds PALPATION: Yes Soft to palpation and Yes Tenderness to palpation present (GI) (pelvic tenderness) Details: other : COMMON NORMALS: Yes no CVA tenderness BLADDER/KIDNEY EXAM: Yes no CVA tenderness Back/Pelvis: COMMON NORMALS: no CVA tenderness Extremity: COMMON NORMALS: normal to inspection and no pedal edema Neuro: COMMON NORMALS: patient oriented x3 SENSORIUM/ORIENTATION: Yes alert GAIT: Yes Normal gait present Skin: COMMON NORMALS: no rashes or lesions noted GENERAL SKIN EXAM: no rashes or lesions noted and dry skin Course ED course: Nurse performed a bladder scan and it showed no urine. Consultations: Consultation #1: I spoke with Dr. Coy here about patient's case and CT findings. He then called the hospitalist and the general surgeon information delivery analyst to discuss patient's case as well. They suggested patient be admitted for pain control and general surgeon can talk with patient tomorrow morning. Vital Signs: Vital signs: Vital Signs Temperature 98.1 F 12/17/19 18:07 Pulse Rate 98 12/17/19 18:07 Respiratory Rate 17 12/17/19 21:52 Blood Pressure 118/78 12/17/19 18:07 Pulse Oximetry 98 12/17/19 20:05 MDM - Abdominal Pain MDM Narrative: Medical decision making narrative: Patient is a 49-year-old female comes to the ED with abdominal pain and inability to urinate. Patient has a past medical history of cervical cancer and is currently on her second week of hospice. She has an elevated white blood cell count 22.4 and hemoglobin of 8.4. CT of the abdomen showed Dehiscence/erosion of the posterior base of the urinary bladder. The bladder, vagina and rectum communicate within a contained 7 cm collection of gas, stool and urine within the posterior pelvis. I discussed case with Dr. Coy and he contacted the hospitalist and general surgeon information delivery analyst. They recommend patient be admitted for pain control. Dr. Coy will be placing admission orders. Lab Data: Attestation: I reviewed the patient's lab results. Labs: Lab Results 12/17/19 12/17/19 Range/Units 18:57 18:57 WBC 22.4 H (4.0-10.0) 10^3/ uL RBC 3.24 L (4.1-5.3) 10^6/u L Hgb 8.4 L (11.5-15.3) g/dL Hct 26.9 L (37.0-47.0) % MCV 83.0 (81-99) fL MCH 25.9 L (28.0-34.0) pg MCHC 31.2 (30.0-36.0) g/dL RDW 18.0 H (12.1-15.1) % Plt Count 300 (130-400) 10^3/c mm MPV 9.8 (7.4-10.4) fL Neut % (Auto) 86.6 % Lymph % (Auto) 6.1 % Coke % (Auto) 6.2 % Eos % (Auto) 0.0 % Baso % (Auto) 0.2 % Neut # (Auto) 19.4 H (1.8-7.7) 10^3/u L Lymph # (Auto) 1.4 (0.8-4.8) 10^3/u L Coke # (Auto) 1.4 H (0.2-0.9) 10^3/u L Eos # (Auto) 0.0 (0.0-0.8) 10^3/u L Baso # (Auto) 0.0 (0.0-0.1) 10^3/u L Nucleated RBC % (a uto) 0 % Nucleated RBCs # 0.0 /100WBC Sodium 132 L (136-145) mmol/L Potassium 4.2 (3.5-5.1) mmol/L Chloride 93 L (98-107) mmol/L Carbon Dioxide 25 (22-29) mmol/L Anion Gap 18.2 (5-19) BUN 30 H (6-20) mg/dL Creatinine 0.9 (0.5-0.9) mg/dL GFR Calculation 67.1 L (90-130) mL/min Glucose 134 H (65-115) mg/dL Calculated Osmolal ity 273 L (285-295) mOsm/k g Calcium 9.0 (8.5-10.5) mg/dL Total Bilirubin 0.2 (0.15-1.2) mg/dL AST 17 (0-32) U/L ALT 20 (0-33) U/L Alkaline Phosphata se 149 H (35-105) IU/L Total Protein 7.1 (6.6-8.7) g/dL Albumin 3.4 L (3.5-5.2) g/dL Globulin 3.7 (1.3-4.6) g/dL Lipase 10 L (13-60) U/L Imaging Data ^: CT Abd/Pel: Attestation: I personally reviewed and interpreted this imaging study as follows: Radiologist's impression: [address] [place] [address] CT Scan Report Signed Patient: Lelo Mason Unit #: [id number] : 1970 Age/Sex: 49 / F ADM Date: 12/17/19 Loc: ER Room/Bed: Attending Dr: Ordering Provider/Ordering MD: Estuardo Scott Date of Service: 12/17/19 Procedure(s): CT abdomen pelvis w con* [id number] Accession Number(s): [id number] Report Number: [id number] PROCEDURE INFORMATION: Exam: CT Abdomen And Pelvis With Contrast Exam date and time: 12/17/2019 8:12 PM Age: 49 years old Clinical indication: Other: Trouble urinating; Abdominal pain; Prior surgery; Surgery type: Ureteral stent, tubal; Patient HX: PT on hospice for cervical CA TECHNIQUE: Imaging protocol: Computed tomography of the abdomen and pelvis with intravenous contrast. Radiation optimization: All CT scans at this facility use at least one of these dose optimization techniques: automated exposure control; mA and/or kV adjustment per patient size (includes targeted exams where dose is matched to clinical indication); or iterative reconstruction. Contrast material: OMNI 300; Contrast volume: 95 ml; Contrast route: IV; COMPARISON: CT abdomen pelvis w con* [id number] 11/20/2019 6:21 PM RADIATION DOSE METRICS: Total DLP: 505.18 mGy-cm FINDINGS: Liver: Incidental hepatic focal fat near the falciform ligament. No hepatic mass. Gallbladder and bile ducts: The gallbladder is contracted. Pancreas: Normal. No ductal dilation. Spleen: Normal. No splenomegaly. Adrenals: Normal. No mass. Kidneys and ureters: The right internal ureteral stent now terminates within the pelvic fistulous pocket. No hydronephrosis. Kidneys are unremarkable. Stomach and bowel: The rectum also communicates with the cul-de-sac collection which contains gas bubbles and fecal material and now measures 7 x 3.5 x 5 cm. There is increased wall thickening of the rectum and distal sigmoid but without bowel obstruction. Mild the enlargement of the pelvic small bowel up to 2.8 cm but without mechanical obstruction. Appendix: The appendix is normal. Intraperitoneal space: Unremarkable. No free air. No significant fluid collection. Vasculature: Unchanged small 1.1 cm eccentric aneurysm or short segment dissection containing soft plaque in the right common iliac artery. Lymph nodes: Unremarkable. No enlarged lymph nodes. Bladder: Since the prior exam the posterior base of the urinary bladder is now completely eroded and communicates with the vaginal space and cul-de-sac forming a contained pocket of gas and urine in the posterior pelvis. Dehiscence of the posterior base of the urinary bladder measuring up to 4.6 cm The urinary bladder is predominantly filled with gas. Reproductive: Uterine size is normal and the endometrial canal is unremarkable. The cervix is absent/eroded. Bones/joints: Unremarkable. No acute fracture. Soft tissues: Unremarkable. CT/CT abdomen pelvis w con* [id number] IMPRESSION: 1. Dehiscence/erosion of the posterior base of the urinary bladder. The bladder, vagina and rectum communicate within a contained 7 cm collection of gas, stool and urine within the posterior pelvis. 2. No hydronephrosis. 3. Increased rectosigmoid wall thickening but without obstruction. Radiation Dose CTDIVOL = (mGy): DLP = 505.18 (mGy-cm) Dictated By: Mildred Mcnulty MD Signed By: Mildred Mcnulty MD Signed Date/Time: 12/17/192100 DD/ 99 Discharge Plan Discharge Patient Disposition: Admitted As Inpatient Admit Provider: Deondre Laird Condition: Stable Coding Level of Care Code ED Manager Equipment for g Fwd Exam Comprehensive
[2019-12-17] MEDS: ondansetron 2 mg/ML SDV 2 mL 4 MG IVP (19:08)
[2019-12-17] MEDS: sodium chloride 0.9% 1,000 ML 999 ML IV (19:08)
[2019-12-17] MEDS: morphine 4 mg/mL SDV 1 mL IVP ×2 (19:08→20:05)
[2019-12-17 19:14] LABS: Basophils % 0.2 %; Hematocrit 26.9 % (37.0-47.0); Hemoglobin 8.4 g/dL (11.5-15.3); Lymphocytes # 1.4 10^3/uL (0.8-4.8); Lymphocytes % 6.1 %; Mean Corpuscular HGB Conc 31.2 g/dL (30.0-36.0); Mean Corpuscular Hemoglobin 25.9 pg (28.0-34.0); Mean Platelet Volume 9.8 fL (7.4-10.4); Monocytes # 1.4 10^3/uL (0.2-0.9); Monocytes % 6.2 %; Neutrophils # 19.4 10^3/uL (1.8-7.7); Neutrophils % 86.6 %; Nucleated Red Blood Cells % 0 %; Platelet Count 300 10^3/cmm (130-400); Red Blood Count 3.24 10^6/uL (4.1-5.3); White Blood Count 22.4 10^3/uL (4.0-10.0)
[2019-12-17 19:32] LABS: Alanine Aminotransferase 20 U/L (0-33); Albumin Level 3.4 g/dL (3.5-5.2); Alkaline Phosphatase 149 IU/L (35-105); Anion Gap 18.2 (5-19); Aspartate Amino Transferase 17 U/L (0-32); Blood Urea Nitrogen 30 mg/dL (6-20); Carbon Dioxide 25 mmol/L (22-29); Chloride 93 mmol/L (98-107); Globulin 3.7 g/dL (1.3-4.6); Glomerular Filtration Rate 67.1 mL/min (90-130); Glucose 134 mg/dL (65-115); Lipase 10 U/L (13-60); Osmolality Calculated 273 mOsm/kg (285-295); Potassium 4.2 mmol/L (3.5-5.1); Sodium 132 mmol/L (136-145); Total Bilirubin 0.2 mg/dL (0.15-1.2); Total Protein 7.1 g/dL (6.6-8.7)
--- NOTE | 2019-12-17 20:09 | CTR_ITS ---
PROCEDURE INFORMATION: Exam: CT Abdomen And Pelvis With Contrast Exam date and time: 12/17/2019 8:12 PM Age: 49 years old Clinical indication: Other: Trouble urinating; Abdominal pain; Prior surgery; Surgery type: Ureteral stent, tubal; Patient HX: PT on hospice for cervical CA TECHNIQUE: Imaging protocol: Computed tomography of the abdomen and pelvis with intravenous contrast. Radiation optimization: All CT scans at this facility use at least one of these dose optimization techniques: automated exposure control; mA and/or kV adjustment per patient size (includes targeted exams where dose is matched to clinical indication); or iterative reconstruction. Contrast material: OMNI 300; Contrast volume: 95 ml; Contrast route: IV; COMPARISON: CT abdomen pelvis w con* [id number] 11/20/2019 6:21 PM RADIATION DOSE METRICS: Total DLP: 505.18 mGy-cm FINDINGS: Liver: Incidental hepatic focal fat near the falciform ligament. No hepatic mass. Gallbladder and bile ducts: The gallbladder is contracted. Pancreas: Normal. No ductal dilation. Spleen: Normal. No splenomegaly. Adrenals: Normal. No mass. Kidneys and ureters: The right internal ureteral stent now terminates within the pelvic fistulous pocket. No hydronephrosis. Kidneys are unremarkable. Stomach and bowel: The rectum also communicates with the cul-de-sac collection which contains gas bubbles and fecal material and now measures 7 x 3.5 x 5 cm. There is increased wall thickening of the rectum and distal sigmoid but without bowel obstruction. Mild the enlargement of the pelvic small bowel up to 2.8 cm but without mechanical obstruction. Appendix: The appendix is normal. Intraperitoneal space: Unremarkable. No free air. No significant fluid collection. Vasculature: Unchanged small 1.1 cm eccentric aneurysm or short segment dissection containing soft plaque in the right common iliac artery. Lymph nodes: Unremarkable. No enlarged lymph nodes. Bladder: Since the prior exam the posterior base of the urinary bladder is now completely eroded and communicates with the vaginal space and cul-de-sac forming a contained pocket of gas and urine in the posterior pelvis. Dehiscence of the posterior base of the urinary bladder measuring up to 4.6 cm The urinary bladder is predominantly filled with gas. Reproductive: Uterine size is normal and the endometrial canal is unremarkable. The cervix is absent/eroded. Bones/joints: Unremarkable. No acute fracture. Soft tissues: Unremarkable. CT/CT abdomen pelvis w con* [id number] IMPRESSION: 1. Dehiscence/erosion of the posterior base of the urinary bladder. The bladder, vagina and rectum communicate within a contained 7 cm collection of gas, stool and urine within the posterior pelvis. 2. No hydronephrosis. 3. Increased rectosigmoid wall thickening but without obstruction. Radiation Dose CTDIVOL = (mGy): DLP = 505.18 (mGy-cm)
[2019-12-17] MEDS: iohexol 300 mg/mL 100 mL Btl IV (20:31)
--- NOTE | 2019-12-17 21:40 | PM.HP ---
Providers/Chief Complaint Chief Complaint: UNABLE TO URINATE History of Present Illness October Marlon is a 49 year old female who carries diagnosis of cervical cancer status post radiochemotherapy currently on home hospice that was initiated last week, history of right ureteral stent, gastritis, rectal bleeding status post RECENT colonoscopy coming in today with chief complaint of abdominal pain. Patient is stating that home hospice service started a week ago, she has been taking morphine long-acting as scheduled, since her colonoscopy she has been experiencing abdominal pain, she did not experience any fever, nausea or vomiting but today after having her Danish meal she started experiencing excruciating pain in her pelvis, 05/01, she has been noticing vaginal discharge with very low stool output. At the time of my interview she was very emotional, she was experiencing panic attack, Ativan 1 mg was given to obtain above-mentioned detail. Her sister was on the phone to provide us more information. Diagnosis in the ER revealed severe leukocytosis, she is afebrile, CT abdomen revealed erosion of urinary bladder posterior base with 7 cm collection of stool versus urine in posterior pelvic area. She has received 1 L normal saline along Zosyn Dr. De Leon has been notified Review of Systems Const: Reports: chills, body aches, change in appetite, change in weight and fatigue Eyes: Denies: change in vision or blurry vision ENMT: Reports: oral sores; Denies: throat pain Card: Denies: chest pain Resp: Denies: dyspnea GI: Reports: abdominal pain, nausea, heartburn, diarrhea, bloating and rectal pain; Denies: vomiting, hematemesis, coffee ground emesis, constipation or GI cramping : Reports: difficulty voiding, hematuria, vaginal odor and vaginal bleeding; Denies: flank pain Musc: Denies: neck pain Skin/Breast: Denies: rash Neuro: Reports: headache(s) Psych: Reports: anxiety Endo: Denies: polyuria Terence/Lymph: Denies: easy bruising All/Imm: Denies: urticaria Medications/Allergies Home Medications Medication Instructions Recorded Confirmed Last Taken Type acetaminophen [Tylenol Extra 1,000 mg PO PRN PRN 09/17/19 12/17/19 2 Days Ago History Strength] ~12/02/19 ibuprofen 600 mg PO TID PRN 09/17/19 12/17/19 12/17/19 History dexamethasone 4 mg PO DAILY 10/27/19 12/17/19 12/17/19 History tamsulosin [Flomax] 0.4 mg PO BEDTIME 10/27/19 12/17/19 2 Days Ago History ~12/02/19 ondansetron HCl [Zofran] 8 mg PO Q6H PRN #15 tab 11/12/19 12/17/19 12/17/19 13:30 Rx Acidophilus 1 tab PO QAM 11/20/19 12/17/19 12/17/19 History loratadine [Claritin] 10 mg PO DAILY 11/20/19 12/17/19 12/17/19 History lorazepam 1 mg PO Q4H PRN 11/20/19 12/17/19 12/17/19 13:30 History oxybutynin chloride 5 mg PO TID 11/20/19 12/17/19 12/17/19 13:30 History polyethylene glycol 3350 [Miralax] 17 g PO DAILY PRN 11/20/19 12/17/19 12/13/19 History pantoprazole [Protonix] 40 mg PO DAILY 30 Days #30 tab 12/04/19 12/17/19 12/17/19 Rx Lubricant Eye 1 drp OPHTHALMIC (EYE) DAILY 12/17/19 12/17/19 Unknown History melatonin 5 mg PO BEDTIME 12/17/19 12/17/19 12/16/19 History morphine 15 mg PO Q4H PRN 12/17/19 12/17/19 12/17/19 History morphine See Rx Instructions .ROUTE .COMPLEX 12/17/19 12/17/19 12/17/19 14:00 History prochlorperazine maleate 10 mg PO Q4H PRN 12/17/19 12/17/19 Unknown History sennosides-docusate sodium 2 tab PO BEDTIME 12/17/19 12/17/19 12/15/19 History [Senna-S] simethicone [Gas-X Extra Strength] 125 mg PO TID 12/17/19 12/17/19 Unknown History venlafaxine 37.5 mg PO QAM 12/17/19 12/17/19 12/17/19 History Allergies Allergy/AdvReac Type Severity Reaction Status Date / Time Sulfa (Sulfonamide Allergy Unknown Unknown Verified 11/26/19 16:32 Antibiotics) PFSH Acute PFSH: Medical History (Updated 12/17/19 @ 23:17 by Deondre Laird MD) Anxiety Bleeding per rectum Cervical cancer Locally metastatic resulting in extrinsic right ureteral obstruction. -Has known history of recurrent cervical cancer, currently on home hospice -Follows up locally with Dr. Chapa and at [facility] -Prior PET scan done on 10/03/2019 patient has no evidence of distant metastatic disease; does have evidence of right cervical mass abutting the bladder Cervical cancer Depression Gastritis GERD (gastroesophageal reflux disease) Hydronephrosis Right ureteral stent placed 07/22/2019. -Right ureteral stent placed 07/22/[address] Glez Port-A-Cath in place Surgical History H/O tubal ligation (12/03/97) S/P colonoscopy S/P ureteral stent placement Family History Mother Stroke FH: CABG (coronary artery bypass surgery) Diabetes Social History Smoking and tobacco status: never smoked Alcohol intake: former Adopted: No Caregiver/support person: No Lives independently: No Household members: family Marital status: Legally Current occupational status: disabled Vitals/I&O/Wt Last Vital Signs Temp 98.1 F 12/17/19 18:07 Pulse 98 12/17/19 18:07 Resp 12 12/17/19 20:05 BP 118/78 12/17/19 18:07 Pulse Ox 98 12/17/19 20:05 Weight last 48 hrs Weight 55.792 kg Physical Exam Narrative: EXAM NARRATIVE: Head to toe examination This is a frail, cachectic, malnourished female Very emotional and experiencing panic attack in the ER She was given 1 mg of Ativan She is very dehydrated Dry mucous membranes Emaciated and malnourished S1, S2, tachycardia Abdomen no active signs of peritonitis, soft no rigidity, bowel sounds very sluggish Lungs are clear to auscultation No sign of ischemia gangrene ulcer of lower extremity Neurologically nonfocal exam Loss of hair Depression with panic attack No suicidal Data : 12/17/19 18:57 12/17/19 18:57 Micro: Microbiology 12/17/19 18:57 Blood Culture - Preliminary Blood SPECIMEN COLLECTED 12/17/19 18:57 Blood Culture - Preliminary Blood SPECIMEN COLLECTED A&P Assessment and plan (1) Rectovaginal fistula: Status: Acute (2) Intractable pain: Status: Acute (3) Chronic anemia: Status: Acute (4) UTI (urinary tract infection): Status: Acute (5) Anxiety: Status: Acute Additional A&P Information Fistula formation between bladder vaginal and rectum 7 cm collection of fecal matter with urine in posterior pelvis, Leukocytosis positive without fever High risk for sepsis and septic shock, I would cover her with Zosyn and IV fluids for now Analgesic with long-acting morphine and Dilaudid for as needed use N.p.o. Dr. De Leon has been notified and consulted, would follow-up with general surgery if they want fistulogram Her prognosis stays very guarded, I have had lengthy discussion with the patient and her sister who is an EMT(sister appears to have good insight, she is receptive of information provided, questions were answered to their satisfaction) Chronic anemia She recently had colonoscopy which was normal No source of bleeding was found Currently hemodynamically stable Hemoglobin stable at 8.4 Cervical cancer with local metastases History of ureteral right-sided stent De La Rosa catheter was placed in the ER which did not drain urine at all Currently on home hospice Currently patient is very emotional, she is understands that prognosis is guarded, kindly readdress goals of care in the morning N.p.o. DVT prophylaxis not needed because of active anemia and vaginal bleeding Would use SCD Attestations Medical Necessity Statement*: Anticipating her stay to cross more than 2 midnights, she is at risk of septic shock, underlying cancer and active fistula puts her at high risk of complications, prognosis stays guarded Time Spent in Patient Care: 70 Coding Level of Care Code Acute Small Machine Bindery Operator for Chg Fwd Diagnoses Rectovaginal fistula N82.3 Intractable pain R52 Chronic anemia D64.9 UTI (urinary tract infection) N39.0 Anxiety F41.9
[2019-12-17] MEDS: piperacillin-tazobactam 3.375 GM in sodium chloride 0.9% (plus) 50 ML IV (21:50)
[2019-12-17] MEDS: HYDROmorphone 1 mg/mL INJ 1 mL IVP ×2 (21:52→22:45)
[2019-12-17] MEDS: LORazepam 2 mg/mL INJ 1 mL 1 MG IVP (22:55)
[2019-12-17] MEDS: diphenhydrAMINE 50 mg/mL SDV 1mL 25 MG IVP (23:34)
[2019-12-17] MEDS: dextrose 5%-lactated ringers 1,000 ML 75 ML IV (23:34)
[2019-12-18] VITALS (14 sets, daily range): BP systolic 120; BP diastolic 68–74; PULSE 93–96; RESP 16–22; TEMP 36.4–36.7; O2SAT 93–99
[2019-12-18] MEDS: HYDROmorphone 1 mg/mL INJ 1 mL IVP ×8 (01:47→20:52)
[2019-12-18] MEDS: morphine ER (12 HR) 30 mg tablet PO ×2 (03:44→15:58)
[2019-12-18] MEDS: HYDROmorphone 1 mg/mL INJ 1 mL 2 MG IVP (03:56)
[2019-12-18] MEDS: piperacillin-tazobactam 3.375 GM in sodium chloride 0.9% (plus) 50 ML IV (04:08)
[2019-12-18 05:41] LABS: Basophils # 0.1 10^3/uL (0.0-0.1); Basophils % 0.2 %; Eosinophils # 0.1 10^3/uL (0.0-0.8); Eosinophils % 0.3 %; Hematocrit 25.5 % (37.0-47.0); Hemoglobin 7.8 g/dL (11.5-15.3); Lymphocytes # 1.7 10^3/uL (0.8-4.8); Lymphocytes % 8.7 %; Mean Corpuscular HGB Conc 30.6 g/dL (30.0-36.0); Mean Corpuscular Hemoglobin 25.3 pg (28.0-34.0); Mean Corpuscular Volume 82.8 fL (81-99); Mean Platelet Volume 10.3 fL (7.4-10.4); Monocytes # 1.6 10^3/uL (0.2-0.9); Neutrophils # 16.5 10^3/uL (1.8-7.7); Neutrophils % 82.3 %; Nucleated Red Blood Cells % 0 %; Platelet Count 276 10^3/cmm (130-400); Red Blood Count 3.08 10^6/uL (4.1-5.3); Red Cell Distribution Width 18.3 % (12.1-15.1); White Blood Count 20.1 10^3/uL (4.0-10.0)
[2019-12-18 05:51] LABS: INR 1.04 (0.8-1.2)
[2019-12-18 06:00] LABS: Anion Gap 18.2 (5-19); Blood Urea Nitrogen 22 mg/dL (6-20); Calcium 9.2 mg/dL (8.5-10.5); Carbon Dioxide 24 mmol/L (22-29); Chloride 98 mmol/L (98-107); Glomerular Filtration Rate 89.7 mL/min (90-130); Glucose 118 mg/dL (65-115); Osmolality Calculated 282 mOsm/kg (285-295); Potassium 3.2 mmol/L (3.5-5.1); Sodium 137 mmol/L (136-145)
--- NOTE | 2019-12-18 06:16 | PC.NURSE ---
Spoke with Dr Laird about patient being on hospice at home and her current prognosis. Dr Laird said well technically the patient is not on Comfort Care more then likely she will be placed on it soon. Family informed us that a mask must be worn in the hospital halls and anytime they leave the patients room and good hand hygiene must be followed.
[2019-12-18] MEDS: ondansetron 2 mg/ML SDV 2 mL 4 MG IVP (07:42)
--- NOTE | 2019-12-18 10:15 | P.PN_ITS ---
Subjective Subjective: Interval history: Chart reviewed, patient known to me from recent admission, sister at bedside, appears anxious which is not far from her baseline from previous experience, noted episode of incontinence earlier this morning. Has had difficulty swallowing oral medications, typically takes them crushed in applesauce or yogurt. States that she does not want surgical intervention, reiterates her CODE STATUS as DNR/DNI. Repeatedly states that she wants to be kept comfortable and spend time with her family most of whom are on their way to the hospital. She is no longer on chemotherapy treatment. Has port-A-cath in place. Medications: Reviewed: Yes Medication Review Details: Active Medications Generic Name Dose Route Start Last Admin Trade Name Freq PRN Reason Stop Dose Admin Acetaminophen 650 mg 12/17/19 23:22 Tylenol PO Q4H PRN MILD PAIN OR INCR EASE TEMP Hydromorphone HCl 1 mg 12/18/19 09:14 12/18/19 09:44 Dilaudid Inj IVP 1 mg Q2H PRN Administration SEVERE PAIN Piperacillin Sod/T azobactam 50 mls @ 12.5 mls /hr 12/18/19 05:00 12/18/19 04:08 Sod 3.375 gm/ So dium Chloride IV 12.5 mls/hr Q8H GISELLA Administration Protocol As Directed Dextrose/Lactated Ringer's 1,000 mls @ 75 ml s/hr 12/17/19 23:22 12/17/19 23:34 Dextrose 5%-Lact ated Ringers IV 75 mls/hr .[id number] GISELLA Administration Lorazepam 1 mg 12/18/19 10:17 Ativan IVP Q4H PRN ANXIETY Morphine Sulfate 30 mg 12/18/19 04:00 12/18/19 03:44 Ms Contin PO 30 mg 0400,1600 GISELLA Administration Ondansetron HCl 4 mg 12/17/19 23:22 12/18/19 07:42 Zofran IVP 4 mg Q6H PRN Administration NAUSEA AND VOMITI NG Sulfa (Sulfonamide Antibiotics) Allergy (Unknown, Verified 11/26/19 16:32) Unknown Vitals/I&O/Wt Last Vital Signs Temp 98.1 F 12/18/19 07:35 Pulse 93 12/18/19 07:35 Resp 20 H 12/18/19 09:44 BP 120/68 12/18/19 07:35 Pulse Ox 95 12/18/19 09:44 Weight last 48 hrs Weight 55.792 kg Physical Exam Const: COMMON NORMALS: no acute distress, patient oriented x3 and alert GENERAL APPEARANCE: cooperative and anxious ORIENTATION/CONSCIOUSNESS: Yes awake HENMT: COMMON NORMALS: normocephalic, atraumatic, hearing grossly normal bilaterally and moist oral mucous membranes HEAD & SCALP: normocephalic and atraumatic TEETH & GINGIVA: Yes edentulous Eye: COMMON NORMALS: Equal, round and reactive pupils present, EOMs intact bilaterally and conjunctivae normal CONJUNCTIVA: Yes conjunctivae normal PUPIL: Yes Equal, round and reactive pupils present Neck/C-Spine: COMMON NORMALS: full ROM GENERAL: Yes normal visual inspection and Yes trachea midline Chest: CHEST: Yes Vascular access present (port-A-cath in place on L) Resp: COMMON NORMALS: normal respiratory effort, No retractions, No use of accessory muscles and clear to auscultation bilaterally EFFORT & INSPECTION: Yes able to speak in complete sentences, Yes symmetric chest movement and No tachypneic AUSCULTATION: clear to auscultation bilaterally OTHER: -on RA Cardio: COMMON NORMALS: regular rate, regular rhythm, S1 normal heart sound present, S2 normal heart sound present and No murmurs present (Cardio) RATE: regular rate RHYTHM: regular rhythm HEART SOUNDS: S1 normal heart sound present and S2 normal heart sound present GI: COMMON NORMALS: Normal to inspection, nondistended, normoactive bowel sounds present and Soft to palpation PALPATION: Yes Soft to palpation, Yes Tenderness to palpation present (GI) Details: LLQ and RLQ, No Guarding due to palpation present (GI) and No Rigid due to palpation : OTHER: -wearing adult diaper due to incontinence Extremity: COMMON NORMALS: normal to inspection, full ROM, no clubbing, cyanosis or edema and no pedal edema Neuro: COMMON NORMALS: patient oriented x3, moves all extremities, no focal motor deficits and no sensory deficits noted SENSORIUM/ORIENTATION: Yes alert Psych: COMMON NORMALS: mental status grossly normal, Normal thought process present, cooperative, normal affect and speech normal SPEECH: Yes normal speech THOUGHT PROCESS: Normal thought process present Skin: COMMON NORMALS: no rashes or lesions noted, no jaundice, no petechiae and no mottling GENERAL SKIN EXAM: no rashes or lesions noted HAIR: total alopecia Data : 12/18/19 05:06 12/18/19 05:06 Micro: Microbiology 12/17/19 18:57 Blood Culture - Preliminary Blood SPECIMEN COLLECTED 12/17/19 18:57 Blood Culture - Preliminary Blood SPECIMEN COLLECTED A&P Assessment and plan (1) Rectovaginal fistula: -noted communication between the bladder, vagina and rectum on imaging. Patient reports episodes of fecal incontinence from vaginal area and urinary incontinence from rectum -Had recent colonoscopy (12/04) with no noted evidence of invasion of the anal wall, no evidence of tumor present in the rectum or interfering with the anal sphincter. However, noted mass in anus occupying the anterior part of the anorectal segment -she reports not wanting surgical intervention -Surgery consult requested due to noted -pain control, antiemetics as needed -IVF hydration Status: Acute (2) Leukocytosis: -noted leukocytosis with neutrophilic predominance, trend WBC -on Zosyn, IVF -unclear etiology but at risk of developing sepsis given leukocytosis, underlying immunocompromise, incontinence Status: Acute Qualifiers: Leukocytosis type: unspecified Qualified Code(s): D72.829 - Elevated white blood cell count, unspecified (3) Acute urinary retention: Status: Acute (4) Cervical cancer: -Has known history of recurrent cervical cancer with evidence of R cervical mass abutting the bladder -now off chemotherapy treatment, previously on carboplatin/Doxil/Avastin with Neulasta -Follows up locally with Dr. Chapa and at [facility] -Prior PET scan done on 10/03/2019 patient has no evidence of distant metastatic disease; does have evidence of right cervical mass abutting the bladder Status: Chronic Qualifiers: Malignant neoplasm of cervix location: unspecified location Qualified Code(s): C53.9 - Malignant neoplasm of cervix uteri, unspecified (5) Extrinsic ureteral obstruction: -As noted above; secondary to locally involved metastatic cervical cancer. -had cystoscopy when she had R ureteral stent placed on 07/22/19 which was exchanged at [facility] in 09/2019; showing a very abnormal distal ureter with extrinsic compression. Status: Chronic (6) Chronic anemia: -had EGD done on 12/05/19 showing reflux disease, mild diffuse gastritis, normal duodenum -acutely worsening anemia; part of which dilutional -baseline Hg seems to be 9-10; continue to monitor H/H Status: Acute (7) Anxiety: -Ativan PRN Status: Chronic Additional A&P Information -Anxiety, depression -chronic constipation but now has fecal incontinence -Chronic smoker; on nicotine replacement therapy -currently NPO with ice chips -DVT ppx with SCDs, no AC with underlying anemia -Dispo: home with hospice; has services through [facility] -Code status: DNR/DNI -guarded prognosis which patient and family understand Attestations Medical Necessity Statement*: Patient requires hospitalization for continued pain control, IVF hydration pending further evaluation for rectovaginal fistula with underlying locally invasive recurrent cervical cancer. Time Spent in Patient Care: Greater than 35 minutes (>than 50% of time spent in counselling and/or direct pt care on unit) . Coding Level of Care Code Acute Proof Passer for Chg Fwd Diagnoses Rectovaginal fistula N82.3 Leukocytosis D72.829 Leukocytosis type: unspecified Acute urinary retention R33.8 Cervical cancer C53.9 Malignant neoplasm of cervix location: unspecified location Extrinsic ureteral obstruction N13.5 Chronic anemia D64.9 Anxiety F41.9
[2019-12-18] MEDS: LORazepam 2 mg/mL INJ 1 mL 1 MG IVP ×3 (10:50→22:26)
--- NOTE | 2019-12-18 11:07 | PC.NURSE ---
Patient very anxious and tearful. Dr. Ramos seen patient. Family at bedside. Spoke to her hospice nurse and she is here for a visit with her and her family. Ativan mg given IV.
--- NOTE | 2019-12-18 11:17 | PC.CHAP ---
Pastoral Care Encounter/Spiritual Assessment Type of Contact [] Declined certified endoscopy technician visit [] Patient/Family/Request visit [] Outpatient visit [] Follow-up visit [] Physician referral [] Code/Alert [x] Routine visit [] Staff referral [x] Actively dying [] Patient sleeping [] Family support [] [] Out of room [] Palliative care [] [] Receiving care in room [] Pre-surgical visit [] Trauma [] Long length of stay [] ICU visit [] Other: Relational/Emotional Strength [x] Patient feels connected with others/family/visitors/staff [] Distress [] Loneliness/isolation [] Abandonment Spirituality of Patient [x] Person of Maryam [] Attends Confucianist of their Maryam [x] Believes in Prayer [] Reads Bible or Caodaism materials [] There are Spiritual issues to be addressed Stripe Marker Interventions [x] Prayer [x] Active listening [x] Non-anxious presence [x] Spiritual/emotional support [] Crisis/trauma care [x] Spiritual counseling [] Bereavement support [] Provided bereavement packet [] Provided Bible/devotional materials [] Provided toy/stuffed animal, coloring book to patient or family member [] Provided Communion [] Anointing/Boissevain [] Salvation [x] Completed spiritual assessment [] Other: Impact on Illness or Injury [] Angry [] Fearful [] Anxious [] Often cries [] Exhaustion [] Unable to work [] Unable to attend advent [] Unable to walk/stand [] Unable to read [] Unable to drive [] Unable to eat/drink [] Unable to sleep [] Unable to be with family [] Patient intubated [x] Other: Summary Patient was in the accompany of her two sisters. Patient reported that she is not expecting to survive her aliment. Counseling and prayer provided to patient and her family. Time spent with patient 15 minutes
[2019-12-18] MEDS: nicotine 21 mg Patch 1 PATCH TRANSDERMA (11:40)
[2019-12-18] MEDS: morphine 4 mg/mL SDV 1 mL IVP (12:26)
[2019-12-19] VITALS (9 sets, daily range): BP systolic 120–122; BP diastolic 76–78; PULSE 92–104; RESP 14–20; TEMP 36.7; O2SAT 93–98
[2019-12-19] MEDS: HYDROmorphone 1 mg/mL INJ 1 mL IVP ×3 (01:33→15:23)
[2019-12-19] MEDS: LORazepam 2 mg/mL INJ 1 mL 1 MG IVP ×3 (03:20→11:28)
[2019-12-19] MEDS: morphine ER (12 HR) 30 mg tablet PO (03:24)
--- NOTE | 2019-12-19 06:43 | PC.NURSE ---
5mg of Morphine oral given to day shift LISA Gongora as patient was asleep after requesting it.
[2019-12-19] MEDS: nicotine 21 mg Patch 1 PATCH TRANSDERMA (09:03)
--- NOTE | 2019-12-19 12:13 | PM.PN ---
Subjective Subjective: Interval history: Seemed to respond better to sublingual morphine; in total received 5 mg of the morphine, 2 mg of IV ativan, 2 mg of IV dilaudid overnight. Hemodynamically stable, afebrile. Very emotionally fragile. Has had multiple family members in and out of the room throughout her hospital stay, seems to be in better spirits today and did try to get some sleep earlier this morning. Describes the night as rough. She is fairly insistent on going home today so we will coordinate this with [facility] nurse. Medications: Reviewed: Yes Medication Review Details: Active Medications Generic Name Dose Route Start Last Admin Trade Name Freq PRN Reason Stop Dose Admin Acetaminophen 650 mg 12/17/19 23:22 Tylenol PO Q4H PRN MILD PAIN OR INCR EASE TEMP Hydromorphone HCl 1 mg 12/18/19 14:13 12/19/19 10:05 Dilaudid Inj IVP 1 mg Q2H PRN Administration Breakthrough pain Lorazepam 1 mg 12/18/19 14:13 12/19/19 11:28 Ativan IVP 1 mg Q2H PRN Administration ANXIETY Morphine Sulfate 30 mg 12/18/19 04:00 12/19/19 03:24 Ms Contin PO 30 mg 0400,1600 GISELLA Administration Morphine Sulfate 5 mg 12/18/19 14:11 12/19/19 08:57 Morphine Oral Li q Ud PO 5 mg Q4H PRN Administration SEVERE PAIN Nicotine 1 patch 12/18/19 10:35 12/19/19 09:03 Nicoderm 21 Mg P atch TRANSDERMA 1 patch DAILY GISELLA Administration Ondansetron HCl 4 mg 12/17/19 23:22 12/18/19 07:42 Zofran IVP 4 mg Q6H PRN Administration NAUSEA AND VOMITI NG Sulfa (Sulfonamide Antibiotics) Allergy (Unknown, Verified 11/26/19 16:32) Unknown Vitals/I&O/Wt Last Vital Signs Temp 98.1 F 12/18/19 07:35 Pulse 92 12/19/19 04:00 Resp 18 12/19/19 10:05 BP 122/76 12/19/19 04:00 Pulse Ox 93 12/19/19 10:05 Weight last 48 hrs Weight 55.792 kg Physical Exam Const: COMMON NORMALS: no acute distress, patient oriented x3 and alert GENERAL APPEARANCE: cooperative and anxious ORIENTATION/CONSCIOUSNESS: Yes awake HENMT: COMMON NORMALS: normocephalic, atraumatic, hearing grossly normal bilaterally and moist oral mucous membranes HEAD & SCALP: normocephalic and atraumatic TEETH & GINGIVA: Yes edentulous Eye: COMMON NORMALS: Equal, round and reactive pupils present, EOMs intact bilaterally and conjunctivae normal CONJUNCTIVA: Yes conjunctivae normal PUPIL: Yes Equal, round and reactive pupils present Neck/C-Spine: COMMON NORMALS: full ROM GENERAL: Yes normal visual inspection and Yes trachea midline Chest: CHEST: Yes Vascular access present (port-A-cath in place on L) Resp: COMMON NORMALS: normal respiratory effort, No retractions, No use of accessory muscles and clear to auscultation bilaterally EFFORT & INSPECTION: Yes able to speak in complete sentences, Yes symmetric chest movement and No tachypneic AUSCULTATION: clear to auscultation bilaterally OTHER: -on RA Cardio: COMMON NORMALS: regular rate, regular rhythm, S1 normal heart sound present, S2 normal heart sound present and No murmurs present (Cardio) RATE: regular rate RHYTHM: regular rhythm HEART SOUNDS: S1 normal heart sound present and S2 normal heart sound present GI: COMMON NORMALS: Normal to inspection, nondistended, normoactive bowel sounds present and Soft to palpation PALPATION: Yes Soft to palpation, Yes Tenderness to palpation present (GI), No Guarding due to palpation present (GI) and No Rigid due to palpation : OTHER: -wearing adult diaper due to incontinence Extremity: COMMON NORMALS: normal to inspection, full ROM, no clubbing, cyanosis or edema and no pedal edema Neuro: COMMON NORMALS: patient oriented x3, moves all extremities, no focal motor deficits and no sensory deficits noted SENSORIUM/ORIENTATION: Yes alert Psych: COMMON NORMALS: mental status grossly normal, Normal thought process present, cooperative and speech normal SPEECH: Yes normal speech MOOD & AFFECT: Yes Labile affect present (emotionally fragile) THOUGHT PROCESS: Normal thought process present Skin: COMMON NORMALS: no rashes or lesions noted, no jaundice, no petechiae and no mottling GENERAL SKIN EXAM: no rashes or lesions noted HAIR: total alopecia Data : 12/18/19 05:06 12/18/19 05:06 Micro: Microbiology 12/17/19 18:57 Blood Culture - Preliminary Blood NEGATIVE TO DATE 12/17/19 18:57 Blood Culture - Preliminary Blood NEGATIVE TO DATE A&P Assessment and plan (1) Rectovaginal fistula: -noted communication between the bladder, vagina and rectum on imaging. Patient reports episodes of fecal incontinence from vaginal area and urinary incontinence from rectum -Had recent colonoscopy (12/04) with no noted evidence of invasion of the anal wall, no evidence of tumor present in the rectum or interfering with the anal sphincter. However, noted mass in anus occupying the anterior part of the anorectal segment -she does NOT want surgical intervention -pain control, antiemetics as needed -off IVF hydration; has had reasonable oral intake Status: Acute (2) Leukocytosis: -noted leukocytosis with neutrophilic predominance -off Zosyn, IVF -unclear etiology but at risk of developing sepsis given leukocytosis, underlying immunocompromise, incontinence Status: Acute Qualifiers: Leukocytosis type: unspecified Qualified Code(s): D72.829 - Elevated white blood cell count, unspecified (3) Acute urinary retention: -has been incontinent Status: Acute (4) Cervical cancer: -Has known history of recurrent cervical cancer with evidence of R cervical mass abutting the bladder -now off chemotherapy treatment, previously on carboplatin/Doxil/Avastin with Neulasta -Follows up locally with Dr. Chapa and at [facility] -Prior PET scan done on 10/03/2019 patient has no evidence of distant metastatic disease; does have evidence of right cervical mass abutting the bladder Status: Chronic Qualifiers: Malignant neoplasm of cervix location: unspecified location Qualified Code(s): C53.9 - Malignant neoplasm of cervix uteri, unspecified (5) Extrinsic ureteral obstruction: -As noted above; secondary to locally involved metastatic cervical cancer. -had cystoscopy when she had R ureteral stent placed on 07/22/19 which was exchanged at [facility] in 09/2019; showing a very abnormal distal ureter with extrinsic compression. Status: Chronic (6) Chronic anemia: -had EGD done on 12/05/19 showing reflux disease, mild diffuse gastritis, normal duodenum -acutely worsening anemia; part of which dilutional -baseline Hg seems to be 9-10 Status: Acute (7) Anxiety: -Ativan PRN Status: Chronic Additional A&P Information -Anxiety, depression -chronic constipation but now has fecal incontinence -Chronic smoker; on nicotine replacement therapy -liberal diet -DVT ppx with SCDs, no AC with underlying anemia -Dispo: home with hospice; has services through [facility]. Plan is to adequately control pain with oral regimen that can be continued by hospice at home -Code status: DNR/DNI -guarded prognosis which patient and family understand Attestations Medical Necessity Statement*: Patient desires return home today Time Spent in Patient Care: 16 - 35 minutes (>than 50% of time spent in counselling and/or direct pt care on unit). Coding Level of Care Code Acute Bobbin Loose End Finder for Chg Fwd Exam Comprehensive Diagnoses Rectovaginal fistula N82.3 Leukocytosis D72.829 Leukocytosis type: unspecified Acute urinary retention R33.8 Cervical cancer C53.9 Malignant neoplasm of cervix location: unspecified location Extrinsic ureteral obstruction N13.5 Chronic anemia D64.9 Anxiety F41.9
[2019-12-19] MEDS: fentaNYL 25 mcg Patch 1 PATCH TRANSDERMA (16:10)
--- NOTE | 2019-12-19 16:31 | P.DS_ITS ---
Discharge Providers Date of Admission: 12/17/19 21:57 Date of Discharge: December 19, 2019 Attending Provider at Admission: Deondre Laird MD Attending Provider at Discharge: Rachel Garcia MD Primary Care Provider: Dr. Vazquez Diagnoses at Discharge Discharge Diagnosis (1) Rectovaginal fistula: Status: Acute Problem details: -noted communication between the bladder, vagina and rectum on imaging. Patient reports episodes of fecal incontinence from vaginal area and urinary incontinence from rectum -Had recent colonoscopy (12/04) with no noted evidence of invasion of the anal wall, no evidence of tumor present in the rectum or interfering with the anal sphincter. However, noted mass in anus occupying the anterior part of the anorectal segment -she does NOT want surgical intervention -pain control, antiemetics as needed -off IVF hydration; has had reasonable oral intake (2) Leukocytosis: Status: Acute Problem details: -noted leukocytosis with neutrophilic predominance -off Zosyn, IVF -unclear etiology but at risk of developing sepsis given leukocytosis, underlying immunocompromise, incontinence Qualifiers: Leukocytosis type: unspecified Qualified Code(s): D72.829 - Elevated white blood cell count, unspecified (3) Acute urinary retention: Status: Acute Problem details: -has been incontinent (4) Cervical cancer: Status: Chronic Problem details: -Has known history of recurrent cervical cancer with evidence of R cervical mass abutting the bladder -now off chemotherapy treatment, previously on carboplatin/Doxil/Avastin with Ne ulasta -Follows up locally with Dr. Chapa and at [facility] -Prior PET scan done on 10/03/2019 patient has no evidence of distant metastatic disease; does have evidence of right cervical mass abutting the bladder Qualifiers: Malignant neoplasm of cervix location: unspecified location Qualified Code(s): C53.9 - Malignant neoplasm of cervix uteri, unspecified (5) Extrinsic ureteral obstruction: Status: Chronic Problem details: -As noted above; secondary to locally involved metastatic cervical cancer. -had cystoscopy when she had R ureteral stent placed on 07/22/19 which was exchanged at [facility] in 09/2019; showing a very abnormal distal ureter with extrinsic compression. (6) Chronic anemia: Status: Acute Problem details: -had EGD done on 12/05/19 showing reflux disease, mild diffuse gastritis, normal duodenum -acutely worsening anemia; part of which dilutional -baseline Hg seems to be 9-10 (7) Anxiety: Status: Chronic Problem details: -Ativan PRN Other Information Additional DC diagnoses/information: -Depression -chronic constipation but now has fecal incontinence -Chronic smoker; on nicotine replacement therapy Reason for Visit Reason for Visit: Reason For Visit: Worsening abdominal pain Hospital Course Hospital Course: Patient was admitted to the medical surgical floor and started on empiric IV antibiotics and IV fluid hydration. Imaging was consistent with rectovaginal fistula and surgery was consulted. However after discussion with patient she expressed her desire to be kept comfortable and does not want surgical intervention so consult canceled and Dr. De Leon informed. Patient is quite emotionally fragile and affect is labile. Pain control has been a challenge particularly in light of her emotional state. She has had multiple family members at bedside throughout her hospital stay with questionable support provided. Goal for hospital stay was to adequately control pain with a regimen that patient can continue on transition back home with co ntinued hospice services provided by [facility]. I have had several conversations with patient's care nurse Thao Barrientos including my concern for adequate pain control with patient's baseline anxiety which seems to increase particularly when multiple family members are present. She does not seem to have good support system outside of her daughter July who has a young family of her own and already appears to be overwhelmed. I have had several discussions with the patient and family about expectations moving forward particularly in terms of adequate pain control. From previous experience with the patient I anticipate that she is at high risk for readmission primarily for pain control moving forward as I am uncertain about support offered at home at this time and she may need more escalated pain control in the coming days which may not be adequately provided in the home setting. She does have a Port-A-Cath in place which was accessed during her hospitalization for medication administration and some IV fluid hydration. She has been able to tolerate oral intake, particularly hydration much better than expected so IV fluid hydration was discontinued. IV antibiotics were also discontinued in light of focus on pain control and symptom management. I have discussed an analgesic and anxiolytic regimen with nurse Osuna in anticipation of discharge home this afternoon per vi ent's preference which she will discuss further with Dr. Vazquez who can prescribe what he thinks is appropriate. All in all patient is facing very unfortunate circumstances. Discharge Summary: -Patient to follow up with Dr. Vazquez Physical Exam Const: COMMON NORMALS: no acute distress, patient oriented x3 and alert GENERAL APPEARANCE: cooperative and anxious ORIENTATION/CONSCIOUSNESS: Yes awake HENMT: COMMON NORMALS: normocephalic, atraumatic, hearing grossly normal bilaterally and moist oral mucous membranes HEAD & SCALP: normocephalic and atraumatic TEETH & GINGIVA: Yes edentulous Eye: COMMON NORMALS: Equal, round and reactive pupils present, EOMs intact bilaterally and conjunctivae normal CONJUNCTIVA: Yes conjunctivae normal PUPIL: Yes Equal, round and reactive pupils present Neck/C-Spine: COMMON NORMALS: full ROM GENERAL: Yes normal visual inspection and Yes trachea midline Chest: CHEST: Yes Vascular access present (port-A-cath in place on L) Resp: COMMON NORMALS: normal respiratory effort, No retractions, No use of accessory muscles and clear to auscultation bilaterally EFFORT & INSPECTION: Yes able to speak in complete sentences, Yes symmetric chest movement and No tachypneic AUSCULTATION: clear to auscultation bilaterally OTHER: -on RA Cardio: COMMON NORMALS: regular rate, regular rhythm, S1 normal heart sound present, S2 normal heart sound present and No murmurs present (Cardio) RATE: regular rate RHYTHM: regular rhythm HEART SOUNDS: S1 normal heart sound present and S2 normal heart sound present GI: COMMON NORMALS: Normal to inspection, nondistended, normoactive bowel sounds present and Soft to palpation PALPATION: Yes Soft to palpation, Yes Tenderness to palpation present (GI), No Guarding due to palpation present (GI) and No Rigid due to palpation : OTHER: -wearing adult diaper due to incontinence Extremity: COMMON NORMALS: normal to inspection, full ROM, no clubbing, cyanosis or edema and no pedal edema Neuro: COMMON NORMALS: patient oriented x3, moves all extremities, no focal motor deficits and no sensory deficits noted SENSORIUM/ORIENTATION: Yes alert Psych: COMMON NORMALS: mental status grossly normal, Normal thought process present, cooperative and speech normal SPEECH: Yes normal speech MOOD & AFFECT: Yes Labile affect present (emotionally fragile) THOUGHT PROCESS: Normal thought process present Skin: COMMON NORMALS: no rashes or lesions noted, no jaundice, no petechiae and no mottling GENERAL SKIN EXAM: no rashes or lesions noted HAIR: total alopecia Discharge Data Data Completed and Pending: Completed Studies During Hospitalization Category Date Time Status CT abdomen pelvis w con* [id number] Urge nt Cat Scan 12/17/19 20:09 Completed Pending at discharge Category Date Time Status Blood Culture Sta t Lab 12/17/19 18:57 Results Vitals: Last Vital Signs Temp 98.1 F 12/18/19 07:35 Pulse 92 12/19/19 04:00 Resp 20 H 12/19/19 15:23 BP 122/76 12/19/19 04:00 Pulse Ox 94 12/19/19 15:23 Discharge Plan Discharge Patient Disposition: Hospice - Home Condition: Stable Prescriptions: Continued tamsulosin [Flomax] 0.4 mg Capsule 0.4 mg PO BEDTIME RF: 0 polyethylene glycol 3350 [Miralax] 17 gram Powder In Packet 17 g PO DAILY PRN (Reason: Constipation) RF: 0 oxybutynin chloride 5 mg Tablet 5 mg PO TID RF: 0 loratadine [Claritin] 10 mg Tablet 10 mg PO DAILY RF: 0 lorazepam 1 mg tablet 1 mg PO Q4H PRN (Reason: Anxiety) RF: 0 pantoprazole [Protonix] 40 mg tablet,delayed release (DR/EC) 40 mg PO DAILY 30 Days Qty: 30 RF: 2 ondansetron HCl [Zofran] 8 mg tablet 8 mg PO Q6H PRN (Reason: Nausea) Qty: 15 RF: 0 venlafaxine 37.5 mg capsule,extended release 24hr 37.5 mg PO QAM RF: 0 morphine 30 mg tablet extended release See Rx Instructions .ROUTE .COMPLEX RF: 0 Senna-S 8.6-50 mg Tablet 2 tab PO BEDTIME RF: 0 prochlorperazine maleate 10 mg tablet 10 mg PO Q4H PRN (Reason: Nausea) RF: 0 Gas-X Extra Strength 125 mg tablet,chewable 125 mg PO TID RF: 0 melatonin 5 mg Tablet,Chewable 5 mg PO BEDTIME RF: 0 Lubricant Eye 1 drp ophthalmic (eye) DAILY RF: 0 Discontinued acetaminophen [Tylenol Extra Strength] 500 mg Tablet 1,000 mg PO PRN PRN (Reason: Pain) RF: 0 ibuprofen 600 mg Tablet 600 mg PO TID PRN (Reason: Pain) RF: 0 dexamethasone 4 mg Tablet 4 mg PO DAILY RF: 0 Acidophilus Tablet,Chewable 1 tab PO QAM RF: 0 morphine 15 mg tablet 15 mg PO Q4H PRN (Reason: Pain) RF: 0 Discharge Orders: Discharge Order (Routine); Ordered 12/19/19 Ordered By: Rachel Garcia Referrals: Ismael Vazquez [Other] (Post hospital discharge follow up) [facility] [Outside] Discharge Diet: Advance as tolerated Discharge Activity: Increase activity as tolerated Discharge Attestations Time Spent in Discharge Care*: greater than 30 min Specific Discharge Activities: Specific discharge activities: educating patient, educating and/or supporting family/caregiver, discussing with pcp/other providers, discussing with pillowcase sewer/social workers/dc planners, documenting/other paperwork and evaluating patient/reviewing data Status at Discharge: Cognitive status at discharge: cognitively intact , Behavioral status at discharge: cooperative , Functional status at discharge: other assisted ambulation Overall status at discharge: patient has a new baseline Quality Metrics Clinical Quality Measures During this hospital stay, did patient experience: None Coding Level of Care Code Acute Safety Investigator/Cause Analyst for Chg Fwd Diagnoses Rectovaginal fistula N82.3 Leukocytosis D72.829 Leukocytosis type: unspecified Acute urinary retention R33.8 Cervical cancer C53.9 Malignant neoplasm of cervix location: unspecified location Extrinsic ureteral obstruction N13.5 Chronic anemia D64.9 Anxiety F41.9
== END 2019-12-19 18:33 | disposition hospice, home (50) | DRG 394 ==
LOC: ER 19:08 → MEDSURG 22:03
PROVIDERS: Admitting Provider Internal Medicine; Emergency Provider Physician Assistant; Visit Provider Family Medicine
DX: N82.3 Fistula of vagina to large intestine (principal); R64 Cachexia; Z68.1 Body mass index [BMI] 19.9 or less, adult; N39.0 Urinary tract infection, site not specified; C53.9 Malignant neoplasm of cervix uteri, unspecified; Z92.3 Personal history of irradiation; Z96.0 Presence of urogenital implants; F41.0 Panic disorder [episodic paroxysmal anxiety]; F41.9 Anxiety disorder, unspecified; F32.9 Major depressive disorder, single episode, unspecified; K21.9 Gastro-esophageal reflux disease without esophagitis; F10.21 Alcohol dependence, in remission; E86.0 Dehydration; D64.9 Anemia, unspecified; Z66 Do not resuscitate; L65.9 Nonscarring hair loss, unspecified; R32 Unspecified urinary incontinence; Z92.21 Personal history of antineoplastic chemotherapy; R15.9 Full incontinence of feces; F17.210 Nicotine dependence, cigarettes, uncomplicated
CPT/HCPCS: 12345; 36415; 74177; 80048; 80053; 83690; 85025; 85610; 86850; 86900; 87040; 96375; 99282; J1170; J1200; J1642; J2060; J2270; J2405; J2543; J7030; Q9967

== ENCOUNTER 2019-12-17 18:06 | Emergency (ER) | payer OTHER, MEDICAID, SELFPAY | END 2019-12-17 23:04 | disposition admitted as inpatient to this hospital (09) | LOC: ER 01-29 07:29 | PROVIDERS: Emergency Provider Physician Assistant; PCP Family Medicine | DX: R10.9 Unspecified abdominal pain (principal); Z85.41 Personal history of malignant neoplasm of cervix uteri | CPT/HCPCS: 36415; 74177; 80053; 83690; 85025; 87040; 96375; 99282; J1170; J2270; J2405; J2543; J7030; Q9967 ==